=== PATIENT | male | born 1975 | race American Indian/Alaskan Native ===

== ENCOUNTER 2020-08-16 09:00 | Outpatient (RCR) | payer OTHER, SELFPAY ==
--- NOTE | 2020-07-25 10:17 | MHC.PT.OE ---
[facility] [place] Office [place] Office [place] Office [address] Jus Cordero [address] [phone] F: [phone] F: [phone] F: [phone] F: [phone] Physical Therapy Evaluation Current Condition Diagnosis: LOW BACK PAIN WITH LEFT LE RADICULOPATHY Onset Date: 10/21/2019 Date of Surgery: Chief Complaint/ Current Level of Function: PATIENT IS A 44 Y/O MALE WITH C/O OF LBP. PATIENT REPORTS RADIATING PAIN TO LEFT AND RIGHT LEG. 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 PATIENT DOES REPORT HAVING DRY NEEDLING WTH SOME REDUCTION OF PAIN. PATIENT REPORTS WORKING IN A [employer] THAT REQUIRES FREQUENT WALKING. PATIENT REPORTS DEREASED TOLERANCE TO STANDING AND SEATED POSTURES, WELL GAIT MODIFICATION AT END OF DAY. C/O OF MM SPASMS AND TIGHTNESS TO LOWER BACK. CURRENLTY NOT TAKEN MEDICATION TO ADDRESS MUSCLE TIGHTNESS AND OR PAIN. TAKING ASPIRIN FOR HEART 81 MG. PATIENT ALSO REPORTS RIGHT HIP PAIN Prior Level of Function/Occupation: PATIENT REPORTS DIFFICULTY WITH SLEEPING. PATIENT REPORTS RIGHT HIP PAIN WITH SITTING. PATIENT REPORTS PAIN WITH FLEXION AND LIMITATION WITH LIGHT LIFTING. Diagnostic Imaging: MRI DEGENRATIVE CHANGES TO LUMBAR SPINE Patient Goals and Expectations: 1. REDUCTION IN LOWER BACK PAIN Past Medical History: TYPE II DIABETES, HYPERLIPEDEMIA Medications: INSULIN, OTC ASPIRIN, Precautions/ Contraindications: Outcome Measure: Pain Pain Score: 8 Pain Scale Used: Numeric (0 - 10) Pain Location: LOWER LUMBAR AND BILATERAL SACRUM Pain Radiation Location: RADIATES TO RIGHT HIP, WITH DECREASED SENSATION TO LEFT LE AT L3-4 Pain Frequency: Constant Pain Description: CONTANT THROBBING Aggravating Factors: BEDNING AT WAIST, WALKING, LIFTING <5 LBS Alleviating Factors: ICY HOT PATCH, PATIENT DID REPORT USE OF VOLTARIN CREAM ALSO HELPED Objective Findings Posture: Rounded Shoulders Decreased Lordosis Skin & Soft Tissue/ Palpation: MODERATE MUSCLE TIGHTNESS AND GUARDING TO ERECTOR SPINAE GROUP Gait/ Functional Mobility: GUARDED WITH DECREASED RECIRICOL UE SWING, SHORTENED STRIDE LENGTH GUARDED WITH FLEXION BASED THROUGH STAND TO SIT AND SIT TO STAND TRANSFERS, SUPINE TO SIT REQUIRED MODERATE USE OF UE AROM (PROM) Strength Lumbar Spine Flexion: 25 Extension: 50 Lateral Flexion: 25 Rotation: 50 Comments: GUARDED DUE TO PAIN. RADIATING SYMPTOMS WITH FLEXION. HYPOMBILE: P/A GLIDE AND GAPPING A TRANSVERSE PROCESSES Transverse abdominus: FAIR- Extensors: POOR Other: GUARDING AND PAIN THROUGH ISOMETRIC CONTRACTION Hip Flexion: Extension: Abduction: Adduction: ER: IR: Comment: Flexion: LEFT 4/5 RIGHT 3+/5 Extension: 3-/5 BILATERAL Abduction: RIGHT: 3/5 LEFT: 3-/5 Adduction: 4-/5 BILATERAL ER: RIGHT 4-/5 LEFT 3+/5 IR: RIGHT 4/5 LEFT 4-/5 Other: RIGHT HIP AROM WITHIN 75%, WITH LIMITATION INTO IR AND ABDUCTION AT 50% DUE TO MUSCLE TIGHTNESS AND PAIN AT JOINT. Knee Flexion: Extension: Comments: Patella Mobility: Flexion: 5/5 BILATERAL Extension: RIGHT 4+/5 LEFT5/5 Other: Ankle Dorsiflexion: Plantarflexion: Inversion: Eversion: Comments: Dorsiflexion: Plantarflexion: Inversion: Eversion: Comments: Lu Assessment: MILD CENTRALIZATION. GIVEN HEP Sacroiliac Assessment: MILD RIGHT ROTATION Muscle Length: MODERATE TIGHTNESS. HAMSTRING AND HIP FLEXORS LIMIITED Special Tests: POSITIVE QUADRANT TEST BILATERAL, REPETITIVE FLEXION TEST RIGHT RADIATING PAIN, SLUMP TEST BILATERAL Vitals: BP: HR: O2SAT: RR: Other: Balance: Neurological Screen: Biceps DTR: Brachioradialis DTR: Triceps DTR: Patella DTR: 1+ Achilles DTR: Other: Dermatomes: DECREASED SOFT TOUCH LEFT LE L3-5 Sensation: Myotomes: Patient Education Primary Embedded Systems Designer Required No Who was Educated Patient Readiness for Learning Accepting Current Knowledge Understands information with skills for self-management Education Needs ADL's Disease Information Equipment Use Exercise Pain Safety Teaching Method Verbal Demonstration Handouts How did Patient Demonstrate Learning Patient demonstrates Patient verbalizes Barriers to Learning Assessment Assessment: PATIENT IS A 44 Y/O MALE WITH C/O OF CHRINIC LBP (6 YEARS) WITH RADICULOPATHY TO RIGHT LE. PATIENT ALSO REPORT PARASTHESIA TO LEFT LATERAL THIGH. 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 PATIENT DOES PRESENT WITH HYPOMOBILITY OF SPINE EFFECTING TRANSFERS AND NEUTRAL POSTURE SECONDARY TO MUSCLE TIGHTNESS, OA CHANGES AND POOR CORE CONTROL. PATIENT ALSO PRESENT WITH DIFFICULTY WITH TRANSFERS AND LIFTING DUE TO DECREASE LUMBAR STABILITY, MM SPASMS AND RADIATING PAIN. PATIENT WARRANTS A LUMBAR STABILIZATION PROGRAM WITH LU PROGRESSION BASED ON REDUCTION OF SYMPTOMS AT INITIAL EVALUATION. PROGRESSION OF CORE STRENGTHENING AND FLEXIBILITY IS WARRANTED TO ENHANCE LUMBAR BIOMECHANICS. PROGRESS TOLERATED. PATIENT IS A GOOD CANDIDATE FOR SKILLED PT INTEVRNETION TO ADDRESS GOALS AND IMPROVE FUNCTION. Rehabilitation Potential: Excellent Plan of Care Frequency and Duration Short Term Goals 1. PT WILL BE INDEPENDENT WITH HEP 2. PATIENT WILL PRESENT WITH UPRIGHT AND MIDLINE POSTURE TO REDCUE STRESS TO LB. 3. DECREASE PAIN TO 3/10 AT WORST 4. PATIENT WILL PRESENT WITH REDUCTION OF TTP BY 50% Ehs Specialist Goals 1. INCREASE MM GRADE TO CORE AND HIP GIRDLE BY 1 GRADE TO ASSIST WITH ADLS 2. REDUCE PAIN TO 2/10 AT WORST 3. PATIENT WILL PRESENT WITH NORMAL AND SAFE BIOMECHANICAL STRATEGIES WITH TRANSFERS 4. PATIENT WILL REPORT ABILITY TO WORK AND PARTICIPATE WITH ADL'S NOT LIMITED DUE TO PAIN 5. INCREASE CORE 5/5 6. INCREASE LUMBAR AROM TO WFL 7. PATIENT WILL BE ABLE TO WORK 8 HOURS WALKING AND STANING WITHOUT LIMITATION DUE TO PAIN 8. CENTRALIZATION OF SYMPTOMS BY 50% Treatment Plan Therapeutic Exercise Dynamic Therapeutic Activities Neuromuscular Re-ed Manual Therapies Joint Mobilization Taping Gait Home Exercise Program Patient Education Electrical Stimulation Iontophoresis Ultrasound Mechanical Traction Hot or Cold Pack Other LUMBAR STABILIZATION PROGRAM Reviewed/ Agreed with Student Documentation: Therapist: Please sign and return to therapist. Thank you for your referral.
== END 2020-12-01 08:32 | disposition other institution (70) ==
LOC: HO.PTWFD 09:00
PROVIDERS: PCP Family Medicine; Visit Provider Family Medicine
DX: M54.5 Low back pain (principal)
CPT/HCPCS: 97014; 97110; 97140; 97162

== ENCOUNTER → 2020-08-24 09:35 | Outpatient (BNVA) | payer OTHER, SELFPAY | PROVIDERS: PCP Family Medicine; Visit Provider Physician Assistant | DX: K76.0 Fatty (change of) liver, not elsewhere classified (principal); E11.9 Type 2 diabetes mellitus without complications; Z87.891 Personal history of nicotine dependence; Z79.899 Other long term (current) drug therapy | CPT/HCPCS: 99212 ==

== ENCOUNTER 2020-09-30 10:56 | Outpatient (REF) | payer OTHER, SELFPAY | END 2020-09-30 10:57 | disposition home or self-care (01) | LOC: HO.WFDLDS 10:56 | PROVIDERS: PCP Family Medicine; Visit Provider Internal Medicine | DX: Z20.828 Contact with and (suspected) exposure to other viral communicable diseases (principal) | CPT/HCPCS: C9803; U0003 ==

== ENCOUNTER → 2020-11-02 10:11 | Outpatient (BNVA) | payer OTHER, SELFPAY | PROVIDERS: PCP Family Medicine; Visit Provider Internal Medicine | DX: E11.65 Type 2 diabetes mellitus with hyperglycemia (principal); E78.5 Hyperlipidemia, unspecified; I10 Essential (primary) hypertension; E55.9 Vitamin D deficiency, unspecified; Z79.4 Long term (current) use of insulin | CPT/HCPCS: 82947; 99202 ==

== ENCOUNTER 2020-11-02 11:49 | Outpatient (REF) | payer OTHER, SELFPAY ==
[2020-11-02 14:10] LABS: Alanine Aminotransferase 21 U/L (0-40); Albumin Level 4.7 g/dL (3.5-5.0); Alkaline Phosphatase 62 U/L (39-117); Anion Gap 15 (12-20); Aspartate Amino Transferase 19 U/L (5-37); Bilirubin Total 0.6 mg/dL (0.0-1.0); Blood Urea Nitrogen 15 mg/dL (9-16); Carbon Dioxide 28 mmol/L (22-29); Chloride 98 mmol/L (96-108); Cholesterol 182 mg/dL; Estimated Glomerular Filt Rate > 60; Glucose Random 244 mg/dL (60-115); HDL Cholesterol 33 mg/dL; LDL Cholesterol Calculated 95 mg/dl; Potassium 4.3 mmol/l (3.3-5.1); Sodium 137 mmol/L (135-145); Total Protein 8.1 g/dL (6.5-8.0); Triglycerides 272 mg/dL
[2020-11-02 14:31] LABS: Vitamin D 25-OH Total 26.1 ng/mL (>30)
[2020-11-02 14:59] LABS: Creatinine Urine 213.93 mg/dL; Microalbum/Creatinine Ratio Ur 9.8 ug/mg cr
[2020-11-04 14:06] LABS: LDL Cholesterol Direct 98 mg/dL (<100)
[2020-11-05 13:37] LABS: Glutamic acid decarboxylase Ab <5 IU/mL (<5)
[2020-11-08 00:43] LABS: Islet Cell Antibody Screen NEGATIVE (NEGATIVE)
[2020-11-09 16:42] LABS: Insulinoma associated 2 aatb <5.4 U/mL (<5.4)
== END 2020-11-02 11:50 | disposition home or self-care (01) ==
LOC: HO.10HDL 11:49
PROVIDERS: Visit Provider Internal Medicine
DX: E11.9 Type 2 diabetes mellitus without complications (principal); E55.9 Vitamin D deficiency, unspecified
CPT/HCPCS: 36415; 80053; 80061; 82043; 82306; 83721; 86255; 86341

== ENCOUNTER 2020-11-09 10:21 | Outpatient (REF) | payer OTHER, SELFPAY | END 2020-11-09 10:22 | disposition home or self-care (01) | LOC: HO.WFDLDS 10:21 | PROVIDERS: Visit Provider Family Medicine | DX: Z13.89 Encounter for screening for other disorder (principal) ==

== ENCOUNTER 2020-11-17 12:48 | Outpatient (REF) | payer OTHER, SELFPAY | END 2020-11-17 12:49 | disposition home or self-care (01) | LOC: HO.LAB 12:48 | PROVIDERS: Visit Provider Hospitalist | DX: Z13.89 Encounter for screening for other disorder (principal) ==

== ENCOUNTER 2020-12-07 12:22 | Outpatient (REF) | payer OTHER, SELFPAY | END 2020-12-07 12:23 | disposition home or self-care (01) | LOC: HO.WFDLDS 12:22 | PROVIDERS: Visit Provider Family Medicine | DX: Z20.822 Contact with and (suspected) exposure to COVID-19 (principal); I48.0 Paroxysmal atrial fibrillation; E11.9 Type 2 diabetes mellitus without complications; I10 Essential (primary) hypertension | CPT/HCPCS: 36415; 93005; 99202; U0003; U0005 ==

== ENCOUNTER → 2020-12-14 09:44 | Outpatient (REF) | payer OTHER, SELFPAY ==
--- NOTE | 2020-12-14 09:47 | CA_ITS ---
Transthoracic Echocardiogram Patient (Last, First, Middle): Luke Flower, Gender: Male Date of : 1975 Age: 44 Procedure Date: 12/14/2020 Procedure Type: Transthoracic Echocardiogram Location: OP Height: 180. cm Weight: 102. kg BSA: 2.21 m2 Heart Rate: bpm BP: 140 / 80 mmHg Plug Paster: CRISTIANE Referring MD: Marty Dominguez MD Ventilator Specialist: Arnaud Quevedo MD Symptoms: I48.0 - Paroxysmal atrial fibrillation Study Quality: Fair ECG Rhythm: Sinus Conclusions: - Essentially normal study with grade 1 diastolic dysfunction Findings Left Ventricle Normal left ventricular size, thickness, and systolic function. The visually estimated ejection fraction is between 55-60%. Spectral Doppler is indicative of an impaired relaxation filling pattern. E/E prime ratio is <8, consistent with normal filling pressures. Evidence suggests grade I (mild) diastolic dysfunction. Right Ventricle Normal right ventricular cavity size and systolic function. Atria Both atria are normal in size. There is no evidence of interatrial shunt. Aortic Valve The aortic valve structure and function is likely normal. There is no aortic valve stenosis. There is no aortic valve regurgitation. Mitral Valve Normal mitral valve structure and function. There is trace mitral valve regurgitation. There is no mitral valve stenosis. Pulmonic Valve The pulmonic valve was not well visualized. Tricuspid Valve Likely normal tricuspid valve structure and function. There is trace tricuspid valve regurgitation. The right ventricular systolic pressure is normal. The right ventricular systolic pressure is 29 mmHg. Normal right atrial pressure. There is no evidence of pulmonary hypertension. Great Vessels All visible segments of the aorta are normal in size. The pulmonary artery was not well visualized. Venous The inferior vena cava is normal in size and collapses greater than 50% with inspiration. Pericardium/Pleural There is no evidence of pericardial effusion. Prior Study Comparison No prior study available for comparison. Measurements 2D Linear Measurements IVSd: 0.85 0.6-0.9/0.6-1.0 cm LVIDd: 4.67 3.9-5.3/4.2-5.9 cm LVIDd Index: 2.11 2.4-3.2/2.2-3.1 cm/m2 LVIDs: 2.64 2.0-3.6 cm LVPWd: 0.90 0.7-1.1 cm Ao Root: 3.30 2.1-3.5 cm LA Diam: 2.30 2.7-3.8/3.0-4.0 cm LAIDs Index: 1.04 1.5-2.3 cm/m2 LV Mass: 169.14 67-162/88-224 g LV Mass Index: 76.54 43-95/49-115 g/m2 LVOT Diam: 2.30 3.0+(-)1.3 cm 2D Systolic Function EF 4C: 56.30 >55% EF 2C: 60.30 >55% EF BiP: 57.70 >55% Mitral Valve MV Pk E: 0.86 MV PK A: 0.90 MV Decel Time: 183.00 E/A: 1.00 E'Lateral: 8.27 E'Medial: 5.99 E/E' Med: 14.40 E/E' Lat: 10.40 PHT: 54.00 MVA PHT: 4.07 Decel [place]: 4.72 Aortic Valve AoV Pk [place]: 1.05 AoV Pk Grad: 4.00 LVOT LVOT Pk [place]: 0.77 LVOT Mn [place]: 0.50 LVOT VTI: 0.15 LVOT Pk Grad: 2.00 LVOT Mn Grad: 1.00 LVOT Diam: 2.30 LVOT Area: 4.15 Diastolic Function MV Pk E: 0.86 MV Pk A: 0.90 E/A: 1.00 E'Medial: 5.99 E/E' Med: 14.40 E' Laterial: 8.27 E/E' Lat: 10.40 Tricuspid Valve TR Pk [place]: 2.54 TR Pk Grad: 26.00 RA Press: 3.00 RVSP: 29.00 Great Vessels Aorta Ao Root-2D: 3.30 2.0-3.7 cm Ao Asc: 2.90 2.1-3.4 cm Updated in Other Vendor System with Status of Final Arnaud Quevedo MD electronically signed on 12/14/2020 4:22:06 PM with status of Final
== END ==
LOC: HO.CARD 09:44
PROVIDERS: Visit Provider Internal Medicine
DX: I48.0 Paroxysmal atrial fibrillation (principal)
CPT/HCPCS: 93306

== ENCOUNTER 2020-12-30 08:06 | Outpatient (RCR) | payer OTHER, SELFPAY ==
--- NOTE | ~2020-12-30 | XR_ITS ---
EXAMINATION: XR ABDOMEN WITH DECUBITUS VIEWS CLINICAL INDICATION: Abdominal pain. COMPARISON: None TECHNIQUE: KUB. FINDINGS: The bowel gas pattern is nonspecific. There is no radiopaque calculi or organomegaly. No gross. There is moderate spondylosis at L2-L3 disc level. XR/XR abdomen w decubitus IMPRESSION: Unremarkable KUB.
== END 2021-01-30 08:18 | disposition other institution (70) ==
LOC: HO.PTWFD 08:06
PROVIDERS: Visit Provider Family Medicine
DX: S16.1XXA Strain of muscle, fascia and tendon at neck level, initial encounter (principal); S39.012A Strain of muscle, fascia and tendon of lower back, initial encounter; S06.0X9A Concussion with loss of consciousness of unspecified duration, initial encounter
CPT/HCPCS: 74021; 97162; 97535

== ENCOUNTER 2020-12-30 09:57 | Outpatient (REF) | payer OTHER, SELFPAY ==
[2020-12-30 14:22] LABS: Alanine Aminotransferase 21 U/L (0-40); Albumin Level 4.5 g/dL (3.5-5.0); Alkaline Phosphatase 70 U/L (39-117); Anion Gap 15 (12-20); Aspartate Amino Transferase 21 U/L (5-37); Bilirubin Total 0.5 mg/dL (0.0-1.0); Blood Urea Nitrogen 11 mg/dL (9-16); Calcium 9.5 mg/dL (8.4-10.2); Carbon Dioxide 28 mmol/L (22-29); Chloride 97 mmol/L (96-108); Estimated Glomerular Filt Rate > 60; Glucose Random 237 mg/dL (60-115); Potassium 4.4 mmol/L (3.3-5.1); Sodium 136 mmol/L (135-145); Total Protein 7.8 g/dL (6.5-8.0)
== END 2020-12-30 09:58 | disposition home or self-care (01) ==
LOC: HO.WFDLDS 09:57
PROVIDERS: Visit Provider Family Medicine
DX: R10.9 Unspecified abdominal pain (principal)
CPT/HCPCS: 36415; 80053

== ENCOUNTER → 2021-01-04 15:35 | Outpatient (BNVA) | payer OTHER, SELFPAY | PROVIDERS: PCP Family Medicine; Visit Provider Internal Medicine | DX: E11.65 Type 2 diabetes mellitus with hyperglycemia (principal); E78.5 Hyperlipidemia, unspecified; E55.9 Vitamin D deficiency, unspecified; I10 Essential (primary) hypertension; Z79.4 Long term (current) use of insulin; Z71.3 Dietary counseling and surveillance | CPT/HCPCS: 82947; 99212 ==

== ENCOUNTER → 2021-02-16 07:56 | Outpatient (REF) | payer OTHER, SELFPAY ==
--- NOTE | 2021-02-16 08:00 | CA_ITS ---
Acquisition Time: 2021-02-16 08:06:33 Total Exercise Time: 00:06:58 Test Indications: Dyspnea Medications: ATORVASTATIN BISOPROLOL CYCLOBENZAPRINE METFORMIN INSULIN LISINOPRIL FENOFIBRATE Protocol: ADE Max HR: 142 BPM 81% of Pred: 174 BPM Max BP: 138/080 mmHG Max Work Load: 8.4 METS Exercise stress test using Ade protocol, total of 6 min 58 sec. METS 8.40 and TAPHR up to 81 %. Pt denies any anginal sx. EKG without any arrhythmias, no ischemic changes seen during exercise or in recovery. Normotensive response to exercise. Test reviewed with Dr. Quevedo. Referred By: Marty Dominguez Overread By: Nona Andrade NP
--- NOTE | 2021-02-16 08:00 | ECG_ITS ---
Hook-up date: 2021-02-16 09:25:00 Duration: 26:35:00 Test Indications: PAF Medications: [id number] QRS complexes * Ventricular ectopics which represent % of total QRS comp. 1 Supraventricular ectopics which represent <1 % of total QRS comp. * Paced QRS complexs which represent % of total QRS comp. VENTRICULAR ECTOPY * Isolated * Bigeminal Cycles * Couplets * Runs * Beats in Runs * Beats LONGEST at * BPM at :: -- * Beats FASTEST at * BPM at :: -- SUPRAVENTRICULAR ECTOPY 1 Isolated 0 Couplets 0 Runs 0 Beats in Runs * Beats LONGEST at * BPM at :: -- * Beats FASTEST at * BPM at :: -- HEART RATES 68 MIN at 06:07:04 2021-02-17 85 AVG 111 MAX at 09:40:01 2021-02-17 LONGEST RR 0.5360 secs at 09:40:01 2021-02-17 S-T LEVELS Channel 1 - 128 mm at 09:25:00 2021-02-16 - 128 mm at 09:25:00 2021-02-16 Channel 2 - 128 mm at 09:25:00 2021-02-16 - 128 mm at 09:25:00 2021-02-16 Channel 3 - 128 mm at 02:84:41 -- - 128 mm at 02:84:41 Basic rhythm Normal sinus rhythm No long pause or profound bradycardia No sustained Atrial fibrillation No diary submitted Referred By: Marty Dominguez Overread By: DANIELA GANNON MD
== END ==
LOC: HO.CARD 07:56
PROVIDERS: Visit Provider Internal Medicine
DX: I48.0 Paroxysmal atrial fibrillation (principal); R07.2 Precordial pain; R06.00 Dyspnea, unspecified
CPT/HCPCS: 93016; 93017; 93018; 93225; 93226

== ENCOUNTER → 2021-03-02 09:51 | Outpatient (BNVA) | payer OTHER, SELFPAY | PROVIDERS: PCP Family Medicine; Visit Provider Internal Medicine ==

== ENCOUNTER → 2021-03-09 15:24 | Outpatient (BNVA) | payer OTHER, SELFPAY | PROVIDERS: PCP Family Medicine; Visit Provider Internal Medicine | DX: I48.0 Paroxysmal atrial fibrillation (principal); E11.9 Type 2 diabetes mellitus without complications; I10 Essential (primary) hypertension | CPT/HCPCS: 99212 ==

== ENCOUNTER 2021-05-12 13:56 | Outpatient (REF) | payer OTHER, SELFPAY ==
[2021-05-12 15:48] LABS: Influenza A PCR NEGATIVE (Negative); Influenza B PCR NEGATIVE (Negative); Resp Syncy Virus RNA Qual PCR NEGATIVE (Negative); SARS COV2 PCR INHOUSE NEGATIVE (Negative)
== END 2021-05-12 13:57 | disposition home or self-care (01) ==
LOC: HO.LNP 13:56
PROVIDERS: Visit Provider Nurse Practitioner Family
DX: Z20.822 Contact with and (suspected) exposure to COVID-19 (principal)
CPT/HCPCS: 0241U; U0003; U0005

== ENCOUNTER 2021-05-15 12:24 | Outpatient (REF) | payer OTHER, SELFPAY | END 2021-05-15 12:25 | disposition home or self-care (01) | LOC: HO.LAB 12:24 | PROVIDERS: PCP Family Medicine; Visit Provider Nurse Practitioner Family | DX: Z20.822 Contact with and (suspected) exposure to COVID-19 (principal) | CPT/HCPCS: U0003; U0005 ==

== ENCOUNTER 2021-05-24 14:34 | Outpatient (REF) | payer OTHER, SELFPAY ==
[2021-05-24 15:46] LABS: Estimated Average Glucose 269 mg/dL
[2021-05-25 13:27] LABS: LDL Cholesterol Direct 61 mg/dL (<100)
== END 2021-05-24 14:35 | disposition home or self-care (01) ==
LOC: HO.LAB 14:34
PROVIDERS: Internal Medicine; PCP Family Medicine; Visit Provider Nurse Practitioner Family
DX: E11.65 Type 2 diabetes mellitus with hyperglycemia (principal); Z79.4 Long term (current) use of insulin; Z20.822 Contact with and (suspected) exposure to COVID-19
CPT/HCPCS: 36415; 83036; 83721; U0003; U0005

== ENCOUNTER → 2021-06-01 13:57 | Outpatient (BNVA) | payer OTHER, SELFPAY | PROVIDERS: PCP Family Medicine; Visit Provider Internal Medicine | DX: E11.65 Type 2 diabetes mellitus with hyperglycemia (principal); E78.5 Hyperlipidemia, unspecified; E55.9 Vitamin D deficiency, unspecified; I10 Essential (primary) hypertension; Z79.4 Long term (current) use of insulin | CPT/HCPCS: 82947; 99212 ==

== ENCOUNTER 2021-07-17 08:46 | Outpatient (REF) | payer OTHER, SELFPAY ==
[2021-07-17 11:10] LABS: SARS COV2 IgG Positive (Negative)
[2021-07-17 11:15] LABS: Alanine Aminotransferase 40 U/L (0-40); Albumin Level 4.7 g/dL (3.5-5.0); Alkaline Phosphatase 72 U/L (39-117); Anion Gap 14 (12-20); Aspartate Amino Transferase 31 U/L (5-37); Bilirubin Total 0.5 mg/dL (0.0-1.0); Blood Urea Nitrogen 13 mg/dL (9-16); Calcium 10.3 mg/dL (8.4-10.2); Carbon Dioxide 27 mmol/L (22-29); Chloride 98 mmol/L (96-108); Cholesterol 183 mg/dL; Estimated Glomerular Filt Rate > 60; Glucose Random 305 mg/dL (60-115); HDL Cholesterol 27 mg/dL; Potassium 4.8 mmol/L (3.3-5.1); Sodium 134 mmol/L (135-145); Total Protein 8.1 g/dL (6.5-8.0); Triglycerides 737 mg/dL
[2021-07-17 11:18] LABS: Vitamin D 25-OH Total 22.8 ng/mL (>30)
[2021-07-17 12:36] LABS: Creatinine Urine 66.79 mg/dL; Microalbumin Urine < 5.0 mg/L
[2021-07-19 00:01] LABS: LDL Cholesterol Direct 60 mg/dL (<100)
== END 2021-07-17 08:47 | disposition home or self-care (01) ==
LOC: HO.LAB 08:46
PROVIDERS: PCP Family Medicine; Visit Provider Internal Medicine
DX: Z20.828 Contact with and (suspected) exposure to other viral communicable diseases (principal); E11.65 Type 2 diabetes mellitus with hyperglycemia; E55.9 Vitamin D deficiency, unspecified; Z79.4 Long term (current) use of insulin
CPT/HCPCS: 36415; 80053; 80061; 82043; 82306; 83721; 86769

== ENCOUNTER → 2021-09-06 08:25 | Outpatient (BNVA) | payer OTHER, SELFPAY | PROVIDERS: PCP Family Medicine; Visit Provider Internal Medicine | DX: E11.65 Type 2 diabetes mellitus with hyperglycemia (principal); E78.5 Hyperlipidemia, unspecified; E55.9 Vitamin D deficiency, unspecified; I10 Essential (primary) hypertension; Z79.4 Long term (current) use of insulin | CPT/HCPCS: 82947; 83036; 99212 ==

== ENCOUNTER 2021-10-25 12:35 | Outpatient (REF) | payer OTHER, SELFPAY ==
--- NOTE | ~2021-10-25 | XR_ITS ---
EXAMINATION: XR ABDOMEN KUB CLINICAL INDICATION: Right upper quadrant pain COMPARISON: None TECHNIQUE: AP view of the abdomen. FINDINGS: There is no radiopaque calculi seen in the upper quadrant or the midabdomen. The bowel gas pattern is nonspecific. No free air or free fluid seen. There is moderate spondylosis L2-L3 disc level. XR/XR KUB IMPRESSION: Unremarkable KUB.
[2021-10-25 14:40] LABS: Alanine Aminotransferase 30 U/L (0-40); Albumin Level 4.7 g/dL (3.5-5.0); Alkaline Phosphatase 60 U/L (39-117); Anion Gap 12 (12-20); Aspartate Amino Transferase 22 U/L (5-37); Bilirubin Total 0.6 mg/dL (0.0-1.0); Blood Urea Nitrogen 10 mg/dL (9-16); Calcium 10.3 mg/dL (8.4-10.2); Carbon Dioxide 29 mmol/L (22-29); Chloride 100 mmol/L (96-108); Cholesterol 145 mg/dL; Estimated Glomerular Filt Rate > 60; Glucose Fasting 182 mg/dL (60-99); HDL Cholesterol 28 mg/dL; LDL Cholesterol Calculated 57 mg/dl; Potassium 4.4 mmol/L (3.3-5.1); Sodium 137 mmol/L (135-145); Triglycerides 302 mg/dL; Uric Acid 4.4 mg/dL (3.4-7.0)
[2021-10-25 15:01] LABS: Vitamin D 25-OH Total 27.3 ng/mL (>30)
== END 2021-10-25 12:36 | disposition home or self-care (01) ==
LOC: HO.LAB 12:35
PROVIDERS: Visit Provider Family Medicine
DX: Z00.00 Encounter for general adult medical examination without abnormal findings (principal); R10.11 Right upper quadrant pain; E55.9 Vitamin D deficiency, unspecified; R79.89 Other specified abnormal findings of blood chemistry; Z87.39 Personal history of other diseases of the musculoskeletal system and connective tissue
CPT/HCPCS: 36415; 74018; 80053; 80061; 82306; 84550

== ENCOUNTER 2021-11-01 09:02 | Outpatient (REF) | payer OTHER, SELFPAY ==
[2021-11-01 10:29] LABS: MANUAL DIFF FLAG NO
[2021-11-01 10:37] LABS: Basophils Percent Auto 0.5 % (0-2); Eosinophils Absolute Auto 0.2 X10*3/uL (0.0-0.4); Eosinophils Percent Auto 3.7 % (0-4); Hematocrit 41.3 % (42.0-52.0); Hemoglobin 13.9 g/dl (14.0-18.0); Imm Gran Abs Auto 0.03 X10*3/uL (0.00-0.03); Imm Gran Pct Auto 0.5 % (0.0-0.4); Lymphocytes Percent Auto 31.3 % (20-40); Mean Corpuscular HGB Conc 33.7 g/dl (31.0-36.0); Mean Corpuscular Hemoglobin 28.5 pg (27.0-33.0); Mean Corpuscular Volume 84.6 fL (80.0-98.0); Mean Platelet Volume 10.6 fL (9.4-12.4); Monocytes Absolute Auto 0.6 X10*3/uL (0.1-1.2); Monocytes Percent Auto 9.4 % (2-11); Neutrophils Absolute Auto 3.4 x10*3/uL (2.0-8.3); Neutrophils Percent Auto 54.6 % (45-73); Platelet Count 304 X10*3/uL (160-400); Red Blood Count 4.88 X10*6/uL (4.60-5.80); Red Cell Distribution Width 12.6 % (11.0-16.0); White Blood Count 6.3 X10*3/uL (4.8-10.8)
[2021-11-01 10:46] LABS: Appearance Urine CLEAR; Color Urine YELLOW; Glucose Urine UA NEG (NEG); Leukocyte Esterase Urine NEG (NEG); Nitrite Urine NEG (NEG); PH 6.5 (5.0-8.0); Specific Gravity - Urine 1.015 (1.005-1.025); Urine Blood NEG (NEG); Urine Ketones NEG (NEG); Urine Protein NEG (NEG-TRACE)
[2021-11-01 10:47] LABS: Alanine Aminotransferase 26 U/L (0-40); Albumin Level 4.1 g/dL (3.5-5.0); Alkaline Phosphatase 53 U/L (39-117); Anion Gap 12 (12-20); Aspartate Amino Transferase 21 U/L (5-37); Bilirubin Total 0.7 mg/dL (0.0-1.0); Blood Urea Nitrogen 11 mg/dL (9-16); Carbon Dioxide 29 mmol/L (22-29); Chloride 101 mmol/L (96-108); Estimated Glomerular Filt Rate > 60; Glucose Fasting 151 mg/dL (60-99); Potassium 4.5 mmol/L (3.3-5.1); Sodium 137 mmol/L (135-145); Total Protein 7.4 g/dL (6.5-8.0); Uric Acid 4.2 mg/dL (3.4-7.0)
[2021-11-01 10:54] LABS: Lactate Dehydrogenase 132 U/L (118-273)
== END 2021-11-01 09:03 | disposition home or self-care (01) ==
LOC: HO.WFDLDS 09:02
PROVIDERS: Visit Provider Family Medicine
DX: Z00.00 Encounter for general adult medical examination without abnormal findings (principal); R10.11 Right upper quadrant pain; M10.9 Gout, unspecified
CPT/HCPCS: 36415; 80053; 81003; 83615; 84550; 85025

== ENCOUNTER 2021-11-02 13:45 | Outpatient (REF) | payer OTHER, SELFPAY ==
--- NOTE | ~2021-11-02 | US_ITS ---
EXAMINATION: US ABDOMEN LIMITED CLINICAL INFORMATION: Right upper quadrant pain. COMPARISON: X-ray KUB 10/25/2021. X-ray abdomen 12/30/2020. Ultrasound abdomen complete 07/11/2020. TECHNIQUE: Real-time imaging of the right upper quadrant abdominal viscera. FINDINGS: PANCREAS: Normal. LIVER: The liver is normal in size. The liver contour is normal. There is diffuse increased liver echogenicity. No focal hepatic lesion. There is no intrahepatic biliary duct dilatation seen. GALLBLADDER: Normal. The gallbladder is physiologically distended without evidence of stones, sludge, polyps, wall thickening or pericholecystic fluid. COMMON BILE DUCT: Normal in caliber measuring 0.3 cm in diameter. RIGHT KIDNEY: Normal. No hydronephrosis. No renal calculi or focal parenchymal lesions. The kidney measures 11.8 cm in maximum dimension. FREE FLUID: None. US/US abdomen limited IMPRESSION: Diffuse mild hepatic steatosis without focal lesion seen. The rest of the visualized pancreas, gallbladder, right kidney, and the CBD is unremarkable.
[2021-11-02 16:22] LABS: MANUAL DIFF FLAG NO
[2021-11-02 16:25] LABS: Basophils Percent Auto 0.5 % (0-2); Eosinophils Absolute Auto 0.2 X10*3/uL (0.0-0.4); Eosinophils Percent Auto 4.1 % (0-4); Hemoglobin 13.7 g/dl (14.0-18.0); Imm Gran Abs Auto 0.02 X10*3/uL (0.00-0.03); Imm Gran Pct Auto 0.3 % (0.0-0.4); Lymphocytes Absolute Auto 2.3 X10*3/uL (1.2-4.9); Lymphocytes Percent Auto 39.7 % (20-40); Mean Corpuscular HGB Conc 33.4 g/dl (31.0-36.0); Mean Corpuscular Hemoglobin 28.2 pg (27.0-33.0); Mean Corpuscular Volume 84.5 fL (80.0-98.0); Mean Platelet Volume 10.8 fL (9.4-12.4); Monocytes Absolute Auto 0.5 X10*3/uL (0.1-1.2); Monocytes Percent Auto 8.4 % (2-11); Neutrophils Absolute Auto 2.8 x10*3/uL (2.0-8.3); Platelet Count 309 X10*3/uL (160-400); Red Blood Count 4.85 X10*6/uL (4.60-5.80); Red Cell Distribution Width 12.6 % (11.0-16.0); White Blood Count 5.9 X10*3/uL (4.8-10.8)
[2021-11-02 16:40] LABS: Appearance Urine CLEAR; Color Urine YELLOW; Glucose Urine UA NEG (NEG); Leukocyte Esterase Urine NEG (NEG); Nitrite Urine NEG (NEG); Specific Gravity - Urine 1.015 (1.005-1.025); Urine Blood NEG (NEG); Urine Ketones NEG (NEG); Urine Protein NEG (NEG-TRACE)
[2021-11-02 16:41] LABS: Estimated Average Glucose 252 mg/dL; Hemoglobin A1c % 10.4 %
[2021-11-02 16:51] LABS: Alanine Aminotransferase 23 U/L (0-40); Albumin Level 4.3 g/dL (3.5-5.0); Alkaline Phosphatase 55 U/L (39-117); Anion Gap 12 (12-20); Aspartate Amino Transferase 22 U/L (5-37); Bilirubin Total 0.6 mg/dL (0.0-1.0); Blood Urea Nitrogen 12 mg/dL (9-16); Carbon Dioxide 29 mmol/L (22-29); Chloride 101 mmol/L (96-108); Cholesterol 146 mg/dL; Estimated Glomerular Filt Rate > 60; Glucose Random 117 mg/dL (60-115); HDL Cholesterol 30 mg/dL; LDL Cholesterol Calculated 76 mg/dl; Lipase 34 U/L (8-78); Potassium 4.3 mmol/L (3.3-5.1); Sodium 138 mmol/L (135-145); Total Protein 7.7 g/dL (6.5-8.0); Triglycerides 200 mg/dL
[2021-11-03 17:57] LABS: LDL Cholesterol Direct 83 mg/dL (<100)
== END 2021-11-02 13:46 | disposition home or self-care (01) ==
LOC: HO.HMGCX 13:45
PROVIDERS: Absent Provider Internal Medicine; PCP Family Medicine; Visit Provider Family Medicine
DX: Z00.00 Encounter for general adult medical examination without abnormal findings (principal); R10.11 Right upper quadrant pain; E11.65 Type 2 diabetes mellitus with hyperglycemia; Z79.4 Long term (current) use of insulin
CPT/HCPCS: 36415; 76705; 80053; 80061; 81003; 83036; 83690; 83721; 85025

== ENCOUNTER → 2021-11-23 13:32 | Outpatient (BNVA) | payer OTHER, SELFPAY | PROVIDERS: PCP Family Medicine; Referring Provider Family Medicine; Visit Provider Internal Medicine | DX: I48.0 Paroxysmal atrial fibrillation (principal); E11.9 Type 2 diabetes mellitus without complications; I10 Essential (primary) hypertension | CPT/HCPCS: 93005; 99212 ==

== ENCOUNTER → 2021-12-05 15:03 | Outpatient (BNVA) | payer OTHER, SELFPAY | PROVIDERS: PCP Family Medicine; Visit Provider Orthopaedic Surgery | DX: M65.342 Trigger finger, left ring finger (principal); M65.331 Trigger finger, right middle finger; R20.0 Anesthesia of skin; R20.2 Paresthesia of skin | CPT/HCPCS: 99202 ==

== ENCOUNTER 2021-12-07 15:32 | Outpatient (REF) | payer OTHER, SELFPAY ==
--- NOTE | ~2021-12-07 | CT_ITS ---
EXAMINATION: CT ABDOMEN WITHOUT CONTRAST CLINICAL INFORMATION: Right upper quadrant abdominal pain COMPARISON: Ultrasound of November 02, 2021 TECHNIQUE: Contiguous axial thin section helical images of the abdomen were performed without contrast. The data set was reformatted in the coronal and sagittal planes and reviewed on an independent workstation. This CT examination was performed using dose optimization techniques as appropriate, variously including the following: *Automated exposure control *Adjustment of mA and/or kV according to patient size (this includes techniques or standardized protocols for targeted exams where dose is matched to indication/reason for exam; i.e. extremities or head) *Use of iterative reconstruction technique DLP: 393 mGy-cm FINDINGS: LUNG BASES: Lung bases appear unremarkable without acute parenchymal disease. No pleural or pericardial effusion. LIVER, GALLBLADDER, BILIARY TREE: Hepatomegaly is present with vertical span of approximately 22 cm. No focal mass or intrahepatic bile duct dilatation is identified. Gallbladder appears unremarkable without evidence of cholelithiasis or acute cholecystitis. There are a few calcifications seen in the region between the pancreas and duodenum but appear to lie somewhat distal to the expected location of the ampulla of Vater and I do not see a dilated common bile duct and I also do not definitely see a low-density halo around the calcifications to suggest that they lie within the common bile duct. PANCREAS: No suspicious mass or peripancreatic inflammatory change. No pancreatic duct dilatation. SPLEEN: Unremarkable ADRENAL GLANDS AND KIDNEYS: Unremarkable. BOWEL LOOPS: No dilated loops of large or small bowel are evident. No free air is identified. No ascites is seen. LYMPH NODES: There are some prominent but not pathologically enlarged periaortic lymph nodes. VASCULAR: Unremarkable. BONES: No suspicious destructive bony lesions identified. There is multilevel spurring within the spine. CT/CT abdomen wo con IMPRESSION: Hepatomegaly without intrahepatic bile duct dilatation. No evidence of cholelithiasis or acute cholecystitis. A few calcifications seen overlying the inferior aspect of the pancreatic head near the third portion of the duodenum without dilated common bile duct appreciated and most likely not lying within the common bile duct. No evidence of acute pancreatitis or pancreatic ductal dilatation. Fleischner guidelines were followed.
== END 2021-12-07 15:33 | disposition home or self-care (01) ==
LOC: HO.CT 15:32
PROVIDERS: PCP Family Medicine; Visit Provider Family Medicine
DX: R10.11 Right upper quadrant pain (principal)
CPT/HCPCS: 74150

== ENCOUNTER → 2021-12-22 08:28 | Outpatient (BNVA) | payer OTHER, SELFPAY | PROVIDERS: PCP Family Medicine; Visit Provider Nurse Practitioner Gerontology | DX: E11.65 Type 2 diabetes mellitus with hyperglycemia (principal); E78.5 Hyperlipidemia, unspecified; E55.9 Vitamin D deficiency, unspecified; I10 Essential (primary) hypertension; Z79.4 Long term (current) use of insulin | CPT/HCPCS: 82947; 99212 ==

== ENCOUNTER 2021-12-28 09:40 | Outpatient (REF) | payer OTHER, SELFPAY ==
[2021-12-28 12:09] LABS: Rheumatoid Factor < 15.0 IU/mL (<15.0)
[2021-12-28 12:37] LABS: Erythrocyte Sedimentation Rate 7 MM/HR (0-15)
[2021-12-28 12:43] LABS: Folate 13.1 ng/mL (> or = 4.0); Vitamin B12 321 pg/mL (200-900)
[2021-12-29 18:21] LABS: CRP High Sensitivity 6.5 mg/L
== END 2021-12-28 09:41 | disposition home or self-care (01) ==
LOC: HO.WFDLDS 09:40
PROVIDERS: Visit Provider Family Medicine
DX: E53.8 Deficiency of other specified B group vitamins (principal); M65.331 Trigger finger, right middle finger
CPT/HCPCS: 36415; 82607; 82746; 85652; 86141; 86431

== ENCOUNTER → 2021-12-29 08:25 | Outpatient (BNVA) | payer OTHER, SELFPAY | PROVIDERS: PCP Family Medicine; Visit Provider Registered Nurse Diabetes Educator ==

== ENCOUNTER 2022-01-24 09:47 | Outpatient (REF) | payer OTHER, SELFPAY ==
--- NOTE | 2022-01-24 09:30 | EMG_ITS ---
This is a 46-year-old man with several year history of bilateral hand numbness and pain, and some pain in left shoulder and scapular area as well. PHYSICAL EXAMINATION: He is alert and oriented with normal intellectual functions. Cranial nerves II through XII are normal. Muscle tone and strength are normal. No Tinel or Phalen sign. IMPRESSION: Carpal tunnel syndrome rule out cervical radiculopathy. Nerve conduction EMG study: Moderate to severe carpal tunnel syndrome bilaterally. Normal EMG of the left C5-T1 innervated muscles. MD HERNAN Johnson/DIVYA / [id number]
== END 2022-01-24 09:48 | disposition home or self-care (01) ==
LOC: HO.NEURO 09:47
PROVIDERS: PCP Family Medicine; Visit Provider Orthopaedic Surgery
DX: R20.0 Anesthesia of skin (principal); R20.2 Paresthesia of skin
CPT/HCPCS: 95885; 95913

== ENCOUNTER → 2022-02-02 08:34 | Outpatient (BNVA) | payer OTHER, SELFPAY | PROVIDERS: PCP Family Medicine; Visit Provider Nurse Practitioner Gerontology | DX: E11.65 Type 2 diabetes mellitus with hyperglycemia (principal); E78.5 Hyperlipidemia, unspecified; I10 Essential (primary) hypertension; E55.9 Vitamin D deficiency, unspecified; Z79.4 Long term (current) use of insulin; Z79.899 Other long term (current) drug therapy | CPT/HCPCS: 82947; 83036; 99212 ==

== ENCOUNTER → 2022-02-09 12:15 | Outpatient (BNVA) | payer OTHER, SELFPAY | PROVIDERS: PCP Family Medicine; Referring Provider Family Medicine; Visit Provider Internal Medicine Gastroenterology | DX: R10.11 Right upper quadrant pain (principal) | CPT/HCPCS: 99212 ==

== ENCOUNTER 2022-02-15 10:28 | Outpatient (REF) | payer OTHER, SELFPAY ==
[2022-02-15 14:17] LABS: Influenza A PCR NEGATIVE (Negative); Influenza B PCR NEGATIVE (Negative); Resp Syncy Virus RNA Qual PCR NEGATIVE (Negative); SARS COV2 PCR INHOUSE NEGATIVE (Negative)
== END 2022-02-15 10:29 | disposition home or self-care (01) ==
LOC: HO.LAB 10:28
PROVIDERS: Visit Provider Family Medicine
DX: J32.9 Chronic sinusitis, unspecified (principal); Z20.822 Contact with and (suspected) exposure to COVID-19
CPT/HCPCS: 0241U

== ENCOUNTER 2022-02-23 12:35 | Outpatient (REF) | payer OTHER, SELFPAY ==
--- NOTE | ~2022-02-23 | XR_ITS ---
EXAMINATION: XR CHEST CLINICAL INFORMATION: Cough COMPARISON: None TECHNIQUE: 2 views of the chest were obtained. FINDINGS: No significant abnormality is noted involving the heart, lungs, mediastinum, bony thorax or soft tissues. XR/XR chest 2V IMPRESSION: Unremarkable examination.
== END 2022-02-23 12:36 | disposition home or self-care (01) ==
LOC: HO.HMGCX 12:35
PROVIDERS: Visit Provider Family Medicine
DX: R05.9 Cough, unspecified (principal)
CPT/HCPCS: 71046

== ENCOUNTER → 2022-03-01 11:31 | Outpatient (BNVA) | payer OTHER, SELFPAY | PROVIDERS: PCP Family Medicine; Visit Provider Dietitian, Registered | DX: E11.65 Type 2 diabetes mellitus with hyperglycemia (principal); Z68.37 Body mass index [BMI] 37.0-37.9, adult | CPT/HCPCS: 97802 ==

== ENCOUNTER 2022-05-11 13:00 | Outpatient (RCR) | payer OTHER, SELFPAY ==
--- NOTE | 2022-05-04 13:57 | MHC.PT.EP ---
[facility] [place] Office [place] Office [place] Office [address] Cec[address] Cordero [address] [phone] F: [phone] F: [phone] F: [phone] F: [phone] Physical Therapy Plan of Care Date of Evaluation: Date of Surgery: Diagnosis: Radiculopathy Assessment: Patient is a 46 year old R handed male who presents with s/s consistent with radiculopathy. 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 Patient past medical history includes DM. Current impairments include pain, posture, ROM, strength, activity tolerance and functional mobility. Functional limitations include decreased ability to sleep, lift, reach, turn head, drive. Patient is motivated with good rehab potential. Skilled PT will address impairments and functional limitations in order to achieve goals. Frequency and Duration: The patient will be seen 2x/week for 5 weeks Short Term Goals: I with HEP - 2 weeks c-spine rotation 60 b/l - 3 weeks (-) impingement cluster - 3 weeks Jail Goals: SPADI 14/130 - 5 weeks NPDI 18% or less - 5 weeks Pain free PLOF - 5 weeks Treatment Plan: Modalities to reduce pain, spasms and effusion. Manual therapy to restore motion and function. Therapeutic exercise to improve strength and flexibility. Neuromuscular re-education for posture and balance. Therapeutic activities to return to functional activities of daily living. Electronically signed by: Dionicio Cortez, PT Please sign and return to therapist. Thank you for your referral.
--- NOTE | 2022-07-12 09:13 | MHC.PT.DC ---
[facility] [place] Office [place] Office [place] Office [address] Jus Cordero [address] [phone] F: [phone] F: [phone] F: [phone] F: [phone] Physical Therapy Discharge Report Diagnosis: Radiculopathy Date of Surgery: Date of Evaluation: 05/04/22 Date of Discharge: 06/12/22 Treatments to Date: 2 Cancellations to Date: No Shows to Date: Discharge Status: Patient Elected to Stop Discharge Summary: 05/11/22: progressed with stretching/ posture. issued HEP. assess response and progress as tolerated. Patient is a 46 year old R handed male who presents with s/s consistent with radiculopathy. 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 Patient past medical history includes DM. Current impairments include pain, posture, ROM, strength, activity tolerance and functional mobility. Functional limitations include decreased ability to sleep, lift, reach, turn head, drive. Patient is motivated with good rehab potential. Skilled PT will address impairments and functional limitations in order to achieve goals. Electronically signed by: Dionicio Cortez, PT Please sign and return to therapist. Thank you for your referral.
== END 2022-07-12 09:14 | disposition home or self-care (01) ==
LOC: HO.PTCHIC 13:00
PROVIDERS: PCP Family Medicine; Visit Provider Family Medicine
DX: M54.12 Radiculopathy, cervical region (principal)
CPT/HCPCS: 97110; 97140; 97162

== ENCOUNTER 2022-05-28 13:59 | Outpatient (REF) | payer OTHER, SELFPAY ==
[2022-05-28 14:35] LABS: Hematocrit 39.7 % (42.0-52.0); Hemoglobin 13.3 g/dl (14.0-18.0); Mean Corpuscular HGB Conc 33.5 g/dl (31.0-36.0); Mean Corpuscular Hemoglobin 27.9 pg (27.0-33.0); Mean Corpuscular Volume 83.4 fL (80.0-98.0); Mean Platelet Volume 12.5 fL (9.4-12.4); Platelet Count 221 X10*3/uL (160-400); Red Blood Count 4.76 X10*6/uL (4.60-5.80); Red Cell Distribution Width 13.4 % (11.0-16.0); White Blood Count 7.1 X10*3/uL (4.8-10.8)
[2022-05-28 15:01] LABS: Anion Gap 16 (12-20); Blood Urea Nitrogen 12 mg/dL (9-16); Calcium 9.9 mg/dL (8.4-10.2); Carbon Dioxide 26 mmol/L (22-29); Chloride 97 mmol/L (96-108); Estimated Glomerular Filt Rate > 60; Glucose Random 268 mg/dL (60-115); Potassium 4.7 mmol/L (3.3-5.1); Sodium 134 mmol/L (135-145)
[2022-05-28 15:02] LABS: B Type Natriuretic Peptide < 10 pg/mL (<100)
== END 2022-05-28 14:00 | disposition home or self-care (01) ==
LOC: HO.LAB 13:59
PROVIDERS: PCP Family Medicine; Visit Provider Nurse Practitioner Family
DX: M79.89 Other specified soft tissue disorders (principal)
CPT/HCPCS: 36415; 80048; 83880; 85027

== ENCOUNTER 2022-06-08 10:32 | Outpatient (REF) | payer OTHER, SELFPAY ==
[2022-06-08 11:35] LABS: MANUAL DIFF FLAG NO
[2022-06-08 11:41] LABS: Basophils Percent Auto 0.7 % (0-2); Eosinophils Absolute Auto 0.2 X10*3/uL (0.0-0.4); Eosinophils Percent Auto 3.6 % (0-4); Hematocrit 40.1 % (42.0-52.0); Hemoglobin 13.7 g/dl (14.0-18.0); Imm Gran Abs Auto 0.03 X10*3/uL (0.00-0.03); Imm Gran Pct Auto 0.5 % (0.0-0.4); Lymphocytes Absolute Auto 1.8 X10*3/uL (1.2-4.9); Lymphocytes Percent Auto 31.2 % (20-40); Mean Corpuscular HGB Conc 34.2 g/dl (31.0-36.0); Mean Corpuscular Hemoglobin 28.4 pg (27.0-33.0); Mean Corpuscular Volume 83.2 fL (80.0-98.0); Mean Platelet Volume 10.6 fL (9.4-12.4); Monocytes Absolute Auto 0.4 X10*3/uL (0.1-1.2); Monocytes Percent Auto 7.3 % (2-11); Neutrophils Absolute Auto 3.4 x10*3/uL (2.0-8.3); Neutrophils Percent Auto 56.7 % (45-73); Platelet Count 260 X10*3/uL (160-400); Red Blood Count 4.82 X10*6/uL (4.60-5.80); Red Cell Distribution Width 13.5 % (11.0-16.0); White Blood Count 5.9 X10*3/uL (4.8-10.8)
[2022-06-08 11:52] LABS: INTERNATIONAL NORM RATIO 0.9 (0.9-1.1); Prothrombin Time 10.7 SEC (10.0-13.1)
[2022-06-08 12:18] LABS: Alanine Aminotransferase 27 U/L (0-40); Albumin Level 4.3 g/dL (3.5-5.0); Alkaline Phosphatase 66 U/L (39-117); Anion Gap 15 (12-20); Aspartate Amino Transferase 23 U/L (5-37); Bilirubin Total 0.5 mg/dL (0.0-1.0); Blood Urea Nitrogen 10 mg/dL (9-16); C Reactive Protein 0.92 mg/dL (< or = 0.50); Calcium 9.8 mg/dL (8.4-10.2); Carbon Dioxide 27 mmol/L (22-29); Chloride 100 mmol/L (96-108); Estimated Glomerular Filt Rate > 60; Glucose Random 167 mg/dL (60-115); Potassium 4.2 mmol/L (3.3-5.1); Sodium 138 mmol/L (135-145); Total Protein 7.4 g/dL (6.5-8.0)
[2022-06-08 12:23] LABS: Erythrocyte Sedimentation Rate 8 MM/HR (0-15)
[2022-06-08 12:30] LABS: Ferritin 67 ng/mL (20-250); Vitamin D 25-OH Total 18.3 ng/mL (>30)
[2022-06-08 12:41] LABS: Folate 17.7 ng/mL (> or = 4.0); Vitamin B12 299 pg/mL (200-900)
[2022-06-11 14:17] LABS: IgA 195 mg/dL (47-310); IgG 1366 mg/dL (600-1640); IgM 38 mg/dL (50-300)
[2022-06-12 12:36] LABS: Vitamin B6 28.6 ng/mL (2.1-21.7)
[2022-06-13 17:16] LABS: Alpha-Tocopherol 13.1 mg/L (5.7-19.9); Beta-Gamma Tocopherol 1.6 mg/L (<=4.3)
[2022-06-14 10:47] LABS: Vitamin C 0.5 mg/dL (0.2-2.1)
[2022-06-14 13:17] LABS: Vitamin B5 (Pantothenic Acid) 239 ng/mL (<275)
[2022-06-15 10:46] LABS: Nicotinamide <20 ng/mL; Vit B3 - Nicotinic Acid <20 ng/mL
[2022-06-15 17:16] LABS: Histamine Plasma <1.5 ng/mL (< OR = 1.8)
== END 2022-06-08 10:33 | disposition home or self-care (01) ==
LOC: HO.LAB 10:32
PROVIDERS: PCP Family Medicine; Visit Provider Internal Medicine Gastroenterology
DX: K75.81 Nonalcoholic steatohepatitis (NASH) (principal); R20.0 Anesthesia of skin; E11.65 Type 2 diabetes mellitus with hyperglycemia; I10 Essential (primary) hypertension; G47.33 Obstructive sleep apnea (adult) (pediatric); M10.9 Gout, unspecified; Z79.4 Long term (current) use of insulin
CPT/HCPCS: 36415; 80053; 82180; 82306; 82607; 82728; 82746; 82784; 83088; 84207; 84446; 84591; 85025; 85610; 85652; 86140; 99212

== ENCOUNTER → 2022-06-11 12:20 | Outpatient (BNVA) | payer OTHER, SELFPAY | PROVIDERS: PCP Family Medicine; Referring Provider Family Medicine; Visit Provider Internal Medicine | DX: I48.0 Paroxysmal atrial fibrillation (principal); I10 Essential (primary) hypertension; E11.9 Type 2 diabetes mellitus without complications | CPT/HCPCS: 99212 ==

== ENCOUNTER → 2022-06-28 14:47 | Outpatient (BNVA) | payer OTHER, SELFPAY | PROVIDERS: PCP Family Medicine; Visit Provider Nurse Practitioner Family | DX: R53.83 Other fatigue (principal); R06.83 Snoring; R40.0 Somnolence; R06.89 Other abnormalities of breathing; E66.9 Obesity, unspecified | CPT/HCPCS: 99202 ==

== ENCOUNTER 2022-07-06 08:23 | Outpatient (REF) | payer OTHER, SELFPAY ==
--- NOTE | ~2022-07-06 | MR_ITS ---
EXAMINATION: MR ABDOMEN WITHOUT CONTRAST CLINICAL INFORMATION: Right upper quadrant pain COMPARISON: Previous CT of the abdomen and pelvis November 2021, abdominal ultrasound October 2021 and outside MR and MRCP December 2020 TECHNIQUE: MR abdomen is performed without gadolinium contrast. MRCP sequences were performed. FINDINGS: LUNG BASES: The visualized lung bases are unremarkable. LIVER, GALLBLADDER, AND BILIARY TREE: The liver is enlarged. There is signal loss in the liver suggestive of fatty infiltration. The liver is normal in contour. No focal liver lesion. Gallbladder is normal. No gallstones are seen. Intrahepatic and extrahepatic bile ducts are normal in caliber. The common bile duct measures 3 mm. No common bile duct stone is seen. The spleen is normal. The pancreas is normal. The main pancreatic duct is normal. The adrenal glands are normal. The kidneys are normal. Visualized bowel is normal. There is diastasis of the rectus muscles. There is question of an umbilical hernia containing fat. This is only partially visualized. Bone marrow signal is normal. MR/MR MRCP IMPRESSION: Enlarged fatty liver. Normal-appearing gallbladder. Normal MRCP.
== END 2022-07-06 08:24 | disposition home or self-care (01) ==
LOC: HO.MRI 08:23
PROVIDERS: Visit Provider Internal Medicine Gastroenterology
DX: R10.11 Right upper quadrant pain (principal)
CPT/HCPCS: 74181

== ENCOUNTER → 2022-08-07 08:00 | Outpatient (BNVA) | payer OTHER, SELFPAY | PROVIDERS: PCP Family Medicine; Visit Provider Internal Medicine Endocrinology, Diabetes & Metabolism | DX: E11.65 Type 2 diabetes mellitus with hyperglycemia (principal) | CPT/HCPCS: 82947; 83036 ==

== ENCOUNTER 2022-08-07 09:06 | Outpatient (REF) | payer OTHER, SELFPAY ==
[2022-08-07 12:01] LABS: Cholesterol 146 mg/dL; HDL Cholesterol 29 mg/dL; LDL Cholesterol Calculated 69 mg/dl; Triglycerides 241 mg/dL
[2022-08-07 12:11] LABS: Creatinine Urine 142.86 mg/dL; Microalbum/Creatinine Ratio Ur 6.9 ug/mg cr
== END 2022-08-07 09:07 | disposition home or self-care (01) ==
LOC: HO.10HDL 09:06
PROVIDERS: Visit Provider Internal Medicine Endocrinology, Diabetes & Metabolism
DX: E11.65 Type 2 diabetes mellitus with hyperglycemia (principal)
CPT/HCPCS: 36415; 80061; 82043

== ENCOUNTER 2022-10-16 16:39 | Outpatient (REF) | payer OTHER, SELFPAY ==
[2022-10-16 17:59] LABS: Anion Gap 13 (12-20); Blood Urea Nitrogen 13 mg/dL (9-16); Calcium 10.3 mg/dL (8.4-10.2); Carbon Dioxide 28 mmol/L (22-29); Chloride 98 mmol/L (96-108); Estimated Glomerular Filt Rate > 60; Glucose Random 272 mg/dL (60-115); Potassium 4.9 mmol/L (3.3-5.1); Sodium 134 mmol/L (135-145)
[2022-10-16 18:00] LABS: Uric Acid 5.8 mg/dL (3.4-7.0)
== END 2022-10-16 16:40 | disposition home or self-care (01) ==
LOC: HO.LAB 16:39
PROVIDERS: Internal Medicine Gastroenterology; PCP Family Medicine; Visit Provider Internal Medicine
DX: E11.65 Type 2 diabetes mellitus with hyperglycemia (principal); M10.9 Gout, unspecified
CPT/HCPCS: 36415; 80048; 84550

== ENCOUNTER → 2022-11-15 08:26 | Outpatient (BNVA) | payer OTHER, SELFPAY | PROVIDERS: PCP Family Medicine; Visit Provider Internal Medicine Endocrinology, Diabetes & Metabolism | DX: E11.65 Type 2 diabetes mellitus with hyperglycemia (principal) | CPT/HCPCS: 82947; 83036 ==

== ENCOUNTER → 2022-11-27 13:33 | Outpatient (BNVA) | payer OTHER, SELFPAY | PROVIDERS: PCP Family Medicine; Referring Provider Family Medicine; Visit Provider Internal Medicine | DX: Z13.89 Encounter for screening for other disorder (principal) ==

== ENCOUNTER 2022-12-03 12:57 | Outpatient (REF) | payer OTHER, SELFPAY ==
[2022-12-03 14:24] LABS: MANUAL DIFF FLAG NO
[2022-12-03 15:14] LABS: Basophils Percent Auto 0.5 % (0-2); Eosinophils Absolute Auto 0.2 X10*3/uL (0.0-0.4); Eosinophils Percent Auto 3.6 % (0-4); Hematocrit 40.6 % (42.0-52.0); Hemoglobin 14.1 g/dl (14.0-18.0); Imm Gran Abs Auto 0.04 X10*3/uL (0.00-0.03); Imm Gran Pct Auto 0.7 % (0.0-0.4); Lymphocytes Absolute Auto 1.8 X10*3/uL (1.2-4.9); Lymphocytes Percent Auto 30.2 % (20-40); Mean Corpuscular HGB Conc 34.7 g/dl (31.0-36.0); Mean Corpuscular Hemoglobin 28.7 pg (27.0-33.0); Mean Corpuscular Volume 82.5 fL (80.0-98.0); Mean Platelet Volume 11.5 fL (9.4-12.4); Monocytes Absolute Auto 0.5 X10*3/uL (0.1-1.2); Monocytes Percent Auto 7.9 % (2-11); Neutrophils Absolute Auto 3.5 x10*3/uL (2.0-8.3); Neutrophils Percent Auto 57.1 % (45-73); Platelet Count 311 X10*3/uL (160-400); Red Blood Count 4.92 X10*6/uL (4.60-5.80); Red Cell Distribution Width 13.2 % (11.0-16.0); White Blood Count 6.1 X10*3/uL (4.8-10.8)
[2022-12-03 15:19] LABS: INTERNATIONAL NORM RATIO 0.9 (0.9-1.1); Prothrombin Time 10.6 SEC (10.0-13.1)
[2022-12-03 16:32] LABS: Ferritin 84 ng/mL (20-250); Folate 16.1 ng/mL (> or = 4.0); Vitamin B12 413 pg/mL (200-900); Vitamin D 25-OH Total 17.7 ng/mL (>30)
[2022-12-03 18:40] LABS: Alanine Aminotransferase 31 U/L (0-40); Albumin Level 4.4 g/dL (3.5-5.0); Alkaline Phosphatase 80 U/L (39-117); Anion Gap 18 (12-20); Aspartate Amino Transferase 28 U/L (5-37); Bilirubin Total 0.4 mg/dL (0.0-1.0); Blood Urea Nitrogen 10 mg/dL (9-16); Calcium 9.7 mg/dL (8.4-10.2); Carbon Dioxide 22 mmol/L (22-29); Chloride 98 mmol/L (96-108); Estimated Glomerular Filt Rate > 60; Glucose Random 505 mg/dL (60-115); Potassium 4.7 mmol/L (3.3-5.1); Sodium 133 mmol/L (135-145); Total Protein 8.6 g/dL (6.5-8.0)
[2022-12-06 05:53] LABS: Zinc 66 mcg/dL (60-130)
[2022-12-06 14:39] LABS: Alpha-Tocopherol 19.5 mg/L (5.7-19.9); Beta-Gamma Tocopherol 4.5 mg/L (<=4.3)
[2022-12-06 17:29] LABS: Vitamin A 50 mcg/dL (38-98)
[2022-12-07 16:53] LABS: Vitamin B6 20.9 ng/mL (2.1-21.7)
[2022-12-07 17:58] LABS: Vitamin C 0.3 mg/dL (0.2-2.1)
[2022-12-08 13:58] LABS: Vitamin B5 (Pantothenic Acid) 176 ng/mL (<275)
[2022-12-08 17:39] LABS: Vitamin K1 >2500 pg/mL (130-1500)
[2022-12-09 20:09] LABS: Nicotinamide 30 ng/mL; Vit B3 - Nicotinic Acid <20 ng/mL
[2022-12-10 05:13] LABS: Vitamin B1 11 nmol/L (8-30)
== END 2022-12-03 12:58 | disposition home or self-care (01) ==
LOC: HO.LAB 12:57
PROVIDERS: PCP Family Medicine; Visit Provider Internal Medicine Gastroenterology
DX: R10.11 Right upper quadrant pain (principal); K75.81 Nonalcoholic steatohepatitis (NASH); D64.9 Anemia, unspecified
CPT/HCPCS: 36415; 80053; 82180; 82306; 82607; 82728; 82746; 84207; 84425; 84446; 84590; 84591; 84597; 84630; 85025; 85610

== ENCOUNTER → 2023-02-12 08:06 | Outpatient (BNVA) | payer OTHER, SELFPAY | PROVIDERS: PCP Family Medicine; Visit Provider Internal Medicine Endocrinology, Diabetes & Metabolism | DX: E11.65 Type 2 diabetes mellitus with hyperglycemia (principal) | CPT/HCPCS: 82947; 83036 ==

== ENCOUNTER 2023-06-14 10:16 | Outpatient (AMB) | payer OTHER, SELFPAY ==
--- NOTE | 2023-06-14 10:24 | A.OFFVIS_ITS ---
Intake Vital Signs 06/14/23 10:26 Height 5 ft 7 in Weight 253 lb 8.505 oz BMI 39.7 BP 172/81 H Blood Pressure Location Lt brachial Position Sitting Pulse 78 Intake Visit Reasons: 4 month fu Intake Note: Luke presents in the office as a 4 month follow up. CC: He states that there is a pain in his stomach - he was supposed to have testing done but was never called. Audio Engineer Required: No Allergies arsenic Allergy (Severe, Verified 06/14/23 10:24) Itching ibuprofen Adverse Reaction (Intermediate, Verified 06/14/23 10:24) GI upset HPI 4 month fu HPI Details RECAP: He does have hx of fatty liver he has been having episodes of RUQ pain, on and off, and has had tests incl MRI at [facility] which apparently was negative for gallstones He has had? x2-3 attacks and each lasting about 3 weeks or so it is colicky in nature when he has the pain, food can make it worse not had the pain for 2 months can have abdominal distention he takes PPi for GERD denies diarrhea or constipation BNP was neg 05/2022 CXR: 02/2022---nml US 10/2021- fatty liver, no gallstones (LFt were normal) CT 11/2021- ?few calcifications seen but beyond ampulla of vater --personally reviewed MRCP 2020--[facility] --negative MRCP - enlarged fatty liver , nml GB and pancreas INTERIM: can be sitting for 8 hrs a day on uncomfortable chair causes him upper abdominal discomfort and back pain he requests flagly for gas sx he eats beef mostly, discussed diet with him he neve rhad KIMO assessment, doses off frequently --saw sleep clinic but insurance issues? he has fatigue he needs Vit D< feels helps his joints EXAM: GENERAL: The patient is well developed and nontoxic. VITAL SIGNS:see workflow HEENT: Nonicteric sclerae, PERRLA, EOMI. Oropharynx clear. Moist mucous membranes. Conjunctivae appear well perfused. No thyroid mass. CHEST: Chest wall is nontender. HEART: Regular rate and rhythm without murmurs. LUNGS: Clear to auscultation bilaterally. ABDOMEN: Soft, positive bowel sounds, vague tenderness ruq and right lower chest wall, no organomegaly.no flank tenderness SKIN: No rash, no excessive bruising, petechiae, or purpura. NEUROLOGIC: Cranial nerves II-XII intact without motor/sensory deficit. no raised JVD or leg edema MS: redeuced rom, lateral rotation and flexion a/P: 1/ Episodes of RUQ pain, agree related to position and tight abdominal muscles, NAFLD< no salazar 2/ Bloating not tried ABX, keen to try now 3/ vit d defc 4/ probable KIMO PLAN: 1/ recontact sleep clinic, given number to call 2/ can take vit D 5000 u daily 3/ flagyl sent 4/ discussed chair wt lumbar support and stretching exercises which will help 5/ recheck LFT today 6/ reviewed healthy diet, cut down beef and more white meat-fish [facility] Medical History Essential hypertension HLD (hyperlipidemia) HTN (hypertension) NAFLD (nonalcoholic fatty liver disease) PAF (paroxysmal atrial fibrillation) T2DM (type 2 diabetes mellitus) Type 2 diabetes mellitus without complications Vitamin D deficiency Surgical History History of esophagogastroduodenoscopy (EGD) Family History Father Diabetes Hypertension CVD (cardiovascular disease) Mother Alzheimer's dementia Sister No problems noted. Son No problems noted. Daughter No problems noted. 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 Current occupational exposures/hazards: No Cognitive needs: No Hearing needs: No Vision needs: Yes (Glasses) Physical Exam Vital Signs: Last Vital Signs Pulse 78 06/14/23 10:26 BP 172/81 H 06/14/23 10:26 BMI result Body Mass Index 39.7 Assessment & Plan Assessment & Plan (1) RUQ pain: Code(s): R10.11 - Right upper quadrant pain (2) Mild anemia: Code(s): D64.9 - Anemia, unspecified (3) Abnormal LFTs: Code(s): R79.89 - Other specified abnormal findings of blood chemistry Orders: Orders Vitamin D 25-OH Total Today D64.9 - Anemia, unspecified, R10.11 - Right upper quadrant pain, R79.89 - Other specified abnormal findings of blood chemistry Complete Blood Count Auto Diff Today D64.9 - Anemia, unspecified, R10.11 - Right upper quadrant pain, R79.89 - Other specified abnormal findings of blood chemistry Comprehensive Met. Panel Today D64.9 - Anemia, unspecified, K75.81 - Nonalcoholic steatohepatitis (SALAZAR), R10.11 - Right upper quadrant pain, R79.89 - Other specified abnormal findings of blood chemistry Medications: Refilled metronidazole 500 mg PO TID 14 days 42 tabs 0RF Coding Level of Care Code Est Pt Level 4 (59004) Diagnoses RUQ pain R10.11 Mild anemia D64.9 Abnormal LFTs R79.89
[2023-06-14 10:26] VITALS: BP 172/81; PULSE 78; BMI 39.7
== END 2023-06-14 10:52 | disposition home or self-care (01) ==
PROVIDERS: PCP Family Medicine; Visit Provider Internal Medicine Gastroenterology
DX: R10.11 Right upper quadrant pain (principal); D64.9 Anemia, unspecified; R79.89 Other specified abnormal findings of blood chemistry
CPT/HCPCS: 99214

== ENCOUNTER 2023-06-14 10:16 | Outpatient (REF) | payer OTHER, SELFPAY ==
[2023-06-14 11:05] LABS: MANUAL DIFF FLAG NO
[2023-06-14 13:52] LABS: Basophils Percent Auto 0.5 % (0-2); Eosinophils Absolute Auto 0.2 X10*3/uL (0.0-0.4); Eosinophils Percent Auto 2.8 % (0-4); Hematocrit 41.2 % (42.0-52.0); Hemoglobin 13.8 g/dl (14.0-18.0); Imm Gran Abs Auto 0.05 X10*3/uL (0.00-0.03); Imm Gran Pct Auto 0.8 % (0.0-0.4); Lymphocytes Absolute Auto 2.2 X10*3/uL (1.2-4.9); Lymphocytes Percent Auto 35.3 % (20-40); Mean Corpuscular HGB Conc 33.5 g/dl (31.0-36.0); Mean Corpuscular Hemoglobin 28.3 pg (27.0-33.0); Mean Corpuscular Volume 84.6 fL (80.0-98.0); Mean Platelet Volume 11.7 fL (9.4-12.4); Monocytes Absolute Auto 0.5 X10*3/uL (0.1-1.2); Monocytes Percent Auto 8.1 % (2-11); Neutrophils Absolute Auto 3.3 x10*3/uL (2.0-8.3); Neutrophils Percent Auto 52.5 % (45-73); Platelet Count 284 X10*3/uL (160-400); Red Blood Count 4.87 X10*6/uL (4.60-5.80); Red Cell Distribution Width 13.2 % (11.0-16.0); White Blood Count 6.3 X10*3/uL (4.8-10.8)
[2023-06-14 14:45] LABS: Vitamin D 25-OH Total 37.9 ng/mL (>30)
[2023-06-14 15:02] LABS: Alanine Aminotransferase 40 U/L (0-40); Albumin Level 4.4 g/dL (3.5-5.0); Alkaline Phosphatase 73 U/L (39-117); Anion Gap 14 (12-20); Aspartate Amino Transferase 38 U/L (5-37); Bilirubin Total 0.4 mg/dL (0.0-1.0); Blood Urea Nitrogen 13 mg/dL (9-16); Calcium 10.4 mg/dL (8.4-10.2); Carbon Dioxide 26 mmol/L (22-29); Chloride 100 mmol/L (96-108); Estimated Glomerular Filt Rate 60; Potassium 4.1 mmol/L (3.3-5.1); Sodium 136 mmol/L (135-145); Total Protein 8.3 g/dL (6.5-8.0)
[2023-06-14 15:26] LABS: Glucose Random 356 mg/dL (60-115)
== END 2023-06-14 10:17 | disposition home or self-care (01) ==
LOC: HO.LAB 10:16
PROVIDERS: PCP Family Medicine; Visit Provider Internal Medicine Gastroenterology
DX: R10.11 Right upper quadrant pain (principal); K75.81 Nonalcoholic steatohepatitis (NASH); D64.9 Anemia, unspecified; R79.89 Other specified abnormal findings of blood chemistry
CPT/HCPCS: 36415; 80053; 82306; 85025

== ENCOUNTER 2023-06-17 10:02 | Outpatient (AMB) | payer OTHER, SELFPAY ==
[2023-06-17 10:09] VITALS: BP 132/80; BMI 39.4
--- NOTE | 2023-06-17 10:09 | A.OFFVIS_ITS ---
Intake Vital Signs 06/17/23 10:09 Height 5 ft 7 in Weight 251 lb 5.231 oz BMI 39.4 BP 132/80 Blood Pressure Location Lt brachial Position Sitting Intake Visit Reasons: 6 MON FUP Intake Note: 6 month follow up Editor House Organ Required: No Allergies arsenic Allergy (Severe, Verified 06/17/23 10:09) Itching ibuprofen Adverse Reaction (Intermediate, Verified 06/17/23 10:09) GI upset Medication List - Last Reconciled 06/17/23 by Marty Dominguez MD aspirin (Adult Aspirin Regimen) 81 mg PO DAILY atorvastatin 20 mg (2 x 10 mg) PO ONCE 30 days bisoprolol fumarate 7.5 mg (1.5 x 5 mg) PO DAILY 90 days blood-glucose sensor ([employer] Mckay 3 Sensor device) As directed changed every 14 days cholecalciferol (vitamin D3) 100 mcg (2 x 50 mcg (2,000 unit)) PO DAILY 90 days clotrimazole-betamethasone 1-0.05 % 1 appl topical BID cyclobenzaprine 10 mg PO Q12H PRN 10 days diclofenac sodium 1% 4 grams topical TID 15 days fenofibrate micronized 200 mg PO DAILY 90 days hyoscyamine sulfate (Levsin/SL) 0.125 mg sublingual QID PRN insulin glargine U-300 conc (Toujeo SoloStar U-300 Insulin) 80 units (0.2667 mL) subcut QAM lancets (FreeStyle Lancets) 4x daily lisinopril 5 mg PO DAILY metronidazole 500 mg PO TID 14 days Novolog FlexPen U-100 Insulin (insulin aspart U-100) 50 units (0.5 mL) subcut TID 30 days NS pen needle, diabetic (BD Ultra-Fine Micro Pen Needle) As directed injects 4 X/day pen needle, diabetic (BD Ultra-Fine Maddie Pen Needle) USE TO INJECT 4 TIMES A DAY rabeprazole 20 mg PO DAILY rifaximin 550 mg PO TID 2 weeks simethicone (Gas Relief (simethicone)) 80 mg PO TID-QID PRN 30 days tadalafil 5 mg PO DAILY PRN 30 days tirzepatide (Mounjaro) 5 mg subcut QWEEK HPI HPI Comments History of Present Illness Details Luke returns for follow up regarding his various concerns. He used to live in [facility]. Per patient, at that time he was diagnosed with the atrial fibrillation-around 2016 or so. Then put on bisoprolol. However, not put on anticoagulation. It seems that there was just an isolated episode. We do not have any records from that time. In Holter monitoring here, he did not have any recurrences. Otherwise, he has uncontrolled diabetes. No known coronary disease myocardial infarction. Also has hypertension and is morbidly obese. Also strong family history of premature CAD in his father at a young age. He continues to have uncontrolled diabetes. Continues to be overweight. Also has vision issues. No cardiac symptoms. [facility] Medical History Essential hypertension HLD (hyperlipidemia) HTN (hypertension) NAFLD (nonalcoholic fatty liver disease) PAF (paroxysmal atrial fibrillation) T2DM (type 2 diabetes mellitus) Type 2 diabetes mellitus without complications Vitamin D deficiency Surgical History History of esophagogastroduodenoscopy (EGD) Family History Father Diabetes Hypertension CVD (cardiovascular disease) Mother Alzheimer's dementia Sister No problems noted. Son No problems noted. Daughter No problems noted. 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 Current occupational exposures/hazards: No Cognitive needs: No Hearing needs: No Vision needs: Yes (Glasses) Review of Systems Const Denies chills, Denies fatigue, Denies fever(s), Denies frequent falls, Denies weakness, Denies weight gain and Denies weight loss ENT Denies dizziness Card Denies chest pain, Reports pedal edema, Denies leg edema, Denies lightheadedness, Denies palpitations, Denies dyspnea, Denies dyspnea on exertion, Denies orthopnea and Denies other (Loss of consciousness) Resp Denies cough, Denies dyspnea and Denies dyspnea on exertion GI Denies hematochezia and Denies change in bowel habits Reports no additional complaints and Reports as per HPI Musc Denies abnormal gait, Denies muscle weakness, Denies numbness, Denies radiating pain into limb and Denies tingling Skin/Breast Reports system reviewed and no additional complaints, except as documented and Reports as per HPI Neuro Denies abnormal gait, Denies dizziness, Denies frequent falls, Denies numbness, Denies tingling and Denies weakness Endo Denies fatigue and Denies palpitations Physical Exam Vital Signs: Last Vital Signs BP 132/80 06/17/23 10:09 BMI result Body Mass Index 39.4 Const General: comfortable and no acute distress Orientation/consciousness: patient oriented x3 HEENT Other: Unremarkable Head: Yes normal to inspection Neck Neck: Yes normal visual inspection Chest Chest palpation & inspection: normal inspection of the chest Resp Auscultation: clear to auscultation bilaterally Cardio Palpation: normal PMI Heart sounds: S1 normal heart sound present, S2 normal heart sound present, no gallops, no murmurs and no rubs GI Palpation (GI): Soft to palpation Back/Spine/Pelvis Other: unremarkable Skin General skin exam: no rashes or lesions noted Neuro General: patient oriented x3 Extrem General: Yes normal to inspection Psych Mental Status: mental status grossly normal Office Procedures EKG Details: EKG with sinus rhythm at 74/Min; no significant ST-T changes and otherwise unremarkable[place] [id number], Complete Assessment & Plan Assessment & Plan (1) PAF (paroxysmal atrial fibrillation): Code(s): I48.0 - Paroxysmal atrial fibrillation Plan: Only per patient history and isolated episode in 2016 while living in [facility]. Remains on long-term bisoprolol. Has not been on any anticoagulation as there is only 1 episode and we do not have records of that either. 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 We have discussed numerous times about the implication the same including cardiac issues, renal failure, which in issues extra. Again discussed today. He underwent coronary CTA for further evaluation due to long history of poorly controlled diabetes. That does not show any significant CAD. (3) Essential hypertension: Code(s): I10 - Essential (primary) hypertension Plan: Continue lisinopril and bisoprolol. Stable. (4) Morbid obesity: Code(s): E66.01 - Morbid (severe) obesity due to excess calories Plan: We discussed at length today about implications from his weight and metabolic as well as cardiovascular risks. Especially uncontrolled diabetes. Advised to see bariatric for further recommendations. He is willing to try. Referral sent. Plan Total time spent including review of data, counseling, documentation, coordination of care-32 minutes. Orders: Referrals Bariatric Surgery Referral E66.01 - Morbid (severe) obesity due to excess calories Coding Level of Care Code Est Pt Level 4 (37423) Diagnoses PAF (paroxysmal atrial fibrillation) I48.0 Type 2 diabetes mellitus without complications E11.9 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 group home insulin use: unspecified group home insulin use status Essential hypertension I10 Morbid obesity E66.01 CPT Codes EKG - CPT: 64025-[id number], Complete ([id number])
== END 2023-06-17 10:33 | disposition home or self-care (01) ==
PROVIDERS: PCP Family Medicine; Referring Provider Family Medicine; Visit Provider Internal Medicine
DX: I48.0 Paroxysmal atrial fibrillation (principal); E11.9 Type 2 diabetes mellitus without complications; I10 Essential (primary) hypertension; E66.01 Morbid (severe) obesity due to excess calories
CPT/HCPCS: 93010; 99214

== ENCOUNTER → 2023-06-17 10:02 | Outpatient (BNVA) | payer OTHER, SELFPAY | PROVIDERS: PCP Family Medicine; Referring Provider Family Medicine; Visit Provider Internal Medicine | DX: I48.0 Paroxysmal atrial fibrillation (principal); I10 Essential (primary) hypertension; E11.65 Type 2 diabetes mellitus with hyperglycemia; E66.01 Morbid (severe) obesity due to excess calories; Z68.39 Body mass index [BMI] 39.0-39.9, adult; Z82.49 Family history of ischemic heart disease and other diseases of the circulatory system; Z79.4 Long term (current) use of insulin | CPT/HCPCS: 93005 ==

== ENCOUNTER 2023-07-31 08:14 | Outpatient (AMB) | payer OTHER, SELFPAY ==
[2023-07-31 08:15] VITALS: BP 140/70; PULSE 74; BMI 40.9
--- NOTE | 2023-07-31 08:15 | MHC.OFFVIS ---
Intake Vital Signs 07/31/23 08:15 Height 5 ft 7 in Weight 261 lb 0.437 oz BMI 40.9 BP 140/70 H Blood Pressure Location Lt brachial Position Sitting Pulse 74 Pulse Source Pulse Oximeter Intake Visit Reasons: F/Up T2DM Intake Note: Patient present today to follow up on Type 2 Diabetes Mellitus. Patient receives DME supplies through: Pharmacy Last Diabetic Eye exam: March 20, 2023 Last Podiatry Visit: December 26, 2022 Random Glucose: 145 mg/dl HgA1C: 10.3% Manager Of Project Management Required: No Accompanied by: Self / Same As Patient Allergies arsenic Allergy (Severe, Verified 07/31/23 08:27) Itching ibuprofen Adverse Reaction (Intermediate, Verified 07/31/23 08:27) GI upset HPI HPI Comments History of Present Illness Details Patient is a 47-year-old male with DM type 2 who presents for management of diabetes. Past medical history: Diabetes type 2, hyperlipidemia, hypertension, CAD vitamin-D deficency Micro and macrovascular complications: Nephropathy,a-fib , retinopathy Diabetes medications: Toujeo to 72 units. He will use his NovoLog prior to meals, 60 units for brekfast, 60 units for lunch and dinner. Plus correction of +4 u for bg >200, +6 u bg >250, +8 u bg >300. He was unable to tolerate metformin due to GI distress. He was unable to tolerate Jardiance due to polyuria and due to yeast infectionn . Was On Mounjaro 2.5 mg QD cannot tolerate due to GI effects CGM: In the past 2 weeks average blood glucose 258, GM I 9.5%. C GM is active 60%. Patient has low blood glucose from 54-69, 0%. Glucose in target range of 70-180, 18%. Glucose above goal 82%. Pattern shows and post-dinner hyperglycemia Symptoms reported: + numbness, tingling, cramping in lower extremities Hypoglycemia: No Hyperglycemia: denies urinary frequency, nocturia, polydypsia Exercise: walks all day at work 8,000-10,000 steps a day Sports Journalist - CDE education: has seen Business Test Analyst: denies Dental exam: goes every 6 months Ophthalmology evaluation: last appt last wk Other specialists: gastronenterology Laboratory Tests 07/17/21 10/25/21 11/02/21 09:50 12:50 13:53 Creatinine 1.13 Estimated GFR > 60 Hemoglobin A1c % Triglycerides 200 Cholesterol 146 LDL Cholesterol Di rect LDL Cholesterol, C alc 76 HDL Cholesterol 30 25-OH Vitamin D To rizwana 27.3 Microalb/Creat Rat io TNP 11/02/21 11/02/21 13:53 13:53 Creatinine Estimated GFR Hemoglobin A1c % 10.4 Triglycerides Cholesterol LDL Cholesterol Di rect 83 LDL Cholesterol, C alc HDL Cholesterol 25-OH Vitamin D To rizwana Microalb/Creat Rat io PFSH Medical History Essential hypertension HLD (hyperlipidemia) HTN (hypertension) NAFLD (nonalcoholic fatty liver disease) PAF (paroxysmal atrial fibrillation) T2DM (type 2 diabetes mellitus) Type 2 diabetes mellitus without complications Vitamin D deficiency Surgical History History of esophagogastroduodenoscopy (EGD) Family History Father Diabetes Hypertension CVD (cardiovascular disease) Mother Alzheimer's dementia Sister No problems noted. Son No problems noted. Daughter No problems noted. 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 Absence of acromegalic features. Neck exam reveals nl size thyroid about 15 gms. No thyroid nodules palpable. No carotid bruits present. Lungs CTA. Heart S1 S2, Reg R/R. No M/R/ G. Skin exam reveals absence of vitiligo or acanthosis nigricans. Abdominal exam reveals Soft NT/ND with NA BS. No organomegaly present. Neck Other: . Extrem Other: Visual exam of foot performed. No ulcerations or open lesions. No onchomycosis, no callouses.Pulses 2 + distally Sensation intact to monofilament exam. Vibratory sensation sensed is intact with 128 Hz tuning fork Results AMB Hemoglobin A1c AMB Hemoglobin A1c 10.3 % Last Edit by Charley West on 07/31/23 08:40 Results Reviewed Results Reviewed: 07/31/23 08:24 Glucose, Whole Blood Routine Laboratory Last Values Glucose (Clinic) 145 mg/dL (60-115) H 07/31/23 08:24 Hgb A1c (Clinic) 10.3 % (4.0-6.0) H 07/31/23 08:31 Assessment & Plan Assessment & Plan (1) Type 2 diabetes mellitus with hyperglycemia: Code(s): E11.65 - Type 2 diabetes mellitus with hyperglycemia Plan: This is a 47-year-old male with type 2 diabetes being treated with basal-bolus insulin and with poor glycemic control and known microvascular namely Nephropathy, , retinopathy. Plan is have patient restart Mounjaro 5 mg We also talked extensively about dietary modification . I talked about meal replacement with Glucerna I gave him samples. I will have him follow up with museum educator. It was glycemic control does not improve, we could consider switching the patient to U-500 insulin perhaps 50 units before lunch and dinner.. However, would not switch to U-500 insulin without having patient for see museum educator. If there is no museum educator present here, will talk to patient about getting a 2nd opinion [facility] Orders: Orders Microalbumin, Random (w Creat) Today E11.65 - Type 2 diabetes mellitus with hyperglycemia Lipid Panel Today E11.65 - Type 2 diabetes mellitus with hyperglycemia AMB Hemoglobin A1c Today E11.65 - Type 2 diabetes mellitus with hyperglycemia Coding Level of Care Code Est Pt Level 4 (63591) Diagnoses Type 2 diabetes mellitus with hyperglycemia E11.65
== END 2023-07-31 08:58 | disposition home or self-care (01) ==
PROVIDERS: PCP Family Medicine; Visit Provider Internal Medicine Endocrinology, Diabetes & Metabolism
DX: E11.65 Type 2 diabetes mellitus with hyperglycemia (principal)
CPT/HCPCS: 99214

== ENCOUNTER → 2023-07-31 08:14 | Outpatient (BNVA) | payer OTHER, SELFPAY | PROVIDERS: Visit Provider Internal Medicine Endocrinology, Diabetes & Metabolism | DX: E11.65 Type 2 diabetes mellitus with hyperglycemia (principal); E11.21 Type 2 diabetes mellitus with diabetic nephropathy; E11.319 Type 2 diabetes mellitus with unspecified diabetic retinopathy without macular edema; Z79.4 Long term (current) use of insulin | CPT/HCPCS: 82947; 83036 ==

== ENCOUNTER 2023-07-31 09:01 | Outpatient (REF) | payer OTHER, SELFPAY | END 2023-07-31 09:02 | disposition home or self-care (01) | LOC: HO.10HDL 09:01 | PROVIDERS: Visit Provider Internal Medicine Endocrinology, Diabetes & Metabolism | DX: E11.65 Type 2 diabetes mellitus with hyperglycemia (principal) | CPT/HCPCS: 36415; 80061; 82043; 82570 ==

== ENCOUNTER 2023-08-27 14:20 | Outpatient (AMB) | payer OTHER, SELFPAY ==
--- NOTE | 2023-08-27 14:28 | A.OFFPC_ITS ---
Vital Signs 08/27/23 14:29 Height 5 ft 7 in Weight 260 lb 2 oz BMI 40.7 BP 120/78 Blood Pressure Location Lt brachial Position Sitting Pulse 68 Pulse Source Pulse Oximeter Pulse Oximetry (%) 98 Oxygen Delivery Method Room Air Intake Visit Reasons: f/u diabetes Intake Note: Patient is here to follow up on his diabetes, and is complaining of joint pain for the last 6 months. Patient is requesting 90 day refills on his meds. Allergies arsenic Allergy (Severe, Verified 08/27/23 14:31) Itching ibuprofen Adverse Reaction (Intermediate, Verified 08/27/23 14:31) GI upset Tobacco use date assessed: 08/27/23 HPI f/u diabetes HPI Details 47 y/o male presents to f/u diabetes. Had seen Dr. Kimbrough Endocrinology 07/31/23. Planned to have pt restart mounjaro 5mg. They had talked about meal replacement with Glucerna and had him f/u with data entry. Last A1c 07/31/23 10.3%. A1c today 08/27/23 is 10.4%. Pt has complaints of joint pain the last 6 months. [facility] Medical History PAF (paroxysmal atrial fibrillation) Vitamin D deficiency HLD (hyperlipidemia) HTN (hypertension) T2DM (type 2 diabetes mellitus) NAFLD (nonalcoholic fatty liver disease) Essential hypertension Type 2 diabetes mellitus without complications Surgical History History of esophagogastroduodenoscopy (EGD) Family History Father Diabetes Hypertension CVD (cardiovascular disease) Mother Alzheimer's dementia Sister No problems noted. Son No problems noted. Daughter No problems noted. 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 Robert Atkinson, Fransisca Michelle, Des Wright and colleagues, with an educational jessica from [employer]. Review of Systems Const Denies chills, Denies fatigue, Denies fever(s), Denies headache(s) and Denies weakness ENT Denies dizziness and Denies headache(s) Card Denies chest pain, Denies lightheadedness, Denies dyspnea and Denies other (Palpitations) Resp Denies cough, Denies dyspnea, Denies wheezing and Denies other ( shortness of breath) Musc Denies numbness and Denies tingling Neuro Denies dizziness, Denies headache(s), Denies numbness, Denies tingling, Denies paresthesias and Denies weakness Psych Denies anxiety and Denies depression Endo Denies fatigue Aller/Immun Denies wheezing Physical exam (Primary Care) Vital Signs: Last Vital Signs Pulse 68 08/27/23 14:29 BP 120/78 08/27/23 14:29 Pulse Ox 98 08/27/23 14:29 Oxygen Delivery Method Room Air 08/27/23 14:29 BMI result Body Mass Index 40.7 Tobacco/Smoking Status: Tobacco use Status Tobacco use date assessed 08/27/23 08/27/23 14:36 Patient Tobacco Use Status Former Tobacco user 08/27/23 14:29 e-Cigarette/Vaping Use Never Used 08/27/23 14:29 Thrive Assessment: Date of Thrive Assessment Date Thrive assessed 11/23/22 08/27/23 14:29 Const General: no acute distress and well developed Nutritional Appearance: obese morbidly obese Orientation/consciousness: patient oriented x3 HENMT Head: Yes normocephalic and Yes atraumatic Eyes General: appearance normal, both eyes and all related structures Pupils: Equal, round and reactive pupils present EOM: EOMs intact bilaterally Resp Effort & Inspection: normal respiratory effort Auscultation: clear to auscultation bilaterally Cardio Rate: regular rate Rhythm: regular rhythm Heart sounds: S1 normal heart sound present, S2 normal heart sound present, no gallops, no murmurs and no rubs Neuro General: patient oriented x3 and gait normal Cranial nerves: Yes Equal, round and reactive pupils present Psych Affect: normal affect Results AMB Hemoglobin A1c AMB Hemoglobin A1c 10.4 % Last Edit by Keli Herrera CMA on 08/27/23 14:47 Assessment and Plan Assessment & Plan (1) Type 2 diabetes mellitus with hyperglycemia: Code(s): E11.65 - Type 2 diabetes mellitus with hyperglycemia Plan: A1c?10.4%;?worsening?blood?sugar?control?despite?patient?working?at?diet?and?ranjit pite?insulin?medications. His?supervisor international reservations?had?considered?switching?to?U?500?and?splitting?doses ?b.i.d.?for?his?basal?insulin. Will?split?his?Toujeo?U?300 which?he?now?takes?at?80?units?daily,?into 42 units?b.i.d. daily?dose?of?84?units?of?basal?insulin. He?will?continue?his?mealtime?insulins?as?prescribed. His?supervisor international reservations?may?subsequently?want?to?switch?to?U?500?concentration?and?w as?considering?increasing?to?up?to?50?units?b.i.d.?if?needed. Encouraged?exercise Will?ask?the?nurse?navigator?to?help?with?diabetic?teaching. (2) Localized swelling of finger of both hands: Code(s): R22.31 - Localized swelling, mass and lump, right upper limb; R22.32 - Localized swelling, mass and lump, left upper limb Plan: Swelling?and?stiffness?bilateral?hands?which?is?worse?in?the?morning. Patient?requests?referral?to?Rheumatology?and?rechecking?inflammatory?markers?an d?uric?acid. (3) Sleep apnea: Code(s): G47.30 - Sleep apnea, unspecified Plan: Referred?to?[facility]?sleep?medicine?as?per?patient?request. Orders: Orders AMB Hemoglobin A1c Today Z13.9 - Encounter for screening, unspecified CRP High Sensitivity Today M79.643 - Pain in unspecified hand Uric Acid Today M79.643 - Pain in unspecified hand Erythrocyte Sedimentation Rate Today M79.643 - Pain in unspecified hand Complete Blood Count Auto Diff Today M79.643 - Pain in unspecified hand, Z00.00 - Encounter for general adult medical examination without abnormal findings Comprehensive Met. Panel Today M79.643 - Pain in unspecified hand Referrals Rheumatology Referral M79.643 - Pain in unspecified hand, R22.31 - Localized swelling, mass and lump, right upper limb, R22.32 - Localized swelling, mass and lump, left upper limb Nurse Navigator Referral E11.65 - Type 2 diabetes mellitus with hyperglycemia Sleep Medicine Referral G47.30 - Sleep apnea, unspecified Medications: Changed From insulin glargine U-300 conc (Toujeo SoloStar U-300 Insulin) 80 units (0.2667 mL) subcut QAM 27 mL 4RF To insulin glargine U-300 conc (Toujeo SoloStar U-300 Insulin) 42 units (0.14 mL) subcut BID 27 mL 4RF Coding Level of Care Code Est Pt Level 4 (01670) Diagnoses Type 2 diabetes mellitus with hyperglycemia E11.65 Localized swelling of finger of both hands R22.31; R22.32 Sleep apnea G47.30
[2023-08-27 14:29] VITALS: BP 120/78; PULSE 68; O2SAT 98; BMI 40.7
== END 2023-08-27 15:05 | disposition home or self-care (01) ==
PROVIDERS: PCP Family Medicine; Visit Provider Family Medicine
DX: E11.65 Type 2 diabetes mellitus with hyperglycemia (principal); R22.31 Localized swelling, mass and lump, right upper limb; R22.32 Localized swelling, mass and lump, left upper limb; G47.30 Sleep apnea, unspecified
CPT/HCPCS: 83036; 99214

== ENCOUNTER 2023-08-27 15:25 | Outpatient (REF) | payer OTHER, SELFPAY ==
[2023-08-27 15:38] LABS: MANUAL DIFF FLAG NO
[2023-08-27 16:54] LABS: Basophils Percent Auto 0.5 % (0-2); Eosinophils Absolute Auto 0.2 X10*3/uL (0.0-0.4); Eosinophils Percent Auto 3.1 % (0-4); Hematocrit 40.1 % (42.0-52.0); Hemoglobin 13.6 g/dl (14.0-18.0); Imm Gran Abs Auto 0.05 X10*3/uL (0.00-0.03); Imm Gran Pct Auto 0.7 % (0.0-0.4); Lymphocytes Absolute Auto 2.6 X10*3/uL (1.2-4.9); Lymphocytes Percent Auto 33.7 % (20-40); Mean Corpuscular HGB Conc 33.9 g/dl (31.0-36.0); Mean Corpuscular Hemoglobin 28.6 pg (27.0-33.0); Mean Corpuscular Volume 84.2 fL (80.0-98.0); Mean Platelet Volume 11.1 fL (9.4-12.4); Monocytes Absolute Auto 0.7 X10*3/uL (0.1-1.2); Monocytes Percent Auto 9.4 % (2-11); Neutrophils Percent Auto 52.6 % (45-73); Platelet Count 302 X10*3/uL (160-400); Red Blood Count 4.76 X10*6/uL (4.60-5.80); Red Cell Distribution Width 13.2 % (11.0-16.0); White Blood Count 7.7 X10*3/uL (4.8-10.8)
[2023-08-27 17:19] LABS: Alanine Aminotransferase 31 U/L (0-40); Albumin Level 4.4 g/dL (3.5-5.0); Alkaline Phosphatase 61 U/L (39-117); Anion Gap 12 (12-20); Aspartate Amino Transferase 34 U/L (5-37); Bilirubin Total 0.5 mg/dL (0.0-1.0); Blood Urea Nitrogen 13 mg/dL (9-16); Calcium 9.9 mg/dL (8.4-10.2); Carbon Dioxide 28 mmol/L (22-29); Chloride 101 mmol/L (96-108); Estimated Glomerular Filt Rate > 60; Glucose Random 146 mg/dL (60-115); Potassium 4.1 mmol/L (3.3-5.1); Sodium 137 mmol/L (135-145); Uric Acid 5.2 mg/dL (3.4-7.0)
[2023-08-27 17:35] LABS: Erythrocyte Sedimentation Rate 8 MM/HR (0-15)
[2023-08-29 12:48] LABS: CRP High Sensitivity >10.0 mg/L
== END 2023-08-27 15:26 | disposition home or self-care (01) ==
LOC: HO.LAB 15:25
PROVIDERS: PCP Family Medicine; Visit Provider Family Medicine
DX: Z00.00 Encounter for general adult medical examination without abnormal findings (principal); M79.643 Pain in unspecified hand
CPT/HCPCS: 36415; 80053; 84550; 85025; 85652; 86141

== ENCOUNTER 2023-09-26 08:22 | Outpatient (REF) | payer OTHER, SELFPAY ==
[2023-09-26 11:16] LABS: HBS Num1 0.63 mIU/mL (0-7.99); HBsAGNum1 0.29 S/CO (0.00-0.99); Hepatitis A Antibody IgM 0.27 Index (0-0.79); Hepatitis B Core Antibody Nonreactive (Nonreactive); Hepatitis B Surface Antigen Negative (Negative); ~Hepatitis A Antibody IgM Nonreactive (Nonreactive); ~Hepatitis B Surface Antibody NONREACTIVE (Nonreactive); ~Hepatitis C Antibody Nonreactive (Nonreactive)
[2023-09-26 11:39] LABS: Erythrocyte Sedimentation Rate 9 MM/HR (0-15)
[2023-09-29 05:13] LABS: TS Negative Control Passed; TS Panel A 3; TS Panel B 0; TS Positive Control Passed; TSpotTB Negative (Negative)
[2023-09-30 13:08] LABS: Cyclic Citrullinated Peptide <16 UNITS
[2023-10-01 18:35] LABS: SM/Ribonucleoprotein Ab <1.0 NEG AI (<1.0 NEG); Smith Protein <1.0 NEG AI (<1.0 NEG)
[2023-10-02 14:38] LABS: Anti Nuclear Antibody Screen POSITIVE (NEGATIVE)
[2023-10-02 16:39] LABS: VITAMIN D (1,25 OH) D3 32 pg/mL; Vit D (1,25-Dihydroxy) Total 32 pg/mL (18-72); Vitamin D (1,25 OH) D2 <8 pg/mL
== END 2023-09-26 08:23 | disposition home or self-care (01) ==
LOC: HO.LAB 08:22
PROVIDERS: PCP Family Medicine; Visit Provider Nurse Practitioner Family
DX: Z11.1 Encounter for screening for respiratory tuberculosis (principal); M79.641 Pain in right hand; M79.642 Pain in left hand; E55.9 Vitamin D deficiency, unspecified
CPT/HCPCS: 36415; 82652; 85652; 86038; 86039; 86140; 86200; 86235; 86481; 86704; 86706; 86709; 86803; 87340

== ENCOUNTER 2023-09-26 08:22 | Outpatient (AMB) | payer OTHER, SELFPAY ==
--- NOTE | 2023-09-26 08:33 | A.OFFVIS_ITS ---
Intake Vital Signs 09/26/23 08:34 Height 5 ft 7 in Weight 254 lb 6.615 oz BMI 39.8 BP 108/60 Blood Pressure Location Rt brachial Position Sitting Pulse 75 Pulse Source Pulse Oximeter Temp 97 F Temp Source Skin Pulse Oximetry (%) 98 Oxygen Delivery Method Room Air Intake Visit Reasons: Pain in unspecified hand Intake Note: New patient internally referred to us for hand pain. Reports finger tighness and pain, on and off x 2 years. Reports chata leg swelling. 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 Butler, [id number] male, was referred by primary care for initial evaluation of bilateral hand pain. He describes that the hand pain is not con sistent but when he wakes up in the morning his hands are stiff for a few minutes and it feels tight when I make a fist . He denies morning stiffness lasting more than 1 hour. The hand stiffness improves once he gets them in warm water and starts to use them. He denies swelling, redness and joint tenderness in his hands or other joints. He has not taking any medication for his hand pain. His other complaint is right upper quadrant pain for which he is seeing GI. He denies blood or mucous in stool; nausea, vomiting and diarrhea, difficulty swallowing and heartburn. He he denies incidence of gout and has a history of normal uric acid level. Based on additional inflammatory and connective tissue disease inquiry, the patient denies Raynaud's phenomenon, butterfly rash on face or other rashes; denies photosensitivity - getting sick or developing a rash from being out in the sun; He denies dry, itchy eyes, red burning eyes needing steroids to treat. He sees Optometry for diabetic retinopathy. He denies dry mouth, mouth sores or ulcers, nose bleed and ringing in the ear but had a recent ear infection which was effectively treated. He denies fevers, excessive fatigue, unexplained weight-loss or weight-gain. Denies thinning hair or hair loss. He has not had blood or froth in urine. The patient denies hx of SOB, unexplained chest pain. 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 Patient denies hx of Carditis or Pleuritis. Patient denies any history of DVT/PE and takes aspirin 81 mg per cardiology. Mattie london describes that when he sits down for long periods of time towards the end of the day he gets some swelling in his bilateral lower extremities which is being worked up by Cardiology and vascular and he was referred for an ultrasound. The patient has a history of uncontrolled, type 2 diabetes, hypertension, morbidly obese. Malignancy: denies personal cancer hx. [facility] Medical History (Updated 09/26/23 @ 10:55 by Susy Hidalgo [facility]) Vitamin D deficiency Vitamin D deficiency PAF (paroxysmal atrial fibrillation) HLD (hyperlipidemia) HTN (hypertension) T2DM (type 2 diabetes mellitus) NAFLD (nonalcoholic fatty liver disease) Essential hypertension Type 2 diabetes mellitus without complications Surgical History History of esophagogastroduodenoscopy (EGD) Family History Father Diabetes Hypertension CVD (cardiovascular disease) Mother Alzheimer's dementia 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 External ear normal, canal clear and tympanic membrane normal. NOSE/SINUS:? Airflow through both nares, no nasal discharge, no bleeding THROAT:? Oral mucosa moist, no ulcerations NECK:? No thyromegaly or masses, no adenopathy, trachea midline. HEART:? Regulrar rhythm, S1-S2 heard, no murmurs, rubs or gallops. LUNG:? Clear to percussion and auscultation, decreased in the bases. s/p COVID infection 3 weeks ABD:? Normal bowel sounds, no organomegaly or masses. Right upper quadrant tenderness, mild. EXTREMITIES:? No edema, no calf tenderness, normal peripheral pulses. NEURO:? Oriented and alert x3.? No focal weakness.? Reflexes symmetric.? Gait normal. SKIN:? There are no skin lesions evident. No objective signs of Raynaud's phenomenon. JOINT EXAM: Cervical Spine:.? Full range of motion without pain; no tenderness. Thoracic Spine:.? No scoliosis.? No tenderness on palpation. Lumbar Spine:.? Alignment normal.? Full range of motion without pain, no tenderness. Chest Wall:.? No tenderness, swelling, increased warmth or erythema. Hands:.? Normal pain-free range of motion without tenderness, swelling, increased warmth or erythema. Able to make a full fist and has a good cover creaser strength. Wrists:.? Normal pain-free range of motion without tenderness, swelling, increased warmth or erythema. Elbows:. Normal pain-free range of motion without tenderness, swelling, increased warmth or erythema. Shoulders:.?? Full range of motion without pain. No tenderness, weakness, swelling, increased warmth or erythema. Hips:.? Full range of motion without pain. Hip bursa:.? No tenderness. Knees:.?? Normal pain-free range of motion without tenderness, swelling, increased warmth or erythema.? There is no effusion or crepitation Ankles:.? Normal pain-free range of motion without tenderness, swelling, increased warmth or erythema. Feet:.? Normal pain-free range of motion without tenderness, swelling, increased warmth or erythema. Results Reviewed Results Reviewed: 08/27/2023 CBC grossly normal, ESR 8, CMP grossly normal, hemoglobin A1c 10.4, uric acid 5.2, calcium 9.9 C-reactive protein high sensitivity 10.0 12/28/2021 rheumatoid factor <15. Assessment & Plan Assessment & Plan (1) Hand pain: Code(s): M79.643 - Pain in unspecified hand Qualifiers: Laterality: bilateral Qualified Code(s): M79.641 - Pain in right hand; M79.642 - Pain in left hand (2) Vitamin D deficiency: Code(s): E55.9 - Vitamin D deficiency, unspecified Plan #Hand Pain:Mr. Butler is here for evaluation of hand pain. After careful initial patient of patient's history diagnostics, and physical examination I do not believe there is a connective tissue disease or inflammatory process that is underlying. The hand pain does not interfere with function but he does described that sometimes his fingers lock down and he has to pry it up, there is no associated pain or tenderness per patient . I discussed with patient that in general, hand stiffness and the finger locking (trigger), can be the onset of osteoarthritis and also could be related to his diabetes. Diabetes can affect the tendons in the hands increasing the risk for Dupuytren's disease (DD), trigger finger (TF), and carpal tunnel syndrome (CTS). I will obtain additional labs were and x-rays of for further evaluation. I encourage patient to follow up with nutritional counseling for his diabetes, weight loss can help to effe ctively manage; he also can increase his activity level to include walking at least 3 times per week. # vitamin-D deficiency: Patient is concerned about his vitamin-D levels. He was previously prescribed supplement but had not been taking - will obtain vitamin-D labs. Orders: Orders CESARIO Reflex Titer and Pattern Today M79.643 - Pain in unspecified hand Anti Extractable Nuclear Ag Today M79.643 - Pain in unspecified hand C Reactive Protein Today M79.643 - Pain in unspecified hand Erythrocyte Sedimentation Rate Today M79.643 - Pain in unspecified hand Hepatitis A,B,C Profile Today M79.643 - Pain in unspecified hand T Spot TB Today M79.643 - Pain in unspecified hand XR hand RT min 3V Today M79.643 - Pain in unspecified hand XR hand LT min 3V Today M79.643 - Pain in unspecified hand Cyclic Citrullinated Peptide Today M79.643 - Pain in unspecified hand Vitamin D 1,25 dihydroxy Today E55.9 - Vitamin D deficiency, unspecified Coding Level of Care Code New Pt Level 4 (06957) Diagnoses Pain in both hands M79.641; M79.642 Laterality: bilateral Vitamin D deficiency E55.9
[2023-09-26 08:34] VITALS: BP 108/60; PULSE 75; TEMP 36.1; O2SAT 98; BMI 39.8
== END 2023-09-26 09:27 | disposition home or self-care (01) ==
PROVIDERS: PCP Family Medicine; Visit Provider Nurse Practitioner Family
DX: M79.641 Pain in right hand (principal); M79.642 Pain in left hand; E55.9 Vitamin D deficiency, unspecified
CPT/HCPCS: 99204

== ENCOUNTER 2023-10-08 11:35 | Outpatient (AMB) | payer OTHER, SELFPAY ==
[2023-10-08 11:41] VITALS: BP 130/82; PULSE 81; O2SAT 98; BMI 39.5
--- NOTE | 2023-10-08 11:41 | A.OFFPC_ITS ---
Vital Signs 10/08/23 11:41 Height 5 ft 7 in Weight 252 lb BMI 39.5 BP 130/82 Blood Pressure Location Lt brachial Position Sitting Pulse 81 Pulse Source Pulse Oximeter Pulse Oximetry (%) 98 Oxygen Delivery Method Room Air Intake Visit Reasons: follow up diabetes Intake Note: Patient is here to follow up on diabetes, he states right sided abdominal pain since Covid. Patient needs refills today for 90 days, please. The prescriptions are written for 30 days. Allergies arsenic Allergy (Severe, Verified 10/08/23 11:44) Itching ibuprofen Adverse Reaction (Intermediate, Verified 10/08/23 11:44) GI upset Medication List - Last Reconciled 10/08/23 by Guzman Gonzalez MD aspirin (Adult Aspirin Regimen) 81 mg PO DAILY 90 days atorvastatin 20 mg (2 x 10 mg) PO ONCE 30 days bisoprolol fumarate 7.5 mg (1.5 x 5 mg) PO DAILY 90 days blood-glucose sensor (BrandfolderStyle Mckay 3 Sensor device) As directed changed every 14 days cholecalciferol (vitamin D3) 100 mcg (2 x 50 mcg (2,000 unit)) PO DAILY 90 days clotrimazole-betamethasone 1-0.05 % 1 appl topical BID 14 days diclofenac sodium 1% 4 grams topical TID 15 days fenofibrate micronized 200 mg PO DAILY 90 days hyoscyamine sulfate (Levsin/SL) 0.125 mg sublingual QID PRN insulin aspart U-100 (Novolog FlexPen U-100 Insulin aspart) 60 units subcut TID insulin glargine U-300 conc (Toujeo SoloStar U-300 Insulin) 46 units AM and 44 units PM 90 days lancets (FreeStyle Lancets) 4x daily lisinopril 5 mg PO DAILY metronidazole 500 mg PO TID 14 days pen needle, diabetic (BD Ultra-Fine Micro Pen Needle) As directed injects 4 X/day pen needle, diabetic (BD Ultra-Fine Maddie Pen Needle) USE TO INJECT 4 TIMES A DAY rabeprazole 20 mg PO DAILY rifaximin 550 mg PO TID 2 weeks simethicone (Gas Relief (simethicone)) 80 mg PO TID-QID PRN 30 days tadalafil 5 mg PO DAILY PRN 30 days tirzepatide (Mounjaro) 5 mg (0.5 mL) subcut QWEEK 28 days Tobacco use date assessed: 10/08/23 HPI follow up diabetes HPI Details 47 y/o male presents to f/u diabetes. Last A1c 08/27/23 10.4%. Had split his Toujeo U 300 80 units into 42 units b.i.d., daily dose of 84 units of basal insulin. Continued mealtime insulins as prescribed. He reports morning blood sugars have been in the 150-160s. Pt had been following up with rheumatology for hand pain. [facility] Medical History Vitamin D deficiency Vitamin D deficiency PAF (paroxysmal atrial fibrillation) HLD (hyperlipidemia) HTN (hypertension) T2DM (type 2 diabetes mellitus) NAFLD (nonalcoholic fatty liver disease) Essential hypertension Type 2 diabetes mellitus without complications Surgical History History of esophagogastroduodenoscopy (EGD) Family History Father Diabetes Hypertension CVD (cardiovascular disease) Mother Alzheimer's dementia Other Mental health disorder Vitamin D deficiency Social History Household Members: Spouse Housing: House Alcohol intake: never Patient Tobacco Use Status: Former Tobacco user e-Cigarette/Vaping Use: Never Used Second Hand Smoke Exposure: No service: No Current occupational status: employed 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 Robert Atkinson, Fransisca Michelle, Des Wright and colleagues, with an educational jessica from [employer]. Physical exam (Primary Care) Vital Signs: Last Vital Signs Pulse 81 10/08/23 11:41 BP 130/82 10/08/23 11:41 Pulse Ox 98 10/08/23 11:41 Oxygen Delivery Method Room Air 10/08/23 11:41 BMI result Body Mass Index 39.5 Tobacco/Smoking Status: Tobacco use Status Tobacco use date assessed 08/27/23 10/08/23 11:49 Patient Tobacco Use Status Former Tobacco user 10/08/23 11:49 e-Cigarette/Vaping Use Never Used 10/08/23 11:49 Thrive Assessment: Date of Thrive Assessment Date Thrive assessed 11/23/22 10/08/23 11:49 Assessment and Plan Assessment & Plan (1) T2DM (type 2 diabetes mellitus): Code(s): E11.9 - Type 2 diabetes mellitus without complications Qualifiers: 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 complication status: with hyperglycemia 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 termite helper insulin use: with termite helper use Qualified Code(s): E11.65 - Type 2 diabetes mellitus with hyperglycemia; Z79.4 - senior care (current) use of insulin Plan: Blood?sugars?are?still?consistently?high Not?getting?low?blood?sugars?in?the?morning?any?longer?however?since?changing?ba addis?insulin?to?b.i.d.?dosing. Will?increase?a.m.?Toujeo?to?46?units?and?p.m.?44?units Continue?mealtime?insulin?as?prescribed He?will?follow-up?in?2?months Has?appointment?with??Luis E?in?December (2) Hand pain: Code(s): M79.643 - Pain in unspecified hand Qualifiers: Laterality: bilateral Qualified Code(s): M79.641 - Pain in right hand; M79.642 - Pain in left hand Plan: Improving Lab?work?showed?increased?CRP?an d?CESARIO?but?patient?had?had?a?COVID?infection?recently?before?testing Will?repeat?these?in?about?2?months (3) Hernia: Code(s): K46.9 - Unspecified abdominal hernia without obstruction or gangrene Plan: Superficial?right?upper?quadrant?tenderness?with?mild?impulse. Concern?for?muscular?hernia Will?check?ultrasound He?also?gets?some?deeper?discomfort?with?eating?and?has?a?hepatobiliary?scan?ord ered?by?GI.??Patient?was?concerned?about?this?test?and?I?reassured?him.??He?will ?attend?this?test Orders: Orders US abdomen limited Today K46.9 - Unspecified abdominal hernia without obstr uction or gangrene, R10.12 - Left upper quadrant pain Medications: Changed From insulin glargine U-300 conc (Toujeo SoloStar U-300 Insulin) 42 units (0.14 mL) subcut BID 27 mL 4RF To insulin glargine U-300 conc (Toujeo SoloStar U-300 Insulin) 46 units AM and 44 units PM 27 mL 4RF 90 days From insulin aspart U-100 (Novolog FlexPen U-100 Insulin aspart) 60 units subcut TID E11.65 - Type 2 diabetes mellitus with hyperglycemia To insulin aspart U-100 (Novolog FlexPen U-100 Insulin aspart) 60 units (0.6 mL) subcut TID 162 mL 3RF 90 days E11.65 - Type 2 diabetes mellitus with hyperglycemia Coding Level of Care Code Est Pt Level 3 (88857) Diagnoses Type 2 diabetes mellitus with hyperglycemia, with long-term current use of insulin E11.65; Z79.4 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 complication status: with hyperglycemia 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 retirement insulin use: with termite helper use Pain in both hands M79.641; M79.642 Laterality: bilateral Hernia K46.9
== END 2023-10-08 12:33 | disposition home or self-care (01) ==
PROVIDERS: PCP Family Medicine; Visit Provider Family Medicine
DX: E11.65 Type 2 diabetes mellitus with hyperglycemia (principal); Z79.4 Long term (current) use of insulin; M79.641 Pain in right hand; M79.642 Pain in left hand; K46.9 Unspecified abdominal hernia without obstruction or gangrene
CPT/HCPCS: 99213

== ENCOUNTER 2023-10-25 08:06 | Outpatient (REF) | payer OTHER, SELFPAY | END 2023-10-25 08:07 | disposition home or self-care (01) | LOC: HO.HMGCX 08:06 | PROVIDERS: PCP Family Medicine; Visit Provider Family Medicine | DX: R10.12 Left upper quadrant pain (principal); K46.9 Unspecified abdominal hernia without obstruction or gangrene | CPT/HCPCS: 76705 ==

== ENCOUNTER 2023-10-29 08:22 | Outpatient (AMB) | payer OTHER, SELFPAY ==
[2023-10-29 08:52] VITALS: BP 126/68; PULSE 74; BMI 39.4
--- NOTE | 2023-10-29 08:52 | A.OFFVIS_ITS ---
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 Required: No Accompanied by: Self / Same As Patient Allergies arsenic Allergy (Severe, Verified 10/29/23 08:52) Itching ibuprofen Adverse Reaction (Intermediate, Verified 10/29/23 08:52) GI upset Medication List - Last Reconciled 10/29/23 by Marty Dominguez MD aspirin (Adult Aspirin Regimen) 81 mg PO DAILY 90 days atorvastatin 20 mg (2 x 10 mg) PO ONCE 30 days bisoprolol fumarate 7.5 mg (1.5 x 5 mg) PO DAILY 90 days blood-glucose sensor (AllopticStyle Mckay 3 Sensor device) As directed changed every 14 days clotrimazole-betamethasone 1-0.05 % 1 appl topical BID 14 days diclofenac sodium 1% 4 grams topical TID 15 days fenofibrate micronized 200 mg PO DAILY 90 days hyoscyamine sulfate (Levsin/SL) 0.125 mg sublingual QID PRN insulin aspart U-100 (Novolog FlexPen U-100 Insulin aspart) 60 units (0.6 mL) subcut TID 90 days insulin glargine U-300 conc (Toujeo SoloStar U-300 Insulin) 46 units AM and 44 units PM 90 days lancets (FreeStyle Lancets) 4x daily lisinopril 5 mg PO DAILY pen needle, diabetic (BD Ultra-Fine Micro Pen Needle) As directed injects 4 X/day pen needle, diabetic (BD Ultra-Fine Maddie Pen Needle) USE TO INJECT 4 TIMES A DAY rabeprazole 20 mg PO DAILY rifaximin 550 mg PO TID tadalafil 5 mg PO DAILY PRN 30 days tirzepatide (Mounjaro) 5 mg (0.5 mL) subcut QWEEK 28 days HPI HPI Comments History of Present Illness Details Luke returns for follow up regarding his various concerns. He used to live in [facility]. Per patient, at that time he was diagnosed with the atrial fibrillation-around 2016 or so. Then put on bisoprolol. However, not put on anticoagulation. It seems that there was just an isolated episode. We do not have any records from that time. In Holter monitoring here, he did not have any recurrences. He does not really have any clear-cut cardiac symptoms. He has lot of risk factors however, including obesity, uncontrolled diabetes, hypertension extra. This is not changed much for a while. [facility] Medical History Vitamin D deficiency Vitamin D deficiency PAF (paroxysmal atrial fibrillation) HLD (hyperlipidemia) HTN (hypertension) T2DM (type 2 diabetes mellitus) NAFLD (nonalcoholic fatty liver disease) Essential hypertension Type 2 diabetes mellitus without complications Surgical History History of esophagogastroduodenoscopy (EGD) Family History Father Diabetes Hypertension CVD (cardiovascular disease) Mother Alzheimer's dementia Other Mental health disorder Vitamin D deficiency Social History Household Members: Spouse Housing: House Alcohol intake: never Patient Tobacco Use Status: Former Tobacco user e-Cigarette/Vaping Use: Never Used Second Hand Smoke Exposure: No service: No Current occupational status: employed 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 Current occupational exposures/hazards: No Cognitive needs: No Hearing needs: No Vision needs: Yes (Glasses) Review of Systems Const Denies weakness ENT Denies dizziness Card Denies chest pain, Denies chest pain with activity, Denies syncope, Denies rapid heart rate, Denies pedal edema, Denies edema, Reports irregular heart rhythm, Denies leg edema, Denies lightheadedness, Denies dyspnea, Denies dyspnea on exertion and Denies orthopnea Resp Denies cough, Denies dyspnea and Denies dyspnea on exertion GI Denies hematochezia and Denies change in stool character Musc Denies abnormal gait, Denies muscle cramps, Denies muscle weakness, Denies numbness, Denies radiating pain into limb and Denies tingling Neuro Denies abnormal gait, Denies dizziness, Denies syncope, Denies numbness, Denies tingling and Denies weakness Physical Exam Vital Signs: Last Vital Signs Pulse 74 10/29/23 08:52 BP 126/68 10/29/23 08:52 BMI result Body Mass Index 39.4 Const General: comfortable and no acute distress Orientation/consciousness: patient oriented x3 HEENT Other: Unremarkable Head: Yes normal to inspection Neck Neck: Yes normal visual inspection Chest Chest palpation & inspection: normal inspection of the chest Resp Auscultation: clear to auscultation bilaterally Cardio Palpation: normal PMI Heart sounds: S1 normal heart sound present, S2 normal heart sound present, no gallops, no murmurs and no rubs GI Palpation (GI): Soft to palpation Back/Spine/Pelvis Other: unremarkable Skin General skin exam: no rashes or lesions noted Neuro General: patient oriented x3 Extrem General: Yes normal to inspection Psych Mental Status: mental status grossly normal Assessment & Plan Assessment & Plan (1) PAF (paroxysmal atrial fibrillation): Code(s): I48.0 - Paroxysmal atrial fibrillation Plan: Only per patient history and isolated episode in 2016 while living in [facility]. Remains on long-term bisoprolol. Has not been on any anticoagulation as there is only 1 episode and we do not have records of that either. No recent issues. (2) Type 2 diabetes mellitus without complications: Code(s): E11.9 - Type 2 diabetes mellitus without complications Qualifiers: 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 long filler cigar roller machine insulin use: unspecified residential insulin use status Qualified Code(s): E11.9 - Type 2 diabetes mellitus without complications Plan: Still hemoglobin A1c is more than 10. And has been like this for a long time. Will discuss with Endocrine regarding options. Poorly controlled diabetes will definitely put him at high risk for future vascular issues. We did do a coronary CTA but that did not show any significant CAD. Probably repeat in 2-3 years or so-to be decided. (3) Essential hypertension: Code(s): I10 - Essential (primary) hypertension Plan: Continue lisinopril and bisoprolol. Stable. (4) Morbid obesity: Code(s): E66.01 - Morbid (severe) obesity due to excess calories Plan: Lot of his issues, primarily poorly controlled diabetes related to his weight. He must lose weight and this has been discussed numerous times including today. However, his weight has not changed at all. Medications: Changed From rifaximin 550 mg PO TID 2 weeks 42 tabs 0RF To rifaximin 550 mg PO TID From hyoscyamine sulfate (Levsin/SL) 0.125 mg sublingual QID PRN 30 tabs 0RF dyspepsia To hyoscyamine sulfate (Levsin/SL) 0.125 mg sublingual QID PRN dyspepsia Coding Level of Care Code Est Pt Level 4 (26697) Diagnoses PAF (paroxysmal atrial fibrillation) I48.0 Type 2 diabetes mellitus without complication, unspecified whether long filler cigar roller machine insulin use E11.9 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 long filler cigar roller machine insulin use: unspecified long filler cigar roller machine insulin use status Essential hypertension I10 Morbid obesity E66.01
== END 2023-10-29 09:21 | disposition home or self-care (01) ==
PROVIDERS: PCP Family Medicine; Visit Provider Internal Medicine
DX: I48.0 Paroxysmal atrial fibrillation (principal); E11.9 Type 2 diabetes mellitus without complications; I10 Essential (primary) hypertension; E66.01 Morbid (severe) obesity due to excess calories
CPT/HCPCS: 99214

== ENCOUNTER → 2023-10-29 08:22 | Outpatient (BNVA) | payer OTHER, SELFPAY | PROVIDERS: PCP Family Medicine; Visit Provider Internal Medicine ==

== ENCOUNTER 2023-12-06 10:06 | Outpatient (AMB) | payer OTHER, SELFPAY ==
--- NOTE | 2023-12-06 10:18 | A.OFFVIS_ITS ---
Intake Vital Signs 12/06/23 10:19 Height 5 ft 11 in Weight 253 lb BMI 35.3 Blood Pressure Location Lt brachial Position Sitting Intake Visit Reasons: 6 mnth follow up Intake Note: Patient 6 month follow up for Abnormal FLTs and lab results Patient cc: right middle abdominal pain x couples of weeks getting worse. Denies any other GI issues. Marriage And Family Counselor Required: No Accompanied by: Self / Same As Patient Allergies arsenic Allergy (Severe, Verified 12/06/23 10:17) Itching ibuprofen Adverse Reaction (Intermediate, Verified 12/06/23 10:17) GI upset HPI 6 mnth follow up HPI Details 47 yr old being seen for f/u RECAP: He does have hx of fatty liver he has been having episodes of RUQ pain, on and off, and has had tests incl MRI at [facility] which apparently was negative for gallstones He has had? x2-3 attacks and each lasting about 3 weeks or so it is colicky in nature when he has the pain, food can make it worse not had the pain for 2 months can have abdominal distention he takes PPi for GERD denies diarrhea or constipation BNP was neg 05/2022 CXR: 02/2022---nml US 10/2021- fatty liver, no gallstones (LFt were normal) CT 11/2021- ?few calcifications seen but beyond ampulla of vater --personally reviewed MRCP 2020--[facility] --negative MRCP - enlarged fatty liver , nml GB and pancreas INTERIM: he has ongoing burning pain ruq, he had nml US 10/2023 sugar control has been poor he has not been to sleep clinic yet, been waiting he has major issues with somnolence, prob making his sugars worse can be sitting for 8 hrs a day on uncomfortable chair causes him upper abdominal discomfort and back pain he requests flagly for gas sx he eats beef mostly, discussed diet with him he neve rhad KIMO assessment, doses off frequently --saw sleep clinic but insurance issues? he has fatigue he needs Vit D< feels helps his joints EXAM: GENERAL: The patient is well developed and nontoxic, obese VITAL SIGNS:see workflow HEENT: Nonicteric sclerae, PERRLA, EOMI. Oropharynx clear. Moist mucous membranes. Conjunctivae appear well perfused. No thyroid mass. CHEST: Chest wall is nontender. HEART: Regular rate and rhythm without murmurs. LUNGS: Clear to auscultation bilaterally. ABDOMEN: Soft, positive bowel sounds, vague tenderness ruq and right lower chest wall, no organomegaly.no flank tenderness SKIN: No rash, no excessive bruising, petechiae, or purpura. NEUROLOGIC: Cranial nerves II-XII intact without motor/sensory deficit. no raised JVD or leg edema MS: redeuced rom, lateral rotation and flexion a/P: 1/ Episodes of RUQ pain, agree related t o position and tight abdominal muscles, US has been normal --could be GB dyskinesia from high glucose levels as well 2/ probable KIMO, severe and maybe making sugar control worse PLAN: 1/ recontact sleep clinic, 2/ await for HIDA 3/ improve gluc control--he is seeing ot her MDs for that [facility] Medical History Vitamin D deficiency Vitamin D deficiency PAF (paroxysmal atrial fibrillation) HLD (hyperlipidemia) HTN (hypertension) T2DM (type 2 diabetes mellitus) NAFLD (nonalcoholic fatty liver disease) Essential hypertension Type 2 diabetes mellitus without complications Surgical History History of esophagogastroduodenoscopy (EGD) Family History Father Diabetes Hypertension CVD (cardiovascular disease) Mother Alzheimer's dementia Other Mental health disorder Vitamin D deficiency Social History Household Members: Spouse Housing: House Alcohol intake: never Patient Tobacco Use Status: Former Tobacco user e-Cigarette/Vaping Use: Never Used Second Hand Smoke Exposure: No service: No 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
[2023-12-06 10:19] VITALS: BMI 35.3
== END 2023-12-06 10:52 | disposition home or self-care (01) ==
PROVIDERS: PCP Family Medicine; Visit Provider Internal Medicine Gastroenterology
DX: R10.11 Right upper quadrant pain (principal)
CPT/HCPCS: 99213

== ENCOUNTER → 2023-12-06 10:06 | Outpatient (BNVA) | payer OTHER, SELFPAY | PROVIDERS: PCP Family Medicine; Visit Provider Internal Medicine Gastroenterology ==

== ENCOUNTER 2024-01-10 08:15 | Outpatient (AMB) | payer OTHER, SELFPAY ==
--- NOTE | 2024-01-10 08:18 | A.OFFPC_ITS ---
Vital Signs 01/10/24 08:20 Height 5 ft 11 in Weight 260 lb BMI 36.3 BP 142/68 H Blood Pressure Location Lt brachial Position Sitting Respiration 13 Pulse 79 Pulse Source Pulse Oximeter Pulse Oximetry (%) 98 Oxygen Delivery Method Room Air Intake Visit Reasons: f/u diabetes Intake Note: Patient is here for a follow up with diabetic care. Caregivers Homecare Required: No Accompanied by: Self / Same As Patient Allergies arsenic Allergy (Severe, Verified 01/10/24 08:27) Itching ibuprofen Adverse Reaction (Intermediate, Verified 01/10/24 08:27) GI upset Tobacco use date assessed: 01/10/24 Dental Screening Dental Screen Date: 01/10/24 Did you have a dental visit in the last 12 months?: Yes Did you have a dental problem in the last 6 months where you did not have access to dental care?: No Was dental information given to patient?: Patient has dentist HPI f/u diabetes HPI Details patient presents?to?follow-up?diabetes A1c?today?10.1%?and?previously?10.4%.??Had?increased?his?Toujeo He?is?taking?50?units?b.i.d.?and?taking?NovoLog?with?mealtimes He?notes?that?his?blood?sugars?can?spike?over?300?and?is?never?less?than?160?or? 170?in?the?mornings. He?notes?that?he?binges?a?lot? when?he?gets?home?from?work?late?at?night?and?then?goes?to?bed. Having?difficulty?losing?weight. He?is?also?getting?un?restful?sleep,?holding?his?breath?in?his?sleep?and?waking? up?feeling?unrested.??He?has?excessive?daytime?sleepiness. Had?been?referred?to?[facility]?sleep?medicine?but?has?an?appointment?in?May. [facility] Medical History Vitamin D deficiency Vitamin D deficiency PAF (paroxysmal atrial fibrillation) HLD (hyperlipidemia) HTN (hypertension) T2DM (type 2 diabetes mellitus) NAFLD (nonalcoholic fatty liver disease) Essential hypertension Type 2 diabetes mellitus without complications Surgical History History of esophagogastroduodenoscopy (EGD) Family History Father Diabetes Hypertension CVD (cardiovascular disease) Mother Alzheimer's dementia Other Mental health disorder Vitamin D deficiency Social History Household Members: Spouse Housing: House Alcohol intake: never Patient Tobacco Use Status: Former Tobacco user e-Cigarette/Vaping Use: Never Used Second Hand Smoke Exposure: No service: No Current occupational status: employed 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 1. Little interest or pleasure in doing things: not at all 2. Feeling down, depressed, or hopeless: not at all 3. Trouble falling or staying asleep, or sleeping too much: not at all 4. Feeling tired or having little energy: not at all 5. Poor appetite or overeating: not at all 6. Feeling bad about yourself - or that you are a failure or have let yourself or your family down: not at all 7. Trouble concentrating on things, such as reading the newspaper or watching television: not at all 8. Moving or speaking so slowly that other people could have noticed. Or the opposite - being so fidgety or restless that you have been moving around a lot more than usual: not at all 9. Thoughts that you would be better off or of hurting yourself in some way: not at all Total score: 0 Depression Screening Interpretation: Negative Depression Screening Done: Yes 47400 - PHQ-9 Billing: Yes Source: Developed by Drs. Robert Atkinson, Fransisca Michelle, Des Wright and colleagues, with an educational jessica from [employer]. Thrive Questionnaire Date Thrive assessed: 01/10/24 I am a: Patient What is your living situation today?: I have a steady place to live Within the past 12 months, did the food you bought not last and you didn't have the money to get more?: Never true Within the past 12 months, did you worry whether your food would run out before you got money to buy more?: Never true Do you have trouble paying for medicines?: No Do you have trouble getting transportation to medical appointments?: No Do you have trouble paying your heating and electricity bill?: No Do you have trouble taking care of your child, family member or friend?: No Do you have trouble with day-to-day activities such as bathing, preparing meals, shopping, managing finances, etc.?: No Are you currently unemployed and looking for a job?: No Are you interested in more education?: No Please select the resources that you would like help with: None Currently or been in a relationship where the following occur: no concerns reported THRIVE Score: 0 AUDIT C Alcohol Use Questionnaire (AUDIT-C) 1. How often do you have a drink containing alcohol?: Never 3. How often do you have six or more drinks on one occasion?: Never Total Score: 0 LISA-7 AMB Questionnaire LISA-7 Date LISA - 7 assessed: 01/10/24 Feeling nervous, anxious, or on edge: 0 = Not at all Not being able to stop or control worryin = Not at all Worrying too much about different things: 0 = Not at all Trouble relaxin = Not at all Being so restless that it is hard to sit still: 0 = Not at all Becoming easily annoyed or irritable: 0 = Not at all Feeling afraid as if something awful might happen: 0 = Not at all Total LISA-7 score (0-4 normal; 5-9 mild; 10-14 moderate; 15-21 severe): 0 Source: Developed by Drs. Robert Atkinson, Fransisca Michelle, Des Wright and colleagues, with an educational jessica from [employer]. LISA-7 Assessment Billing LISA-7 Assessment Tool: LISA-7 Assessment 50569 ACT Questionnaire In the past 4 weeks, how much of the time did your asthma keep you from getting as much done at work, school or at home?: All of the time During the past 4 weeks, how often have you had shortness of breath?: More than once a day During the past 4 weeks, how often did your asthma symptoms wake you up at night or earlier than usual in the morning?: 4 or more nights a week During the past 4 weeks, how often have you had to use your rescue inhaler or nebulizer medication?: 1-2 times a week How would you rate your asthma control during the past 4 weeks?: Not controlled at all ACT Interpretation: Positive Score: 6 Review of Systems Const Denies chills, Denies fatigue, Denies fever(s), Denies headache(s) and Denies weakness ENT Denies dizziness and Denies headache(s) Card Denies chest pain, Denies lightheadedness, Denies dyspnea and Denies other (Palpitations) Resp Denies cough, Denies dyspnea, Denies wheezing and Denies other ( shortness of breath) Musc Denies numbness and Denies tingling Neuro Denies dizziness, Denies headache(s), Denies numbness, Denies tingling, Denies paresthesias and Denies weakness Psych Denies anxiety and Denies depression Endo Denies fatigue Aller/Immun Denies wheezing Physical exam (Primary Care) Vital Signs: Last Vital Signs Pulse 79 01/10/24 08:20 Resp 13 01/10/24 08:20 BP 142/68 H 01/10/24 08:20 Pulse Ox 98 01/10/24 08:20 Oxygen Delivery Method Room Air 01/10/24 08:20 BMI result Body Mass Index 36.3 Tobacco/Smoking Status: Tobacco use Status Tobacco use date assessed 01/10/24 01/10/24 08:32 Patient Tobacco Use Status Former Tobacco user 01/10/24 08:19 e-Cigarette/Vaping Use Never Used 01/10/24 08:19 PHQ-9: PHQ-9 Score PHQ-9: Total score 0 01/10/24 08:32 Depression Screening Interpretation: Negative Thrive Assessment: Date of Thrive Assessment Date Thrive assessed 01/10/24 01/10/24 08:32 Currently or been in a relationship where the following occur: no concerns reported Const General: no acute distress and well developed Nutritional Appearance: well nourished Orientation/consciousness: patient oriented x3 HENMT Head: Yes normocephalic and Yes atraumatic Eyes General: appearance normal, both eyes and all related structures Pupils: Equal, round and reactive pupils present EOM: EOMs intact bilaterally Resp Effort & Inspection: normal respiratory effort Auscultation: clear to auscultation bilaterally Cardio Rate: regular rate Rhythm: regular rhythm Heart sounds: S1 normal heart sound present, S2 normal heart sound present, no gallops, no murmurs and no rubs Neuro General: patient oriented x3 and gait normal Cranial nerves: Yes Equal, round and reactive pupils present Psych Affect: normal affect Results AMB Hemoglobin A1c AMB Hemoglobin A1c 10.1 % Last Edit by Mally Alvarez CMA on 4 08:35 Results Reviewed Results Reviewed: Laboratory Last Values Hgb A1c (Clinic) 10.1 % (4.0-6.0) H 01/10/24 08:34 Assessment and Plan Assessment & Plan (1) Type 2 diabetes mellitus with hyperglycemia: Code(s): E11.65 - Type 2 diabetes mellitus with hyperglycemia Plan: Very?poor?control.??A1c?goal?is?less?than?7.0% Increasing?his?basal?insulin?to?54?units?b.i.d. No?other?changes?to?his?medication?regimen?today He?was?scheduled?for?an?appointment?with?Endocrine?in?December?but?this Was?postponed?to January. I?have?referred?him?to?the?nurse?navigator?to?help?with?diabetic?teaching Strongly?Encouraged?weight?loss?and?exercise (2) KIMO (obstructive sleep apnea): Code(s): G47.33 - Obstructive sleep apnea (adult) (pediatric) Plan: Referred?to?Sleep?Medicine?at?[facility]?for?hopefully?a?soon?appointment (3) Obese: Code(s): E66.9 - Obesity, unspecified Plan: Had?a?long?discussion?regarding?portion?sizes,?exercise?and?weight?loss Also?referred?him?to?the?nurse?navigator Orders: Orders AMB Hemoglobin A1c Today E11.9 - Type 2 diabetes mellitus without complications Referrals Sleep Medicine Referral G47.19 - Other hypersomnia, G47.33 - Obstructive sleep apnea (adult) (pediatric) Coding Level of Care Code Est Pt Level 4 (77526) Diagnoses Type 2 diabetes mellitus with hyperglycemia E11.65 KIMO (obstructive sleep apnea) G47.33 Obese E66.9 Additional Codes LISA-7 Assessment Billing - LISA-7 Assessment Tool: LISA-7 Assessment [id number] ([id number])
[2024-01-10 08:20] VITALS: BP 142/68; PULSE 79; RESP 13; O2SAT 98; BMI 36.3
== END 2024-01-10 09:08 | disposition home or self-care (01) ==
PROVIDERS: PCP Family Medicine; Visit Provider Family Medicine
DX: E11.65 Type 2 diabetes mellitus with hyperglycemia (principal); G47.33 Obstructive sleep apnea (adult) (pediatric); E66.9 Obesity, unspecified; Z68.36 Body mass index [BMI] 36.0-36.9, adult
CPT/HCPCS: 83036; 99214

== ENCOUNTER 2024-01-13 09:57 | Outpatient (AMB) | payer OTHER, SELFPAY ==
--- NOTE | 2024-01-13 10:03 | MHC.OFFVIS ---
Intake Vital Signs 01/13/24 10:10 Height 5 ft 11 in Weight 262 lb 8 oz BMI 36.6 BP 112/60 Blood Pressure Location Lt brachial Position Sitting Pulse 74 Pulse Source Pulse Oximeter Pulse Oximetry (%) 97 Oxygen Delivery Method Room Air Intake Visit Reasons: Re-referred for KIMO Intake Note: Patient presents for KIMO. Having difficulty sleeping during the nigh, waking up gasping for air and snoring loudly. In the morning when waking up feeling body tight and aches. During the day very tired and feeling fatigue. Allergies arsenic Allergy (Severe, Verified 01/13/24 10:10) Itching ibuprofen Adverse Reaction (Intermediate, Verified 01/13/24 10:10) GI upset HPI HPI Comments History of Present Illness Details 48 y/o male patient has hx of HTN, HLD, Afib and DM 2 presents for new in-person visit for sleep consultation. Pt reports snoring, waking up with gasping and chocking for air when he sleep. He has non refreshing sleep with morning headaches and daytime sleepiness. Pt reports uncontrolled DM and wt gain. The last A1C was 10.1 in December,. He gained 30 lb over the last year. The last sleep study was canceled due to insurance. He has new insurance. Sleep questionnaire: Have you ever been diagnosed with a sleep disorder? No. Have you ever had a sleep study in the past? No. Have you ever been treated for a sleep disorder? No. Do you take medications for a sleep disorder? No. Do you snore? Yes. Do you wake up gasping at night? Yes. Do you have episodes of apneas? Don't know. If yes, are they witnessed? No. Do you have episodes of nocturnal chest pain or dyspnea? No. Do you have difficulty initiating sleep? No. Do you have difficulty maintaining sleep? Yes, wakes up almost every hour. Do you wake up tired? Yes. Do you have headaches upon awakening? Yes. Do you wake up with dry mouth or throat? Yes. Do you have GERD? Yes. Do you have nocturia? Yes. Do you have nocturnal leg cramps? No. Do you have symptoms of restless legs? No. Do you act out your dreams? No. Sleep hygiene questionnaire: What is your usual sleep routine? Usual bedtime is at 9:30 pm to 11 pm; Usual wake up time is at 5-6 am. Do you take naps? No. Is your sleep environment cool, dark, and quiet? Yes. Do you exercise? No. Do you take caffeine or other stimulants? No. Do you use electronics in bed? Yes. What is your work schedule? 9 am-6 pm. Hypersomnolence questionnaire: Do you have daytime tiredness or fatigue? Yes. Do you easily fall asleep when inactive? Yes. Have you ever had episodes of sudden weakness? No. Have you ever had episodes of sudden weakness associated with strong emotions? No. PFSH Medical History Vitamin D deficiency Vitamin D deficiency PAF (paroxysmal atrial fibrillation) HLD (hyperlipidemia) HTN (hypertension) T2DM (type 2 diabetes mellitus) NAFLD (nonalcoholic fatty liver disease) Essential hypertension Type 2 diabetes mellitus without complications Surgical History History of esophagogastroduodenoscopy (EGD) Family History Father Diabetes Hypertension CVD (cardiovascular disease) Mother Alzheimer's dementia Other Mental health disorder Vitamin D deficiency Social History Household Members: Spouse Housing: House Alcohol intake: never Patient Tobacco Use Status: Former Tobacco user e-Cigarette/Vaping Use: Never Used Second Hand Smoke Exposure: No service: No Current occupational status: employed 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 Current occupational exposures/hazards: No Cognitive needs: No Hearing needs: No Vision needs: Yes (Glasses) Review of Systems Const All systems reviewed & are unremarkable except as noted in HPI and below ENT Reports Normal hearing present Neuro Reports Normal hearing present Physical Exam Vital Signs: Last Vital Signs Pulse 74 01/13/24 10:10 BP 112/60 01/13/24 10:10 Pulse Ox 97 01/13/24 10:10 Oxygen Delivery Method Room Air 01/13/24 10:10 BMI result Body Mass Index 36.6 Const General: cooperative and tired appearing Nutritional Appearance: obese Orientation/consciousness: patient oriented x3 HEENT Throat: Yes other (mallampati score 4) Neck Neck: Yes full ROM and Yes supple Resp Effort & Inspection: normal respiratory effort and able to speak in complete sentences Neuro General: patient oriented x3, gait normal, moves all extremities and no focal motor deficits Cranial nerves: Yes Bilaterally intact EOM present, Yes Normal facial strength present, Yes Midline tongue present, Yes Normal hearing present, Yes Ability to bilaterally rotate head present and Yes Ability to bilaterally elevate shoulders present Cognition (Neuro): normal cognition Gait exam (Neuro): Normal gait present Psych Appearance: grossly normal Mental Status: mental status grossly normal Speech and movement: Normal speech and movement present Affect: normal affect Attitude: cooperative Assessment & Plan Assessment & Plan (1) Fatigue: Code(s): R53.83 - Other fatigue (2) Daytime sleepiness: Code(s): R40.0 - Somnolence (3) Snoring: Code(s): R06.83 - Snoring (4) Gasping for breath: Code(s): R06.89 - Other abnormalities of breathing (5) Obese: Code(s): E66.9 - Obesity, unspecified Plan Pt is advised to undergo lab sleep study to assess for sleep apnea. Will f/u with pt after study to discuss results and appropriate treatment options. Sleep hygiene education provided. Encouraged patient to increase physical activity and manage diet for wt reduction. Pt to call with any worsening concerns or questions. Coding Level of Care Code Est Pt Level 3 (87361) Diagnoses Fatigue R53.83 Daytime sleepiness R40.0 Snoring R06.83 Gasping for breath R06.89 Obese E66.9
[2024-01-13 10:10] VITALS: BP 112/60; PULSE 74; O2SAT 97; BMI 36.6
== END 2024-01-13 10:26 | disposition home or self-care (01) ==
LOC: HO.HSMC 09:57
PROVIDERS: PCP Family Medicine; Visit Provider Nurse Practitioner Family
DX: R53.83 Other fatigue (principal); R40.0 Somnolence; R06.83 Snoring; R06.89 Other abnormalities of breathing; E66.9 Obesity, unspecified
CPT/HCPCS: 99213

== ENCOUNTER → 2024-01-13 09:57 | Outpatient (BNVA) | payer OTHER, SELFPAY | PROVIDERS: PCP Family Medicine; Visit Provider Nurse Practitioner Family ==

== ENCOUNTER 2024-01-30 08:09 | Outpatient (AMB) | payer OTHER, SELFPAY ==
--- NOTE | 2024-01-30 08:10 | A.OFFVIS_ITS ---
Intake Vital Signs 01/30/24 08:15 Height 5 ft 11 in Weight 267 lb 13.786 oz BMI 37.4 BP 132/76 Blood Pressure Location Lt brachial Position Sitting Pulse 76 Pulse Source Pulse Oximeter Intake Visit Reasons: dm-confirmed Intake Note: Patient presents today to follow up on D2MT. Patient receives Mckay 3 sensor through pharmacy. Last Diabetic Eye exam: 01/15/2024, [facility] Last Podiatry Visit: Almost 1 year Random Glucose: 196 mg/dl HgA1c: 10.1 % 01/10/24 Fast Food Shift Lead Required: No Accompanied by: Self / Same As Patient Allergies arsenic Allergy (Severe, Verified 01/30/24 08:17) Itching ibuprofen Adverse Reaction (Intermediate, Verified 01/30/24 08:17) GI upset HPI HPI Comments History of Present Illness Details Patient is a 48-year-old male with DM type 2 who presents for management of diabetes. Past medical history: Diabetes type 2, hyperlipidemia, hypertension, CAD vitamin-D deficency Micro and macrovascular complications: Nephropathy,a-fib , retinopathy Diabetes medications: Toujeo to 60 units. He will use his NovoLog prior to meals, 60 units for brekfast, 60 units for lunch and dinner. Plus correction of +4 u for bg >200, +6 u bg >250, +8 u bg >300. He was unable to tolerate metformin due to GI distress. He was unable to tolerate Jardiance due to polyuria and due to yeast infectionn . Mounjaro 5 mg Qwkly not taking . Can't take GLP-1 CGM: In the past 2 weeks average blood glucose 261 , GM I 9.6%. C GM is active 94%. Patient has low blood glucose from 54-69, 0%. Glucose in target range of 70-180, 23%. Glucose above goal 77%. 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 education: has seen Payroll And Benefits Specialist: denies Dental exam: goes every 6 months Ophthalmology evaluation: last app01/16/2024 Other specialists: gastronenterology Laboratory Tests 07/17/21 10/25/21 11/02/21 09:50 12:50 13:53 Creatinine 1.13 Estimated GFR > 60 Hemoglobin A1c % Triglycerides 200 Cholesterol 146 LDL Cholesterol Di rect LDL Cholesterol, C alc 76 HDL Cholesterol 30 25-OH Vitamin D To rizwana 27.3 Microalb/Creat Rat io TNP 11/02/21 11/02/21 13:53 13:53 Creatinine Estimated GFR Hemoglobin A1c % 10.4 Triglycerides Cholesterol LDL Cholesterol Di rect 83 LDL Cholesterol, C alc HDL Cholesterol 25-OH Vitamin D To rizwana Microalb/Creat Rat io PFSH Medical History Vitamin D deficiency Vitamin D deficiency PAF (paroxysmal atrial fibrillation) HLD (hyperlipidemia) HTN (hypertension) T2DM (type 2 diabetes mellitus) NAFLD (nonalcoholic fatty liver disease) Essential hypertension Type 2 diabetes mellitus without complications Surgical History History of esophagogastroduodenoscopy (EGD) Family History Father Diabetes Hypertension CVD (cardiovascular disease) Mother Alzheimer's dementia Other Mental health disorder Vitamin D deficiency Social History Household Members: Spouse Housing: House Alcohol intake: never Patient Tobacco Use Status: Former Tobacco user e-Cigarette/Vaping Use: Never Used Second Hand Smoke Exposure: No service: No Current occupational status: employed 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 Absence of acromegalic features. Neck exam reveals nl size thyroid about 15 gms. No thyroid nodules palpable. No carotid bruits present. Lungs CTA. Heart S1 S2, Reg R/R. No M/R/ G. Skin exam reveals absence of vitiligo or acanthosis nigricans. Abdominal exam reveals Soft NT/ND with NA BS. No organomegaly present. Neck Other: . Extrem Other: Visual exam of foot performed. No ulcerations or open lesions. No onchomycosis, no callouses.Pulses 2 + distally Sensation intact to monofilament exam. Vibratory sensation sensed is intact with 128 Hz tuning fork Assessment & Plan Assessment & Plan (1) Type 2 diabetes mellitus with hyperglycemia: Code(s): E11.65 - Type 2 diabetes mellitus with hyperglycemia Plan: This is a 48-year-old male with type 2 diabetes being treated with basal-bolus insulin and with poor glycemic control and known microvascular namely Nephropathy, , retinopathy. Plan is I will have him follow up with wellness educator. Consider switching the patient to U-500 insulin perhaps 50 units before meals .. However, would not switch to U-500 insulin without having patient for see wellness educator. We could also consider the use of an insulin pump initially starting with U 100 insulin and possibly switching to U 500 insulin should this be necessary. Also spoke with patient about the benefit of bariatric surgery but he has not interested in doing this right now Medications: New insulin aspart U-100 (Novolog FlexPen U-100 Insulin aspart) 60 - 80 units (0.6 - 0.8 mL) subcut TID 45 mL 5RF E11.65 - Type 2 diabetes mellitus with hyperglycemia Coding Level of Care Code Est Pt Level 4 (27161) Diagnoses Type 2 diabetes mellitus with hyperglycemia E11.65
[2024-01-30 08:15] VITALS: BP 132/76; PULSE 76; BMI 37.4
[2024-01-30 08:28] LABS: Glucose, Whole Blood 196 mg/dL (60-115)
== END 2024-01-30 08:40 | disposition home or self-care (01) ==
PROVIDERS: PCP Family Medicine; Visit Provider Internal Medicine Endocrinology, Diabetes & Metabolism
DX: E11.65 Type 2 diabetes mellitus with hyperglycemia (principal)
CPT/HCPCS: 99214

== ENCOUNTER → 2024-01-30 08:09 | Outpatient (BNVA) | payer OTHER, SELFPAY | PROVIDERS: PCP Family Medicine; Visit Provider Internal Medicine Endocrinology, Diabetes & Metabolism | DX: E11.65 Type 2 diabetes mellitus with hyperglycemia (principal); Z79.4 Long term (current) use of insulin | CPT/HCPCS: 82947 ==

== ENCOUNTER 2024-02-21 08:17 | Outpatient (AMB) | payer OTHER, SELFPAY ==
--- NOTE | 2024-02-21 08:21 | MHC.PC.OV ---
Vital Signs 02/21/24 08:22 Height 5 ft 11 in Weight 265 lb 2 oz BMI 37.0 BP 134/76 Blood Pressure Location Rt brachial Position Sitting Respiration 14 Pulse 80 Pulse Source Pulse Oximeter Temp 97.6 F Temp Source Temporal Artery Scan Pulse Oximetry (%) 97 Oxygen Delivery Method Room Air Intake Visit Reasons: f/u diabetes Intake Note: Patient is concerned about a cough. Senior Compensation Analyst Required: No Accompanied by: Self / Same As Patient Allergies arsenic Allergy (Severe, Verified 02/21/24 08:27) Itching ibuprofen Adverse Reaction (Intermediate, Verified 02/21/24 08:27) GI upset Medication List - Last Reconciled 02/21/24 by Guzman Gonzalez MD aspirin (Adult Aspirin Regimen) 81 mg PO DAILY 90 days atorvastatin 20 mg (2 x 10 mg) PO ONCE 30 days bisoprolol fumarate 7.5 mg (1.5 x 5 mg) PO DAILY 90 days blood-glucose sensor (L3Style Mckay 3 Sensor device) As directed changed every 14 days diclofenac sodium 1% 4 grams topical TID 15 days fenofibrate micronized 200 mg PO DAILY 90 days hyoscyamine sulfate (Levsin/SL) 0.125 mg sublingual QID PRN insulin glargine U-300 conc (Toujeo SoloStar U-300 Insulin) 54 units AM and 54 units PM subcutaneously 2 times a day; 90 days lancets (FreeStyle Lancets) 4x daily lisinopril 5 mg PO DAILY Novolog FlexPen U-100 Insulin (insulin aspart U-100) 60 - 80 units (0.6 - 0.8 mL) subcut TID NS pen needle, diabetic (BD Ultra-Fine Micro Pen Needle) As directed injects 4 X/day pen needle, diabetic (BD Ultra-Fine Maddie Pen Needle) USE TO INJECT 4 TIMES A DAY rabeprazole 20 mg PO DAILY 90 days tadalafil 5 mg PO DAILY PRN 30 days tirzepatide (Mounjaro) 5 mg (0.5 mL) subcut QWEEK 28 days Tobacco use date assessed: 01/10/24 Dental Screening Dental Screen Date: 01/10/24 HPI f/u diabetes HPI Details 48 y/o male presents to f/u diabetes. Last A1c 01/10/24 showed poor control - A1c 10.1%. Had increased his basal insulin to 54 units b.i.d. Beti 60 units b.i.d, NovoLog prior to meals, 60 units for breakfast, 60 units for lunch and dinner. Plus correction of +4 u for bg > 200, +6 u bg >250, With dinner he also adds a correction of +5 u for bg> 200, +7 u for 250 +9 u bg> [address] Kimbrough 01/30/24. They plan to have him f/u with tobacco prevention health educator and consider switching pt to U-500 insulin. AM blood sugar 150-175. Goes up to 300-350 after dinner Pt has complaints of a cough. Notes it started after a covid infection. HPI Comments History of Present Illness Details Documentation assistance for Guzman Gonzalez MD, was provided by Dilan Perez, Director Sanitation Bureau on 02/21/2024 9:06 AM EST. I, Dr. Gonzalez, have read, observed, and verified documentation. [facility] Medical History Vitamin D deficiency Vitamin D deficiency PAF (paroxysmal atrial fibrillation) HLD (hyperlipidemia) HTN (hypertension) T2DM (type 2 diabetes mellitus) NAFLD (nonalcoholic fatty liver disease) Essential hypertension Type 2 diabetes mellitus without complications Surgical History History of esophagogastroduodenoscopy (EGD) Family History Father Diabetes Hypertension CVD (cardiovascular disease) Mother Alzheimer's dementia Other Mental health disorder Vitamin D deficiency Social History (Updated 02/21/24 @ 08:28 by TAYE Valenzuela) Household Members: Spouse Both parents involved: No Caregiver staying overnight: No Housing: House Are you a primary hospice care consultant to a significant other at home: No Do you presently have visiting nurse or other home services: No 75 years or older and lives alone: No Alcohol intake: never Patient Tobacco Use Status: Former Tobacco user e-Cigarette/Vaping Use: Never Used Second Hand Smoke Exposure: No service: No Current occupational status: employed 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 Robert Atkinson, Fransisca Michelle, Des Wright and colleagues, with an educational jessica from [employer]. Review of Systems Const Denies chills, Denies fatigue, Denies fever(s), Denies headache(s) and Denies weakness ENT Denies dizziness and Denies headache(s) Card Denies chest pain, Denies lightheadedness, Denies dyspnea and Denies other (Palpitations) Resp Reports cough, Denies dyspnea, Denies wheezing and Denies other ( shortness of breath) Musc Denies numbness and Denies tingling Neuro Denies dizziness, Denies headache(s), Denies numbness, Denies tingling, Denies paresthesias and Denies weakness Psych Denies anxiety and Denies depression Endo Denies fatigue Aller/Immun Denies wheezing Physical exam (Primary Care) Vital Signs: Last Vital Signs Temp 97.6 F 02/21/24 08:22 Pulse 80 02/21/24 08:22 Resp 14 02/21/24 08:22 BP 134/76 02/21/24 08:22 Pulse Ox 97 02/21/24 08:22 Oxygen Delivery Method Room Air 02/21/24 08:22 BMI result Body Mass Index 37.0 Tobacco/Smoking Status: Tobacco use Status Tobacco use date assessed 01/10/24 02/21/24 08:22 Patient Tobacco Use Status Former Tobacco user 02/21/24 08:28 e-Cigarette/Vaping Use Never Used 02/21/24 08:28 Thrive Assessment: Date of Thrive Assessment Date Thrive assessed 01/10/24 02/21/24 08:22 Const General: no acute distress and well developed Nutritional Appearance: well nourished Orientation/consciousness: patient oriented x3 HENMT Head: Yes normocephalic and Yes atraumatic Eyes General: appearance normal, both eyes and all related structures Pupils: Equal, round and reactive pupils present EOM: EOMs intact bilaterally Resp Other: Coarse breath sounds and increased airway secretions Effort & Inspection: normal respiratory effort Auscultation: clear to auscultation bilaterally Cardio Rate: regular rate Rhythm: regular rhythm Heart sounds: S1 normal heart sound present, S2 normal heart sound present, no gallops, no murmurs and no rubs Neuro General: patient oriented x3 and gait normal Cranial nerves: Yes Equal, round and reactive pupils present Psych Affect: normal affect Assessment and Plan Assessment & Plan (1) Type 2 diabetes mellitus with hyperglycemia: Code(s): E11.65 - Type 2 diabetes mellitus with hyperglycemia Plan: Still having issues with after-dinner hyperglycemia Continue?Toujeo 60?units?b.i.d. Continue?NovoLog?60?units?at?each?mealtime?plus?he?is?using?a?correction?factor?with?dinner.??Advised?he?increase?his?correction?factor?by?1?unit?for?each?category?of?blood?sugars; +5 u for bg >200, +7 u bg >250, +9 u bg >300. He?has?an?appointment?with?his?mechanical tech?next?month. Follow-up?with?diabetic?educator (2) Excessive daytime sleepiness: Code(s): G47.19 - Other hypersomnia Plan: Patient?is?waiting?for?call?back I?have?asked?the?office?to?check?on?the?status?of?his?appointment (3) Cough: Code(s): R05.9 - Cough, unspecified Plan: Coarse?breath?sounds?and?increased?airway?secretions Likely Bronchitis Start?Z-Cuong?and?albuterol?inhaler Orders: Orders Complete Blood Count Auto Diff Today Z00.00 - Encounter for general adult medical examination without abnormal findings Lipid Panel Today Z00.00 - Encounter for general adult medical examination without abnormal findings TSH reflex Free T4 Today Z00.00 - Encounter for general adult medical examination without abnormal findings UA and rflx microscopic Today Z00.00 - Encounter for general adult medical examination without abnormal findings Comprehensive [place]. Panel Fast Today Z00.00 - Encounter for general adult medical examination without abnormal findings Microalbumin, Random (w Creat) Today I10 - Essential (primary) hypertension Prostate Specific Antigen Scr Today Z12.5 - Encounter for screening for malignant neoplasm of prostate Vitamin B12 and Folate Today E53.8 - Deficiency of other specified B group vitamins Vitamin D 25-OH Total Today E55.9 - Vitamin D deficiency, unspecified Medications: New azithromycin (Zithromax Z-Cuong) take 500 mg today (day 1), then 250 mg for 4 days (days 2-5) PO 5 days 6 tabs 0RF albuterol sulfate 90 mcg/actuation (Ventolin HFA) 2 puffs inhalation Q4-6H 30 days PRN 8.5 grams 1RF shortness of breath or wheezing Coding Level of Care Code Est Pt Level 4 (82380) Diagnoses Type 2 diabetes mellitus with hyperglycemia E11.65 Excessive daytime sleepiness G47.19 Cough R05.9
[2024-02-21 08:22] VITALS: BP 134/76; PULSE 80; RESP 14; TEMP 36.4; O2SAT 97; BMI 37.0
== END 2024-02-21 09:17 | disposition home or self-care (01) ==
PROVIDERS: PCP Family Medicine; Visit Provider Family Medicine
DX: E11.65 Type 2 diabetes mellitus with hyperglycemia (principal); G47.19 Other hypersomnia; R05.9 Cough, unspecified
CPT/HCPCS: 99214

== ENCOUNTER 2024-02-24 15:31 | Outpatient (AMB) | payer OTHER, SELFPAY ==
--- NOTE | 2024-02-24 16:15 | A.OFFVIS_ITS ---
Intake Intake Visit Reasons: T2DM Manager Food Beverage Required: No Accompanied by: Self / Same As Patient Allergies arsenic Allergy (Severe, Verified 02/21/24 08:27) Itching ibuprofen Adverse Reaction (Intermediate, Verified 02/21/24 08:27) GI upset HPI Comprehensive Diabetes Asmnt Most Recent Diabetes Results: Hemoglobin A1c 11.7 % 05/31/20 Microalb/Creat Ratio 16.1 ug/mg cr (<30) 07/31/23 Cholesterol 137 mg/dL (<200) 07/31/23 HDL Cholesterol 26 mg/dL (>40) L 07/31/23 Triglycerides 266 mg/dL (<150) H 07/31/23 Creatinine 1.05 mg/dL (0.5-1.4) 08/27/23 Blood Urea Nitrogen 13 mg/dL (9-16) 08/27/23 Sodium 137 mmol/L (135-145) 08/27/23 Potassium 4.1 mmol/L (3.3-5.1) 08/27/23 Chloride 101 mmol/L (96-108) 08/27/23 Carbon Dioxide 28 mmol/L (22-29) 08/27/23 Calcium 9.9 mg/dL (8.4-10.2) 08/27/23 AST 34 U/L (5-37) 08/27/23 ALT 31 U/L (0-40) 08/27/23 Total Protein 8.0 g/dL (6.5-8.0) 08/27/23 Albumin 4.4 g/dL (3.5-5.0) 08/27/23 [facility] Medical History Vitamin D deficiency Vitamin D deficiency PAF (paroxysmal atrial fibrillation) HLD (hyperlipidemia) HTN (hypertension) T2DM (type 2 diabetes mellitus) NAFLD (nonalcoholic fatty liver disease) Essential hypertension Type 2 diabetes mellitus without complications Surgical History History of esophagogastroduodenoscopy (EGD) Family History Father Diabetes Hypertension CVD (cardiovascular disease) Mother Alzheimer's dementia Other Mental health disorder Vitamin D deficiency Social History (Updated 02/21/24 @ 08:28 by EDILBERTO Valenzuela Household Members: Spouse Both parents involved: No Caregiver staying overnight: No Housing: House Are you a primary critical care clinical nurse specialist to a significant other at home: No Do you presently have visiting nurse or other home services: No 75 years or older and lives alone: No Alcohol intake: never Patient Tobacco Use Status: Former Tobacco user e-Cigarette/Vaping Use: Never Used Second Hand Smoke Exposure: No service: No Current occupational status: employed 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 The patient met all learning objectives and was able to verbalize understanding and provide teach back of education topics discussed . The patient was provided with the opportunity to ask questions and all questions were answered. Patient Assessment Assess patient education level/literacy/barriers Patient questions/concerns, patient's last A1c 10.1% on 01/10/2024, patient has had consistent hyperglycemia throughout the last 12 months. Patient is sent to coding educator to discuss, switching to Humulin U 500 or perhaps using insulin pump At today's visit we discussed the importance of eating smaller portions of carbohydrate especially in the evening when patient's glucose pattern shows postprandial hyperglycemia. Patient is currently using Toujeo 54 units b.i.d. He is also prescribed NovoLog 60-80 units prior to meals, patient denies missing doses of insulin Overnight patient's glucose appears to have downward trend, however evening glucose is usually well above 250 mg/dL. Patient reports eating up to 5 cups of rice for his evening meal, had extensive discussion about insulin action, and modifying mealtime portion in the evening. At this time patient requested 1 month to work on meal planning, before making any changes to diabetes care plan What is Diabetes? Pathophysiology How the body produces and uses insulin Identify type of DM Risk factors Signs of Diabetes Brief overview of Diabetes Management Monitoring blood sugar Following a meal plan Regular exercise Maintaining a healthy weight Taking medication as needed Members of the care team (PCP, RN, MA, RD, CDE, social work program coordinator) Blood glucose monitoring When/how often to test Target blood sugar ranges Patient uses freestyle Mckay to check glucose Patient is average glucose for the past 2 weeks 276 mg/dL Patient above target 85% Patient patient at target 15% Patient below target 0% Introduction to Nutrition Importance of healthy diet in managing DM Diet is personalized to individual preference Review patient?s regular diet/food preferences Who prepares meals/does food shopping/ Dining out?/ Barriers? How diet effects glucose Eating 3 balanced meals a day with small, healthy snacks between meals Review food groups Carbohydrates: What is a carbohydrate/Which food/food groups are considered carbohydrates Effect of carbohydrates on blood glucose Portion sizes Reading food labels Basic carb counting (if applicable per nursing assessment) Plate method Meal planning Recommendations: Follow plate method, consistent carbs and read nutritional labels. Smart Goal: Patient will reduce portion of carbohydrate at suppertime Educational Materials: The patient was provided with the following written educational materials: Planning Healthy Meals Handout Patient Response to instructions: Comprehension of Instructions: Fair Readiness to make changes: Contemplation How confident they feel about making changes: Positive Patient Instructions: Include regular daily activity. ADA recommends 30 minutes of exercise 5 days a week. Weight loss talk to PCP or Rn Interventional before starting new plan. Test blood sugar as directed; Fasting and 2hpp largest meal. Watch trends in results. Utilize results and to assess how food, physical activity and medications affect blood sugar results. Bring glucometer or CGM to next visit. Be knowledgeable about diabetes medication, its action, side effects, efficacy, toxicity, prescribed dosage, appropriate timing and frequency of administration, effect of missed and delayed doses and instructions for storage, travel and safety. Problem solving techniques to monitor hypo/hyperglycemia episodes and treatments. Reduce risk reduction behaviors, smoking cessation, regular eye, foot and dental examinations. Patient will follow-up with coding educator in 1 month Coding Level of Care Code Est Pt Level 1 (74095) Diagnoses Type 2 diabetes mellitus with hyperglycemia E11.65
== END 2024-02-24 16:22 | disposition home or self-care (01) ==
PROVIDERS: PCP Family Medicine; Visit Provider Registered Nurse Diabetes Educator
DX: E11.65 Type 2 diabetes mellitus with hyperglycemia (principal)

== ENCOUNTER → 2024-02-24 15:31 | Outpatient (BNVA) | payer OTHER, SELFPAY | PROVIDERS: PCP Family Medicine; Visit Provider Registered Nurse Diabetes Educator | DX: E11.65 Type 2 diabetes mellitus with hyperglycemia (principal) | CPT/HCPCS: 99211 ==

== ENCOUNTER → 2024-03-31 08:23 | Outpatient (REF) | payer OTHER, SELFPAY | LOC: HO.SL 08:23 | PROVIDERS: PCP Family Medicine; Visit Provider Nurse Practitioner Family | DX: G47.19 Other hypersomnia (principal); G47.30 Sleep apnea, unspecified | CPT/HCPCS: 95806 ==

== ENCOUNTER → 2024-03-31 08:30 | Outpatient (BNV) | payer OTHER, SELFPAY | PROVIDERS: PCP Family Medicine; Visit Provider Psychiatry & Neurology Neurology | DX: G47.33 Obstructive sleep apnea (adult) (pediatric) (principal) | CPT/HCPCS: 95806 ==

== ENCOUNTER 2024-04-07 16:12 | Outpatient (AMB) | payer OTHER, SELFPAY ==
--- NOTE | 2024-04-07 16:34 | MHC.AMDMED ---
Intake Intake Visit Reasons: T2DM Youth Care Worker Required: No Accompanied by: Self / Same As Patient Allergies arsenic Allergy (Severe, Verified 02/21/24 08:27) Itching ibuprofen Adverse Reaction (Intermediate, Verified 02/21/24 08:27) GI upset HPI Comprehensive Diabetes Asmnt Most Recent Diabetes Results: Hemoglobin A1c 11.7 % 05/31/20 Microalb/Creat Ratio 16.1 ug/mg cr (<30) 07/31/23 Cholesterol 137 mg/dL (<200) 07/31/23 HDL Cholesterol 26 mg/dL (>40) L 07/31/23 Triglycerides 266 mg/dL (<150) H 07/31/23 Creatinine 1.05 mg/dL (0.5-1.4) 08/27/23 Blood Urea Nitrogen 13 mg/dL (9-16) 08/27/23 Sodium 137 mmol/L (135-145) 08/27/23 Potassium 4.1 mmol/L (3.3-5.1) 08/27/23 Chloride 101 mmol/L (96-108) 08/27/23 Carbon Dioxide 28 mmol/L (22-29) 08/27/23 Calcium 9.9 mg/dL (8.4-10.2) 08/27/23 AST 34 U/L (5-37) 08/27/23 ALT 31 U/L (0-40) 08/27/23 Total Protein 8.0 g/dL (6.5-8.0) 08/27/23 Albumin 4.4 g/dL (3.5-5.0) 08/27/23 [facility] [place] Medical History Vitamin D deficiency Vitamin D deficiency PAF (paroxysmal atrial fibrillation) HLD (hyperlipidemia) HTN (hypertension) T2DM (type 2 diabetes mellitus) NAFLD (nonalcoholic fatty liver disease) Essential hypertension Type 2 diabetes mellitus without complications Surgical History History of esophagogastroduodenoscopy (EGD) Family History Father Diabetes Hypertension CVD (cardiovascular disease) Mother Alzheimer's dementia Other Mental health disorder Vitamin D deficiency Social History (Updated 02/21/24 @ 08:28 by EDILBERTO Valenzuela Household Members: Spouse Both parents involved: No Caregiver staying overnight: No Housing: House Are you a primary family day care provider to a significant other at home: No Do you presently have visiting nurse or other home services: No 75 years or older and lives alone: No Alcohol intake: never Patient Tobacco Use Status: Former Tobacco user e-Cigarette/Vaping Use: Never Used Second Hand Smoke Exposure: No service: No Current occupational status: employed 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 0% Hyperglycemia:? 84% Time in Range:? 16% Average glucose for the last 2 weeks? 257 mg/dL Patient reports he has reduced carbohydrate portions at suppertime, however glucose still remains above target Reviewed with patient action of Humulin U 500, and action of Humalog U 200 Patient wants to check with his insurance to see what his copays would be for each medication. Explained to patient is important not only to control glucose levels but to control carbohydrate intake because if he is in taking more carbohydrates than he is using once he starts more concentrated insulin he may gain weight, which will lead to an increase insulin demand. Patient is also having difficulty getting his Mckay 3 sensors from his PCP, sent message to Dr. Kimbrough to write prescription for Mckay 3 sensor Patient has follow-up appointment with Dr. Kimbrough on 04/29/2024 Reviewed how to interpret trend arrows Reminded patient that to check finger sticks if symptoms do not match sensor reading. Discussed lag time between finger stick and sensor data.? Patient able to insert sensor independently at home without issue.? Portions of this note were created using voice recognition software, please excuse any words or phrases that may have been misinterpreted. Patient Instructions: Follow-up with nurse informatics educator in 2 months Coding Level of Care Code Est Pt Level 1 (06882) Diagnoses Type 2 diabetes mellitus with hyperglycemia E11.65
== END 2024-04-07 16:36 | disposition home or self-care (01) ==
PROVIDERS: PCP Family Medicine; Visit Provider Registered Nurse Diabetes Educator
DX: E11.65 Type 2 diabetes mellitus with hyperglycemia (principal)

== ENCOUNTER → 2024-04-07 16:12 | Outpatient (BNVA) | payer OTHER, SELFPAY | PROVIDERS: PCP Family Medicine; Visit Provider Registered Nurse Diabetes Educator | DX: E11.65 Type 2 diabetes mellitus with hyperglycemia (principal) | CPT/HCPCS: 99211 ==

== ENCOUNTER 2024-04-20 08:39 | Outpatient (AMB) | payer OTHER, SELFPAY ==
--- NOTE | 2024-04-20 08:43 | A.OFFVIS_ITS ---
Vital Signs 04/20/24 08:44 Height 5 ft 11 in Weight 273 lb 13.026 oz BMI 38.2 BP 134/72 Blood Pressure Location Lt brachial Position Sitting Pulse 74 Pulse Source Pulse Oximeter Intake Visit Reasons: [id number] Intake Note: Patient presents today to follow up on D2MT. Last Diabetic Eye exam: 03/2024 Last Podiatry Visit:Doesn't have one Random Glucose:274 mg/dl HgA1c: 10.1% 01/10/24 Preschool Special Education Teacher Required: No Accompanied by: Self / Same As Patient Allergies arsenic Allergy (Severe, Verified 04/20/24 08:49) Itching ibuprofen Adverse Reaction (Intermediate, Verified 04/20/24 08:49) GI upset HPI Comments Details: Patient is a 48-year-old male with DM type 2 who presents for management of diabetes. Past medical history: Diabetes type 2, hyperlipidemia, hypertension, CAD vitamin-D deficency Micro and macrovascular complications: Nephropathy,a-fib , retinopathy Diabetes medications: Toujeo to 60 units BID . He will use his NovoLog prior to meals, 60 units for brekfast, 60 units for lunch and dinner. Plus correction of +4 u for bg >200, +6 u bg >250, +8 u bg >300. He was unable to tolerate metformin due to GI distress. He was unable to tolerate Jardiance due to polyuria and due to yeast infectionn . Mounjaro 5 mg Qwkly not taking . Can't take GLP-1 CGM: In the past 2 weeks average blood glucose 232 , GM I 8.9%. C GM is active 84%. Patient has low blood glucose from 54-69, 0%. Glucose in target range of 70-180, 28%. Glucose above goal 71%. 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 education: has seen Pediatric Np: denies Dental exam: goes every 6 months Ophthalmology evaluation: last app01/16/2024 Other specialists: gastronenterology Laboratory Tests 07/17/21 10/25/21 11/02/21 09:50 12:50 13:53 Creatinine 1.13 Estimated GFR > 60 Hemoglobin A1c % Triglycerides 200 Cholesterol 146 LDL Cholesterol Direct LDL Cholesterol, Calc 76 HDL Cholesterol 30 25-OH Vitamin D Total 27.3 Microalb/Creat Ratio TNP 11/02/21 11/02/21 13:53 13:53 Creatinine Estimated GFR Hemoglobin A1c % 10.4 Triglycerides Cholesterol LDL Cholesterol Direct 83 LDL Cholesterol, Calc HDL Cholesterol 25-OH Vitamin D Total Microalb/Creat Ratio [facility] Medical History (Updated 04/09/24 @ 10:36 by Carmen Marie MD) Obstructive sleep apnea Vitamin D deficiency Vitamin D deficiency PAF (paroxysmal atrial fibrillation) HLD (hyperlipidemia) HTN (hypertension) T2DM (type 2 diabetes mellitus) NAFLD (nonalcoholic fatty liver disease) Essential hypertension Type 2 diabetes mellitus without complications Surgical History History of esophagogastroduodenoscopy (EGD) Family History Father Diabetes Hypertension CVD (cardiovascular disease) Mother Alzheimer's dementia Other Mental health disorder Vitamin D deficiency Social History Household Members: Spouse Both parents involved: No Caregiver staying overnight: No Housing: House Are you a primary customer care professional to a significant other at home: No Do you presently have visiting nurse or other home services: No 75 years or older and lives alone: No Alcohol intake: never Patient Tobacco Use Status: Former Tobacco user e-Cigarette/Vaping Use: Never Used Second Hand Smoke Exposure: No service: No Current occupational status: employed 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 Absence of acromegalic features. Neck exam reveals nl size thyroid about 15 gms. No thyroid nodules palpable. No carotid bruits present. Lungs CTA. Heart S1 S2, Reg R/R. No M/R/ G. Skin exam reveals absence of vitiligo or acanthosis nigricans. Abdominal exam reveals Soft NT/ND with NA BS. No organomegaly present. Neck Other: . Extrem Other: Visual exam of foot performed. No ulcerations or open lesions. No onchomycosis, no callouses.Pulses 2 + distally Sensation intact to monofilament exam. Vibratory sensation sensed is intact with 128 Hz tuning fork Results Reviewed Results Reviewed: Laboratory Last Values Glucose (Clinic) 274 mg/dL (60-115) H 04/20/24 08:54 Assessment & Plan Assessment & Plan (1) Type 2 diabetes mellitus with hyperglycemia: Code(s): E11.65 - Type 2 diabetes mellitus with hyperglycemia Category: Medical Plan: This is a 48-year-old male with type 2 diabetes being treated with basal-bolus insulin and with poor glycemic control and known microvascular namely Nephropathy, , retinopathy. Plan is after much discussion with the patient, he is agreed to convert to U-500 insulin. Will start 75 units of U-500 insulin before breakfast and 50 units before dinner. I will have him follow up with telehealth nurse educator in 1 week before he starts the U-500. Consider switching the patient to U-500 insulin perhaps 50 units before meals .. We could also consider the use of an insulin pump initially starting with U 100 insulin and possibly switching to U 500 insulin should this be necessary. He will follow up with Rita Ott NP in 6 weeks Medications: New insulin regular hum U-500 conc (Humulin R U-500 (Conc) Insulin Kwikpen) inject 75 units in AM and 50 units before dinner subcutaneously every evening; 6 mL 5RF Discontinued insulin glargine U-300 conc (Toujeo SoloStar U-300 Insulin) Discontinued Reason: Doctor's Order 54 units AM and 54 units PM subcutaneously 2 times a day; 90 days 67 mL 4RF E11.65 - Type 2 diabetes mellitus with hyperglycemia Novolog FlexPen U-100 Insulin (insulin aspart U-100) Discontinued Reason: Doctor's Order 60 - 80 units (0.6 - 0.8 mL) subcut TID 45 mL 5RF NS E11.65 - Type 2 diabetes mellitus with hyperglycemia Coding Level of Care Code Est Pt Level 4 (48358) Complex EM visit Add On G2211 Diagnoses Type 2 diabetes mellitus with hyperglycemia E11.65
[2024-04-20 08:44] VITALS: BP 134/72; PULSE 74; BMI 38.2
[2024-04-20 08:58] LABS: Glucose, Whole Blood 274 mg/dL (60-115)
== END 2024-04-20 09:17 | disposition home or self-care (01) ==
PROVIDERS: PCP Family Medicine; Visit Provider Internal Medicine Endocrinology, Diabetes & Metabolism
DX: E11.65 Type 2 diabetes mellitus with hyperglycemia (principal)
CPT/HCPCS: 99214; G2211

== ENCOUNTER → 2024-04-20 08:39 | Outpatient (BNVA) | payer OTHER, SELFPAY | PROVIDERS: PCP Family Medicine; Visit Provider Internal Medicine Endocrinology, Diabetes & Metabolism | DX: E11.65 Type 2 diabetes mellitus with hyperglycemia (principal); E11.21 Type 2 diabetes mellitus with diabetic nephropathy; E11.319 Type 2 diabetes mellitus with unspecified diabetic retinopathy without macular edema; Z79.4 Long term (current) use of insulin | CPT/HCPCS: 82947 ==

== ENCOUNTER 2024-05-04 13:46 | Outpatient (AMB) | payer OTHER, SELFPAY ==
--- NOTE | 2024-05-04 13:49 | A.OFFPC_ITS ---
Vital Signs 05/04/24 14:04 Height 5 ft 11 in Weight 272 lb BMI 37.9 BP 118/66 Blood Pressure Location Rt brachial Position Sitting Respiration 15 Pulse 84 Pulse Source Pulse Oximeter Temp 97.8 F Temp Source Temporal Artery Scan Pulse Oximetry (%) 99 Oxygen Delivery Method Room Air Intake Visit Reasons: est/breathing problems Intake Note: Patient states that only concern is shortness of breathe. 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 Denies any fevers/chills. He notes some cough. [facility] Medical History Obstructive sleep apnea Vitamin D deficiency Vitamin D deficiency PAF (paroxysmal atrial fibrillation) HLD (hyperlipidemia) HTN (hypertension) T2DM (type 2 diabetes mellitus) NAFLD (nonalcoholic fatty liver disease) Essential hypertension Type 2 diabetes mellitus without complications Surgical History History of esophagogastroduodenoscopy (EGD) Family History Father Diabetes Hypertension CVD (cardiovascular disease) Mother Alzheimer's dementia Other Mental health disorder Vitamin D deficiency Social History Household Members: Spouse Both parents involved: No Caregiver staying overnight: No Housing: House Are you a primary critical care registered nurse to a significant other at home: No Do you presently have visiting nurse or other home services: No 75 years or older and lives alone: No Alcohol intake: never Patient Tobacco Use Status: Former Tobacco user e-Cigarette/Vaping Use: Never Used Second Hand Smoke Exposure: No service: No Current occupational status: employed 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 Robert Atkinson, Fransisca Michelle, Des Wright and colleagues, with an educational jessica from [employer]. Review of Systems Const Denies chills, Denies fatigue, Denies fever(s), Denies headache(s) and Denies weakness ENT Denies dizziness and Denies headache(s) Card Reports dyspnea Resp Reports cough, Reports dyspnea and Denies wheezing Musc Denies numbness and Denies tingling Neuro Denies dizziness, Denies headache(s), Denies numbness, Denies tingling and Denies weakness Psych Denies anxiety and Denies depression Endo Denies fatigue Aller/Immun Denies wheezing Physical exam (Primary Care) Vital Signs: Last Vital Signs Temp 97.8 F 05/04/24 14:04 Pulse 84 05/04/24 14:04 Resp 15 05/04/24 14:04 BP 118/66 05/04/24 14:04 Pulse Ox 99 05/04/24 14:04 Oxygen Delivery Method Room Air 05/04/24 14:04 BMI result Body Mass Index 37.9 Tobacco/Smoking Status: Tobacco use Status Tobacco use date assessed 01/10/24 05/04/24 13:50 Patient Tobacco Use Status Former Tobacco user 05/04/24 13:50 e-Cigarette/Vaping Use Never Used 05/04/24 13:50 Thrive Assessment: Date of Thrive Assessment Date Thrive assessed 01/10/24 05/04/24 13:50 Const General: well developed; No acute distress Nutritional Appearance: well nourished Orientation/consciousness: patient oriented x3 HENMT Head: Yes normocephalic and Yes atraumatic Eyes General: appearance normal, both eyes and all related structures Pupils: Equal, round and reactive pupils present EOM: EOMs intact bilaterally Resp Effort & Inspection: normal respiratory effort Auscultation: clear to auscultation bilaterally Cardio Rate: regular rate Rhythm: regular rhythm Heart sounds: S1 normal heart sound present, S2 normal heart sound present, no gallops, no murmurs and no rubs Neuro General: patient oriented x3 and gait normal Cranial nerves: Yes Equal, round and reactive pupils present Psych Affect: normal affect Assessment and Plan Assessment & Plan (1) Dyspnea: Code(s): R06.00 - Dyspnea, unspecified Plan: ongoing shortness of breath /dyspnea. No acute distress. no chest pain and workup with Cardiology was unremarkable lungs clear to auscultation today but mildly distant breath sounds peak flow: was initially taken sitting down. Follow-up was repeated both sitting and standing and sitting peak flow did not improve. Standing peak flow after albuterol nebulizer was 350. this does not seem to change with medication. check chest x-ray referred to Pulmonary Medicine (2) Obstructive sleep apnea: Code(s): G47.33 - Obstructive sleep apnea (adult) (pediatric) Plan: patient has been seen by sleep medicine in the past. He says he was told he would need a CPAP and has had difficulty getting in touch with sleep medicine will ask office to get him rescheduled with sleep medicine as soon as possible (3) Balanitis: Code(s): N48.1 - Balanitis Plan: use clotrimazole cream call or return to office if not improved Orders: Orders XR chest 2V Today R06.00 - Dyspnea, unspecified Referrals Pulmonology Referral R06.00 - Dyspnea, unspecified Medications: New clotrimazole 1% 1 appl topical BID 2 weeks 30 grams 1RF Coding Level of Care Code Est Pt Level 3 (63041) Diagnoses Dyspnea R06.00 Obstructive sleep apnea G47.33 Balanitis N48.1
[2024-05-04 14:04] VITALS: BP 118/66; PULSE 84; RESP 15; TEMP 36.6; O2SAT 99; BMI 37.9
== END 2024-05-04 16:43 | disposition home or self-care (01) ==
PROVIDERS: PCP Family Medicine; Visit Provider Family Medicine
DX: R06.00 Dyspnea, unspecified (principal); G47.33 Obstructive sleep apnea (adult) (pediatric); N48.1 Balanitis
CPT/HCPCS: 99213

== ENCOUNTER 2024-05-11 13:09 | Outpatient (AMB) | payer OTHER, SELFPAY ==
[2024-05-11 13:21] VITALS: BP 120/60; PULSE 68; BMI 37.4
--- NOTE | 2024-05-11 13:21 | A.OFFVIS_ITS ---
Vital Signs 05/11/24 13:21 Height 5 ft 11 in Weight 268 lb 8.368 oz BMI 37.4 BP 120/60 Blood Pressure Location Lt brachial Position Sitting Pulse 68 Intake Visit Reasons: 6 mth f/up(rs) Branch Chief Required: No Accompanied by: Child Allergies arsenic Allergy (Severe, Verified 05/04/24 14:08) Itching ibuprofen Adverse Reaction (Intermediate, Verified 05/04/24 14:08) GI upset Medication List - Last Reconciled 05/11/24 by Marty Dominguez MD albuterol sulfate 90 mcg/actuation (Ventolin HFA) 2 puffs inhalation Q4-6H PRN 30 days aspirin (Adult Aspirin Regimen) 81 mg PO DAILY 90 days atorvastatin 20 mg (2 x 10 mg) PO ONCE 30 days bisoprolol fumarate 7.5 mg (1.5 x 5 mg) PO DAILY 90 days blood-glucose sensor (NvelopedStyle Mckay 3 Sensor device) As directed changed every 14 days clotrimazole 1% 1 appl topical BID 2 weeks diclofenac sodium 1% 4 grams topical TID 15 days fenofibrate micronized 200 mg PO DAILY 90 days hyoscyamine sulfate (Levsin/SL) 0.125 mg sublingual QID PRN insulin regular hum U-500 conc (Humulin R U-500 (Conc) Insulin Kwikpen) inject 75 units in AM and 50 units before dinner subcutaneously every evening; lancets (FreeStyle Lancets) 4x daily lisinopril 5 mg PO DAILY pen needle, diabetic (BD Ultra-Fine Micro Pen Needle) As directed injects 4 X/day pen needle, diabetic (BD Ultra-Fine Maddie Pen Needle) USE TO INJECT 4 TIMES A DAY rabeprazole 20 mg PO DAILY 90 days tadalafil 5 mg PO DAILY PRN 30 days tirzepatide (Mounjaro) 5 mg (0.5 mL) subcut QWEEK 28 days HPI Comments Details: Luke returns for follow up regarding his various concerns. He used to live in [facility]. Per patient, at that time he was diagnosed with the atrial fibrillation-around 2015 or so. Then put on bisoprolol. However, not put on anticoagulation. It seems that there was just an isolated episode. We do not have any records from that time. In Holter monitoring here, he did not h ave any recurrences. Recently, he has noticed some shortness of breath, abdominal swelling as well as leg swelling. Not clear if it is any suggestion of a heart dysfunction from obesity or just all related to his weight. He has lot of risk factors however, including obesity, uncontrolled diabetes, hypertension extra. His hemoglobin A1c is still more than 10. [facility] Medical History Obstructive sleep apnea Vitamin D deficiency Vitamin D deficiency PAF (paroxysmal atrial fibrillation) HLD (hyperlipidemia) HTN (hypertension) T2DM (type 2 diabetes mellitus) NAFLD (nonalcoholic fatty liver disease) Essential hypertension Type 2 diabetes mellitus without complications Surgical History History of esophagogastroduodenoscopy (EGD) Family History Father Diabetes Hypertension CVD (cardiovascular disease) Mother Alzheimer's dementia Other Mental health disorder Vitamin D deficiency Social History Household Members: Spouse Housing: House Are you a primary respiratory care faculty to a significant other at home: No Do you presently have visiting nurse or other home services: No Alcohol intake: never Patient Tobacco Use Status: Former Tobacco user e-Cigarette/Vaping Use: Never Used Second Hand Smoke Exposure: No service: No 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 occupational status: employed 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 Current occupational exposures/hazards: No Cognitive needs: No Hearing needs: No Vision needs: Yes (Glasses) Review of Systems Const Denies chills, Denies fatigue, Denies fever(s), Denies weight gain and Denies weight loss ENT Denies dizziness Card Denies chest pain, Denies leg edema, Denies lightheadedness, Denies palpitations, Reports dyspnea on exertion, Denies orthopnea and Denies other Resp Denies cough and Reports dyspnea on exertion GI Denies hematochezia and Denies change in stool character Musc Denies abnormal gait, Denies muscle weakness, Denies numbness, Denies radiating pain into limb and Denies tingling Neuro Denies abnormal gait, Denies dizziness, Denies numbness and Denies tingling Endo Denies fatigue and Denies palpitations Physical Exam Vital Signs: Last Vital Signs Pulse 68 05/11/24 13:21 BP 120/60 05/11/24 13:21 BMI result Body Mass Index 37.4 Const General: comfortable and no acute distress Orientation/consciousness: patient oriented x3 HEENT Other: Unremarkable Head: Yes normal to inspection Neck Neck: Yes normal visual inspection Chest Chest palpation & inspection: normal inspection of the chest Resp Auscultation: clear to auscultation bilaterally Cardio Palpation: normal PMI Heart sounds: S1 normal heart sound present, S2 normal heart sound present, no gallops, no murmurs and no rubs GI Palpation (GI): Soft to palpation Back/Spine/Pelvis Other: unremarkable Skin General skin exam: no rashes or lesions noted Neuro General: patient oriented x3 Extrem Other: 1+ swelling b/l General: Yes normal to inspection Psych Mental Status: mental status grossly normal Office Procedures EKG Details: EKG with sinus rhythm at 68/Min; no significant ST-T changes and otherwise unremarkable[place] [id number], Complete Assessment & Plan Assessment & Plan (1) PAF (paroxysmal atrial fibrillation): Code(s): I48.0 - Paroxysmal atrial fibrillation Category: Medical Plan: Only per patient history and isolated episode in 2016 while living in [facility]. Remains on long-term bisoprolol. Has not been on any anticoagulation as there is only 1 episode and we do not have records of that either. No recent issues. (2) Type 2 diabetes mellitus without complications: Code(s): E11.9 - Type 2 diabetes mellitus without complications Category: Medical Qualifiers: 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 group home insulin use: unspecified group home insulin use status Qualified Code(s): E11.9 - Type 2 diabetes mellitus without complications Plan: Overall, still uncontrolled diabetes. Even this past week, glucose in the clinic was 274. Last hemoglobin A1c is still more than 10. Overall, poorly controlled diabetes with many comorbidities. Coronary CTA 10/2022 but that did not show any significant CAD. Probably repeat in 2-3 years or so-to be decided. (3) Essential hypertension: Code(s): I10 - Essential (primary) hypertension Category: Medical Plan: Seems controlled. (4) Morbid obesity: Code(s): E66.01 - Morbid (severe) obesity due to excess calories Category: Medical Plan: We have discussed about this numerous times including today. His weight is probably the main source of issues including uncontrolled diabetes, severe obstructive sleep apnea. Agrees to see bariatric. Referral made. (5) Obstructive sleep apnea: Code(s): G47.33 - Obstructive sleep apnea (adult) (pediatric) Category: Medical Plan: Severe sleep apnea. Awaiting CPAP. Plan Due to recent complaints of tiredness, leg swelling, sensation of abdominal distention, check echocardiogram. Orders: Orders CA echo transthoracic complete Today R06.00 - Dyspnea, unspecified Referrals Bariatric Surgery Referral E66.01 - Morbid (severe) obesity due to excess calories Coding Level of Care Code Est Pt Level 4 (53454) Diagnoses PAF (paroxysmal atrial fibrillation) I48.0 Type 2 diabetes mellitus without complication, unspecified whether group home insulin use E11.9 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 watermaster insulin use: unspecified watermaster insulin use status Essential hypertension I10 Morbid obesity E66.01 Obstructive sleep apnea G47.33 CPT Codes EKG - CPT: 79912-Xumxrlojqxevozvut, Complete ([id number])
== END 2024-05-11 13:52 | disposition home or self-care (01) ==
PROVIDERS: PCP Family Medicine; Visit Provider Internal Medicine
DX: I48.0 Paroxysmal atrial fibrillation (principal); E11.9 Type 2 diabetes mellitus without complications; I10 Essential (primary) hypertension; E66.01 Morbid (severe) obesity due to excess calories; G47.33 Obstructive sleep apnea (adult) (pediatric)
CPT/HCPCS: 93010; 99214

== ENCOUNTER 2024-05-11 13:55 | Outpatient (REF) | payer OTHER, SELFPAY ==
--- NOTE | ~2024-05-11 | XR_ITS ---
EXAMINATION: XR CHEST CLINICAL INFORMATION: Dyspnea. 3 months status post Covid COMPARISON: 02/23/2022 TECHNIQUE: 2 views of the chest were obtained. FINDINGS: No significant abnormality is noted involving the heart, lungs, mediastinum, bony thorax or soft tissues. XR/XR chest 2V IMPRESSION: Unremarkable examination.
== END 2024-05-11 13:56 | disposition home or self-care (01) ==
LOC: HO.XRAY 13:55
PROVIDERS: PCP Family Medicine; Visit Provider Family Medicine
DX: R06.00 Dyspnea, unspecified (principal)
CPT/HCPCS: 71046

== ENCOUNTER 2024-05-11 14:55 | Outpatient (REF) | payer OTHER, SELFPAY ==
[2024-05-11 17:31] LABS: MANUAL DIFF FLAG NO
[2024-05-11 17:40] LABS: Basophils Percent Auto 0.7 % (0-2); Eosinophils Absolute Auto 0.2 X10*3/uL (0.0-0.4); Eosinophils Percent Auto 2.4 % (0-4); Hematocrit 39.3 % (42.0-52.0); Hemoglobin 13.1 g/dl (14.0-18.0); Imm Gran Abs Auto 0.02 X10*3/uL (0.00-0.03); Imm Gran Pct Auto 0.3 % (0.0-0.4); Lymphocytes Absolute Auto 1.8 X10*3/uL (1.2-4.9); Lymphocytes Percent Auto 29.2 % (20-40); Mean Corpuscular HGB Conc 33.3 g/dl (31.0-36.0); Mean Corpuscular Hemoglobin 28.1 pg (27.0-33.0); Mean Corpuscular Volume 84.2 fL (80.0-98.0); Monocytes Absolute Auto 0.5 X10*3/uL (0.1-1.2); Monocytes Percent Auto 8.1 % (2-11); Neutrophils Absolute Auto 3.6 x10*3/uL (2.0-8.3); Neutrophils Percent Auto 59.3 % (45-73); Platelet Count 303 X10*3/uL (160-400); Red Blood Count 4.67 X10*6/uL (4.60-5.80); Red Cell Distribution Width 14.1 % (11.0-16.0); White Blood Count 6.1 X10*3/uL (4.8-10.8)
[2024-05-11 18:20] LABS: TSH reflex Free T4 2.02 uIU/mL (0.32-4.0); Vitamin D 25-OH Total 60.7 ng/mL (>30)
[2024-05-11 18:24] LABS: Folate 13.3 ng/mL (> or = 4.0); Prostate Specific Antigen Scr 0.39 ng/mL (<0.05-4.0); Vitamin B12 343 pg/mL (200-900)
== END 2024-05-11 14:56 | disposition home or self-care (01) ==
LOC: HO.WFDLDS 14:55
PROVIDERS: Visit Provider Family Medicine
DX: Z00.00 Encounter for general adult medical examination without abnormal findings (principal); E55.9 Vitamin D deficiency, unspecified; Z12.5 Encounter for screening for malignant neoplasm of prostate; E53.8 Deficiency of other specified B group vitamins
CPT/HCPCS: 36415; 82306; 82607; 82746; 84153; 84443; 85025

== ENCOUNTER → 2024-05-11 21:10 | Outpatient (BNV) | payer OTHER, SELFPAY | PROVIDERS: Visit Provider Psychiatry & Neurology Neurology | DX: G47.33 Obstructive sleep apnea (adult) (pediatric) (principal) | CPT/HCPCS: 95811 ==

== ENCOUNTER → 2024-05-11 21:27 | Outpatient (REF) | payer OTHER, SELFPAY | LOC: HO.SL 21:27 | PROVIDERS: Visit Provider Psychiatry & Neurology Neurology | DX: I48.0 Paroxysmal atrial fibrillation (principal); E66.01 Morbid (severe) obesity due to excess calories; G47.33 Obstructive sleep apnea (adult) (pediatric) | CPT/HCPCS: 93005; 95811 ==

== ENCOUNTER 2024-05-20 08:34 | Outpatient (AMB) | payer OTHER, SELFPAY ==
[2024-05-20 08:39] VITALS: BP 138/74; PULSE 69; O2SAT 100; BMI 37.8
--- NOTE | 2024-05-20 08:39 | MHC.OFFVIS ---
Vital Signs 05/20/24 08:39 Height 5 ft 11 in Weight 271 lb BMI 37.8 BP 138/74 Blood Pressure Location Rt brachial Position Sitting Pulse 69 Pulse Source Pulse Oximeter Pulse Oximetry (%) 100 Oxygen Delivery Method Room Air Intake Visit Reasons: Dyspnea Allergies arsenic Allergy (Severe, Verified 05/20/24 08:42) Itching ibuprofen Adverse Reaction (Intermediate, Verified 05/20/24 08:42) GI upset HPI HPI Dyspnea: Details: Luke is a pleasant 48 year old male, former minimal smoker, with underlying severe KIMO, atrial fibrillation, and DMII. He was referred by PCP for pulmonary evaluation. He reports cough, wheezing and worsening dyspnea on exertion since having COVID 6 months ago. He did not use paxlovid and recovered at home. He does report symptoms became more noticeable about 4 years ago when he obtained birds, he has 2 cockatiels and 1 parakeet. He endorses seasonal allergies, with no recent allergy testing. He denies prior diagnosis of asthma, however recalls recurrent URI as a child requiring multiple courses of steroids. He reports daughter and mother with asthma, otherwise no pertinent family history. He is on lisinopril and questions if this is a contributing factor to dry cough, will discuss with PCP about trialing alternative antihypertensive. Of note, he recently had an inlab PSG revealing severe KIMO AHI of 64 with nocturnal hypoxemia for approximately 1 hour, lowest desaturation 68%. During visit he received call from sleep medicine and will be obtaining a CPAP machine from [facility] to start in the next few weeks. He also reports orthopnea, BLE edema and PND. 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 [facility] Medical History Obstructive sleep apnea Vitamin D deficiency Vitamin D deficiency PAF (paroxysmal atrial fibrillation) HLD (hyperlipidemia) HTN (hypertension) T2DM (type 2 diabetes mellitus) NAFLD (nonalcoholic fatty liver disease) Essential hypertension Type 2 diabetes mellitus without complications Surgical History History of esophagogastroduodenoscopy (EGD) Family History Father Diabetes Hypertension CVD (cardiovascular disease) Mother Alzheimer's dementia Other Mental health disorder Vitamin D deficiency Social History Household Members: Spouse Housing: House Are you a primary healthcare representative to a significant other at home: No Do you presently have visiting nurse or other home services: No Alcohol intake: never Patient Tobacco Use Status: Former Tobacco user e-Cigarette/Vaping Use: Never Used Second Hand Smoke Exposure: No service: No Current occupational status: employed 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 Current occupational exposures/hazards: No Cognitive needs: No Hearing needs: No Vision needs: Yes (Glasses) Review of Systems Const Denies chills, Denies excessive sweating, Denies fever(s), Denies headache(s) and Denies night sweats Eyes Denies dry eyes, Denies irritation and Denies itchy eyes ENT Reports Normal hearing present, Denies headache(s), Denies nasal congestion, Denies nasal discharge, Denies post nasal drip and Denies sore throat Card Denies chest pain, Denies chest pain at rest, Denies chest pain with activity, Denies claudication and Denies leg edema Resp Denies chest congestion, Denies excessive phlegm production, Denies pain on inspiration, Denies pain with cough and Denies stridor Musc Denies myalgias Neuro Reports Normal hearing present and Denies headache(s) Endo Denies excessive sweating Dilan/Lymph Denies lymphadenopathy Aller/Immun Denies itchy eyes and Denies seasonal rhinorrhea Physical Exam Vital Signs: Last Vital Signs Pulse 69 05/20/24 08:39 BP 138/74 05/20/24 08:39 Pulse Ox 100 05/20/24 08:39 Oxygen Delivery Method Room Air 05/20/24 08:39 BMI result Body Mass Index 37.8 Const General: cooperative, healthy appearing, comfortable, no acute distress, well developed and alert Nutritional Appearance: obese Orientation/consciousness: patient oriented x3 Limitations: no limitations HEENT Head: Yes normal to inspection, Yes normocephalic and Yes atraumatic Ears: hearing grossly normal bilaterally and external ears normal Eyes General: appearance normal, both eyes and all related structures Eyelids: Yes eyelids normal Sclerae: sclerae normal EOM: EOMs intact bilaterally Neck Neck: Yes normal visual inspection and Yes no lymphadenopathy Lymphatic: no lymphadenopathy noted Chest Chest palpation & inspection: normal inspection of the chest Resp Effort & Inspection: normal respiratory effort, able to speak in complete sentences, no audible wheezes, no cough, no stridor, not tachypneic, no tripod positioning and no use of accessory muscles Auscultation: clear to auscultation bilaterally Cardio Jugular venous distension: no JVD Rate: regular rate Rhythm: regular rhythm Skin Other: warm, dry General skin exam: no rashes or lesions noted Neuro General: patient oriented x3 Cranial nerves: Yes Normal hearing present Cognition (Neuro): normal cognition Gait exam (Neuro): Normal gait present Extrem Other: 1+ pitting edema of BLE Psych Appearance: grossly normal and well kempt Speech and movement: Normal speech and movement present and Clear speech present Affect: normal affect Attitude: cooperative Thought process: Normal thought process present Thought content: Normal thought content present Insight: Good insight present (Psych) Judgement: Good judgement present (Psych) Assessment & Plan Assessment & Plan (1) Dyspnea: Code(s): R06.00 - Dyspnea, unspecified Category: Medical (2) Obstructive sleep apnea: Code(s): G47.33 - Obstructive sleep apnea (adult) (pediatric) Category: Medical (3) Environmental allergies: Code(s): Z91.09 - Other allergy status, other than to drugs and biological substances Category: Medical Plan Luke's symptoms are likely multifactorial with contribution from pulmonary, cardiac and deconditioning/etiologies. Will send for PFT to evaluate, he is requesting this order be sent to [facility]. Will also send for RAST to assess for allergic component, especially given patient symptoms developed after obtaining birds. He has an updated echo scheduled in the near future and follows with cardiology. We did discuss weight as a contributing factor and he will attempt to work towards weight loss. All questions were answered and patient is in agreement of plan. Will follow up to review results or sooner if needed. Orders: Orders Other Ref Test - Misc Today Z91.09 - Other allergy status, other than to drugs and biological substances Resp Allergy Profile Region I Today Z91.09 - Other allergy status, other than to drugs and biological substances PFT pulmonary function test Today Complete Blood Count Auto Diff Today Z91.09 - Other allergy status, other than to drugs and biological substances Immunoglobulin E Today Z91.09 - Other allergy status, other than to drugs and biological substances Coding Level of Care Code New Pt Level 4 (84420) Diagnoses Dyspnea R06.00 Obstructive sleep apnea G47.33 Environmental allergies Z91.09
== END 2024-05-20 09:15 | disposition home or self-care (01) ==
PROVIDERS: PCP Family Medicine; Referring Provider Family Medicine; Visit Provider Nurse Practitioner Family
DX: R06.00 Dyspnea, unspecified (principal); G47.33 Obstructive sleep apnea (adult) (pediatric); Z91.09 Other allergy status, other than to drugs and biological substances
CPT/HCPCS: 99204

== ENCOUNTER → 2024-05-20 08:34 | Outpatient (BNVA) | payer OTHER, SELFPAY | PROVIDERS: PCP Family Medicine; Referring Provider Family Medicine; Visit Provider Nurse Practitioner Family ==

== ENCOUNTER 2024-05-20 09:32 | Outpatient (REF) | payer OTHER, SELFPAY ==
[2024-05-20 11:31] LABS: MANUAL DIFF FLAG NO
[2024-05-20 11:36] LABS: Basophils Percent Auto 0.5 % (0-2); Eosinophils Absolute Auto 0.2 X10*3/uL (0.0-0.4); Hematocrit 39.3 % (42.0-52.0); Hemoglobin 12.8 g/dl (14.0-18.0); Imm Gran Abs Auto 0.02 X10*3/uL (0.00-0.03); Imm Gran Pct Auto 0.4 % (0.0-0.4); Lymphocytes Absolute Auto 1.7 X10*3/uL (1.2-4.9); Lymphocytes Percent Auto 30.4 % (20-40); Mean Corpuscular HGB Conc 32.6 g/dl (31.0-36.0); Mean Corpuscular Hemoglobin 27.5 pg (27.0-33.0); Mean Corpuscular Volume 84.3 fL (80.0-98.0); Mean Platelet Volume 11.1 fL (9.4-12.4); Monocytes Absolute Auto 0.4 X10*3/uL (0.1-1.2); Monocytes Percent Auto 7.6 % (2-11); Neutrophils Absolute Auto 3.3 x10*3/uL (2.0-8.3); Neutrophils Percent Auto 58.1 % (45-73); Platelet Count 314 X10*3/uL (160-400); Red Blood Count 4.66 X10*6/uL (4.60-5.80); Red Cell Distribution Width 13.9 % (11.0-16.0); White Blood Count 5.7 X10*3/uL (4.8-10.8)
[2024-05-21 22:08] LABS: Class Alternaria alternata 0; Class Aspergillus fumigatus 0; Class Bermuda Grass 0/1; Class Birch 0/1; Class Cat Dander 0; Class Cladosporium herbarum 0; Class Cockroach 0/1; Class Common Ragweed 0/1; Class Cottonwood 0/1; Class Derm. pterony 2; Class Dermatophagoides farinae 3; Class Dog Dander 0; Class Elm 0/1; Class Maple Box Elder 0/1; Class Mountain Cedar 0/1; Class Mouse Urine Protein 0; Class Mugwort 0/1; Class Oak 0/1; Class Penicillium crysogenum 0; Class Rough Pigweed 0/1; Class Sheep Sorrel 0/1; Class Sycamore 0/1; Class Timothy Grass 0/1; Class Walnut Tree 0/1; Class White Ash 0/1; Class White Mulberry 0/1; D002 - IgE D farinae 4.15 kU/L; E001 - IgE Cat Dander <0.10 kU/L; E005 - IgE Dog Dander <0.10 kU/L; E072-IgE Mouse Urine <0.10 kU/L; G002 IgE Bermuda Grass 0.31 kU/L; G006 - IgE Timothy Grass 0.26 kU/L; I006-IgE Cockroach, German 0.29 kU/L; Immunoglobulin E 234 kU/L (<OR=114); M001 IgE Penicillium chrysogen <0.10 kU/L; M002 - IgE Cladosporium herbar <0.10 kU/L; M003 - IgE Aspergillus fumigat <0.10 kU/L; M006 - IgE Alternaria alternat <0.10 kU/L; T001 IgE Maple/Box Elder 0.29 kU/L; T003 IgE Common Silver Birch 0.25 kU/L; T006 - IgE Cedar, Mountain 0.28 kU/L; T007 - IgE Oak, White 0.26 kU/L; T008 IgE Elm, American 0.28 kU/L; T010 - IgE Walnut 0.31 kU/L; T011 - IgE Maple Leaf Sycamore 0.27 kU/L; T014 - IgE Cottonwood 0.27 kU/L; T015 - IgE Ash, White 0.32 kU/L; W001 - IgE Ragweed, Short 0.31 kU/L; W006 - IgE Mugwort 0.23 kU/L; W014 IgE Pigweed, Common 0.27 kU/L; W018 IgE Sheep Sorrel 0.27 kU/L
== END 2024-05-20 09:33 | disposition home or self-care (01) ==
LOC: HO.WFDLDS 09:32
PROVIDERS: Visit Provider Nurse Practitioner Family
DX: Z91.09 Other allergy status, other than to drugs and biological substances (principal)
CPT/HCPCS: 82785; 85025; 86003; 86331

== ENCOUNTER → 2024-06-05 14:02 | Outpatient (REF) | payer OTHER, SELFPAY ==
--- NOTE | 2024-06-05 14:04 | CA_ITS ---
Transthoracic Echocardiogram Patient (Last, First, Middle): Luke Flower K Gender: Male Date of : 1975 Age: 48 Procedure Date: 06/05/2024 Procedure Type: Transthoracic Echocardiogram Location: OP Height: 180. cm Weight: 117.94 kg BSA: 2.35 m2 Heart Rate: 68 bpm BP: 160 / 75 mmHg Senior Engineering Team Leader: TENA Referring MD: Marty Dominguez MD Symptoms: R06.00 - Dyspnea, unspecified Study Quality: Adequate ECG Rhythm: Sinus Conclusions: - The left ventricular systolic function is normal. The calculated ejection fraction is 65% by biplane method. - No obvious valvular pathology seen on this study. Findings Left Ventricle Normal left ventricular cavity size. There is mildly increased left ventricular wall thickness. The left ventricular systolic function is normal. The calculated ejection fraction is 65% by biplane method. There is no evidence of regional wall motion abnormalities. Diastolic function is normal for age. LV peak GLS -15.8%. Right Ventricle Mildly increased right ventricular cavity size. There is normal right ventricular systolic function. Atria Both atria are normal in size. Aortic Valve There is a normal trileaflet aortic valve. There is no aortic valve stenosis. There is no aortic valve regurgitation. Mitral Valve The mitral valve appears normal. There is trace mitral valve regurgitation. There is no mitral valve stenosis. Pulmonic Valve The pulmonic valve is likely normal. Tricuspid Valve Normal tricuspid valve structure. There is trace tricuspid valve regurgitation. There is no evidence of pulmonary hypertension. Great Vessels The asc aorta is normal in size. Venous The inferior vena cava was not well visualized. Pericardium/Pleural There is no evidence of pericardial effusion. Prior Study Comparison No significant change compared to prior study dated: 12/14/2020. Recommendations, Care & Conclusions No obvious valvular pathology seen on this study. Measurements 2D Linear Measurements IVSd: 1.01 0.6-0.9/0.6-1.0 cm LVIDd: 4.73 3.9-5.3/4.2-5.9 cm LVIDd Index: 2.01 2.4-3.2/2.2-3.1 cm/m2 LVIDs: 3.09 2.0-3.6 cm LVPWd: 1.15 0.7-1.1 cm LA Diam: 3.90 2.7-3.8/3.0-4.0 cm LAIDs Index: 1.66 1.5-2.3 cm/m2 LV Mass: 230.11 67-162/88-224 g LV Mass Index: 97.92 43-95/49-115 g/m2 LVOT Diam: 2.20 3.0+(-)1.3 cm 2D Systolic Function EF 4C: 60.10 >55% EF 2C: 68.90 >55% EF BiP: 64.50 >55% Mitral Valve MV Pk E: 1.25 MV PK A: 0.91 MV Decel Time: 217.00 E/A: 1.40 E'Lateral: 8.05 E'Medial: 6.53 E/E' Med: 19.10 E/E' Lat: 15.50 PHT: 63.00 MVA PHT: 3.49 Decel [place]: 5.78 Aortic Valve AoV Pk [place]: 1.50 AoV Mn [place]: 0.94 AoV VTI: 0.27 AoV Pk Grad: 9.00 Aov Mn Grad: 4.00 TONO Cont.VTI: 2.90 LVOT LVOT Pk [place]: 1.02 LVOT Mn [place]: 0.67 LVOT VTI: 0.21 LVOT Pk Grad: 4.00 LVOT Mn Grad: 2.00 LVOT Diam: 2.20 LVOT Area: 3.80 Diastolic Function MV Pk E: 1.25 MV Pk A: 0.91 E/A: 1.40 E'Medial: 6.53 E/E' Med: 19.10 E' Laterial: 8.05 E/E' Lat: 15.50 Right Ventricle TAPSE (mm): 28.20 TVS' [place]: 15.20 Great Vessels Aorta Sinus of Valsalva: 3.60 2.0-3.5 cm Ao Asc: 3.10 2.1-3.4 cm Pulmonary Valve PV Pk [place]: 1.11 Peak PV Grad: 5.00 Updated in Other Vendor System with Status of Final Marty Dominguez MD electronically signed on 06/07/2024 11:30:35 AM with status of Final
== END ==
LOC: HO.CARD 14:02
PROVIDERS: PCP Family Medicine; Visit Provider Internal Medicine
DX: R06.00 Dyspnea, unspecified (principal)
CPT/HCPCS: 93306; 93356

== ENCOUNTER → 2024-06-05 14:04 | Outpatient (BNV) | payer OTHER, SELFPAY | PROVIDERS: PCP Family Medicine; Visit Provider Internal Medicine | DX: R06.02 Shortness of breath (principal) | CPT/HCPCS: 93306; 93356 ==

== ENCOUNTER 2024-06-17 07:37 | Outpatient (AMB) | payer OTHER, SELFPAY ==
--- NOTE | 2024-06-17 07:58 | MHC.AMDMED ---
Intake Intake Visit Reasons: 30 min Allergies arsenic Allergy (Severe, Verified 05/20/24 08:42) Itching ibuprofen Adverse Reaction (Intermediate, Verified 05/20/24 08:42) GI upset HPI Comprehensive Diabetes Asmnt Most Recent Diabetes Results: No Data to Display [facility] Medical History Obstructive sleep apnea Vitamin D deficiency Vitamin D deficiency PAF (paroxysmal atrial fibrillation) HLD (hyperlipidemia) HTN (hypertension) T2DM (type 2 diabetes mellitus) NAFLD (nonalcoholic fatty liver disease) Essential hypertension Type 2 diabetes mellitus without complications Surgical History History of esophagogastroduodenoscopy (EGD) Family History Father Diabetes Hypertension CVD (cardiovascular disease) Mother Alzheimer's dementia Other Mental health disorder Vitamin D deficiency Social History Household Members: Spouse Both parents involved: No Caregiver staying overnight: No Housing: House Are you a primary child care counselor to a significant other at home: No Do you presently have visiting nurse or other home services: No 75 years or older and lives alone: No Alcohol intake: never Patient Tobacco Use Status: Former Tobacco user e-Cigarette/Vaping Use: Never Used Second Hand Smoke Exposure: No service: No Current occupational status: employed 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 0% Hyperglycemia:? 77% Time in Range:? 23% Average glucose for the last 2 weeks? 244 mg/dL Patient was here to discuss starting Humulin U 500. Dr. Kimbrough has prescribed Humulin U 500 75 units in the a.m. and 50 units in the p.m. At today's visit patient expressed reluctance to starting on Humulin U 500 Reviewed with patient action of Pat with NovoLog, and Humulin U 500 Patient reports he wants to try for 1 more week with the [place] NovoLog to bring glucose levels down, being more consistent with NovoLog dosage Reviewed how to interpret trend arrows Reminded patient that to check finger sticks if symptoms do not match sensor reading. Discussed lag time between finger stick and sensor data.? Patient able to insert sensor independently at home without issue.? Portions of this note were created using voice recognition software, please excuse any words or phrases that may have been misinterpreted. Patient Instructions: Follow-up with aircraft painter in 1 week for glucose review Coding Level of Care Code Est Pt Level 1 (90461) Diagnoses Type 2 diabetes mellitus with hyperglycemia E11.65
== END 2024-06-17 07:59 | disposition home or self-care (01) ==
PROVIDERS: PCP Family Medicine; Visit Provider Registered Nurse Diabetes Educator
DX: E11.65 Type 2 diabetes mellitus with hyperglycemia (principal)

== ENCOUNTER → 2024-06-17 07:37 | Outpatient (BNVA) | payer OTHER, SELFPAY | PROVIDERS: PCP Family Medicine; Visit Provider Registered Nurse Diabetes Educator | DX: I48.0 Paroxysmal atrial fibrillation (principal); I10 Essential (primary) hypertension; G47.33 Obstructive sleep apnea (adult) (pediatric); E66.01 Morbid (severe) obesity due to excess calories; Z68.38 Body mass index [BMI] 38.0-38.9, adult; E11.65 Type 2 diabetes mellitus with hyperglycemia | CPT/HCPCS: 99211 ==

== ENCOUNTER 2024-06-17 13:03 | Outpatient (AMB) | payer OTHER, SELFPAY ==
--- NOTE | 2024-06-17 13:05 | MHC.OFFVIS ---
Vital Signs 06/17/24 13:06 Height 5 ft 11 in Weight 272 lb 7.861 oz BMI 38.0 BP 138/66 Blood Pressure Location Rt brachial Position Sitting Pulse 80 Pulse Source Pulse Oximeter Intake Visit Reasons: Pt requesting to see HS Associate Professor Of Economics Required: No Accompanied by: Self / Same As Patient Allergies arsenic Allergy (Severe, Verified 05/20/24 08:42) Itching ibuprofen Adverse Reaction (Intermediate, Verified 05/20/24 08:42) GI upset Medication List - Last Reconciled 06/17/24 by Marty Dominguez MD albuterol sulfate 90 mcg/actuation (Ventolin HFA) 2 puffs inhalation Q4-6H PRN 30 days aspirin (Adult Aspirin Regimen) 81 mg PO DAILY 90 days atorvastatin 20 mg (2 x 10 mg) PO ONCE 30 days bisoprolol fumarate 7.5 mg (1.5 x 5 mg) PO DAILY 90 days blood-glucose sensor ([place] Shell[place] 3 Sensor device) As directed changed every 14 days clotrimazole 1% 1 appl topical BID 2 weeks diclofenac sodium 1% 4 grams topical TID 15 days fenofibrate micronized 200 mg PO DAILY 90 days hyoscyamine sulfate (Levsin/SL) 0.125 mg sublingual QID PRN insulin regular hum U-500 conc (Humulin R U-500 (Conc) Insulin Kwikpen) inject 75 units in AM and 50 units before dinner subcutaneously every evening; lancets (FreeStyle Lancets) 4x daily lisinopril 5 mg PO DAILY pen needle, diabetic (BD Ultra-Fine Micro Pen Needle) As directed injects 4 X/day pen needle, diabetic (BD Ultra-Fine Maddie Pen Needle) USE TO INJECT 4 TIMES A DAY rabeprazole 20 mg PO DAILY 90 days tadalafil 5 mg PO DAILY PRN 30 days tirzepatide (Mounjaro) 5 mg (0.5 mL) subcut QWEEK 28 days HPI Comments Details: Luke returns for follow up regarding his various concerns. In general, he is worried about his health and would like to discussed. Nothing specifically concerning from cardiac however. To recall, he used to live in [facility]. Per patient, at that time he was diagnosed with the atrial fibrillation-around 2015 or so. Then put on bisoprolol. However, not put on anticoagulation. It seems that there was just an isolated episode. We do not have any records from that time. In Holter monitoring here, he did not have any recurrences. Last visit, he was complaining of some shortness of breath and abdominal swelling. Suspected that it was all related to his obesity. There was no cardiac dysfunction on the echocardiogram. He also underwent some PFTs they seem abnormal. Various factors including uncontrolled diabetes, obesity, hypertension. High hemoglobin A1c is at more than 10. [facility] Medical History Obstructive sleep apnea Vitamin D deficiency Vitamin D deficiency PAF (paroxysmal atrial fibrillation) HLD (hyperlipidemia) HTN (hypertension) T2DM (type 2 diabetes mellitus) NAFLD (nonalcoholic fatty liver disease) Essential hypertension Type 2 diabetes mellitus without complications Surgical History History of esophagogastroduodenoscopy (EGD) Family History Father Diabetes Hypertension CVD (cardiovascular disease) Mother Alzheimer's dementia Other Mental health disorder Vitamin D deficiency Social History Household Members: Spouse Both parents involved: No Caregiver staying overnight: No Housing: House Are you a primary customer care consultant to a significant other at home: No Do you presently have visiting nurse or other home services: No 75 years or older and lives alone: No Alcohol intake: never Patient Tobacco Use Status: Former Tobacco user e-Cigarette/Vaping Use: Never Used Second Hand Smoke Exposure: No service: No Current occupational status: employed 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 Current occupational exposures/hazards: No Cognitive needs: No Hearing needs: No Vision needs: Yes (Glasses) Review of Systems Const Denies chills, Denies fatigue, Denies fever(s), Denies weight gain and Denies weight loss ENT Denies dizziness Card Denies chest pain, Reports leg edema, Denies lightheadedness, Denies palpitations, Reports dyspnea on exertion, Denies orthopnea and Denies other Resp Denies cough and Reports dyspnea on exertion GI Denies hematochezia and Denies change in stool character Musc Denies abnormal gait, Denies muscle weakness, Denies numbness, Denies radiating pain into limb and Denies tingling Neuro Denies abnormal gait, Denies dizziness, Denies numbness and Denies tingling Endo Denies fatigue and Denies palpitations Physical Exam Vital Signs: Last Vital Signs Pulse 80 06/17/24 13:06 BP 138/66 06/17/24 13:06 BMI result Body Mass Index 38.0 Const General: comfortable and no acute distress Orientation/consciousness: patient oriented x3 HEENT Other: Unremarkable Head: Yes normal to inspection Neck Neck: Yes normal visual inspection Chest Chest palpation & inspection: normal inspection of the chest Resp Auscultation: clear to auscultation bilaterally Cardio Palpation: normal PMI Heart sounds: S1 normal heart sound present, S2 normal heart sound present, no gallops, no murmurs and no rubs GI Palpation (GI): Soft to palpation Back/Spine/Pelvis Other: unremarkable Skin General skin exam: no rashes or lesions noted Neuro General: patient oriented x3 Extrem General: Yes normal to inspection Psych Mental Status: mental status grossly normal Assessment & Plan Assessment & Plan (1) PAF (paroxysmal atrial fibrillation): Code(s): I48.0 - Paroxysmal atrial fibrillation Category: Medical Plan: Only per patient history and isolated episode in 2016 while living in [facility]. Remains on long-term bisoprolol. Has not been on any anticoagulation as there is only 1 episode and we do not have records of that either. No recent issues. 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 Per today's diabetic note, he has hyperglycemia 77% the time and average glucose for the last 2 weeks is 244 mg/dL. I have discussed in depth in every single visit including today about the consequences of uncontrolled diabetes including cardiovascular and other morbidities. He is well aware of this. Coronary CTA 10/2022 but that did not show any significant CAD. Echocardiogram with LVEF of 60%. Slightly reduced peak global longitudinal strain. Mild increase in RV size related to weight. Otherwise unremarkable. Probably repeat in 2-3 years or so-to be decided. (3) Essential hypertension: Code(s): I10 - Essential (primary) hypertension Category: Medical Plan: Seems controlled. (4) Morbid obesity: Code(s): E66.01 - Morbid (severe) obesity due to excess calories Category: Medical Plan: He needs significant weight loss. Awaiting bariatric appointment. (5) Obstructive sleep apnea: Code(s): G47.33 - Obstructive sleep apnea (adult) (pediatric) Category: Medical Plan: Severe sleep apnea. CPAP. Coding Level of Care Code Est Pt Level 4 (71429) Diagnoses PAF (paroxysmal atrial fibrillation) I48.0 Type 2 diabetes mellitus without complication, unspecified whether mcc insulin use E11.9 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 mcc insulin use: unspecified exceptional student education teacher insulin use status Essential hypertension I10 Morbid obesity E66.01 Obstructive sleep apnea G47.33
[2024-06-17 13:06] VITALS: BP 138/66; PULSE 80; BMI 38.0
== END 2024-06-17 13:42 | disposition home or self-care (01) ==
PROVIDERS: PCP Family Medicine; Visit Provider Internal Medicine
DX: I48.0 Paroxysmal atrial fibrillation (principal); E11.9 Type 2 diabetes mellitus without complications; I10 Essential (primary) hypertension; E66.01 Morbid (severe) obesity due to excess calories; G47.33 Obstructive sleep apnea (adult) (pediatric)
CPT/HCPCS: 99214

== ENCOUNTER 2024-06-18 08:12 | Outpatient (AMB) | payer OTHER, SELFPAY ==
--- NOTE | 2024-06-18 08:13 | A.OFFVIS_ITS ---
Vital Signs 06/18/24 08:14 Height 5 ft 11 in Weight 272 lb BMI 37.9 BP 136/78 Blood Pressure Location Rt brachial Position Sitting Respiration 16 Pulse 70 Pulse Source Pulse Oximeter Pulse Oximetry (%) 97 Oxygen Delivery Method Room Air Intake Visit Reasons: follow up KIMO(ok per ) Intake Note: Pt presents to the office for a 5 month follow up for daytime somnolence and to discuss PSG done 05/11/24, titration 05/25/24. 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 AHI 64 and oxygen eveline was 62%. He started on CPAP at 14 cm of water-about 10 days ago . He is using is rgeularly- ahs some issues with keeping the mask on . Usage hrs 5 hrs 26 min AHI 1.1 He was referred to weight loss program by Dr. Dominguez( clay dry press operator). He also sees a electronic drafter. His PFT was c/w emphysema -used to be smoker.( not heavy social smoking ) He used to live in [facility] for 23 years - was exposed to dust. 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 [facility] Medical History (Updated 06/18/24 @ 08:36 by Carmen Marie MD) Obstructive sleep apnea hypopnea, severe Obstructive sleep apnea Vitamin D deficiency Vitamin D deficiency PAF (paroxysmal atrial fibrillation) HLD (hyperlipidemia) HTN (hypertension) T2DM (type 2 diabetes mellitus) NAFLD (nonalcoholic fatty liver disease) Essential hypertension Type 2 diabetes mellitus without complications Surgical History History of esophagogastroduodenoscopy (EGD) Family History Father Diabetes Hypertension CVD (cardiovascular disease) Mother Alzheimer's dementia Other Mental health disorder Vitamin D deficiency Social History Household Members: Spouse Both parents involved: No Caregiver staying overnight: No Housing: House Are you a primary healthcare interpreter to a significant other at home: No Do you presently have visiting nurse or other home services: No 75 years or older and lives alone: No Alcohol intake: never Patient Tobacco Use Status: Former Tobacco user e-Cigarette/Vaping Use: Never Used Second Hand Smoke Exposure: No service: No Current occupational status: employed 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 Current occupational exposures/hazards: No Cognitive needs: No Hearing needs: No Vision needs: Yes (Glasses) Review of Systems ENT Reports Normal hearing present Neuro Reports Normal hearing present Physical Exam Vital Signs: Last Vital Signs Pulse 70 06/18/24 08:14 Resp 16 06/18/24 08:14 BP 136/78 06/18/24 08:14 Pulse Ox 97 06/18/24 08:14 Oxygen Delivery Method Room Air 06/18/24 08:14 BMI result Body Mass Index 37.9 Const General: cooperative and tired appearing Nutritional Appearance: obese Orientation/consciousness: patient oriented x3 HEENT Throat: Yes other (mallampati score 4) Neck Neck: Yes full ROM and Yes supple Resp Effort & Inspection: normal respiratory effort and able to speak in complete sentences Neuro General: patient oriented x3, gait normal, moves all extremities and no focal motor deficits Cranial nerves: Yes Bilaterally intact EOM present, Yes Normal facial strength present, Yes Midline tongue present, Yes Normal hearing present, Yes Ability to bilaterally rotate head present and Yes Ability to bilaterally elevate shoulders present Cognition (Neuro): normal cognition Gait exam (Neuro): Normal gait present Assessment & Plan Assessment & Plan (1) Obstructive sleep apnea hypopnea, severe: Code(s): G47.33 - Obstructive sleep apnea (adult) (pediatric) Category: Medical Plan This was a counseling predominated session I discussed sleep study results, the affects of untreated sleep apnea etc. continue CPAP 14 cm of water and f[facility]. compliance stressed. Reviewed PFTs . Discussed weight management Coding Level of Care Code Est Pt Level 4 (69067) Diagnoses Obstructive sleep apnea hypopnea, severe G47.33
[2024-06-18 08:14] VITALS: BP 136/78; PULSE 70; RESP 16; O2SAT 97; BMI 37.9
== END 2024-06-18 08:37 | disposition home or self-care (01) ==
PROVIDERS: PCP Family Medicine; Visit Provider Psychiatry & Neurology Neurology
DX: G47.33 Obstructive sleep apnea (adult) (pediatric) (principal)
CPT/HCPCS: 99214

== ENCOUNTER → 2024-06-18 08:12 | Outpatient (BNVA) | payer OTHER, SELFPAY | PROVIDERS: PCP Family Medicine; Visit Provider Psychiatry & Neurology Neurology | DX: R53.83 Other fatigue (principal); R40.0 Somnolence; R06.83 Snoring; R06.89 Other abnormalities of breathing; E66.9 Obesity, unspecified ==

== ENCOUNTER 2024-06-30 08:50 | Outpatient (AMB) | payer OTHER, SELFPAY ==
[2024-06-30 08:54] VITALS: BP 142/78; PULSE 66; O2SAT 99; BMI 37.9
--- NOTE | 2024-06-30 08:54 | MHC.OFFVIS ---
Vital Signs 06/30/24 08:54 Height 5 ft 11 in Weight 272 lb 2 oz BMI 37.9 BP 142/78 H Blood Pressure Location Rt brachial Position Sitting Pulse 66 Pulse Source Pulse Oximeter Pulse Oximetry (%) 99 Oxygen Delivery Method Room Air Intake Visit Reasons: Dyspnea Allergies arsenic Allergy (Severe, Verified 07/06/24 14:15) Itching ibuprofen Adverse Reaction (Intermediate, Verified 07/06/24 14:15) GI upset HPI HPI Dyspnea: Details: Luke is a pleasant 48 year old male, former minimal smoker, with underlying severe KIMO, atrial fibrillation, and DMII. He was referred by PCP for pulmonary evaluation. He reports more noticeable symptoms of cough, wheezing and worsening dyspnea on exertion since having COVID but were more noticeable about 4 years ago when he obtained birds, he has 2 cockatiels and 1 parakeet. Today he presents to review RAST and PFT. [facility] Medical History Obstructive sleep apnea hypopnea, severe Obstructive sleep apnea Vitamin D deficiency Vitamin D deficiency PAF (paroxysmal atrial fibrillation) HLD (hyperlipidemia) HTN (hypertension) T2DM (type 2 diabetes mellitus) NAFLD (nonalcoholic fatty liver disease) Essential hypertension Type 2 diabetes mellitus without complications Surgical History History of esophagogastroduodenoscopy (EGD) Family History Father Diabetes Hypertension CVD (cardiovascular disease) Mother Alzheimer's dementia Other Mental health disorder Vitamin D deficiency Social History Household Members: Spouse Both parents involved: No Caregiver staying overnight: No Housing: House Are you a primary manager respiratory care to a significant other at home: No Do you presently have visiting nurse or other home services: No 75 years or older and lives alone: No Alcohol intake: never Patient Tobacco Use Status: Former Tobacco user e-Cigarette/Vaping Use: Never Used Second Hand Smoke Exposure: No service: No Current occupational status: employed 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 Current occupational exposures/hazards: No Cognitive needs: No Hearing needs: No Vision needs: Yes (Glasses) Review of Systems Const Denies chills, Denies excessive sweating, Denies fever(s), Denies headache(s) and Denies night sweats Eyes Denies dry eyes, Denies irritation and Denies itchy eyes ENT Reports Normal hearing present, Denies headache(s), Denies nasal congestion, Denies nasal discharge, Denies post nasal drip and Denies sore throat Card Denies chest pain, Denies chest pain at rest, Denies chest pain with activity, Denies claudication and Denies leg edema Resp Denies chest congestion, Denies excessive phlegm production, Denies pain on inspiration, Denies pain with cough and Denies stridor Musc Denies myalgias Neuro Reports Normal hearing present and Denies headache(s) Endo Denies excessive sweating Dilan/Lymph Denies lymphadenopathy Aller/Immun Denies itchy eyes and Denies seasonal rhinorrhea Physical Exam Vital Signs: Last Vital Signs Pulse 66 06/30/24 08:54 BP 142/78 H 06/30/24 08:54 Pulse Ox 99 06/30/24 08:54 Oxygen Delivery Method Room Air 06/30/24 08:54 BMI result Body Mass Index 37.9 Const General: cooperative, healthy appearing, comfortable, no acute distress, well developed and alert Nutritional Appearance: obese Orientation/consciousness: patient oriented x3 Limitations: no limitations HEENT Head: Yes normal to inspection, Yes normocephalic and Yes atraumatic Ears: hearing grossly normal bilaterally and external ears normal Eyes General: appearance normal, both eyes and all related structures Eyelids: Yes eyelids normal Sclerae: sclerae normal EOM: EOMs intact bilaterally Neck Neck: Yes normal visual inspection and Yes no lymphadenopathy Lymphatic: no lymphadenopathy noted Chest Chest palpation & inspection: normal inspection of the chest Resp Effort & Inspection: normal respiratory effort, able to speak in complete sentences, no audible wheezes, no cough, no stridor, not tachypneic, no tripod positioning and no use of accessory muscles Auscultation: clear to auscultation bilaterally Cardio Jugular venous distension: no JVD Rate: regular rate Rhythm: regular rhythm Skin Other: warm, dry General skin exam: no rashes or lesions noted Neuro General: patient oriented x3 Cranial nerves: Yes Normal hearing present Cognition (Neuro): normal cognition Gait exam (Neuro): Normal gait present Extrem Other: 1+ pitting edema of BLE Psych Appearance: grossly normal and well kempt Speech and movement: Normal speech and movement present and Clear speech present Affect: normal affect Attitude: cooperative Thought process: Normal thought process present Thought content: Normal thought content present Insight: Good insight present (Psych) Judgement: Good judgement present (Psych) Assessment & Plan Assessment & Plan (1) Dyspnea: Code(s): R06.00 - Dyspnea, unspecified Category: Medical (2) Obstructive sleep apnea: Code(s): G47.33 - Obstructive sleep apnea (adult) (pediatric) Category: Medical (3) Environmental allergies: Code(s): Z91.09 - Other allergy status, other than to drugs and biological substances Category: Medical (4) Decreased diffusion capacity: Code(s): R94.2 - Abnormal results of pulmonary function studies Category: Medical Plan Reviewed RAST which was positive to parakeets. Discussed ways to minimize exposures. Reviewed PFT which revealed moderate obstructive defect with moderately decreased DLCO. Will send for Chest CT to evaluate for any parenchymal disease contributing to this. Discussed ICS however patient would like to review with key bed installer first. All questions were answered and patient is in agreement of plan. Will follow up to review results or sooner if needed. Orders: Orders CT chest wo IV con Today R94.2 - Abnormal results of pulmonary function studies Coding Level of Care Code Est Pt Level 4 (42014) Diagnoses Dyspnea R06.00 Obstructive sleep apnea G47.33 Environmental allergies Z91.09 Decreased diffusion capacity R94.2
== END 2024-06-30 09:26 | disposition home or self-care (01) ==
PROVIDERS: PCP Family Medicine; Visit Provider Nurse Practitioner Family
DX: R06.00 Dyspnea, unspecified (principal); G47.33 Obstructive sleep apnea (adult) (pediatric); Z91.09 Other allergy status, other than to drugs and biological substances; R94.2 Abnormal results of pulmonary function studies
CPT/HCPCS: 99214

== ENCOUNTER → 2024-06-30 08:50 | Outpatient (BNVA) | payer OTHER, SELFPAY | PROVIDERS: PCP Family Medicine; Visit Provider Nurse Practitioner Family | DX: Z91.09 Other allergy status, other than to drugs and biological substances (principal) ==

== ENCOUNTER 2024-07-06 14:09 | Outpatient (AMB) | payer OTHER, SELFPAY ==
--- NOTE | 2024-07-06 14:13 | A.OFFVIS_ITS ---
Vital Signs 07/06/24 14:14 Height 5 ft 11 in Weight 268 lb 15.423 oz BMI 37.5 BP 144/66 H Blood Pressure Location Lt brachial Position Sitting Pulse 75 Intake Visit Reasons: 5 month follow up Intake Note: Luke presents in the office as a 5 month follow up. CC: He states that he is recently having constipation. He states that one time he had loose stools. Marketing Programs Specialist Required: No Allergies arsenic Allergy (Severe, Verified 07/06/24 14:15) Itching ibuprofen Adverse Reaction (Intermediate, Verified 07/06/24 14:15) GI upset HPI HPI 5 month follow up: Details: 48 yr old being seen for f/u RECAP: He does have hx of fatty liver he has been having episodes of RUQ pain, on and off, and has had tests incl MRI at [facility] which apparently was negative for gallstones He has had x2-3 attacks and each lasting about 3 weeks or so it is colicky in nature when he has the pain, food can make it worse not had the pain for 2 months can have abdominal distention he takes PPi for GERD denies diarrhea or constipation BNP was neg 05/2022 CXR: 02/2022---nml US 10/2021- fatty liver, no gallstones (LFt were normal) CT 11/2021- ?few calcifications seen but beyond ampulla of vater --personally reviewed MRCP 2020--[facility] --negative MRCP - enlarged fatty liver , nml GB and pancreas INTERIM: he was dx with severe KIMO just started using CPAP and feeling less sleepy, he has noted change in bowel habit and takes longer to come out denies rectal bleeding no nausea or vomiting controlled GERD with PPI his RUQ pain is much better but still present occasionally EXAM: GENERAL: The patient is well developed and nontoxic, obese VITAL SIGNS:see workflow HEENT: Nonicteric sclerae, PERRLA, EOMI. Oropharynx clear. Moist mucous membranes. Conjunctivae appear well perfused. No thyroid mass. CHEST: Chest wall is nontender. HEART: Regular rate and rhythm without murmurs. LUNGS: Clear to auscultation bilaterally. ABDOMEN: Soft, positive bowel sounds, vague tenderness ruq and right lower chest wall, no organomegaly.no flank tenderness SKIN: No rash, no excessive bruising, petechiae, or purpura. NEUROLOGIC: Cranial nerves II-XII intact without motor/sensory deficit. no raised JVD or leg edema MS: nml a/P: 1/Altered bowel habit, 2/ RUQ pain, uncertain etiology but better PLAN: 1/ no longer on mounjaro, half dose of lantus night before 2/ EGD and colonoscopy --pre op anesthesia due to KIMO --[facility] Medical History Obstructive sleep apnea hypopnea, severe Obstructive sleep apnea Vitamin D deficiency Vitamin D deficiency PAF (paroxysmal atrial fibrillation) HLD (hyperlipidemia) HTN (hypertension) T2DM (type 2 diabetes mellitus) NAFLD (nonalcoholic fatty liver disease) Essential hypertension Type 2 diabetes mellitus without complications Surgical History History of esophagogastroduodenoscopy (EGD) Family History Father Diabetes Hypertension CVD (cardiovascular disease) Mother Alzheimer's dementia Other Mental health disorder Vitamin D deficiency Social History Household Members: Spouse Both parents involved: No Caregiver staying overnight: No Housing: House Are you a primary transitions rn care coordinator to a significant other at home: No Do you presently have visiting nurse or other home services: No 75 years or older and lives alone: No Alcohol intake: never Patient Tobacco Use Status: Former Tobacco user e-Cigarette/Vaping Use: Never Used Second Hand Smoke Exposure: No service: No Current occupational status: employed 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 Current occupational exposures/hazards: No Cognitive needs: No Hearing needs: No Vision needs: Yes (Glasses) Physical Exam Vital Signs: Last Vital Signs Pulse 75 07/06/24 14:14 BP 144/66 H 07/06/24 14:14 BMI result Body Mass Index 37.5 Assessment & Plan Assessment & Plan (1) Abnormal LFTs: Code(s): R79.89 - Other specified abnormal findings of blood chemistry Category: Medical Plan: see above (2) RUQ pain: Code(s): R10.11 - Right upper quadrant pain Category: Medical Plan: see above (3) Abnormal bowel habits: Code(s): R19.8 - Other specified symptoms and signs involving the digestive system and abdomen Category: Medical Plan: see above Orders: Orders Comprehensive Met. Panel Today K75.81 - Nonalcoholic steatohepatitis (MCGINNIS) Coding Level of Care Code Est Pt Level 3 (35431) Diagnoses Abnormal LFTs R79.89 RUQ pain R10.11 Abnormal bowel habits R19.8
[2024-07-06 14:14] VITALS: BP 144/66; PULSE 75; BMI 37.5
== END 2024-07-06 14:44 | disposition home or self-care (01) ==
PROVIDERS: PCP Family Medicine; Visit Provider Internal Medicine Gastroenterology
DX: R79.89 Other specified abnormal findings of blood chemistry (principal); R10.11 Right upper quadrant pain; R19.8 Other specified symptoms and signs involving the digestive system and abdomen
CPT/HCPCS: 99213

== ENCOUNTER → 2024-07-06 14:09 | Outpatient (BNVA) | payer OTHER, SELFPAY | PROVIDERS: PCP Family Medicine; Visit Provider Internal Medicine Gastroenterology ==

== ENCOUNTER 2024-07-24 14:05 | Outpatient (AMB) | payer OTHER, SELFPAY ==
--- NOTE | 2024-07-24 14:44 | HO.OFFWMMET ---
VS Expanded 07/24/24 15:07 BP 161/69 H Blood Pressure Location Rt brachial Blood Pressure Position Sitting Pulse 69 Pulse Source Pulse Oximeter Temp 98.2 F Temperature Source Temporal Artery Scan Pulse Oximetry 97 Oxygen Delivery Method Room Air Height 5 ft 11 in Weight 263 lb 9.6 oz BMI 36.8 Body Fat % 33.3 Body Fat Mass 87.8 Fat Free Mass 175.8 Visceral Fat Rating 18.0 Body Water % 48.2 Body Water Mass 127.0 Muscle Mass/Score 167.2 Basal Metabolic Rate/Score 2,409 Intake Visit Reasons: metabolic group session Slackman Required: No Allergies arsenic Allergy (Severe, Verified 07/24/24 14:46) Itching ibuprofen Adverse Reaction (Intermediate, Verified 07/24/24 14:46) GI upset Medication List - Last Reconciled 07/24/24 by JACE Mcginnis albuterol sulfate 90 mcg/actuation (Ventolin HFA) 2 puffs inhalation Q4-6H PRN 30 days aspirin (Adult Aspirin Regimen) 81 mg PO DAILY 90 days atorvastatin 20 mg (2 x 10 mg) PO ONCE 30 days bisoprolol fumarate 7.5 mg (1.5 x 5 mg) PO DAILY 90 days blood-glucose sensor (BLUEPHOENIXyle Mckay 3 Sensor device) As directed changed every 14 days clotrimazole 1% 1 appl topical BID 2 weeks diclofenac sodium 1% 4 grams topical TID 15 days fenofibrate micronized 200 mg PO DAILY 90 days hyoscyamine sulfate (Levsin/SL) 0.125 mg sublingual QID PRN insulin glargine U-300 conc (Toujeo SoloStar U-300 Insulin) units subcut insulin regular hum U-500 conc (Humulin R U-500 (Conc) Insulin Kwikpen) inject 75 units in AM and 50 units before dinner subcutaneously every evening; ipratropium bromide intranasal lancets (FreeStyle Lancets) 4x daily lisinopril 5 mg PO DAILY pen needle, diabetic (BD Ultra-Fine Micro Pen Needle) As directed injects 4 X/day pen needle, diabetic (BD Ultra-Fine Maddie Pen Needle) USE TO INJECT 4 TIMES A DAY rabeprazole 20 mg PO DAILY 90 days sodium,potassium,mag sulfates 17.5-3.13-1.6 gram (Suprep Bowel Prep Kit) DILUTE; drink 1/2 at 6-8 pm and half at 11 PM- 1AM tadalafil 5 mg PO DAILY PRN 30 days tirzepatide (Mounjaro) 5 mg (0.5 mL) subcut QWEEK 28 days HPI Comments Details: Patient is a pleasant 48-year-old male who presents to the metabolic clinic today. He has a longstanding history of obesity, diabetes, hypertension, sleep apnea, hyperlipidemia. He has tried multiple weight loss methods in the past including fad diets without success. He would like to participate in the metabolic clinic program. REPLACED BY [facility] Medical History Obstructive sleep apnea hypopnea, severe Obstructive sleep apnea Vitamin D deficiency Vitamin D deficiency PAF (paroxysmal atrial fibrillation) HLD (hyperlipidemia) HTN (hypertension) T2DM (type 2 diabetes mellitus) NAFLD (nonalcoholic fatty liver disease) Essential hypertension Type 2 diabetes mellitus without complications Surgical History History of esophagogastroduodenoscopy (EGD) Family History Father Diabetes Hypertension CVD (cardiovascular disease) Mother Alzheimer's dementia Other Mental health disorder Vitamin D deficiency Social History Household Members: Spouse Both parents involved: No Caregiver staying overnight: No Housing: House Are you a primary wild animal caretaker to a significant other at home: No Do you presently have visiting nurse or other home services: No 75 years or older and lives alone: No Alcohol intake: never Patient Tobacco Use Status: Former Tobacco user e-Cigarette/Vaping Use: Never Used Second Hand Smoke Exposure: No service: No Current occupational status: employed 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 We will check a random glucose and hemoglobin A1c given his history of diabetes. 1. You have been given a paper with a link to our software gilles ([employer]) to generate an individualized nutritional and exercise plan specific for you. Please send me a screenshot of the plans you will generate Meal to include lean meat (beef, fish, pork, turkey, chicken), or guinean yogurt, or egg whites, or beans with a salad with olive oil and fruits (berries, pears, apples, kiwi). Avoid salt, breads, potatoes, rice, pasta, desserts. 2. If you choose shakes, each shake would be drunk slowly, like coffee over a period of 2 hours. 3. If you choose bars, cut each bar in 4 pieces and eat each piece in 30 min to make each bar last 2 hours. 4. I emphasized the importance of measuring accurately the food portion and measure it when serving the food on a plate 5. The meal portions include a specific number of forks of meat (protein) and salad. You always eat the meat portion but you can replace up to half of salad/vegetables portion with rice, potatoes or pasta, or a fruit ?if you like. The less you do it the better weight loss will be. 6. One full-size fork is what can be scooped on the fork without falling aside and not what can be bit with the fork. Use regular forks like those you find in a typical restaurant. 7.? Please send me weight measurements from your body composition scale as soon as possible and then once a week. Always include your diet and exercise plan. The best time to weigh yourself is first thing in the morning after going to the bathroom. Additionally, please be sure to keep a very close eye on your blood sugars including checking them daily and as needed as your blood sugars will decrease with a new meal plan. You had stated that you were started on a new diabetic medication but did not initiate this yet. You were going to discuss this with your diabetes doctor. 8. The best choice for exercise would be treadmill, stationary bike or elliptical. Alternatively start walking outside daily, tracking calories with a goal of 300 calories per day, daily. You can download the gilles [employer] which can track your time, distance and calories while walking outside. You press start in the gilles when you start and then stop when you are finished. 9.?Goal is to lose at least 2-3 lbs per week. 10. Please follow the diet plan exactly without any change. If you don't like something about the plan or you feel hungry you need to communicate with me so I can help you revise the plan. My cell phone number to communicate with me by text is [phone] Patient is morbidly obese and is not considered stable at this time.?I spent a total of 70 minutes reviewing/updating records, examining the patient and counseling the patient on weight management as detailed above. Orders: Orders Glucose Random Today E11.65 - Type 2 diabetes mellitus with hyperglycemia Hemoglobin A1c Today E11.65 - Type 2 diabetes mellitus with hyperglycemia
[2024-07-24 15:07] VITALS: BP 161/69; PULSE 69; TEMP 36.8; O2SAT 97; BMI 36.8
== END 2024-07-24 15:25 | disposition home or self-care (01) ==
LOC: HO.META 14:05
PROVIDERS: PCP Family Medicine; Visit Provider Physician Assistant Surgical
DX: E66.9 Obesity, unspecified (principal)

== ENCOUNTER → 2024-07-24 14:05 | Outpatient (BNVA) | payer OTHER, SELFPAY | LOC: CF 15:07 | PROVIDERS: PCP Family Medicine; Referring Provider Internal Medicine Gastroenterology; Visit Provider Physician Assistant Surgical | DX: E66.9 Obesity, unspecified (principal); Z68.36 Body mass index [BMI] 36.0-36.9, adult | CPT/HCPCS: 99453 ==

== ENCOUNTER 2024-07-28 13:30 | Outpatient (AMB) | payer OTHER, SELFPAY ==
--- NOTE | 2024-07-28 13:36 | A.OFFVIS_ITS ---
Vital Signs 07/28/24 13:40 Height 5 ft 11 in Weight 268 lb 15.423 oz BMI 37.5 BP 142/60 H Blood Pressure Location Lt brachial Position Sitting Pulse 75 Pulse Source Pulse Oximeter Pulse Oximetry (%) 100 Oxygen Delivery Method Room Air Intake Visit Reasons: Bl Hand Pain Intake Note: Patient presents for BL hand pain. Allergies arsenic Allergy (Severe, Verified 07/28/24 13:40) Itching ibuprofen Adverse Reaction (Intermediate, Verified 07/28/24 13:40) GI upset Medication List - Last Reconciled 07/28/24 by Mingo Green MD albuterol sulfate 90 mcg/actuation (Ventolin HFA) 2 puffs inhalation Q4-6H PRN 30 days aspirin (Adult Aspirin Regimen) 81 mg PO DAILY 90 days atorvastatin 20 mg (2 x 10 mg) PO ONCE 30 days bisoprolol fumarate 7.5 mg (1.5 x 5 mg) PO DAILY 90 days blood-glucose sensor (Userlike Live Chat Mckay 3 Sensor device) As directed changed every 14 days clotrimazole 1% 1 appl topical BID 2 weeks diclofenac sodium 1% 4 grams topical TID 15 days fenofibrate micronized 200 mg PO DAILY 90 days glucose (Dex4 Glucose) 16 grams (4 x 4 gram) PO Q15M PRN 30 days MDD 16 tablets hyoscyamine sulfate (Levsin/SL) 0.125 mg sublingual QID PRN insulin aspart U-100 (Novolog FlexPen U-100 Insulin aspart) 60 units for cesia akfast and lunch, 80 units for supper subcutaneously use as directed; insulin glargine U-300 conc (Toujeo SoloStar U-300 Insulin) units subcut insulin regular hum U-500 conc (Humulin R U-500 (Conc) Insulin Kwikpen) inject 75 units in AM and 50 units before dinner subcutaneously every evening; ipratropium bromide intranasal lancets (FreeStyle Lancets) 4x daily lisinopril 5 mg PO DAILY pen needle, diabetic (BD Ultra-Fine Micro Pen Needle) As directed injects 4 X/day pen needle, diabetic (BD Ultra-Fine Maddie Pen Needle) USE TO INJECT 4 TIMES A DAY rabeprazole 20 mg PO DAILY 90 days sodium,potassium,mag sulfates 17.5-3.13-1.6 gram (Suprep Bowel Prep Kit) DILUTE; drink 1/2 at 6-8 pm and half at 11 PM- 1AM tadalafil 5 mg PO DAILY PRN 30 days tirzepatide (Mounjaro) 5 mg (0.5 mL) subcut QWEEK 28 days HPI Comments Details: This is a 48-year-old male who presents for evaluation of bilateral hand pain. He initially presented/2022. He was evaluated by Susy Arreaga and blood work was done. Patient was not able to show up for the follow-up visit. He states that he has bilateral hand morning stiffness lasting about 30 minutes. Lived with moving his hands and running them under warm water. He has tingling and numbness of his fingers, also has some pain at the flexor tendons bilaterally and intermittent triggering of his fingers. [facility] Medical History Obstructive sleep apnea hypopnea, severe Obstructive sleep apnea Vitamin D deficiency Vitamin D deficiency PAF (paroxysmal atrial fibrillation) HLD (hyperlipidemia) HTN (hypertension) T2DM (type 2 diabetes mellitus) NAFLD (nonalcoholic fatty liver disease) Essential hypertension Type 2 diabetes mellitus without complications Surgical History History of esophagogastroduodenoscopy (EGD) Family History Father Diabetes Hypertension CVD (cardiovascular disease) Mother Alzheimer's dementia Other Mental health disorder Vitamin D deficiency Social History Household Members: Spouse Both parents involved: No Caregiver staying overnight: No Housing: House Are you a primary adult caregiver to a significant other at home: No Do you presently have visiting nurse or other home services: No 75 years or older and lives alone: No Alcohol intake: never Patient Tobacco Use Status: Former Tobacco user e-Cigarette/Vaping Use: Never Used Second Hand Smoke Exposure: No service: No Current occupational status: employed 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 Current occupational exposures/hazards: No Cognitive needs: No Hearing needs: No Vision needs: Yes (Glasses) Review of Systems Musc Reports numbness, Reports stiffness and Reports tingling Neuro Reports numbness and Reports tingling Physical Exam Vital Signs: Last Vital Signs Pulse 75 07/28/24 13:40 BP 142/60 H 07/28/24 13:40 Pulse Ox 100 07/28/24 13:40 Oxygen Delivery Method Room Air 07/28/24 13:40 BMI result Body Mass Index 37.5 Const General: cooperative, healthy appearing and comfortable Nutritional Appearance: obese morbidly obese Orientation/consciousness: patient oriented x3 Limitations: no limitations HEENT Head: Yes normocephalic and Yes atraumatic Mouth: moist mucous membranes Resp Effort & Inspection: normal respiratory effort and able to speak in complete sentences Skin General skin exam: no rashes or lesions noted Neuro General: patient oriented x3 Extrem Other: Minimal osteoarthritic changes of both hands No swollen joints Few tender flexor tendons both hands bilaterally Normal nailfold capillaroscopy Assessment & Plan Assessment & Plan (1) Osteoarthritis of hands, bilateral: Code(s): M19.041 - Primary osteoarthritis, right hand; M19.042 - Primary osteoarthritis, left hand Category: Medical Qualifiers: Osteoarthritis type: primary Qualified Code(s): M19.041 - Primary osteoarthritis, right hand; M19.042 - Primary osteoarthritis, left hand Plan: 48-year-old male presents for evaluation of bilateral hand pain. I do not see any evidence of an autoimmune rheumatic disease. Clinical picture rather consistent with a combination of mild bilateral hand osteoarthritis, flexor tendonitis and intermittent triggering as well as carpal tunnel syndrome. He has diabetes is not well controlled most recent HbA1c was 10% advised patient that poorly controlled diabetes can make his symptoms of carpal tunnel syndrome worse and patient may develop diabetic cheiroarthropathy Referred to OT (2) Bilateral carpal tunnel syndrome: Code(s): G56.03 - Carpal tunnel syndrome, bilateral upper limbs Category: Medical Plan: Referred to hand surgeon (3) Trigger finger: Code(s): M65.30 - Trigger finger, unspecified finger Category: Medical Qualifiers: Laterality: unspecified laterality Plan: Referred to OT (4) CESARIO positive: Code(s): R76.8 - Other specified abnormal immunological findings in serum Category: Medical Plan: No symptoms or signs suggestive of an autoimmune rheumatic disease upon my evaluation today. Inflammatory markers are normal with negative sub serologies. Positive CESARIO can be seen in about 20% of the population without an underlying autoimmune rheumatic disease. At this time the significance of his positive CESARIO is unclear Plan I spent 30 minutes reviewing patient's chart, evaluating patient, ordering diagnostic workup, counseling patient and documenting in the chart Orders: Orders OT Evaluation and Treatment Today G56.03 - Carpal tunnel syndrome, bilateral upper limbs, M19.041 - Primary osteoarthritis, right hand, M19.042 - Primary osteoarthritis, left hand, M65.30 - Trigger finger, unspecified finger Referrals Hand Surgery Referral G56.03 - Carpal tunnel syndrome, bilateral upper limbs Coding Level of Care Code Est Pt Level 4 (69600) Diagnoses Primary osteoarthritis of both hands M19.041; M19.042 Osteoarthritis type: primary Bilateral carpal tunnel syndrome G56.03 Trigger finger M65.30 Laterality: unspecified laterality CESARIO positive R76.8
[2024-07-28 13:40] VITALS: BP 142/60; PULSE 75; O2SAT 100; BMI 37.5
== END 2024-07-28 13:59 | disposition home or self-care (01) ==
PROVIDERS: PCP Family Medicine; Visit Provider Student in an Organized Health Care Education/Training Program
DX: M19.041 Primary osteoarthritis, right hand (principal); M19.042 Primary osteoarthritis, left hand; G56.03 Carpal tunnel syndrome, bilateral upper limbs; M65.30 Trigger finger, unspecified finger; R76.8 Other specified abnormal immunological findings in serum
CPT/HCPCS: 99214

== ENCOUNTER → 2024-07-28 13:30 | Outpatient (BNVA) | payer OTHER, SELFPAY | PROVIDERS: PCP Family Medicine; Visit Provider Student in an Organized Health Care Education/Training Program ==

== ENCOUNTER 2024-08-14 09:06 | Outpatient (AMB) | payer OTHER, SELFPAY ==
--- NOTE | 2024-08-14 09:16 | MHC.PC.OV ---
Vital Signs 08/14/24 09:21 Height 5 ft 11 in Weight 273 lb 4 oz BMI 38.1 BP 147/65 H Blood Pressure Location Rt brachial Position Sitting Respiration 16 Pulse 77 Pulse Source Pulse Oximeter Temp 98.4 F Temp Source Temporal Artery Scan Pulse Oximetry (%) 99 Oxygen Delivery Method Room Air Intake Visit Reasons: CPE W/ F/U LABS AND HEALTH MAIN. 30 MINS. Intake Note: cpe pt needs accommodation letter for his breathing problems that has accord [id number] ago Allergies arsenic Allergy (Severe, Verified 08/14/24 09:18) Itching ibuprofen Adverse Reaction (Intermediate, Verified 08/14/24 09:18) GI upset Tobacco use date assessed: 08/14/24 Dental Screening Dental Screen Date: 08/14/24 Did you have a dental visit in the last 12 months?: Yes Did you have a dental problem in the last 6 months where you did not have access to dental care?: Yes Was dental information given to patient?: Patient has dentist HPI CPE W/ F/U LABS AND HEALTH MAIN. 30 MINS. HPI Details 48 y/o male presents for a CPE with f/u labs and health maintenance. No recent CPE-labs to review. Blood pressure today 147/65, 77p. He is on lisinopril 20mg, bisoprolol. Notes ongoing shortness of breath. Reports he feels stiff in multiple joints in the morning. [facility] Medical History Obstructive sleep apnea hypopnea, severe Obstructive sleep apnea Vitamin D deficiency Vitamin D deficiency PAF (paroxysmal atrial fibrillation) HLD (hyperlipidemia) HTN (hypertension) T2DM (type 2 diabetes mellitus) NAFLD (nonalcoholic fatty liver disease) Essential hypertension Type 2 diabetes mellitus without complications Surgical History History of esophagogastroduodenoscopy (EGD) Family History Father Diabetes Hypertension CVD (cardiovascular disease) Mother Alzheimer's dementia Other Mental health disorder Vitamin D deficiency Social History (Updated 08/14/24 @ 09:19 by Codi Davis [facility] Household Members: Spouse Both parents involved: No Caregiver staying overnight: No Housing: House Are you a primary medicare insurance specialist to a significant other at home: No Do you presently have visiting nurse or other home services: No 75 years or older and lives alone: No Alcohol intake: never Patient Tobacco Use Status: Former Tobacco user e-Cigarette/Vaping Use: Never Used Second Hand Smoke Exposure: No service: No Current occupational status: employed 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 1. Little interest or pleasure in doing things: nearly every day 2. Feeling down, depressed, or hopeless: not at all 3. Trouble falling or staying asleep, or sleeping too much: several days 4. Feeling tired or having little energy: several days 5. Poor appetite or overeating: several days 6. Feeling bad about yourself - or that you are a failure or have let yourself or your family down: not at all 7. Trouble concentrating on things, such as reading the newspaper or watching television: not at all 8. Moving or speaking so slowly that other people could have noticed. Or the opposite - being so fidgety or restless that you have been moving around a lot more than usual: not at all 9. Thoughts that you would be better off or of hurting yourself in some way: not at all Total score: 6 Depression Screening Interpretation: Positive Depression Screening Done: Yes 09319 - PHQ-9 Billing: Yes Source: Developed by Drs. Robert Atkinson, Fransisca Michelle, Des Wright and colleagues, with an educational jessica from [employer]. Thrive Questionnaire Date Thrive assessed: 08/14/24 I am a: Patient What is your living situation today?: I have a steady place to live Within the past 12 months, did the food you bought not last and you didn't have the money to get more?: Never true Within the past 12 months, did you worry whether your food would run out before you got money to buy more?: Never true Do you have trouble paying for medicines?: No Do you have trouble getting transportation to medical appointments?: No Do you have trouble paying your heating and electricity bill?: No Do you have trouble taking care of your child, family member or friend?: No Do you have trouble with day-to-day activities such as bathing, preparing meals, shopping, managing finances, etc.?: No Are you currently unemployed and looking for a job?: No Are you interested in more education?: Yes Please select the resources that you would like help with: None Currently or been in a relationship where the following occur: I choose not to answer THRIVE Score: 0 AUDIT C Alcohol Use Questionnaire (AUDIT-C) 1. How often do you have a drink containing alcohol?: Never 3. How often do you have six or more drinks on one occasion?: Never Total Score: 0 LISA-7 AMB Questionnaire LISA-7 Date LISA - 7 assessed: 08/14/24 Feeling nervous, anxious, or on edge: 0 = Not at all Not being able to stop or control worryin = Not at all Worrying too much about different things: 0 = Not at all Trouble relaxin = Not at all Being so restless that it is hard to sit still: 0 = Not at all Becoming easily annoyed or irritable: 0 = Not at all Feeling afraid as if something awful might happen: 0 = Not at all Total LISA-7 score (0-4 normal; 5-9 mild; 10-14 moderate; 15-21 severe): 0 Source: Developed by Drs. Robert Atkinson, Fransisca Michelle, Des Wright and colleagues, with an educational jessica from [employer]. LISA-7 Assessment Billing LISA-7 Assessment Tool: LISA-7 Assessment 21164 Review of Systems Const Denies chills, Denies fatigue, Denies fever(s), Denies headache(s) and Denies weakness Eyes Denies change in vision ENT Denies dizziness, Denies headache(s), Denies hearing loss, Denies nasal congestion, Denies sinus pain, Denies sinus pressure and Denies sore throat Card Reports dyspnea Resp Reports dyspnea and Denies wheezing GI Denies abdominal pain, Denies melena, Denies hematochezia, Denies change in bowel habits, Denies dyspepsia and Denies nausea Denies hematuria and Denies dysuria Musc Denies abnormal gait, Denies myalgias, Denies arthralgias, Denies numbness and Denies tingling Skin/Breast Denies rash, Denies unusual bruising and Denies wounds Neuro Denies abnormal gait, Denies dizziness, Denies headache(s), Denies memory loss, Denies numbness, Denies Sensory deficit (Neuro), Denies tingling and Denies weakness Psych Denies anxiety, Denies depression and Denies memory loss Endo Denies cold intolerance, Denies fatigue, Denies heat intolerance, Denies polydipsia and Denies polyuria Dilan/Lymph Denies easy bleeding and Denies easy bruising Aller/Immun Denies wheezing Physical exam (Primary Care) Vital Signs: Last Vital Signs Temp 98.4 F 08/14/24 09:21 Pulse 77 08/14/24 09:21 Resp 16 08/14/24 09:21 BP 147/65 H 08/14/24 09:21 Pulse Ox 99 08/14/24 09:21 Oxygen Delivery Method Room Air 08/14/24 09:21 BMI result Body Mass Index 38.1 Tobacco/Smoking Status: Tobacco use Status Tobacco use date assessed 08/14/24 08/14/24 09:24 Patient Tobacco Use Status Former Tobacco user 08/14/24 09:19 e-Cigarette/Vaping Use Never Used 08/14/24 09:19 PHQ-9: PHQ-9 Score PHQ-9: Total score 6 08/14/24 09:24 Depression Screening Interpretation: Positive Thrive Assessment: Date of Thrive Assessment Date Thrive assessed 08/14/24 08/14/24 09:24 Currently or been in a relationship where the following occur: I choose not to answer Const General: no acute distress, well developed, alert and awake Nutritional Appearance: well nourished Orientation/consciousness: patient oriented x3 HENMT Head: Yes normocephalic and Yes atraumatic Ears: hearing grossly normal bilaterally and TM's normal bilaterally General nose exam: Normal external nose present and Normal nares present Mouth: Normal oral and palatal mucosa present and moist mucous membranes Teeth and gingiva: dentition normal Throat: Yes posterior oropharynx normal Eyes General: appearance normal, both eyes and all related structures Pupils: Equal, round and reactive pupils present and Pupil accommodation reflex normal EOM: EOMs intact bilaterally Neck Neck: Yes normal visual inspection, Yes no lymphadenopathy and Yes trachea midline Thyroid: Thyroid normal Carotids: no bruits Lymphatic: no lymphadenopathy noted Chest Chest palpation & inspection: normal inspection of the chest Resp Effort & Inspection: normal respiratory effort Auscultation: clear to auscultation bilaterally Cardio Rate: regular rate Rhythm: regular rhythm Heart sounds: S1 normal heart sound present, S2 normal heart sound present, no gallops, no murmurs and no rubs Bruits: no abdominal aortic bruits and no carotid bruits GI Palpation (GI): No Abdominal aortic bruit present, Soft to palpation, nontender, No hepatosplenomegaly present and No Rebound tenderness present Auscultation: normal bowel sounds General: Yes no CVA tenderness Back/Spine/Pelvis Back: no CVA tenderness Cervical Spine: cervical ROM normal and No Cervical spine tenderness Thoracic/Lumbar Spine: thoraco-lumbar ROM normal, No pain with thoraco-lumbar ROM, No thoracic spinal tenderness and No lumbar spinal tenderness Skin Lesions: no lesions Rashes: no rashes Trauma: no lacerations or abrasions Wounds: no wounds Nails: normal Neuro General: patient oriented x3 Cranial nerves: Yes Equal, round and reactive pupils present Cognition (Neuro): normal cognition Gait exam (Neuro): Normal gait present Motor exam (neuro): 5/5 motor strength present throughout Sensory Exam: No Sensory deficit (Neuro) Deep tendon reflexes (DTR's): Right patellar reflex intensity grade: 2+ and Left patellar reflex intensity grade: 2+ Extrem Other: 1+ edema bilateral feet and ankles General: Yes normal to inspection and No edema Psych Appearance: grossly normal Affect: normal affect Attitude: cooperative Thought process: Normal thought process present Coding Level of Care Code Est Pt Level 4 (04550) New Pt Prev Care 40-64y(05566) Diagnoses Adult general medical examination Z00.00 Essential hypertension I10 Type 2 diabetes mellitus without complication, unspecified whether buttermaker helper insulin use E11.9 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 mcfp insulin use: unspecified mcfp insulin use status Sleep apnea G47.30 Screening for colon cancer Z12.11 Screening for prostate cancer Z12.5 Dyspnea R06.00 Polyarthralgia M25.50 Additional Codes LISA-7 Assessment Billing - LISA-7 Assessment Tool: LISA-7 Assessment 06512 ([id number]) Assessment & Plan Assessment & Plan (1) Adult general medical examination: Code(s): Z00.00 - Encounter for general adult medical examination without abnormal findings Category: Medical Plan: 48-year-old?male?presents?for?complete?physical?exam (2) Essential hypertension: Code(s): I10 - Essential (primary) hypertension Category: Medical Plan: Blood?pressure?is?too?high. Increasing?patient?lisinopril?from?5?mg?daily?to?20?mg?daily Continue?bisoprolol?as?prescribed (3) Type 2 diabetes mellitus without complications: Code(s): E11.9 - Type 2 diabetes mellitus without complications Category: Medical Qualifiers: 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 mcfp insulin use: unspecified buttermaker helper insulin use status Qualified Code(s): E11.9 - Type 2 diabetes mellitus without complications Plan: Check?A1c No?change?to?current?regimen Will?follow-up?at?telemedicine?encounter?to?review?labs (4) Sleep apnea: Code(s): G47.30 - Sleep apnea, unspecified Category: Medical Plan: Patient?has?CPAP?which?is?helping Still?having?issues?with?the?mask?and?sleep?and?his?breathing - still?having?dyspnea - see?below Follow-up?with?sleep?medicine?as?recommended.??Follow-up?with?pulmonology (5) Screening for colon cancer: Code(s): Z12.11 - Encounter for screening for malignant neoplasm of colon Category: Medical Plan: Check?Cologuard?test (6) Screening for prostate cancer: Code(s): Z12.5 - Encounter for screening for malignant neoplasm of prostate Category: Medical Plan: Checking?PSA Patient?says?urinating?normally (7) Dyspnea: Code(s): R06.00 - Dyspnea, unspecified Category: Medical Plan: Ongoing?dyspnea Now?followed?by?pulmonology Continue?ongoing?evaluation?with?pulmonology (8) Polyarthralgia: Code(s): M25.50 - Pain in unspecified joint Category: Medical Plan: Rheumatology?has?recommended?occupational?therapy?and?hand?surgery?referral Patient?would?like?2nd?opinion?with?you?automation tech-referred Orders: Orders Microalbumin, Random (w Creat) Today I10 - Essential (primary) hypertension Prostate Specific Antigen Scr Today I10 - Essential (primary) hypertension, Z12.5 - Encounter for screening for malignant neoplasm of prostate UA and rflx microscopic Today I10 - Essential (primary) hypertension, Z00.00 - Encounter for general adult medical examination without abnormal findings LDL Cholesterol Direct Today E78.5 - Hyperlipidemia, unspecified CRP High Sensitivity Today M79.641 - Pain in right hand, M79.642 - Pain in left hand Comprehensive Met. Panel Today I10 - Essential (primary) hypertension Complete Blood Count Auto Diff Today I10 - Essential (primary) hypertension, Z00.00 - Encounter for general adult medical examination without abnormal findings Lipid Panel Today I10 - Essential (primary) hypertension, Z00.00 - Encounter for general adult medical examination without abnormal findings TSH reflex Free T4 Today I10 - Essential (primary) hypertension, Z00.00 - Encounter for general adult medical examination without abnormal findings Erythrocyte Sedimentation Rate Today M79.641 - Pain in right hand, M79.642 - Pain in left hand Hemoglobin A1c Today R73.01 - Impaired fasting glucose Referrals Cologuard Test M79.641 - Pain in right hand, M79.642 - Pain in left hand, Z12.11 - Encounter for screening for malignant neoplasm of colon, Z12.12 - Encounter for screening for malignant neoplasm of rectum Rheumatology Referral M25.50 - Pain in unspecified joint Medications: Changed From lisinopril 5 mg PO DAILY 90 tabs 0RF I10 - Essential (primary) hypertension To lisinopril 20 mg PO DAILY 90 days 90 tabs 3RF I10 - Essential (primary) hypertension
[2024-08-14 09:21] VITALS: BP 147/65; PULSE 77; RESP 16; TEMP 36.9; O2SAT 99; BMI 38.1
== END 2024-08-14 10:13 | disposition home or self-care (01) ==
PROVIDERS: PCP Family Medicine; Visit Provider Family Medicine
DX: Z00.00 Encounter for general adult medical examination without abnormal findings (principal); I10 Essential (primary) hypertension; E11.9 Type 2 diabetes mellitus without complications; G47.30 Sleep apnea, unspecified; R06.00 Dyspnea, unspecified; M25.50 Pain in unspecified joint; Z12.11 Encounter for screening for malignant neoplasm of colon; Z12.5 Encounter for screening for malignant neoplasm of prostate

== ENCOUNTER → 2024-08-14 09:06 | Outpatient (BNVA) | payer OTHER, SELFPAY | PROVIDERS: PCP Family Medicine; Visit Provider Family Medicine | DX: Z00.00 Encounter for general adult medical examination without abnormal findings (principal); I10 Essential (primary) hypertension; E11.9 Type 2 diabetes mellitus without complications; G47.30 Sleep apnea, unspecified; R06.00 Dyspnea, unspecified; M25.50 Pain in unspecified joint; Z79.899 Other long term (current) drug therapy | CPT/HCPCS: 96127 ==

== ENCOUNTER 2024-08-14 10:24 | Outpatient (REF) | payer OTHER, SELFPAY ==
[2024-08-14 14:18] LABS: Appearance Urine Clear; Color Urine Yellow; Glucose Urine UA >=1000 mg/dL (Negative); Leukocyte Esterase Urine Negative (Negative); Nitrite Urine Negative (Negative); PH 5.5 (5.0-9.0); Specific Gravity - Urine 1.025 (1.005-1.025); UMIC TRIGGER UA YES; Urine Blood Negative (Negative); Urine Ketones Negative (Negative); Urine Protein Negative (Neg-Trace)
[2024-08-14 14:20] LABS: Bacteria Urine None Seen (None Seen); Hyaline Casts Urine 0-2 /LPF (0-2); RBC Urine 0-2 /HPF (0-2); Squamous Epithelial Cell Urine 0-2 /HPF (0-2); WBC Urine 0-5 /HPF (0-5)
[2024-08-14 14:23] LABS: MANUAL DIFF FLAG NO
[2024-08-14 14:26] LABS: Basophils Percent Auto 0.7 % (0-2); Eosinophils Absolute Auto 0.1 X10*3/uL (0.0-0.4); Eosinophils Percent Auto 2.3 % (0-4); Hematocrit 36.9 % (42.0-52.0); Hemoglobin 12.5 g/dl (14.0-18.0); Imm Gran Abs Auto 0.03 X10*3/uL (0.00-0.03); Imm Gran Pct Auto 0.5 % (0.0-0.4); Lymphocytes Absolute Auto 1.5 X10*3/uL (1.2-4.9); Lymphocytes Percent Auto 25.5 % (20-40); Mean Corpuscular HGB Conc 33.9 g/dl (31.0-36.0); Mean Corpuscular Hemoglobin 27.9 pg (27.0-33.0); Mean Corpuscular Volume 82.4 fL (80.0-98.0); Mean Platelet Volume 10.7 fL (9.4-12.4); Monocytes Absolute Auto 0.5 X10*3/uL (0.1-1.2); Monocytes Percent Auto 8.2 % (2-11); Neutrophils Absolute Auto 3.8 x10*3/uL (2.0-8.3); Neutrophils Percent Auto 62.8 % (45-73); Platelet Count 304 X10*3/uL (160-400); Red Blood Count 4.48 X10*6/uL (4.60-5.80)
[2024-08-14 14:59] LABS: Estimated Average Glucose 235 mg/dL; Hemoglobin A1C 270.2314 umol/L; Hemoglobin A1c % 9.8 % (<6.0); Total Hemoglobin (HGBA1C) 3241.0633 umol/L
[2024-08-14 15:00] LABS: Creatinine Urine 35.35 mg/dL; Microalbumin Urine < 5.0 mg/L
[2024-08-14 15:03] LABS: Alanine Aminotransferase 33 U/L (0-40); Albumin Level 4.2 g/dL (3.5-5.0); Alkaline Phosphatase 68 U/L (39-117); Anion Gap 13 (12-20); Aspartate Amino Transferase 42 U/L (5-37); Bilirubin Total 0.4 mg/dL (0.0-1.0); Blood Urea Nitrogen 10 mg/dL (9-16); Carbon Dioxide 27 mmol/L (22-29); Chloride 98 mmol/L (96-108); Cholesterol 120 mg/dL (<200); Estimated Glomerular Filt Rate > 60; HDL Cholesterol 22 mg/dL (>40); LDL Cholesterol Calculated 29 mg/dL (<100); Potassium 4.2 mmol/L (3.3-5.1); Sodium 134 mmol/L (135-145); Total Protein 7.8 g/dL (6.5-8.0); Triglycerides 346 mg/dL (<150)
[2024-08-14 15:06] LABS: TSH reflex Free T4 2.05 uIU/mL (0.32-4.0)
[2024-08-14 15:08] LABS: Glucose Random 367 mg/dL (60-115)
[2024-08-14 15:09] LABS: Erythrocyte Sedimentation Rate 14 MM/HR (0-15)
[2024-08-14 15:35] LABS: Prostate Specific Antigen Scr 0.49 ng/mL (<0.05-4.0)
[2024-08-16 02:48] LABS: LDL Cholesterol Direct 47 mg/dL (<100)
[2024-08-17 17:13] LABS: CRP High Sensitivity 13.3 mg/L
== END 2024-08-14 10:25 | disposition home or self-care (01) ==
LOC: HO.WFDLDS 10:24
PROVIDERS: Referring Provider Physician Assistant Surgical; Visit Provider Family Medicine
DX: Z00.00 Encounter for general adult medical examination without abnormal findings (principal); Z12.5 Encounter for screening for malignant neoplasm of prostate; I10 Essential (primary) hypertension; E78.5 Hyperlipidemia, unspecified; R73.01 Impaired fasting glucose; M79.642 Pain in left hand; M79.641 Pain in right hand
CPT/HCPCS: 36415; 80053; 80061; 81001; 82570; 83036; 83721; 84153; 84443; 85025; 85652; 86141

== ENCOUNTER 2024-08-21 08:22 | Outpatient (REF) | payer OTHER, SELFPAY ==
--- NOTE | ~2024-08-21 | CT_ITS ---
EXAMINATION: CT CHEST WITHOUT CONTRAST CLINICAL INFORMATION: Pulmonary function study showing decreased diffusion capacity. COMPARISON: Prior chest radiographs, including 09/16/2024. TECHNIQUE: Multidetector volumetric CT imaging of the chest was done. Axial MIP volume rendering provided. Sagittal and coronal reformatted images were obtained. This CT examination was performed using dose optimization techniques as appropriate, variously including the following: *Automated exposure control *Adjustment of mA and/or kV according to patient size (this includes techniques or standardized protocols for targeted exams where dose is matched to indication/reason for exam; i.e. 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 LUNGS: The lungs are clear with no evidence of inflammation or nodules. There are small foci of linear scar/subsegmental atelectasis within the anterior segment of the left upper lobe and the posterior left base, without associated focal airway obstruction. MEDIASTINUM: The thyroid is unremarkable. No thoracic aortic aneurysm is seen. There are shotty, nonpathologically enlarged mediastinal lymph nodes, one of the largest in the precarinal region showing a short axis diameter of 6 mm (3:21). No sizable mediastinal or hilar lymphadenopathy is seen. CORONARY ARTERY CALCIFICATION: None visualized on this study. PLEURA: There is no pleural effusion. No pleural mass or thickening. AXILLA: There are enlarged bilateral axillary lymph nodes. One of the largest on the right shows a short axis diameter of 1.0 cm, and on the left 1.1 cm (3:18 and 15). No internal mammary lymphadenopathy is noted. UPPER ABDOMEN: Limited evaluation of the upper abdominal viscera, including the adrenal glands, is unremarkable. OSSEOUS STRUCTURES: There is multi-level mild thoracolumbar spondylosis. No acute or aggressive osseous finding is noted. CT/CT chest wo IV con IMPRESSION: 1. There are foci of minor left lung scar/subsegmental atelectasis, without associated focal airway obstruction. 2. No gross infiltrate, groundglass opacity, nodule or mass lesion is seen. 3. There is no sizable mediastinal or hilar lymphadenopathy. There is no pleural effusion. 4. There is multi-level mild thoracolumbar spondylosis. No acute or aggressive osseous lesion is seen. 5. There are several borderline enlarged bilateral axillary nodes, possibly reactive. These should be managed on a clinical basis. Recommend continued attention on imaging follow-up. Fleischner guidelines were followed. Electronically signed by: Thomas Taylor MD 09/17/2024 10:55 AM [facility]
== END 2024-08-21 08:23 | disposition home or self-care (01) ==
LOC: HO.CT 08:22
PROVIDERS: PCP Family Medicine; Visit Provider Nurse Practitioner Family
DX: R94.2 Abnormal results of pulmonary function studies (principal)
CPT/HCPCS: 71250

== ENCOUNTER 2024-09-08 07:27 | Outpatient (AMB) | payer OTHER, SELFPAY ==
[2024-09-08 07:31] VITALS: BMI 38.1
--- NOTE | 2024-09-08 07:31 | A.OFFVIS_ITS ---
Vital Signs 09/08/24 07:31 Height 5 ft 11 in Weight 273 lb BMI 38.1 Intake Visit Reasons: follow up KIMO Intake Note: Patient presents for follow KIMO Allergies arsenic Allergy (Severe, Verified 09/08/24 07:33) Itching ibuprofen Adverse Reaction (Intermediate, Verified 09/08/24 07:33) GI upset HPI Comments Details: 48y/o male comes for follow up severe sleep apnea. AHI 64 and oxygen eveline was 62%. He started on CPAP at 14 cm of water . He is using is regularly- has some issues with keeping the mask on . Usage hrs 5 hrs 23 min AHI 0.7 He has a nasal mask and wants to try nasal pillows He was referred to weight loss program by Dr. Dominguez( tunnel elastic operator lockstitch). He also sees a onsite case manager. His PFT was c/w emphysema -used to be smoker.( not heavy social smoking ) He used to live in [facility] for 23 years - was exposed to dust. 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 [facility]LY [facility] Medical History Obstructive sleep apnea hypopnea, severe Obstructive sleep apnea Vitamin D deficiency Vitamin D deficiency PAF (paroxysmal atrial fibrillation) HLD (hyperlipidemia) HTN (hypertension) T2DM (type 2 diabetes mellitus) NAFLD (nonalcoholic fatty liver disease) Essential hypertension Type 2 diabetes mellitus without complications Surgical History History of esophagogastroduodenoscopy (EGD) Family History Father Diabetes Hypertension CVD (cardiovascular disease) Mother Alzheimer's dementia Other Mental health disorder Vitamin D deficiency Social History Household Members: Spouse Both parents involved: No Caregiver staying overnight: No Housing: House Are you a primary career education teacher to a significant other at home: No Do you presently have visiting nurse or other home services: No 75 years or older and lives alone: No Alcohol intake: never Patient Tobacco Use Status: Former Tobacco user e-Cigarette/Vaping Use: Never Used Second Hand Smoke Exposure: No service: No Current occupational status: employed 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 Current occupational exposures/hazards: No Cognitive needs: No Hearing needs: No Vision needs: Yes (Glasses) Review of Systems ENT Reports Normal hearing present Neuro Reports Normal hearing present Physical Exam Vital Signs: BMI result Body Mass Index 38.1 Const General: cooperative and tired appearing Nutritional Appearance: obese Orientation/consciousness: patient oriented x3 HEENT Throat: Yes other (mallampati score 4) Neck Neck: Yes full ROM and Yes supple Resp Effort & Inspection: normal respiratory effort and able to speak in complete sentences Neuro General: patient oriented x3, gait normal, moves all extremities and no focal motor deficits Cranial nerves: Yes Bilaterally intact EOM present, Yes Normal facial strength present, Yes Midline tongue present, Yes Normal hearing present, Yes Ability to bilaterally rotate head present and Yes Ability to bilaterally elevate shoulders present Cognition (Neuro): normal cognition Gait exam (Neuro): Normal gait present Assessment & Plan Assessment & Plan (1) Obstructive sleep apnea hypopnea, severe: Code(s): G47.33 - Obstructive sleep apnea (adult) (pediatric) Category: Medical Plan continue CPAP 14 cm of water and [facility]. compliance stressed. Reviewed PFTs . Discussed weight management Coding Level of Care Code Est Pt Level 4 (37024) Diagnoses Obstructive sleep apnea hypopnea, severe G47.33
== END 2024-09-08 08:01 | disposition home or self-care (01) ==
PROVIDERS: PCP Family Medicine; Visit Provider Psychiatry & Neurology Neurology
DX: G47.33 Obstructive sleep apnea (adult) (pediatric) (principal)
CPT/HCPCS: 99214

== ENCOUNTER → 2024-09-08 07:27 | Outpatient (BNVA) | payer OTHER, SELFPAY | PROVIDERS: PCP Family Medicine; Visit Provider Psychiatry & Neurology Neurology | DX: R53.83 Other fatigue (principal); R40.0 Somnolence; R06.83 Snoring; R06.89 Other abnormalities of breathing; E66.9 Obesity, unspecified ==

== ENCOUNTER 2024-09-09 08:21 | Outpatient (AMB) | payer OTHER, SELFPAY ==
--- NOTE | 2024-09-09 08:22 | A.OFFVIS_ITS ---
Vital Signs 09/09/24 08:27 Height 5 ft 11 in Weight 264 lb 8.875 oz BMI 36.9 BP 128/68 Blood Pressure Location Rt brachial Position Sitting Pulse 76 Pulse Source Pulse Oximeter Intake Visit Reasons: DM Intake Note: Patient presents today to re-establish treatment for Type 2 Diabetes Mellitus: Last Diabetic eye exam was on: 03/21/2024 Last Podiatry exam was on: Does not see a County Demonstrator Most recent HbA1c: 9.8%, 08/14/2024 Random Glucose- 227 mg/dL, Today Decal Maker Required: No Accompanied by: Self / Same As Patient Allergies arsenic Allergy (Severe, Verified 09/09/24 08:23) Itching ibuprofen Adverse Reaction (Intermediate, Verified 09/09/24 08:23) GI upset HPI Comments Details: Patient is a 48-year-old male with DM type 2 who presents for management of diabetes. Past medical history: Diabetes type 2, hyperlipidemia, hypertension, CAD vitamin-D deficency Micro and macrovascular complications: Nephropathy,a-fib , retinopathy Diabetes medications: Toujeo taking 68 units BID . He will use his NovoLog prior to meals, 60 units for brekfast, 60 units for lunch and dinner. Plus correction of +4 u for bg >200, +6 u bg >250, +8 u bg >300. He was unable to tolerate metformin due to GI distress. He was unable to tolerate Jardiance due to polyuria and due to yeast infectionn . Mounjaro 5 mg Qwkly not taking- Can't take GLP-1-GI distress. History of pancreatitis. Missing some short acting doses Previously discussed U-500 insulin, insulin pump. He has been hesitant and still is. CGM: In the past 2 weeks GMI 9.9% from prior 8.9%. Patient reports some daytime lows in 70s. Sensor reveals high 79%, tgt 21% no lows. Pattern shows and post-dinner hyperglycemia with elevated glucose throughout the day but decreases 4am-noon without lows Symptoms reported: + numbness, tingling, cramping in lower extremities Hypoglycemia: Occasional Hyperglycemia: denies urinary frequency, nocturia, polydypsia Exercise: walks all day at work 8,000-10,000 steps a day Alliance Manager - CDE education: has seen County Demonstrator: denies Dental exam: goes every 6 months Ophthalmology evaluation: last appt 2023 Other specialists: gastronenterology [facility] Medical History Obstructive sleep apnea hypopnea, severe Obstructive sleep apnea Vitamin D deficiency Vitamin D deficiency PAF (paroxysmal atrial fibrillation) HLD (hyperlipidemia) HTN (hypertension) T2DM (type 2 diabetes mellitus) NAFLD (nonalcoholic fatty liver disease) Essential hypertension Type 2 diabetes mellitus without complications Surgical History History of esophagogastroduodenoscopy (EGD) Family History Father Diabetes Hypertension CVD (cardiovascular disease) Mother Alzheimer's dementia Other Mental health disorder Vitamin D deficiency Social History Household Members: Spouse Both parents involved: No Caregiver staying overnight: No Housing: House Are you a primary healthcare applications analyst to a significant other at home: No Do you presently have visiting nurse or other home services: No 75 years or older and lives alone: No Alcohol intake: never Patient Tobacco Use Status: Former Tobacco user e-Cigarette/Vaping Use: Never Used Second Hand Smoke Exposure: No service: No Current occupational status: employed 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 Current occupational exposures/hazards: No Cognitive needs: No Hearing needs: No Vision needs: Yes (Glasses) Physical Exam Vital Signs: Last Vital Signs Pulse 76 09/09/24 08:27 BP 128/68 09/09/24 08:27 BMI result Body Mass Index 36.9 Results Reviewed Results Reviewed: Laboratory Last Values Glucose (Clinic) 227 mg/dL (60-115) H 09/09/24 08:31 Assessment & Plan Assessment & Plan (1) Type 2 diabetes mellitus with hyperglycemia: Code(s): E11.65 - Type 2 diabetes mellitus with hyperglycemia Category: Medical Qualifiers: 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 emt intermediate insulin use: with emt intermediate use Qualified Code(s): E11.65 - Type 2 diabetes mellitus with hyperglycemia; Z79.4 - emt intermediate (current) use of insulin Plan: Poor control. Declines appt for consideration of insulin pump He is agreeable to adjusting his dinner dose of novolog to 80 units, continuing 60-180 breakfast, lunch. He will increase toujeo 72 twice daily. Unlikely to bring him into range but hesitant to increase further as he feels hypoglycemic i n low 100s at this point. He will return in 3 months or sooner as needed Orders: Orders Uric Acid 3 Months E11.65 - Type 2 diabetes mellitus with hyperglycemia, E11.9 - Type 2 diabetes mellitus without complications, R20.0 - Anesthesia of skin, R20.2 - Paresthesia of skin, Z79.4 - emt intermediate (current) use of insulin Islet Cell Antibody Scrn/Titer 3 Months E11.65 - Type 2 diabetes mellitus with hyperglycemia, E11.9 - Type 2 diabetes mellitus without complications, R20.0 - Anesthesia of skin, R20.2 - Paresthesia of skin, Z79.4 - jail (current) use of insulin Hemoglobin A1c 3 Months E11.65 - Type 2 diabetes mellitus with hyperglycemia, E11.9 - Type 2 diabetes mellitus without complications, R20.0 - Anesthesia of skin, R20.2 - Paresthesia of skin, Z79.4 - emt intermediate (current) use of insulin Magnesium 3 Months E11.65 - Type 2 diabetes mellitus with hyperglycemia, E11.9 - Type 2 diabetes mellitus without complications, R20.0 - Anesthesia of skin, R20.2 - Paresthesia of skin, Z79.4 - jail (current) use of insulin Medications: Changed From insulin glargine U-300 conc (Toujeo SoloStar U-300 Insulin) 68 units subcut BID E11.65 - Type 2 diabetes mellitus with hyperglycemia, E11.9 - Type 2 diabetes mellitus without complications, Z79.4 - emt intermediate (current) use of insulin To Toujeo SoloStar U-300 Insulin (insulin glargine U-300 conc) 72 units (0.24 mL) subcut BID 45 mL 3RF NS E11.65 - Type 2 diabetes mellitus with hyperglycemia, E11.9 - Type 2 diabetes mellitus without complications, Z79.4 - emt intermediate (current) use of insulin Refilled insulin aspart U-100 (Novolog FlexPen U-100 Insulin aspart) 60-80 units for breakfast and lunch, 80 units for supper subcutaneously use as directed; 100 mL 6RF 30 days E11.65 - Type 2 diabetes mellitus with hyperglycemia Discontinued tirzepatide (Mounziaro) Discontinued Reason: Doctor's Order 5 mg (0.5 mL) subcut QWEEK 28 days 2 mL 3RF Coding Level of Care Code Est Pt Level 5 (69619) Diagnoses Type 2 diabetes mellitus with hyperglycemia, with long-term current use of insulin E11.65; Z79.4 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 emt intermediate insulin use: with nursing home use Time Spent (min) 44
[2024-09-09 08:27] VITALS: BP 128/68; PULSE 76; BMI 36.9
[2024-09-09 08:36] LABS: Glucose, Whole Blood 227 mg/dL (60-115)
== END 2024-09-09 09:14 | disposition home or self-care (01) ==
PROVIDERS: PCP Family Medicine; Visit Provider Internal Medicine
DX: E11.65 Type 2 diabetes mellitus with hyperglycemia (principal); Z79.4 Long term (current) use of insulin

== ENCOUNTER → 2024-09-09 08:21 | Outpatient (BNVA) | payer OTHER, SELFPAY | PROVIDERS: PCP Family Medicine; Visit Provider Internal Medicine | DX: E11.65 Type 2 diabetes mellitus with hyperglycemia (principal); R20.0 Anesthesia of skin; R20.2 Paresthesia of skin; Z79.4 Long term (current) use of insulin | CPT/HCPCS: 82947 ==

== ENCOUNTER 2024-09-16 08:31 | Outpatient (REF) | payer OTHER, SELFPAY ==
--- NOTE | ~2024-09-16 | XR_ITS ---
EXAMINATION: XR CHEST 2 VIEWS CLINICAL INFORMATION: Pneumonia. COMPARISON: CT chest dated 08/21/2024; chest radiograph dated 05/16/2024. TECHNIQUE: Frontal and lateral views of the chest were obtained. FINDINGS: The heart, great vessels, pulmonary vasculature and mediastinum are normal. The lungs show no focal infiltrate, effusion or pneumothorax. There is no acute osseous abnormality. XR/XR chest 2V IMPRESSION: No active cardiopulmonary disease. Electronically signed by: Thomas Taylor MD 09/17/2024 09:57 AM [facility]
== END 2024-09-16 08:32 | disposition home or self-care (01) ==
LOC: HO.XRAY 08:31
PROVIDERS: PCP Family Medicine; Visit Provider Family Medicine
DX: J18.9 Pneumonia, unspecified organism (principal)
CPT/HCPCS: 71046

== ENCOUNTER 2024-09-16 08:31 | Outpatient (AMB) | payer OTHER, SELFPAY ==
--- NOTE | 2024-09-16 08:47 | MHC.PC.OV ---
Vital Signs 09/16/24 08:51 Height 5 ft 11 in Weight 265 lb 2 oz BMI 37.0 BP 124/78 Blood Pressure Location Rt brachial Position Sitting Respiration 16 Pulse 76 Pulse Source Pulse Oximeter Pulse Oximetry (%) 98 Oxygen Delivery Method Room Air Intake Visit Reasons: Pneumonia F/U Intake Note: pneumonia f/u Allergies arsenic Allergy (Severe, Verified 09/16/24 08:48) Itching ibuprofen Adverse Reaction (Intermediate, Verified 09/16/24 08:48) GI upset Medication List - Last Reconciled 09/16/24 by Guzman Gonzalez MD albuterol sulfate 90 mcg/actuation (Ventolin HFA) 2 puffs inhalation Q4-6H PRN 30 days aspirin (Adult Aspirin Regimen) 81 mg PO DAILY 90 days atorvastatin 20 mg (2 x 10 mg) PO ONCE 30 days bisoprolol fumarate 7.5 mg (1.5 x 5 mg) PO DAILY 90 days blood sugar diagnostic (FreeStyle Lite Strips) to check the accuracy of CGM devise during high and low alarming prn as directed, up to 4 times a day blood-glucose meter (FreeStyle Lite Meter kit) to check blood sugar up to four times per day prn as directed during high and low alarms on CGM device. blood-glucose sensor (FreeStyle Mckay 3 Sensor device) As directed changed every 14 days clotrimazole 1% 1 appl topical BID 2 weeks diclofenac sodium 1% 4 grams topical TID 15 days doxycycline hyclate 100 mg PO BID 10 days fenofibrate micronized 200 mg PO DAILY 90 days glucose (Dex4 Glucose) 16 grams (4 x 4 gram) PO Q15M PRN 30 days MDD 16 tablets hyoscyamine sulfate (Levsin/SL) 0.125 mg sublingual QID PRN insulin aspart U-100 (Novolog FlexPen U-100 Insulin aspart) 60-80 units for breakfast and lunch, 80 units for supper subcutaneously use as directed; 30 days ipratropium bromide intranasal lancets (FreeStyle Lancets) to check blood sugar up to 4x daily to check accuracy of CGM during high and low alarm. lisinopril 20 mg PO DAILY 90 days meclizine mg PO miscellaneous medical supply (Blood Pressure Cuff) adult size blood pressure cuff as directed pen needle, diabetic (BD Ultra-Fine Micro Pen Needle) As directed injects 4 X/day pen needle, diabetic (BD Ultra-Fine Maddie Pen Needle) USE TO INJECT 4 TIMES A DAY rabeprazole 20 mg PO DAILY 90 days sodium,potassium,mag sulfates 17.5-3.13-1.6 gram (Suprep Bowel Prep Kit) DILUTE; drink 1/2 at 6-8 pm and half at 11 PM- 1AM tadalafil 5 mg PO DAILY PRN 30 days Toujeo SoloStar U-300 Insulin (insulin glargine U-300 conc) 72 units (0.24 mL) subcut BID NS Tobacco use date assessed: 08/14/24 Dental Screening Dental Screen Date: 08/14/24 HPI Pneumonia F/U HPI Details 48 y/o male presents to f/u pneumonia. Notes he had went to [facility] and was given a z-cuong. He notes z-cuong did not improve symptoms. He has finished this. He was also given augmentin which had been causing him stomach issues so he did not take this. He did not take prednisone due to his eyes. [facility] Medical History Obstructive sleep apnea hypopnea, severe Obstructive sleep apnea Vitamin D deficiency Vitamin D deficiency PAF (paroxysmal atrial fibrillation) HLD (hyperlipidemia) HTN (hypertension) T2DM (type 2 diabetes mellitus) NAFLD (nonalcoholic fatty liver disease) Essential hypertension Type 2 diabetes mellitus without complications Surgical History History of esophagogastroduodenoscopy (EGD) Family History Father Diabetes Hypertension CVD (cardiovascular disease) Mother Alzheimer's dementia Other Mental health disorder Vitamin D deficiency Social History Household Members: Spouse Both parents involved: No Caregiver staying overnight: No Housing: House Are you a primary patient care director to a significant other at home: No Do you presently have visiting nurse or other home services: No 75 years or older and lives alone: No Alcohol intake: never Patient Tobacco Use Status: Former Tobacco user e-Cigarette/Vaping Use: Never Used Second Hand Smoke Exposure: No service: No Current occupational status: employed 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 Current occupational exposures/hazards: No Cognitive needs: No Hearing needs: No Vision needs: Yes (Glasses) Questionnaire Thrive Questionnaire Date Thrive assessed: 08/14/24 I am a: Patient What is your living situation today?: I have a steady place to live Within the past 12 months, did the food you bought not last and you didn't have the money to get more?: Never true Within the past 12 months, did you worry whether your food would run out before you got money to buy more?: Never true Do you have trouble paying for medicines?: No Do you have trouble getting transportation to medical appointments?: No Do you have trouble paying your heating and electricity bill?: No Do you have trouble taking care of your child, family member or friend?: No Do you have trouble with day-to-day activities such as bathing, preparing meals, shopping, managing finances, etc.?: No Are you currently unemployed and looking for a job?: No Are you interested in more education?: Yes Please select the resources that you would like help with: None Currently or been in a relationship where the following occur: I choose not to answer THRIVE Score: 0 LISA-7 AMB Questionnaire LISA-7 Date LISA - 7 assessed: 08/14/24 Source: Developed by Drs. Robert Atkinson, Fransisca Michelle, Des Wright and colleagues, with an educational jessica from [employer]. Review of Systems Const Denies chills, Denies fatigue, Denies fever(s), Denies headache(s) and Denies weakness ENT Denies dizziness and Denies headache(s) Card Denies chest pain, Denies lightheadedness, Denies dyspnea and Denies other (Palpitations) Resp Reports cough, Denies dyspnea, Denies wheezing and Denies other ( shortness of breath) Musc Denies numbness and Denies tingling Neuro Denies dizziness, Denies headache(s), Denies numbness, Denies tingling, Denies paresthesias and Denies weakness Psych Denies anxiety and Denies depression Endo Denies fatigue Aller/Immun Denies wheezing Physical exam (Primary Care) Vital Signs: Last Vital Signs Pulse 76 09/16/24 08:51 Resp 16 09/16/24 08:51 BP 124/78 09/16/24 08:51 Pulse Ox 98 09/16/24 08:51 Oxygen Delivery Method Room Air 09/16/24 08:51 BMI result Body Mass Index 37.0 Tobacco/Smoking Status: Tobacco use Status Tobacco use date assessed 08/14/24 09/16/24 08:54 Patient Tobacco Use Status Former Tobacco user 09/16/24 08:54 e-Cigarette/Vaping Use Never Used 09/16/24 08:54 Thrive Assessment: Date of Thrive Assessment Date Thrive assessed 08/14/24 09/16/24 08:54 Currently or been in a relationship where the following occur: I choose not to answer Const General: no acute distress and well developed Nutritional Appearance: well nourished Orientation/consciousness: patient oriented x3 HENMT Head: Yes normocephalic and Yes atraumatic Eyes General: appearance normal, both eyes and all related structures Pupils: Equal, round and reactive pupils present EOM: EOMs intact bilaterally Resp Effort & Inspection: normal respiratory effort Auscultation: not clear to auscultation bilaterally Cardio Rate: regular rate Rhythm: regular rhythm Heart sounds: S1 normal heart sound present, S2 normal heart sound present, no gallops, no murmurs and no rubs Neuro General: patient oriented x3 and gait normal Cranial nerves: Yes Equal, round and reactive pupils present Psych Affect: normal affect Coding Level of Care Code Est Pt Level 3 (96692) Diagnoses Pneumonia J18.9 Assessment & Plan Assessment & Plan (1) Pneumonia: Code(s): J18.9 - Pneumonia, unspecified organism Category: Medical Plan: Patient?was?seen?at?an?urgent?care?and?given?a?Z-Cuong?and?albuterol. Patient?completed?Z-Cuong?and?was?given?doxycycline?which?he?has?not?started?yet. Still?has?ongoing?lower?lung?field?rhonchi?and?scattered?wheezing?throughout?lung?peralta Advised?patient?to?start?doxycycline?and?continue?albuterol Will?keep?him?out?for?another?week?and?he?go?back?to?work?on?September? Plan Also?discussed?patient?has?accommodations?for?arthritis?and?pain?swelling?and?stiffness?of?hands?and?forearms as?well?as?other?large?joints?such?as?shoulders?hips. Had?recommended?accommodation?that?patient?be?allowed?to?have?a?later?start?time each?morning.??He?can?still?work?8?hours?per?day?and?40?hours?per?week. Later?start?time?allows?his?medications?and?stretching?therapies?to?have?effect. Additional?paperwork?was?filled?out?today. Orders: Orders XR chest 2V Today J18.9 - Pneumonia, unspecified organism Medications: New doxycycline hyclate 100 mg PO BID 10 days 20 tabs 0RF Refilled albuterol sulfate 90 mcg/actuation (Ventolin HFA) 2 puffs inhalation Q4-6H 30 days PRN 8.5 grams 1RF shortness of breath or wheezing
[2024-09-16 08:51] VITALS: BP 124/78; PULSE 76; RESP 16; O2SAT 98; BMI 37.0
== END 2024-09-16 09:47 | disposition home or self-care (01) ==
PROVIDERS: PCP Family Medicine; Visit Provider Family Medicine
DX: J18.9 Pneumonia, unspecified organism (principal)

== ENCOUNTER 2024-09-22 09:00 | Outpatient (AMB) | payer OTHER, SELFPAY ==
--- NOTE | 2024-09-22 09:49 | MHC.OFFWIV ---
Intake Vital Signs 09/22/24 09:54 Height 5 ft 11 in Weight 267 lb BMI 37.2 BP 158/74 H Blood Pressure Location Rt brachial Position Sitting Respiration 14 Pulse 70 Pulse Source Pulse Oximeter Temp 98.1 F Temp Source Oral Pulse Oximetry (%) 94 Oxygen Delivery Method Simple Mask Intake Visit Reasons: est/cough/hard time breathing during coughing Intake Note: Patient complaining of coughing, dizziness, feeling tired, and chills. Patient had gotten diagnosed with pneumonia 09/11 at urgent care. Patient Tobacco Use Status: Former Tobacco user Tower Technician Required: No Allergies arsenic Allergy (Severe, Verified 09/22/24 10:06) Itching ibuprofen Adverse Reaction (Intermediate, Verified 09/22/24 10:06) GI upset Do you need a note to return to daycare/school/sports/work: Yes HPI HPI Comments History of Present Illness Details 48-year-old male here today to follow up on a cough. Reports that he was diagnosed with pneumonia 09/11/2024. He was given antibiotics. He was seen by his primary care on 09/16/2024. This note was reviewed Patient was seen at an urgent care and given a Z-Cuong and albuterol. Patient completed Z-Cuong and was given doxycycline which he has not started yet. Still has ongoing lower lung field rhonchi and scattered wheezing throughout lung peralta Advised patient to start doxycycline and continue albuterol Will keep him out for another week and he go back to work on September 24 Today he reports that his cough is no longer productive. However he continues with bronchospasms to the point where he becomes dizzy. He was using albuterol only as needed about 2 times per day. Reports that this does bring him short-lived relief. He did start taking the doxycycline as advised by his primary care provider and has a few days left. Other than feeling tired he feels well. CXR 09/16/24 WNL - see below Exam Awake alert oriented no acute distress Lung sounds with inspiratory expiratory wheezing scattered throughout all lung peralta, hacking cough noted during exam without distress Plan Patient reports that he can not take oral steroids due to ocular complications in the past. I will prescribe Advair 1 puff twice per day. Advised to rinse mouth out after use. Use albuterol as needed for bronchospasm. Complete antibiotics. Advised for close follow up with primary care in 2 weeks for re-evaluation of his lungs. On his way out he asked me about his CT of his chest results or by pulmonology. I indicated to him that the report was back and he would need to follow up with pulmonology for the read. I also sent a message to the ordering provider to follow up with him on the results. An out of work note was given to him through 10/07/2024. This note is constructed using voice recognition software. While every effort has been made to ensure accuracy in dressmaker garment fitter, still errors may have been included Sometimes, these errors may affect the content or meaning of the given sentence . Total time spent caring for the patient today was 30 minutes. This includes time spent before the visit reviewing the chart, time spent during the visit, and time spent after the visit on documentation [facility] Medical History Obstructive sleep apnea hypopnea, severe Obstructive sleep apnea Vitamin D deficiency Vitamin D deficiency PAF (paroxysmal atrial fibrillation) HLD (hyperlipidemia) HTN (hypertension) T2DM (type 2 diabetes mellitus) NAFLD (nonalcoholic fatty liver disease) Essential hypertension Type 2 diabetes mellitus without complications Surgical History History of esophagogastroduodenoscopy (EGD) Family History Father Diabetes Hypertension CVD (cardiovascular disease) Mother Alzheimer's dementia Other Mental health disorder Vitamin D deficiency Social History Household Members: Spouse Both parents involved: No Caregiver staying overnight: No Housing: House Are you a primary critical care rn to a significant other at home: No Do you presently have visiting nurse or other home services: No 75 years or older and lives alone: No Alcohol intake: never Patient Tobacco Use Status: Former Tobacco user e-Cigarette/Vaping Use: Never Used Second Hand Smoke Exposure: No service: No Current occupational status: employed 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 Current occupational exposures/hazards: No Cognitive needs: No Hearing needs: No Vision needs: Yes (Glasses) Physical Exam Vital Signs: Last Vital Signs Temp 98.1 F 09/22/24 09:54 Pulse 70 09/22/24 09:54 Resp 14 09/22/24 09:54 BP 158/74 H 09/22/24 09:54 Pulse Ox 94 09/22/24 09:54 Oxygen Delivery Method Simple Mask 09/22/24 09:54 BMI result Body Mass Index 37.2 Results Reviewed Results Reviewed: [address] [address] XRay Report Signed Patient: Luke Flower MR#: [id number] : 1975 Acct:[id number] Age/Sex: 48 / M ADM Date: 09/16/24 Loc: HO.XRAY Attending Dr: Guzman Gonzalez MD Ordering Physician: Guzman Gonzalez MD Date of Service: 09/16/24 Procedure(s): XR chest 2V Accession Number(s): [id number] cc: Guzman Gonzalez MD~ EXAMINATION: XR CHEST 2 VIEWS CLINICAL INFORMATION: Pneumonia. COMPARISON: CT chest dated 08/21/2024; chest radiograph dated 05/16/2024. TECHNIQUE: Frontal and lateral views of the chest were obtained. FINDINGS: The heart, great vessels, pulmonary vasculature and mediastinum are normal. The lungs show no focal infiltrate, effusion or pneumothorax. There is no acute osseous abnormality. XR/XR chest 2V IMPRESSION: No active cardiopulmonary disease. Electronically signed by: Thomas Taylor MD 09/17/2024 09:57 AM EST Dictated By: Thomas Taylor MD Signed By: <Electronically signed by Thomas Taylor MD in OV> 09/17/24 0957 DD/ 1044 TD/TT: 09/16/24 1102 Remote Sensing Analyst: OZIEL Assessment & Plan Assessment & Plan (1) Inspiratory wheezing determined by examination: Code(s): R06.2 - Wheezing (2) Bronchospasm, acute: Code(s): J98.01 - Acute bronchospasm (3) Pneumonia: Comment: resolved based on cxr 09/16/24 Code(s): J18.9 - Pneumonia, unspecified organism Qualifiers: Pneumonia type: due to unspecified organism Laterality: left Lung location: lower lobe of lung Qualified Code(s): J18.9 - Pneumonia, unspecified organism Plan . Medications: New fluticasone propion-salmeterol 100-50 mcg/dose (Advair Diskus) 1 inh inhalation BID 30 days 60 ea 0RF Coding Level of Care Code Est Pt Level 4 (12759) Diagnoses Inspiratory wheezing determined by examination R06.2 Bronchospasm, acute J98.01 Pneumonia of left lower lobe due to infectious organism J18.9 Pneumonia type: due to unspecified organism Laterality: left Lung location: lower lobe of lung
[2024-09-22 09:54] VITALS: BP 158/74; PULSE 70; RESP 14; TEMP 36.7; O2SAT 94; BMI 37.2
== END 2024-09-22 10:18 | disposition home or self-care (01) ==
LOC: HO.HMCWIW 09:00
PROVIDERS: PCP Family Medicine; Visit Provider Nurse Practitioner Family
DX: R06.2 Wheezing (principal); J98.01 Acute bronchospasm; J18.9 Pneumonia, unspecified organism

== ENCOUNTER → 2024-09-22 09:00 | Outpatient (BNVA) | payer OTHER, SELFPAY | PROVIDERS: PCP Family Medicine; Visit Provider Nurse Practitioner Family ==

== ENCOUNTER 2024-09-23 08:42 | Outpatient (AMB) | payer OTHER, SELFPAY ==
[2024-09-23 08:46] VITALS: BP 152/68; PULSE 74; O2SAT 98; BMI 37.0
--- NOTE | 2024-09-23 08:46 | MHC.OFFVIS ---
Vital Signs 09/23/24 08:46 Height 5 ft 11 in Weight 265 lb 6 oz BMI 37.0 BP 152/68 H Blood Pressure Location Rt brachial Position Sitting Pulse 74 Pulse Source Pulse Oximeter Pulse Oximetry (%) 98 Oxygen Delivery Method Room Air Intake Visit Reasons: Dyspnea/ CT follow up Allergies arsenic Allergy (Severe, Verified 09/23/24 08:48) Itching ibuprofen Adverse Reaction (Intermediate, Verified 09/23/24 08:48) GI upset HPI HPI Dyspnea/ CT follow up: Details: Luke is a pleasant 48 year old male, former minimal smoker, with underlying asthma, severe KIMO, atrial fibrillation, and DMII. He was initially referred for increased respiratory symptoms including cough, wheezing and worsening dyspnea on exertion since having COVID but were more noticeable about 4 years ago when he obtained birds, he has 2 cockatiels and 1 parakeet. Since the last visit he did remove 2 birds from the house, still has 1 and is working on rehoming. Since the last visit he was diagnosed with pneumonia initially treated with zpak with minimal improvements, could not tolerate augmentin and now on doxycycline. He was also given steroid inhaler however he reportedly cannot use due to adverse effects related to occular condition. He is under the care of ophthalmology who has reportedly recommended against any oral steroids however agreeable to initiate ICS with the understanding of possible increase ocular edema which the patient is monitored. He has been using albuterol p.r.n. with good effect and has 1 more day of doxycycline to complete. Follow up CXR 09/14 revealed resolution of PNA. He reports improvement in symptoms but continues with dyspnea on exertion. Today he presents to review chest CT. [facility] Medical History Obstructive sleep apnea hypopnea, severe Obstructive sleep apnea Vitamin D deficiency Vitamin D deficiency PAF (paroxysmal atrial fibrillation) HLD (hyperlipidemia) HTN (hypertension) T2DM (type 2 diabetes mellitus) NAFLD (nonalcoholic fatty liver disease) Essential hypertension Type 2 diabetes mellitus without complications Surgical History History of esophagogastroduodenoscopy (EGD) Family History Father Diabetes Hypertension CVD (cardiovascular disease) Mother Alzheimer's dementia Other Mental health disorder Vitamin D deficiency Social History Household Members: Spouse Both parents involved: No Caregiver staying overnight: No Housing: House Are you a primary animal care assistant to a significant other at home: No Do you presently have visiting nurse or other home services: No 75 years or older and lives alone: No Alcohol intake: never Patient Tobacco Use Status: Former Tobacco user e-Cigarette/Vaping Use: Never Used Second Hand Smoke Exposure: No service: No Current occupational status: employed 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 Current occupational exposures/hazards: No Cognitive needs: No Hearing needs: No Vision needs: Yes (Glasses) Review of Systems Const Denies chills, Denies excessive sweating, Denies fever(s), Denies headache(s) and Denies night sweats Eyes Denies dry eyes, Denies irritation and Denies itchy eyes ENT Reports Normal hearing present and Denies headache(s) Card Denies chest pain, Denies chest pain at rest, Denies chest pain with activity, Denies claudication and Denies leg edema Resp Denies chest congestion, Denies excessive phlegm production, Denies pain on inspiration, Denies pain with cough and Denies stridor Musc Denies myalgias Neuro Reports Normal hearing present and Denies headache(s) Endo Denies excessive sweating Dilan/Lymph Denies lymphadenopathy Aller/Immun Denies itchy eyes and Denies seasonal rhinorrhea Physical Exam Vital Signs: Last Vital Signs Pulse 74 09/23/24 08:46 BP 152/68 H 09/23/24 08:46 Pulse Ox 98 09/23/24 08:46 Oxygen Delivery Method Room Air 09/23/24 08:46 BMI result Body Mass Index 37.0 Const General: cooperative, healthy appearing, comfortable, no acute distress, well developed and alert Nutritional Appearance: obese Orientation/consciousness: patient oriented x3 Limitations: no limitations HEENT Head: Yes normal to inspection, Yes normocephalic and Yes atraumatic Ears: hearing grossly normal bilaterally and external ears normal Eyes General: appearance normal, both eyes and all related structures Eyelids: Yes eyelids normal Sclerae: sclerae normal EOM: EOMs intact bilaterally Neck Neck: Yes normal visual inspection and Yes no lymphadenopathy Lymphatic: no lymphadenopathy noted Chest Chest palpation & inspection: normal inspection of the chest Resp Effort & Inspection: normal respiratory effort, able to speak in complete sentences, no audible wheezes, no cough, no stridor, not tachypneic, no tripod positioning and no use of accessory muscles Auscultation: clear to auscultation bilaterally Cardio Jugular venous distension: no JVD Rate: regular rate Rhythm: regular rhythm Skin Other: warm, dry General skin exam: no rashes or lesions noted Neuro General: patient oriented x3 Cranial nerves: Yes Normal hearing present Cognition (Neuro): normal cognition Gait exam (Neuro): Normal gait present Extrem Other: 1+ pitting edema of BLE General: Yes normal to inspection, Yes capillary refill normal, Yes no clubbing, cyanosis or edema and Yes no pedal edema Psych Appearance: grossly normal and well kempt Speech and movement: Normal speech and movement present and Clear speech present Affect: normal affect Attitude: cooperative Thought process: Normal thought process present Thought content: Normal thought content present Insight: Good insight present (Psych) Judgement: Good judgement present (Psych) Results Reviewed Results Reviewed: [address] [place] [address] CT Scan Report Signed Patient: Luke Flower MR#: [id number] : 1975 Acct:[id number] Age/Sex: 48 / M ADM Date: 08/21/24 Loc: HO.CT Attending Dr: Terri Salgado NP Ordering Physician: Terri Salgado NP Date of Service: 08/21/24 Procedure(s): CT chest wo IV con Accession Number(s): [id number] cc: Guzman Gonzalez MD; Terri Salgado NP~ EXAMINATION: CT CHEST WITHOUT CONTRAST CLINICAL INFORMATION: Pulmonary function study showing decreased diffusion capacity. COMPARISON: Prior chest radiographs, including 09/16/2024. TECHNIQUE: Multidetector volumetric CT imaging of the chest was done. Axial MIP volume rendering provided. Sagittal and coronal reformatted images were obtained. This CT examination was performed using dose optimization techniques as appropriate, variously including the following: *Automated exposure control *Adjustment of mA and/or kV according to patient size (this includes techniques or standardized protocols for targeted exams where dose is matched to indication/reason for exam; i.e. extremities or head) *Use of iterative reconstruction technique DLP: 254 mGy-cm FINDINGS: PATIENT SERVICES SPECIALIST: The lungs are symmetrically well-expanded and grossly clear. LUNGS: The lungs are clear with no evidence of inflammation or nodules. There are small foci of linear scar/subsegmental atelectasis within the anterior segment of the left upper lobe and the posterior left base, without associated focal airway obstruction. MEDIASTINUM: The thyroid is unremarkable. No thoracic aortic aneurysm is seen. There are shotty, nonpathologically enlarged mediastinal lymph nodes, one of the largest in the precarinal region showing a short axis diameter of 6 mm (3:21). No sizable mediastinal or hilar lymphadenopathy is seen. CORONARY ARTERY CALCIFICATION: None visualized on this study. PLEURA: There is no pleural effusion. No pleural mass or thickening. AXILLA: There are enlarged bilateral axillary lymph nodes. One of the largest on the right shows a short axis diameter of 1.0 cm, and on the left 1.1 cm (3:18 and 15). No internal mammary lymphadenopathy is noted. UPPER ABDOMEN: Limited evaluation of the upper abdominal viscera, including the adrenal glands, is unremarkable. OSSEOUS STRUCTURES: There is multi-level mild thoracolumbar spondylosis. No acute or aggressive osseous finding is noted. CT/CT chest wo IV con IMPRESSION: 1. There are foci of minor left lung scar/subsegmental atelectasis, without associated focal airway obstruction. 2. No gross infiltrate, groundglass opacity, nodule or mass lesion is seen. 3. There is no sizable mediastinal or hilar lymphadenopathy. There is no pleural effusion. 4. There is multi-level mild thoracolumbar spondylosis. No acute or aggressive osseous lesion is seen. 5. There are several borderline enlarged bilateral axillary nodes, possibly reactive. These should be managed on a clinical basis. Recommend continued attention on imaging follow-up. Fleischner guidelines were followed. Electronically signed by: Thomas Taylor MD 09/17/2024 10:55 AM [facility] [place] Dictated By: Thomas Taylor MD Signed By: <Electronically signed by Thomas Taylor MD in OV> 09/17/24 1055 DD/ 0837 TD/TT: 08/21/24 0847 Health Plan Manager: OZIEL Assessment & Plan Assessment & Plan (1) Asthma-COPD overlap syndrome: Code(s): J44.89 - Other specified chronic obstructive pulmonary disease Category: Medical (2) Dyspnea: Code(s): R06.00 - Dyspnea, unspecified Category: Medical (3) Obstructive sleep apnea: Code(s): G47.33 - Obstructive sleep apnea (adult) (pediatric) Category: Medical (4) Environmental allergies: Code(s): Z91.09 - Other allergy status, other than to drugs and biological substances Category: Medical (5) Decreased diffusion capacity: Code(s): R94.2 - Abnormal results of pulmonary function studies Category: Medical (6) Mediastinal lymphadenopathy: Code(s): R59.0 - Localized enlarged lymph nodes Category: Medical Plan Reviewed chest CT which revealed mild lymphadenopathy however likely reactive as patient with recent pneumonia. There were no concerning pulmonary nodules found will repeat CT chest with contrast in 6 months. Reviewed PFT again with patient as well as prior ophthalmology notes and was agreeable to trial ICS/LABA. We discussed the possible risks including increased ocular edema, which he follows closely with ophthalmology to be monitored. Will also send Singulair given asthma and allergic component. Reviewed side effects. All questions were answered and patient is in agreement of plan. Will follow up in 6-8 weeks or sooner if needed. Orders: Orders CT chest w IV con 5 Months R59.0 - Localized enlarged lymph nodes Blood Urea Nitrogen Today Z01.818 - Encounter for other preprocedural examination Creatinine Today Z01.818 - Encounter for other preprocedural examination Medications: New montelukast (Singulair) 10 mg PO BEDTIME 30 tabs 3RF Coding Level of Care Code Est Pt Level 4 (17184) Diagnoses Asthma-COPD overlap syndrome J44.89 Dyspnea R06.00 Obstructive sleep apnea G47.33 Environmental allergies Z91.09 Decreased diffusion capacity R94.2 Mediastinal lymphadenopathy R59.0
--- OUTSIDE RECORDS SUMMARY | 2024-09-29 16:29 | XMS_ITS | Continuity of Care Document ---
Author Organization [facility] Address [address] [place] [address] [address] [place] [address] Phone Care Team Providers Care Undertaker Helper Name Role Phone Mihci GORDON FACS Apollo GOMEZ Unavailable Unavailable Procedures Procedure Date Office/Oupt E&M New Pt 45 Mins 23 Duplex Scan-extrem Veins; Comp Advance Directives Directive Yes / No Effective Date File Name No Information Encounters Encounter Description Practice Location Reason(s) For Visit Diagnoses Date Provider Providers Copied on Encounter [facility], [address] [place] [address] [address], [place], [id number], tel:[phone] [facility] No Information 3 Michi GORDON FACS DAVIDT CATRACHO Trin[place]. [address] [facility] [address], [place], [address], [place]. tel:[phone] Referring Provider: Erin Duran DPM, [address] [facility] [address] [facility], [place], [address]. tel:[phone] Office/Oupt E&M New Pt 45 Mins [facility], [address] [place] [address] [address], [place], [id number], tel:[phone] [facility] Pain in right lower legPain in left lower legLocalized edemaChronic venous hypertension (idiopathic) with other complications of bilateral lower extremityType 2 diabetes mellitus without complications Essential (primary) hypertensionF jazmyn joint, unspecified joint 3 Michi GORDON FACS Saeid Trinh. [address] [place] [address], [place], [address], . tel:[phone] Referring Provider: Erin Duran DPM, [address] [place], [address]. tel:[phone] [facility], [address] [facility] [address], [place], [id number], tel:[phone] [facility] Chronic venous hypertension (idiopathic) with other complications of bilateral lower extremity 3 Michi GORDON FACS [facility] CATRACHO Trin[place]. [address] [place] [address], [place], [address], . tel:[phone] Referring Provider: Erin Duran DPM, [address] [place], [address]. tel:[phone] Family History Family Member Type Diagnosis Age At Onset No Information Payers Payer name Insurance type Covered libertarian ID Trinidad sanches(s) [facility] CI [id number] [facility] CI [id number] Social History Type Description Quantity Date Captured [...]
== END 2024-09-23 09:27 | disposition home or self-care (01) ==
PROVIDERS: PCP Family Medicine; Visit Provider Nurse Practitioner Family
DX: J44.89 Other specified chronic obstructive pulmonary disease (principal); R06.00 Dyspnea, unspecified; G47.33 Obstructive sleep apnea (adult) (pediatric); Z91.09 Other allergy status, other than to drugs and biological substances; R94.2 Abnormal results of pulmonary function studies; R59.0 Localized enlarged lymph nodes
CPT/HCPCS: 99214

== ENCOUNTER 2024-10-06 11:02 | Outpatient (AMB) | payer OTHER, SELFPAY ==
--- OUTSIDE RECORDS SUMMARY | 2024-10-06 11:24 | XMS_ITS | Continuity of Care Document ---
Author Organization [facility] Address [address] [place] [address] [address] [place] [address] Phone Care Team Providers Care Diamond Sizer And Sorter Name Role Phone Michi GORDON FACS Apollo GOMEZ Unavailable Unavailable Procedures Procedure Date Office/Oupt E&M New Pt 45 Mins 23 Duplex Scan-extrem Veins; Comp Advance Directives Directive Yes / No Effective Date File Name No Information Encounters Encounter Description Practice Location Reason(s) For Visit Diagnoses Date Provider Providers Copied on Encounter [facility], [address] [place] [address] [address], [place], [id number], tel:[phone] [facility] No Information 3 Michi GORDON FACS DAVIDT CATRACHO [place]. [address] [facility] [address], [place], [address], [place]. tel:[phone] Referring Provider: Erin Duran DPM, [address] [facility] 150 [facility], [place], [address]. tel:[phone] Office/Oupt E&M New Pt 45 Mins [facility], [address] [place] [address] Dr [address], [place], [id number], tel:[phone] [facility] Pain in right lower legPain in left lower legLocalized edemaChronic venous hypertension (idiopathic) with other complications of bilateral lower extremityType 2 diabetes mellitus without complications Essential (primary) hypertensionF jazmyn joint, unspecified joint 3 Michi GORDON FACS Saeid Trinh. [address] [place] [address], [place], [address], . tel:[phone] Referring Provider: Erin Duran DPM, [address] [place], [address]. tel:[phone] [facility], [address] [facility] [address], [place], [id number], tel:[phone] [facility] Chronic venous hypertension (idiopathic) with other complications of bilateral lower extremity [address] [facility] CATRACHO Trinh. [address] [place] [address], [place], [address], . tel:[phone] Referring Provider: Erin Duran DPM, [address] [place], [address]. tel:[phone] Family History Family Member Type Diagnosis Age At Onset No Information Payers Payer name Insurance type Covered green party ID Trinidad sanches(s) [facility] CI [id number] [facility] CI [id number] Social History Type Description Quantity Date Captured [...]
--- NOTE | 2024-10-06 11:47 | MHC.OFFWIV ---
Intake Vital Signs 10/06/24 11:53 Height 5 ft 11 in Weight 268 lb BMI 37.4 BP 130/80 Blood Pressure Location Rt brachial Position Sitting Pulse 79 Pulse Source Pulse Oximeter Temp 98.7 F Temp Source Oral Pulse Oximetry (%) 97 Oxygen Delivery Method Room Air Intake Visit Reasons: EP cough, wheezing Patient Tobacco Use Status: Former Tobacco user Allergies arsenic Allergy (Severe, Verified 09/23/24 08:48) Itching ibuprofen Adverse Reaction (Intermediate, Verified 09/23/24 08:48) GI upset Medication List - Last Reconciled 10/06/24 by Dereje Mckeon MD albuterol sulfate 90 mcg/actuation (Ventolin HFA) 2 puffs inhalation Q4-6H PRN 30 days aspirin (Adult Aspirin Regimen) 81 mg PO DAILY 90 days atorvastatin 20 mg (2 x 10 mg) PO ONCE 90 days bisoprolol fumarate 7.5 mg (1.5 x 5 mg) PO DAILY 90 days blood sugar diagnostic (FreeStyle Lite Strips) to check the accuracy of CGM devise during high and low alarming prn as directed, up to 4 times a day blood-glucose meter (FreeStyle Lite Meter kit) to check blood sugar up to four times per day prn as directed during high and low alarms on CGM device. blood-glucose sensor (FreeStyle Mckay 3 Sensor device) As directed changed every 14 days clotrimazole 1% 1 appl topical BID 2 weeks diclofenac sodium 1% 4 grams topical TID 15 days doxycycline hyclate 100 mg PO BID 10 days fenofibrate micronized 200 mg PO DAILY 90 days fluticasone propion-salmeterol 100-50 mcg/dose (Advair Diskus) 1 inh inhalation BID 30 days glucose (Dex4 Glucose) 16 grams (4 x 4 gram) PO Q15M PRN 30 days MDD 16 tablets hyoscyamine sulfate (Levsin/SL) 0.125 mg sublingual QID PRN insulin aspart U-100 (Novolog FlexPen U-100 Insulin aspart) 60-80 units for breakfast and lunch, 80 units for supper subcutaneously use as directed; 30 days ipratropium bromide intranasal lancets (FreeStyle Lancets) to check blood sugar up to 4x daily to check accuracy of CGM during high and low alarm. lisinopril 20 mg PO DAILY 90 days meclizine mg PO miscellaneous medical supply (Blood Pressure Cuff) adult size blood pressure cuff as directed montelukast (Singulair) 10 mg PO BEDTIME pen needle, diabetic (BD Ultra-Fine Micro Pen Needle) As directed injects 4 X/day pen needle, diabetic (BD Ultra-Fine Maddie Pen Needle) USE TO INJECT 4 TIMES A DAY rabeprazole 20 mg PO DAILY 90 days sodium,potassium,mag sulfates 17.5-3.13-1.6 gram (Suprep Bowel Prep Kit) DILUTE; drink 1/2 at 6-8 pm and half at 11 PM- 1AM tadalafil 5 mg PO DAILY PRN 30 days Toujeo SoloStar U-300 Insulin (insulin glargine U-300 conc) 72 units (0.24 mL) subcut BID NS HPI EP cough, wheezing HPI Details Patient is a 48-year-old gentleman who has been recovering from pneumonia for the past 3 weeks Continued to have cough and chest congestion, which is improving Patient is not able to take any steroids due to diabetic eye complications He works in a [employer] and is having difficulty interacting with customers due to cough He is requesting few more days off from work Patient says that he has time off and would like to go back from of this month Patient was instructed to use albuterol inhaler 2 puffs every 4-6 hour that will help him cough up the phlegm His chest is clear to auscultation today Letter provided COUNT INCLUD[facility] Medical History Axillary lymphadenopathy Obstructive sleep apnea hypopnea, severe Obstructive sleep apnea Vitamin D deficiency Vitamin D deficiency PAF (paroxysmal atrial fibrillation) HLD (hyperlipidemia) HTN (hypertension) T2DM (type 2 diabetes mellitus) NAFLD (nonalcoholic fatty liver disease) Essential hypertension Type 2 diabetes mellitus without complications Surgical History History of esophagogastroduodenoscopy (EGD) Family History Father Diabetes Hypertension CVD (cardiovascular disease) Mother Alzheimer's dementia Other Mental health disorder Vitamin D deficiency Social History Household Members: Spouse Both parents involved: No Caregiver staying overnight: No Housing: House Are you a primary cna caregiver to a significant other at home: No Do you presently have visiting nurse or other home services: No 75 years or older and lives alone: No Alcohol intake: never Patient Tobacco Use Status: Former Tobacco user e-Cigarette/Vaping Use: Never Used Second Hand Smoke Exposure: No service: No Current occupational status: employed 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 Current occupational exposures/hazards: No Cognitive needs: No Hearing needs: No Vision needs: Yes (Glasses) Review of Systems Const Reports as per HPI Eyes Denies change in vision ENT Denies bleeding gums, Denies dental pain, Denies ear discharge and Denies mouth pain Card Denies chest pain at rest, Denies chest pain with activity, Denies syncope and Denies irregular heart rhythm Resp Denies hemoptysis and Denies stridor GI Denies diarrhea and Denies vomiting Denies no additional complaints Musc Denies as per HPI Neuro Denies syncope Physical Exam Vital Signs: Last Vital Signs Temp 98.7 F 10/06/24 11:53 Pulse 79 10/06/24 11:53 BP 130/80 10/06/24 11:53 Pulse Ox 97 10/06/24 11:53 Oxygen Delivery Method Room Air 10/06/24 11:53 BMI result Body Mass Index 37.4 Const General: cooperative and comfortable Orientation/consciousness: patient oriented x3 HEENT Head: Yes normocephalic and Yes atraumatic Ears: external ears normal General nose exam: Normal external nose present Mouth: Normal oral and palatal mucosa present Eyes Eyelids: Yes eyelids normal EOM: EOMs intact bilaterally Neck Neck: Yes trachea midline and Yes supple Resp Auscultation: clear to auscultation bilaterally Cardio Heart sounds: S1 normal heart sound present and S2 normal heart sound present Skin General skin exam: elasticity normal and turgor normal Neuro General: patient oriented x3 Psych Mental Status: mental status grossly normal Assessment & Plan Assessment & Plan (1) Chest congestion: Code(s): R09.89 - Other specified symptoms and signs involving the circulatory and respiratory systems Plan Patient is a 48-year-old gentleman who has been recovering from pneumonia for the past 3 weeks Continued to have cough and chest congestion, which is improving Patient is not able to take any steroids due to diabetic eye complications He works in a [employer] and is having difficulty interacting with customers due to cough He is requesting few more days off from work Patient says that he has time off and would like to go back from of this month Patient was instructed to use albuterol inhaler 2 puffs every 4-6 hour that will help him cough up the phlegm His chest is clear to auscultation today Letter provided Coding Level of Care Code Est Pt Level 3 (87079) Diagnoses Chest congestion R09.89
[2024-10-06 11:53] VITALS: BP 130/80; PULSE 79; TEMP 37.1; O2SAT 97; BMI 37.4
== END 2024-10-06 12:53 | disposition home or self-care (01) ==
PROVIDERS: PCP Family Medicine; Visit Provider Internal Medicine
DX: R09.89 Other specified symptoms and signs involving the circulatory and respiratory systems (principal)

== ENCOUNTER → 2024-10-06 11:02 | Outpatient (BNVA) | payer OTHER, SELFPAY | PROVIDERS: PCP Family Medicine; Visit Provider Internal Medicine ==

== ENCOUNTER → 2024-10-07 15:52 | Outpatient (AMB) | payer OTHER, SELFPAY ==
--- NOTE | 2024-10-07 15:51 | MHC.PC.OV ---
Intake Visit Reasons: f/u CPE-labs via telemedicine Intake Note: lab review Allergies arsenic Allergy (Severe, Verified 10/07/24 15:52) Itching ibuprofen Adverse Reaction (Intermediate, Verified 10/07/24 15:52) GI upset Medication List - Last Reconciled 10/07/24 by Guzman Gonzalez MD albuterol sulfate 90 mcg/actuation (Ventolin HFA) 2 puffs inhalation Q4-6H PRN 30 days aspirin (Adult Aspirin Regimen) 81 mg PO DAILY 90 days atorvastatin 20 mg (2 x 10 mg) PO ONCE 90 days benzonatate 100 mg PO BID PRN 14 days bisoprolol fumarate 7.5 mg (1.5 x 5 mg) PO DAILY 90 days blood sugar diagnostic (FreeStyle Lite Strips) to check the accuracy of CGM devise during high and low alarming prn as directed, up to 4 times a day blood-glucose meter (FreeStyle Lite Meter kit) to check blood sugar up to four times per day prn as directed during high and low alarms on CGM device. blood-glucose sensor (StartupDigestStyle Mckay 3 Sensor device) As directed changed every 14 days clotrimazole 1% 1 appl topical BID 2 weeks diclofenac sodium 1% 4 grams topical TID 15 days doxycycline hyclate 100 mg PO BID 10 days fenofibrate micronized 200 mg PO DAILY 90 days fluticasone propion-salmeterol 100-50 mcg/dose (Advair Diskus) 1 inh inhalation BID 30 days glucose (Dex4 Glucose) 16 grams (4 x 4 gram) PO Q15M PRN 30 days MDD 16 tablets hyoscyamine sulfate (Levsin/SL) 0.125 mg sublingual QID PRN insulin aspart U-100 (Novolog FlexPen U-100 Insulin aspart) 60-80 units for breakfast and lunch, 80 units for supper subcutaneously use as directed; 30 days ipratropium bromide intranasal lancets (FreeStyle Lancets) to check blood sugar up to 4x daily to check accuracy of CGM during high and low alarm. lisinopril 20 mg PO DAILY 90 days meclizine mg PO miscellaneous medical supply (Blood Pressure Cuff) adult size blood pressure cuff as directed montelukast (Singulair) 10 mg PO BEDTIME pen needle, diabetic (BD Ultra-Fine Micro Pen Needle) As directed injects 4 X/day pen needle, diabetic (BD Ultra-Fine Maddie Pen Needle) USE TO INJECT 4 TIMES A DAY rabeprazole 20 mg PO DAILY 90 days sodium,potassium,mag sulfates 17.5-3.13-1.6 gram (Suprep Bowel Prep Kit) DILUTE; drink 1/2 at 6-8 pm and half at 11 PM- 1AM tadalafil 5 mg PO DAILY PRN 30 days Toujeo SoloStar U-300 Insulin (insulin glargine U-300 conc) 72 units (0.24 mL) subcut BID NS Tobacco use date assessed: 08/14/24 Dental Screening Dental Screen Date: 08/14/24 HPI f/u CPE-labs via telemedicine HPI Details 48 y/o male presents to f/u chest x-ray via telemedicine. Chest x-ray 09/17/24 showed no active cardiopulmonary disease. He notes symptoms much improved but reports ongoing chest congestion. He notes ongoing coughing fits. Labs drawn 08/14/24. Reviewed labs with pt. Triglycerids 346. TC 120. LDL 47. HDL low at 22. A1c 9.8%. Notes morning blood sugars have been in the 100-150s range. Has reported some blood sugars a bit lower than the 100s. Elevated AST of 42. PFSH Medical History Axillary lymphadenopathy Obstructive sleep apnea hypopnea, severe Obstructive sleep apnea Vitamin D deficiency Vitamin D deficiency PAF (paroxysmal atrial fibrillation) HLD (hyperlipidemia) HTN (hypertension) T2DM (type 2 diabetes mellitus) NAFLD (nonalcoholic fatty liver disease) Essential hypertension Type 2 diabetes mellitus without complications Surgical History History of esophagogastroduodenoscopy (EGD) Family History Father Diabetes Hypertension CVD (cardiovascular disease) Mother Alzheimer's dementia Other Mental health disorder Vitamin D deficiency Social History Household Members: Spouse Both parents involved: No Caregiver staying overnight: No Housing: House Are you a primary professional healthcare representative to a significant other at home: No Do you presently have visiting nurse or other home services: No 75 years or older and lives alone: No Alcohol intake: never Patient Tobacco Use Status: Former Tobacco user e-Cigarette/Vaping Use: Never Used Second Hand Smoke Exposure: No service: No Current occupational status: employed 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 Robert Atkinsno, Fransisca Michelle, Des Wright and colleagues, with an educational jessica from [employer]. Physical exam (Primary Care) Tobacco/Smoking Status: Tobacco use Status Tobacco use date assessed 08/14/24 10/07/24 15:53 Patient Tobacco Use Status Former Tobacco user 10/07/24 15:53 e-Cigarette/Vaping Use Never Used 10/07/24 15:53 Thrive Assessment: Date of Thrive Assessment Date Thrive assessed 08/14/24 10/07/24 15:53 Telehealth Telehealth Telehealth Platform: Telephone Location of provider rendering services: practice address Location of patient: address on file Patient Identification confirmed using: Name, : Yes Telehealth method: voice only Patient verbally consented to treatment: Yes Patient verbally consented to billing insurance company: Yes Patient informed of any privacy concerns related to visit: Yes Minutes spent on Phone/Video with Pt.: 12 Coding Level of Care Code Tele Est Pt Level 2 (60487) Diagnoses Chest congestion R09.89 Hyperlipidemia, unspecified hyperlipidemia type E78.5 Hyperlipidemia type: unspecified Insulin use (long-term) in type 2 diabetes E11.9; Z79.4 Pneumonia of left lower lobe due to infectious organism J18.9 Laterality: left Lung location: lower lobe of lung Pneumonia type: due to unspecified organism Assessment & Plan Assessment & Plan (1) Chest congestion: Code(s): R09.89 - Other specified symptoms and signs involving the circulatory and respiratory systems Category: Medical Plan: Some?ongoing?chest?congestion?and?patient?is?recovering?from?pneumonia. Overall,?patient?says?he?is?feeling?much?better. He?does?note?that?he?gets?into?a?coughing?fit?which?seems?to?be?secondary?to?some?irritation - will?try?benzonatate.??He?will?discontinue?the?medication?if?it?is?causing?any?problems?or?not?helping?of?her?couple?of?days. (2) HLD (hyperlipidemia): Code(s): E78.5 - Hyperlipidemia, unspecified Category: Medical Qualifiers: Hyperlipidemia type: unspecified Qualified Code(s): E78.5 - Hyperlipidemia, unspecified Plan: Patient?has?chronically?low?HDL Encouraged?exercise?in?the?past?and?he?will?continue?working?on?this?however?can?try?a?flaxseed?oil?capsule. 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 No?changes?to?his?blood?sugar?medication?today Follow-up?with?endocrinology Continue?Work?at?diabetic?diet?and?weight?loss (4) Pneumonia: Comment: resolved based on cxr 09/16/24 Code(s): J18.9 - Pneumonia, unspecified organism Category: Medical Qualifiers: Laterality: left Lung location: lower lobe of lung Pneumonia type: due to unspecified organism Qualified Code(s): J18.9 - Pneumonia, unspecified organism Plan: As?above,?recent?pneumonia?and?this?appears?to?have?resolved?with?doxycycline Medications: New benzonatate 100 mg PO BID 14 days PRN 28 caps 0RF cough
== END ==
LOC: HO.HMCFM 15:52
PROVIDERS: PCP Family Medicine; Visit Provider Family Medicine
DX: E78.5 Hyperlipidemia, unspecified (principal); E11.69 Type 2 diabetes mellitus with other specified complication; Z79.4 Long term (current) use of insulin; R09.89 Other specified symptoms and signs involving the circulatory and respiratory systems; J18.9 Pneumonia, unspecified organism

== ENCOUNTER 2024-12-28 08:18 | Outpatient (REF) | payer OTHER, SELFPAY ==
--- OUTSIDE RECORDS SUMMARY | 2024-12-28 08:24 | XMS_ITS ---
Author Organization [facility] Address [address] [place] [id number] Care Team Providers Care Ballistic Technician Name Role Phone Carlos Guzman Primary Care Provider Unavailab Allen Oh Unavailable [phone] REASON FOR VISIT Vertigo, Nasal Congestion Encounters Encounter Location Date Provider Diagnosis [facility] [address] [id number] 02/20/2024 Allen Barron Nasal congestion R09.81 ; Deviated nasal septum [...] * Luke PICHARDODOB:[birth year] (49 yo M)Acc No.[id number]:02/20/2024 Progress Notes Patient:?Luke PICHARDO Provider:?Allen Montalvo MD :1975???Age:48 Y???Sex:Male Jeremy e:02/20/2024 Address:[address] [place], [place] [id number] Pcp:Guzman Gonzalez Subjective: * Chief Complaints: * ???1. Vertigo, Nasal Congest ion. * HPI: ???Nose:? 03/15/22 > no longer evidence of infection by nasal endoscopy; R ear pain likely referred from TMJ. Recommend oral surgery evaluation for that condition. For symptoms of allergic rhinitis, recommend a trial of azelastine nasal spray, use as directed. CURRENT STATUS = . * Medical History:? Objective: * Vitals:? * Examination: ???NASAL: ?PROCEDURE NOTE - Nasal Endoscopy?INDICATIONS: inadequate assessment of patient symptoms and?posterior sinonasal anatomy?by anterior rhinoscopy > for evaluation of intranasal [...] unremarkable, sphenoethmoid recess clear, septum tortuous, Nasopharynx: unremarkable.? * Physical Examination:?ENT - HEAD & NECK:?RIGHT EAR?EAC clear, dry, intact skin, TM - intact, neutral position, Middle ear - well aerated.?LEFT EAR?EAC clear, dry, intact skin, TM - intact, neutral position, Middle ear - well aerated.?NOSE?Septum / Turbinates / Secretions > .? Assessment: * Assessment: 1.?Nasal congestion - R09.81 (Primary)???2.?Deviated nasal septum - J34.2???3.?Hypertrophy of both inferior nasal turbinates - J34.3???4.?Dizziness - R42??? Plan: * Treatment: * Images: * Electronic signature of Kalpesh Barron M.D. on 12/28/2024 at 08:24 AM EDT Sign off status: Pending * Provider:?Allen Montalvo MD Date:?11/2023 Generated for Clau villatoro/Amando/Lindsey on:?12/28/2024 08:24 AM EDT History and Physical Notes * [...]
--- OUTSIDE RECORDS SUMMARY | 2024-12-28 08:25 | XMS_ITS | Patient Health Record ---
Author Organization [facility] Address [address] [facility] [address] [place] [address] Care Team Providers Care Roll Finisher Name Role Phone Guzman Gonzalez Primary Care Provider Unavailab Allen Oh Unavailable [phone] Allergies No Known Allergies Reason For Referral No Information Medications Medication SIG (Take, Route, Frequency, Duration) Notes Start Date End Date Status Atorvastatin Calcium 10 MG 1 tab(s) oral ly once a day for 30 day(s) Active Aspirin 81 MG 1 tab(s) orally once a day for 30 day(s) Active NovoLOG FlexPen 100 UNIT/ML as directed subcutaneously 3 times a day (before meals) for 30 Active KLS Aller-Yazmin 10 MG for 90 Active Lisinopril 5 MG 1 tab(s) orally once a day for 30 day(s) Active Toujeo SoloStar 300 UNIT/ML as directed subcutaneously once a day Active levoFLOXacin 750 MG 1 tab(s) orally ever y 24 hours for 10 day(s) Active Bisoprolol Fumarate 5 MG 1 tab(s) orally once a day for 30 day(s) Active Ventolin HFA 108 (90 Base) MCG/ACT INHALE 2 PUFFS BY MOUTH EVERY 4 TO 6 HOURS NEEDED FOR COUGH, WHEEZING, OR SHORTNESS OF BREATH for 17 Active Pseudoephedrine HCl ER 120 MG 1 tab(s) orally every 12 hours 03/15/2022 Active Fenofibrate 67 MG 1 cap(s) orally once a day for 30 day(s) Active Social History Tobacco Use: Social History Observation Description Date Details (start date - stop date) Former Smoker NA - NA Smoking: Question Answer Notes Are you a : Former Smoker Alcohol Screen Question Answer Notes Did you have a drink containing alcohol in the p ast year? No Problems Problem Type SNOMED Code ICD Code Onset Dates Problem Status W/U Status Risk Notes Problem [id number] Seasonal allergi c rhinitis due to pollen (J30.1) Active confirmed Problem 4688502 Acute non-recurrent pansinusitis (J01.40) Active confirmed Plan Of Treatment No Information Insurance Providers Payer Name Payer Address Payer Phone Subscriber Number Group Number Insured Name Patient Relationship to Insured Coverage Start Date Coverage End Date [employer] [address] [place], [place] [id number] Luke Castañeda Self - patient is the insured [facility] [address] [place] [phone] [id number] Luke Castañeda Self - patient is the insured Medical (General) History Medical History History ICD Code High blood pressure diabetes Allergy to Steroids Surgical History Surgery Date(Month/Year)
[2024-12-28 11:39] LABS: Estimated Average Glucose 252 mg/dL; Hemoglobin A1c % 10.4 % (<6.0)
[2024-12-28 12:02] LABS: Appearance Urine Clear; Color Urine Yellow; Glucose Urine UA Negative (Negative); Leukocyte Esterase Urine Negative (Negative); Nitrite Urine Negative (Negative); PH 6.5 (5.0-9.0); Specific Gravity - Urine 1.015 (1.005-1.025); Urine Blood Negative (Negative); Urine Ketones Negative (Negative); Urine Protein Negative (Neg-Trace)
[2024-12-28 12:35] LABS: Uric Acid 4.9 mg/dL (3.4-7.0)
[2024-12-28 12:53] LABS: Creatinine Urine 122.07 mg/dL; Microalbum/Creatinine Ratio Ur 9.8 ug/mg cr (<30)
[2024-12-28 13:01] LABS: Alanine Aminotransferase 23 U/L (0-40); Albumin Level 4.1 g/dL (3.5-5.0); Alkaline Phosphatase 58 U/L (39-117); Anion Gap 10 (12-20); Aspartate Amino Transferase 22 U/L (5-37); Bilirubin Total 0.3 mg/dL (0.0-1.0); Blood Urea Nitrogen 13 mg/dL (9-16); Calcium 9.5 mg/dL (8.4-10.2); Carbon Dioxide 27 mmol/L (22-29); Chloride 107 mmol/L (96-108); Cholesterol 132 mg/dL (<200); Estimated Glomerular Filt Rate > 60; Glucose Random 114 mg/dL (60-115); HDL Cholesterol 25 mg/dL (>40); LDL Cholesterol Calculated 49 mg/dL (<100); Magnesium 1.7 mg/dL (1.6-2.6); Potassium 4.2 mmol/L (3.3-5.1); Sodium 140 mmol/L (135-145); Total Protein 7.9 g/dL (6.5-8.0); Triglycerides 291 mg/dL (<150)
[2025-01-02 00:13] LABS: Islet Cell Antibody Screen NEGATIVE (NEGATIVE)
== END 2024-12-28 08:19 | disposition home or self-care (01) ==
LOC: HO.WFDLDS 08:18
PROVIDERS: Internal Medicine; Referring Provider Internal Medicine Gastroenterology; Visit Provider Family Medicine
DX: I48.0 Paroxysmal atrial fibrillation (principal); Z00.00 Encounter for general adult medical examination without abnormal findings; I10 Essential (primary) hypertension; K75.81 Nonalcoholic steatohepatitis (NASH); E11.65 Type 2 diabetes mellitus with hyperglycemia; Z79.4 Long term (current) use of insulin; R20.0 Anesthesia of skin; R20.2 Paresthesia of skin
CPT/HCPCS: 36415; 80053; 80061; 81003; 82043; 82570; 83036; 83735; 84550; 86341

== ENCOUNTER 2024-12-28 12:14 | Outpatient (AMB) | payer OTHER, SELFPAY ==
[2024-12-28 12:37] VITALS: BP 129/56; PULSE 67; O2SAT 96; BMI 37.1
--- NOTE | 2024-12-28 12:37 | A.OFFVIS_ITS ---
Vital Signs 12/28/24 12:37 Height 5 ft 11 in Weight 266 lb BMI 37.1 BP 129/56 L Blood Pressure Location Lt brachial Position Sitting Pulse 67 Pulse Oximetry (%) 96 Oxygen Delivery Method Room Air Intake Visit Reasons: 6 month f/u Intake Note: Patient follow up for abdominal discomfort. Patient cc: abdominal disconfort come and go and swallowing problems with liquid on and off. Sugar Coating Hand Required: No Accompanied by: Self / Same As Patient Allergies arsenic Allergy (Severe, Verified 10/07/24 15:52) Itching ibuprofen Adverse Reaction (Intermediate, Verified 10/07/24 15:52) GI upset HPI HPI 6 month f/u: Details: 49 yr old being seen for f/u RECAP: He does have hx of fatty liver he has been having episodes of RUQ pain, on and off, and has had tests incl MRI at [facility] which apparently was negative for gallstones He has had x2-3 attacks and each lasting about 3 weeks or so it is colicky in nature when he has the pain, food can make it worse not had the pain for 2 months can have abdominal distention he takes PPi for GERD denies diarrhea or constipation BNP was neg 05/2022 CXR: 02/2022---nml US 10/2021- fatty liver, no gallstones (LFt were normal) CT 11/2021- ?few calcifications seen but beyond ampulla of vater --personally reviewed MRCP 2020--[facility] --negative MRCP - enlarged fatty liver , nml GB and pancreas INTERIM: he has noted choking sensation, but v occasional, no issues with food cheri is good with the cpap now he does not want to do colonoscopy, he is waiting to do stool card no abdominal pain gerd is controlled with ppi denies rectal bleeding no nausea or vomiting no further major issues with ruq pain EXAM: GENERAL: The patient is well developed and nontoxic, obese VITAL SIGNS:see workflow HEENT: Nonicteric sclerae, PERRLA, EOMI. Oropharynx clear. Moist mucous membranes. Conjunctivae appear well perfused. No thyroid mass. CHEST: Chest wall is nontender. HEART: Regular rate and rhythm without murmurs. LUNGS: Clear to auscultation bilaterally. ABDOMEN: Soft, positive bowel sounds, vague tenderness ruq and right lower chest wall, no organomegaly.no flank tenderness SKIN: No rash, no excessive bruising, petechiae, or purpura. NEUROLOGIC: Cranial nerves II-XII intact without motor/sensory deficit. no raised JVD or leg edema MS: nml a/P: 1/Altered bowel habit, declines colo, await stool card 2/ RUQ pain, uncertain etiology but better PLAN: 1/ cont with PPI, hold on egd and colo for the moment 2/ advised to increase physical activity, fluids, and can try miralax PFSH Medical History Axillary lymphadenopathy Obstructive sleep apnea hypopnea, severe Obstructive sleep apnea Vitamin D deficiency Vitamin D deficiency PAF (paroxysmal atrial fibrillation) HLD (hyperlipidemia) HTN (hypertension) T2DM (type 2 diabetes mellitus) NAFLD (nonalcoholic fatty liver disease) Essential hypertension Type 2 diabetes mellitus without complications Surgical History History of esophagogastroduodenoscopy (EGD) Family History Father Diabetes Hypertension CVD (cardiovascular disease) Mother Alzheimer's dementia Other Mental health disorder Vitamin D deficiency Social History Household Members: Spouse Both parents involved: No Caregiver staying overnight: No Housing: House Are you a primary customer care representative to a significant other at home: No Do you presently have visiting nurse or other home services: No 75 years or older and lives alone: No Alcohol intake: never Patient Tobacco Use Status: Former Tobacco user e-Cigarette/Vaping Use: Never Used Second Hand Smoke Exposure: No service: No Current occupational status: employed 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 Current occupational exposures/hazards: No Cognitive needs: No Hearing needs: No Vision needs: Yes (Glasses) Physical Exam Vital Signs: Last Vital Signs Pulse 67 12/28/24 12:37 BP 129/56 L 12/28/24 12:37 Pulse Ox 96 12/28/24 12:37 Oxygen Delivery Method Room Air 12/28/24 12:37 BMI result Body Mass Index 37.1 Assessment & Plan Assessment & Plan (1) Abnormal bowel habits: Code(s): R19.8 - Other specified symptoms and signs involving the digestive system and abdomen Category: Medical Plan: see above Medications: New polyethylene glycol 3350 (Miralax) 17 grams PO DAILY 850 grams 2RF Coding Level of Care Code Est Pt Level 3 (09941) Diagnoses Abnormal bowel habits R19.8
== END 2024-12-28 13:14 | disposition home or self-care (01) ==
PROVIDERS: PCP Family Medicine; Visit Provider Internal Medicine Gastroenterology
DX: R19.8 Other specified symptoms and signs involving the digestive system and abdomen (principal)
CPT/HCPCS: 99213

== ENCOUNTER 2024-12-28 13:16 | Outpatient (AMB) | payer OTHER, SELFPAY ==
[2024-12-28 13:41] VITALS: BP 122/62; PULSE 78; BMI 33.8
--- NOTE | 2024-12-28 13:41 | MHC.OFFVIS ---
Vital Signs 12/28/24 13:41 Height 5 ft 11 in Weight 242 lb 8.136 oz BMI 33.8 BP 122/62 Blood Pressure Location Lt brachial Position Sitting Pulse 78 Pulse Source Pulse Oximeter Intake Visit Reasons: r/s 11/10/24 6 mos followup Allergies arsenic Allergy (Severe, Verified 10/07/24 15:52) Itching ibuprofen Adverse Reaction (Intermediate, Verified 10/07/24 15:52) GI upset Medication List - Last Reconciled 12/28/24 by Marty Dominguez MD albuterol sulfate 90 mcg/actuation (Proair Digihaler) 1 inh inhalation Q4-6H PRN 30 days albuterol sulfate 90 mcg/actuation (Ventolin HFA) 2 puffs inhalation Q4-6H PRN 30 days aspirin (Adult Aspirin Regimen) 81 mg PO DAILY 90 days atorvastatin 20 mg (2 x 10 mg) PO ONCE 90 days benzonatate 100 mg PO BID PRN 14 days bisoprolol fumarate 7.5 mg (1.5 x 5 mg) PO DAILY 90 days blood sugar diagnostic (FreeStyle Lite Strips) to check the accuracy of CGM devise during high and low alarming prn as directed, up to 4 times a day blood-glucose meter (FreeStyle Lite Meter kit) to check blood sugar up to four times per day prn as directed during high and low alarms on CGM device. clotrimazole 1% 1 appl topical BID 2 weeks diclofenac sodium 1% 4 grams topical TID 15 days doxycycline hyclate 100 mg PO BID 10 days fenofibrate micronized 200 mg PO DAILY 90 days Fiasp FlexTouch U-100 Insulin 100 unit/mL (3 mL) (insulin aspart (niacinamide)) 60-80 units for breakfast and lunch, 80 units for supper subcutaneously use as directed NS fluticasone propion-salmeterol 100-50 mcg/dose (Wixela Inhub) INHALE 1 INHALED 2 TIMES A DAY FOR 30 DAYS FreeStyle Mckay 3 Sensor (blood-glucose sensor) DIRECTED CHANGED EVERY 14 DAYS NS glucose (Dex4 Glucose) 16 grams (4 x 4 gram) PO Q15M PRN 30 days MDD 16 tablets hyoscyamine sulfate (Levsin/SL) 0.125 mg sublingual QID PRN ipratropium bromide intranasal lancets (FreeStyle Lancets) to check blood sugar up to 4x daily to check accuracy of CGM during high and low alarm. lisinopril 20 mg PO DAILY 90 days meclizine mg PO miscellaneous medical supply (Blood Pressure Cuff) adult size blood pressure cuff as directed montelukast (Singulair) 10 mg PO BEDTIME pen needle, diabetic (BD Ultra-Fine Micro Pen Needle) As directed injects 4 X/day pen needle, diabetic (BD Ultra-Fine Maddie Pen Needle) USE TO INJECT 4 TIMES A DAY polyethylene glycol 3350 (Miralax) 17 grams PO DAILY rabeprazole 20 mg PO DAILY 90 days sodium,potassium,mag sulfates 17.5-3.13-1.6 gram (Suprep Bowel Prep Kit) DILUTE; drink 1/2 at 6-8 pm and half at 11 PM- 1AM tadalafil 5 mg PO DAILY PRN 30 days Toujeo SoloStar U-300 Insulin (insulin glargine U-300 conc) 72 units (0.24 mL) subcut BID NS HPI Comments Details: Luke returns for follow up regarding his various concerns. To recall, he used to live in [facility]. Per patient, at that time he was diagnosed with the atrial fibrillation-around 2016 or so. Then put on bisoprolol. However, not put on anticoagulation. It seems that there was just an isolated episode. We do not have any records from that time. In Holter monitoring here, he did not have any recurrences. Various risk factors including obesity, uncontrolled diabetes, hypertension, obstructive sleep apnea. From cardiac, he states he feels okay. Main issue is still uncontrolled diabetes. Hemoglobin A1c today is still more than 10%. [facility] Medical History Axillary lymphadenopathy Obstructive sleep apnea hypopnea, severe Obstructive sleep apnea Vitamin D deficiency Vitamin D deficiency PAF (paroxysmal atrial fibrillation) HLD (hyperlipidemia) HTN (hypertension) T2DM (type 2 diabetes mellitus) NAFLD (nonalcoholic fatty liver disease) Essential hypertension Type 2 diabetes mellitus without complications Surgical History History of esophagogastroduodenoscopy (EGD) Family History Father Diabetes Hypertension CVD (cardiovascular disease) Mother Alzheimer's dementia Other Mental health disorder Vitamin D deficiency Social History Household Members: Spouse Both parents involved: No Caregiver staying overnight: No Housing: House Are you a primary clinical care manager to a significant other at home: No Do you presently have visiting nurse or other home services: No 75 years or older and lives alone: No Alcohol intake: never Patient Tobacco Use Status: Former Tobacco user e-Cigarette/Vaping Use: Never Used Second Hand Smoke Exposure: No service: No Current occupational status: employed 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 Current occupational exposures/hazards: No Cognitive needs: No Hearing needs: No Vision needs: Yes (Glasses) Review of Systems Const Denies weakness ENT Denies dizziness Card Denies chest pain, Denies chest pain with activity, Denies syncope, Denies rapid heart rate, Denies pedal edema, Denies edema, Denies leg edema, Denies lightheadedness, Denies palpitations, Denies dyspnea, Denies dyspnea on exertion and Denies orthopnea Resp Denies cough, Denies dyspnea and Denies dyspnea on exertion GI Denies hematochezia and Denies change in stool character Musc Denies abnormal gait, Denies muscle cramps, Denies muscle weakness, Denies numbness, Denies radiating pain into limb and Denies tingling Neuro Denies abnormal gait, Denies dizziness, Denies syncope, Denies numbness, Denies tingling and Denies weakness Endo Denies palpitations Physical Exam Vital Signs: Last Vital Signs Pulse 78 12/28/24 13:41 BP 122/62 12/28/24 13:41 BMI result Body Mass Index 33.8 Const General: comfortable and no acute distress Orientation/consciousness: patient oriented x3 HEENT Other: Unremarkable Head: Yes normal to inspection Neck Neck: Yes normal visual inspection Chest Chest palpation & inspection: normal inspection of the chest Resp Auscultation: clear to auscultation bilaterally Cardio Palpation: normal PMI Heart sounds: S1 normal heart sound present, S2 normal heart sound present, no gallops, no murmurs and no rubs GI Palpation (GI): Soft to palpation Back/Spine/Pelvis Other: unremarkable Skin General skin exam: no rashes or lesions noted Neuro General: patient oriented x3 Extrem General: Yes normal to inspection Psych Mental Status: mental status grossly normal Assessment & Plan Assessment & Plan (1) PAF (paroxysmal atrial fibrillation): Code(s): I48.0 - Paroxysmal atrial fibrillation Category: Medical Plan: Only per patient history and [place] Remains on long-term bisoprolol. Has not been on any anticoagulation as there is only 1 episode and we do not have records of that either. No recent issues. (2) Type 2 diabetes mellitus without complications: Code(s): E11.9 - Type 2 diabetes mellitus without complications Category: Medical Qualifiers: 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 fci insulin use: unspecified fci insulin use status Qualified Code(s): E11.9 - Type 2 diabetes mellitus without complications Plan: Poor control with chronically high hemoglobin A1c levels. Most of it is more than 10%. We have discussed this many times including today about the consequence of longstanding uncontrolled diabetes. It seems there is a plan for possibly insulin pump and I encouraged him to follow-up with endocrinology. He states he will. With regard to coronary screening, underwent coronary CTA in 2022 and that did not show any significant CAD. Echocardiogram with LVEF of 60%. Slightly reduced peak global longitudinal strain. Mild increase in RV size related to weight. Otherwise unremarkable. He is well aware of the fact that poorly controlled diabetes in the long run will probably cause cardiovascular and other complications including related to eye, kidneys extra. (3) Essential hypertension: Code(s): I10 - Essential (primary) hypertension Category: Medical Plan: Seems controlled. (4) Morbid obesity: Code(s): E66.01 - Morbid (severe) obesity due to excess calories Category: Medical Plan: He needs significant weight loss. Again have discussed this many times. (5) Obstructive sleep apnea: Code(s): G47.33 - Obstructive sleep apnea (adult) (pediatric) Category: Medical Plan: Severe sleep apnea. CPAP. Coding Level of Care Code Est Pt Level 4 (50323) Diagnoses PAF (paroxysmal atrial fibrillation) I48.0 Type 2 diabetes mellitus without complication, unspecified whether terminal operations 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 use E11.9 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 terminal operations 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 use: unspecified fci insulin use status Essential hypertension I10 Morbid obesity E66.01 Obstructive sleep apnea G47.33
== END 2024-12-28 14:01 | disposition home or self-care (01) ==
PROVIDERS: PCP Family Medicine; Visit Provider Internal Medicine
DX: I48.0 Paroxysmal atrial fibrillation (principal); E11.9 Type 2 diabetes mellitus without complications; I10 Essential (primary) hypertension; E66.01 Morbid (severe) obesity due to excess calories; G47.33 Obstructive sleep apnea (adult) (pediatric)
CPT/HCPCS: 99214

== ENCOUNTER 2025-01-04 11:56 | Outpatient (AMB) | payer OTHER, SELFPAY ==
--- NOTE | 2025-01-04 12:32 | A.OFFPC_ITS ---
Vital Signs 01/04/25 12:47 Height 5 ft 11 in Weight 271 lb 4 oz BMI 37.8 BP 130/68 Blood Pressure Location Lt brachial Position Sitting Respiration 14 Pulse 69 Pulse Source Pulse Oximeter Temp 97.8 F Temp Source Oral Pulse Oximetry (%) 98 Oxygen Delivery Method Room Air Intake Visit Reasons: fmla paperwork Intake Note: pt is schedule to complete fmla paperwork and accommodation Community Fundraiser Required: No Allergies ibuprofen Adverse Reaction (Intermediate, Verified 01/04/25 12:47) GI upset Tobacco use date assessed: 08/14/24 Dental Screening Dental Screen Date: 08/14/24 HPI fmla paperwork HPI Details 49 y/o male presents today for FMLA eleazar rwork. Requesting intermittent leave for asthma, arthritis. Hx of osteoarthritis - CESARIO positive and had seen rheumatology. Last A1c 12/28/24 10.4%. [facility] Medical History Axillary lymphadenopathy Obstructive sleep apnea hypopnea, severe Obstructive sleep apnea Vitamin D deficiency Vitamin D deficiency PAF (paroxysmal atrial fibrillation) HLD (hyperlipidemia) HTN (hypertension) T2DM (type 2 diabetes mellitus) NAFLD (nonalcoholic fatty liver disease) Essential hypertension Type 2 diabetes mellitus without complications Surgical History History of esophagogastroduodenoscopy (EGD) Family History Father Diabetes Hypertension CVD (cardiovascular disease) Mother Alzheimer's dementia Other Mental health disorder Vitamin D deficiency Social History Household Members: Spouse Both parents involved: No Caregiver staying overnight: No Housing: House Are you a primary critical care rn to a significant other at home: No Do you presently have visiting nurse or other home services: No 75 years or older and lives alone: No Alcohol intake: never Patient Tobacco Use Status: Former Tobacco user e-Cigarette/Vaping Use: Never Used Second Hand Smoke Exposure: No service: No Current occupational status: employed 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 2. Feeling down, depressed, or hopeless: not at all 3. Trouble falling or staying asleep, or sleeping too much: not at all 4. Feeling tired or having little energy: not at all 5. Poor appetite or overeating: not at all 6. Feeling bad about yourself - or that you are a failure or have let yourself or your family down: not at all 7. Trouble concentrating on things, such as reading the newspaper or watching television: not at all 8. Moving or speaking so slowly that other people could have noticed. Or the opposite - being so fidgety or restless that you have been moving around a lot more than usual: not at all 9. Thoughts that you would be better off or of hurting yourself in some way: not at all Source: Developed by Drs. Robert Atkinson, Fransisca Michelle, Des Wright and colleagues, with an educational jessica from [employer]. Thrive Questionnaire Date Thrive assessed: 08/14/24 I am a: Patient What is your living situation today?: I have a steady place to live Within the past 12 months, did the food you bought not last and you didn't have the money to get more?: I choose not to answer this question Within the past 12 months, did you worry whether your food would run out before you got money to buy more?: I choose not to answer this question Do you have trouble paying for medicines?: I choose not to answer this question Do you have trouble getting transportation to medical appointments?: No Do you have trouble paying your heating and electricity bill?: No Do you have trouble taking care of your child, family member or friend?: No Do you have trouble with day-to-day activities such as bathing, preparing meals, shopping, managing finances, etc.?: No Are you currently unemployed and looking for a job?: No Are you interested in more education?: Yes Please select the resources that you would like help with: None Currently or been in a relationship where the following occur: No concerns reported THRIVE Score: 0 AUDIT C Alcohol Use Questionnaire (AUDIT-C) 1. How often do you have a drink containing alcohol?: Never Total Score: 0 LISA-7 AMB Questionnaire LISA-7 Date LISA - 7 assessed: 08/14/24 Feeling nervous, anxious, or on edge: 0 = Not at all Not being able to stop or control worryin = Not at all Worrying too much about different things: 0 = Not at all Trouble relaxin = Not at all Being so restless that it is hard to sit still: 0 = Not at all Becoming easily annoyed or irritable: 0 = Not at all Feeling afraid as if something awful might happen: 0 = Not at all Total LISA-7 score (0-4 normal; 5-9 mild; 10-14 moderate; 15-21 severe): 0 Source: Developed by Drs. Robert Atkinson, Fransisca Michelle, Des Wright and colleagues, with an educational jessica from [employer]. Physical exam (Primary Care) Vital Signs: Last Vital Signs Temp 97.8 F 01/04/25 12:47 Pulse 69 01/04/25 12:47 Resp 14 01/04/25 12:47 BP 130/68 01/04/25 12:47 Pulse Ox 98 01/04/25 12:47 Oxygen Delivery Method Room Air 01/04/25 12:47 BMI result Body Mass Index 37.8 Tobacco/Smoking Status: Tobacco use Status Tobacco use date assessed 08/14/24 01/04/25 12:33 Patient Tobacco Use Status Former Tobacco user 01/04/25 12:33 e-Cigarette/Vaping Use Never Used 01/04/25 12:33 Thrive Assessment: Date of Thrive Assessment Date Thrive assessed 08/14/24 01/04/25 12:33 Currently or been in a relationship where the following occur: No concerns reported Coding Level of Care Code Est Pt Level 5 (73488) Diagnoses Asthma J45.909 Type 2 diabetes mellitus without complication, unspecified whether detention insulin use E11.9 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 terminal operations 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 use: unspecified terminal operations 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 use status Essential hypertension I10 Polyarthralgia M25.50 Arthritis M19.90 Assessment & Plan Assessment & Plan (1) Asthma: Code(s): J45.909 - Unspecified asthma, uncomplicated Category: Medical (2) Type 2 diabetes mellitus without complications: Code(s): E11.9 - Type 2 diabetes mellitus without complications Category: Medical Qualifiers: 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 detention insulin use: unspecified terminal operations 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 use status Qualified Code(s): E11.9 - Type 2 diabetes mellitus without complications (3) Essential hypertension: Code(s): I10 - Essential (primary) hypertension Category: Medical (4) Polyarthralgia: Code(s): M25.50 - Pain in unspecified joint Category: Medical (5) Arthritis: Code(s): M19.90 - Unspecified osteoarthritis, unspecified site Category: Medical Plan Patient?with?history?of?osteoarthritis.??CESARIO?positive?but?has?seen?Rheumatology? and?they?did?not?feel?that?this?was?a?rheumatoid?arthritis. Patient?has?consistent?and?pain?swelling?and?stiffness?each?morning?requiring?me dication?and?movement?to?help?loosen?things?up?before?he?goes?work. Had?cliff led?out?paperwork?for?his?job?to?accommodate?a?later?work?time?and?they?had?requ ested?additional?information. Recommending?that?he?not?have?to?go?to?work?prior?to?830?or?08:45?each?day. Patient?also? has?longstanding?asthma?and?previously?we?had?requested?that?he?avoid?wearing?a? neck?tie?which?increases?his?difficulty?with?breathing. Continued?to?request?this?accommodation?for?him?as?well. Recent?pneumonia?has?resolved. Patient's?A1c?is?still?above?10 today. He?will?increase?Toujeo?from?72?units?b.i.d. To?75?units?b.i.d.? He?has?not?made?a?follow-up?appointment?with?endocrinology?and?I?dmitri mmended?do?so. Blood?pressure?is?controlled Work Accomodations PW filled out again today FMLA for Pneumonia filled out for continuous leave from 09/09 to 10/12/25, today also.
[2025-01-04 12:47] VITALS: BP 130/68; PULSE 69; RESP 14; TEMP 36.6; O2SAT 98; BMI 37.8
--- OUTSIDE RECORDS SUMMARY | 2025-01-04 14:10 | XMS_ITS ---
Author Organization [facility] Address [address] [place] [address] Care Team Providers Care Cell Support Operator Name Role Phone Carlos Guzman Primary Care Provider Unavailab Allen Oh Unavailable [phone] REASON FOR VISIT Vertigo, Nasal Congestion Encounters Encounter Location Date Provider Diagnosis [facility] [address] [address] 02/20/2024 Allen Barron Nasal congestion R09.81 ; [...] * Luke PICHARDODOB:[birth year] (49 yo M)Acc No.[id number]:02/20/2024 Progress Notes Patient:?Luke PICHARDO Provider:?Allen Montalvo MD :1975???Age:48 Y???Sex:Male Jeremy e:02/20/2024 Address:[address] [place], [place] [id number] Pcp:Guzman Gonzalez Subjective: * Chief Complaints: * [...] Electronic signature of Kalpesh Barron M.D. on 01/04/2025 at 02:09 PM EDT Sign off status: Pending * Provider:?Allen Montalvo MD Date:?11/2023 Generated for Clau villatoro/Amando/Lindsey on:?01/04/2025 02:09 PM EDT History and Physical Notes * [...]
--- OUTSIDE RECORDS SUMMARY | 2025-01-04 14:10 | XMS_ITS | Patient Health Record ---
Author Organization [facility] Address [address] [facility] [address]TH [place] [address] Care Team Providers Care Sas Programmer Name Role Phone Guzman Gonzalez Primary Care Provider Unavailab Allen Oh Unavailable [phone] Allergies No Known Allergies Reason For Referral [...] Problem Status W/U Status Risk Notes Problem [id number] Seasonal allergi c rhinitis due to pollen (J30.1) Active confirmed Problem [id number] Acute non-recurrent pansinusitis (J01.40) Active confirmed Plan Of Treatment No Information Insurance Providers Payer Name Payer Address Payer Phone Subscriber Number Group Number Insured Name Patient Relationship to Insured Coverage Start Date Coverage End Date [employer] [address] [place], [place] [id number] Luke Castañeda Self - patient is the insured [facility] [address] [place] [address] [id number] Lkue Castañeda Self - patient is the insured Medical (General) History Medical History History ICD Code High blood pressure diabetes Allergy to Steroids Surgical History Surgery Date(Month/Year)
== END 2025-01-04 13:39 | disposition home or self-care (01) ==
LOC: HO.HMCFM 11:57
PROVIDERS: PCP Family Medicine; Visit Provider Family Medicine
DX: J45.909 Unspecified asthma, uncomplicated (principal); E11.9 Type 2 diabetes mellitus without complications; I10 Essential (primary) hypertension; M25.50 Pain in unspecified joint; M19.90 Unspecified osteoarthritis, unspecified site

== ENCOUNTER → 2025-01-04 11:56 | Outpatient (BNVA) | payer OTHER, SELFPAY | PROVIDERS: PCP Family Medicine; Visit Provider Family Medicine ==

== ENCOUNTER → 2025-02-16 07:58 | Outpatient (BNVA) | payer OTHER, SELFPAY | PROVIDERS: PCP Family Medicine; Visit Provider Family Medicine | DX: Z13.89 Encounter for screening for other disorder (principal) ==

== ENCOUNTER 2025-03-08 08:26 | Outpatient (AMB) | payer OTHER, SELFPAY ==
--- OUTSIDE RECORDS SUMMARY | 2025-03-08 08:33 | XMS_ITS ---
Author Organization [facility] Address [address] [place] [address] Care Team Providers Care Supervisor Cutting Department Name Role Phone Carlos Guzman Primary Care Provider Unavailab Allen Oh Unavailable [phone] REASON FOR VISIT Vertigo, Nasal Congestion Encounters Encounter Location Date Provider Diagnosis [facility] [address] [address] 02/20/2024 Allen Barron Nasal congestion R09.81 ; [...] * Luke PICHARDODOB:[birth year] (49 yo M)Acc No.[id number]:02/20/2024 Progress Notes Patient:?Luke PICHARDO Provider:?Allen Montalvo MD :1975???Age:48 Y???Sex:Male Jeremy e:02/20/2024 Address:[address] [place], [place] [id number] Pcp:Guzman Gonzalez Subjective: * Chief Complaints: * [...] Electronic signature of Kalpesh Barron M.D. on 03/08/2025 at 08:33 AM EDT Sign off status: Pending * Provider:?Allen Montalvo MD Date:?11/2023 Generated for Clau villatoro/Amando/Lindsey on:?03/08/2025 08:33 AM EDT History and Physical Notes * [...]
--- OUTSIDE RECORDS SUMMARY | 2025-03-08 08:33 | XMS_ITS | Continuity of Care Document ---
Author Organization [facility] Address [address] [place] [address] [address] [place] [address] Phone Care Team Providers Care Heading Matcher And Assembler Name Role Phone Michi GORDON FACS Apollo GOMEZ Unavailable Unavailable Procedures Procedure Date Office/Oupt E&M New Pt 45 Mins 23 Duplex Scan-extrem Veins; Comp Advance Directives Directive Yes / No Effective Date File Name No Information Encounters Encounter Description Practice Location Reason(s) For Visit Diagnoses Date Provider Providers Copied on Encounter [facility], [address] [place] [address] [address], [place], [id number], tel:[phone] [facility] No Information 3 Michi GORDON FACS DAVIDT CATRACHO [place]. [address] [facility] [address], [place], [address], [place]. tel:[phone] Referring Provider: Erin Duran DPM, [address] [facility] [address] [facility], [place], [address]. tel:[phone] Office/Oupt E&M New Pt 45 Mins [facility], [address] [place] [address] [address], [place], [id number], tel:[phone] [facility] Pain in right lower legPain in left lower legLocalized edemaChronic venous hypertension (idiopathic) with other complications of bilateral lower extremityType 2 diabetes mellitus without complications Essential (primary) hypertensionF jazmyn joint, unspecified joint 3 Michi GORDON FACS Saeid [place]. [address] [place] [address], [place], [address], . tel:[phone] Referring Provider: Erin Duran DPM, [address] [place], [address]. tel:[phone] [facility], [address] [facility] [address], [place], [id number], tel:[phone] [facility] Chronic venous hypertension (idiopathic) with other complications of bilateral lower extremity 3 Michi GORDON FACS [facility] CATRACHO [place]. [address] [place] [address], [place], [address], . tel:[phone] Referring Provider: Erin Duran DPM, [address] [place], [address]. tel:[phone] Family History Family Member Type Diagnosis Age At Onset No Information Payers Payer name Insurance type Covered libertarian ID Trinidad sanches(s) [facility] CI [id number] [facility]ly [facility] CI [id number] Social History Type Description Quantity Date Captured [...]
--- NOTE | 2025-03-08 08:34 | A.OFFVIS_ITS ---
Vital Signs 03/08/25 08:35 Height 5 ft 11 in Weight 268 lb 8 oz BMI 37.4 BP 128/76 Blood Pressure Location Lt brachial Position Sitting Pulse 72 Pulse Source Pulse Oximeter Pulse Oximetry (%) 100 Oxygen Delivery Method Room Air Intake Visit Reasons: follow up KIMO Intake Note: Patient presents follow up KIMO. Compliance in chart(90/90days, >=4hrs- 81 days, Median leaks-4.2, AHI-0.8). Has not received new mask(nasal). He is also planning trip to [facility] and looking to see if he can get a travel CPAP. He also stated that he has been having discomfort waking him up. Allergies ibuprofen Adverse Reaction (Intermediate, Verified 03/08/25 08:36) GI upset HPI Comments Details: 49 y/o male with T2DM and HTN comes in for severe KIMO f/u visit. HST c/w AHI 64 and oxygen eveline was 62%. He started on CPAP at 14 cm of water. He is using it regularly, now has some issues with keeping the mask on as it is very loud. He has a nasal mask and wants to try nasal pillows, however will not have a good seal. We discussed using cpap liners and eye steam masks since his eyes have be en drying out due to the air blowing on his face at night. He says he has refreshed sleep and is not falling asleep during the day. He now has only one to two cups of caffeine per day, does not feel as if he is aggressively eating anymore as his appetite has also changed. He is motivated to lose weight and started walking daily for 15 minutes. He was referred to weight loss program by Dr. Dominguez( patient liaison). He also sees a electrical automation engineer. His PFT was c/w emphysema -used to be smoker.( not heavy social smoking ) He used to live in [facility] for 23 years - was exposed to dust. 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 [facility] Medical History Axillary lymphadenopathy Obstructive sleep apnea hypopnea, severe Obstructive sleep apnea Vitamin D deficiency Vitamin D deficiency PAF (paroxysmal atrial fibrillation) HLD (hyperlipidemia) HTN (hypertension) T2DM (type 2 diabetes mellitus) NAFLD (nonalcoholic fatty liver disease) Essential hypertension Type 2 diabetes mellitus without complications Surgical History History of esophagogastroduodenoscopy (EGD) Family History Father Diabetes Hypertension CVD (cardiovascular disease) Mother Alzheimer's dementia Other Mental health disorder Vitamin D deficiency Social History Household Members: Spouse Both parents involved: No Caregiver staying overnight: No Housing: House Are you a primary child care associate to a significant other at home: No Do you presently have visiting nurse or other home services: No 75 years or older and lives alone: No Alcohol intake: never Patient Tobacco Use Status: Former Tobacco user e-Cigarette/Vaping Use: Never Used Second Hand Smoke Exposure: No service: No Current occupational status: employed 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 Current occupational exposures/hazards: No Cognitive needs: No Hearing needs: No Vision needs: Yes (Glasses) Physical Exam Vital Signs: Last Vital Signs Pulse 72 03/08/25 08:35 BP 128/76 03/08/25 08:35 Pulse Ox 100 03/08/25 08:35 Oxygen Delivery Method Room Air 03/08/25 08:35 BMI result Body Mass Index 37.4 Const General: cooperative, comfortable and no acute distress Nutritional Appearance: obese Orientation/consciousness: patient oriented x3 HEENT Face and sinus: Yes face symmetric Eyes Pupils: Equal, round and reactive pupils present Neck Neck: Yes full ROM Resp Effort & Inspection: normal respiratory effort and able to speak in complete sentences Neuro General: patient oriented x3 and moves all extremities Cranial nerves: Yes Equal, round and reactive pupils present, Yes Normal accommodation reflex present, Yes Normal facial strength present, Yes Midline tongue present, Yes Ability to bilaterally rotate head present and Yes Ability to bilaterally elevate shoulders present Gait exam (Neuro): Normal gait present Motor exam (neuro): 5/5 motor strength present throughout and Normal motor muscle tone present throughout Psych Appearance: grossly normal Insight: Good insight present (Psych) Judgement: Good judgement present (Psych) Results Reviewed Results Reviewed: KIMO Compliance Report 11/30/2024- 02/27/2025 Usage is 90/90 days >4 hours 81 days Total hours used 5 hours and 22 min Press [id number] Leaks 4.2 median AHI is 0.1/hr Reviewed labs with patient and emphasized diet and exercise with strict glycemic control. HgA1c is elevated 20.4, Triglyderides are 291 and HDL is 25L. Assessment & Plan Assessment & Plan (1) Obstructive sleep apnea hypopnea, severe: Code(s): G47.33 - Obstructive sleep apnea (adult) (pediatric) Category: Medical (2) Polyarthralgia: Code(s): M25.50 - Pain in unspecified joint Category: Medical Plan Severe KIMO continue CPAP 14 cm of water and f[facility]. compliance stressed. Rheumatology referral for pain in hands small joints, h/o CESARIO+ Discussed weight management, with diet and exercise, encouraged to walk daily for 30 min. Labs reviewed with patient A1c is 10.4, Triglycerides are 291, HDL is 25L. F/U in 6 months or sooner as needed. Orders: Referrals Rheumatology Referral M25.50 - Pain in unspecified joint Patient Instructions: Sleep Hygiene provided: set a scheduled bedtime and wake time to help regulate the circadian rhythm and balance the release of pituitary hormones. Sleep in a dark room, temperatures below 68 degrees, and no devices n bed. Limit caffeinated products 6 hours prior to bed, and limit fluids 2-4 hours prior to bed. Gentle night yoga, diffusing essential oils, and playing soft music can be relaxing. Daily use of CPAP is emphasized,for at least 6 hours a night, daily washing of mask and tubing, replacing filters and fill the reservoir with distilled water. Coding Level of Care Code Est Pt Level 4 (60318) Diagnoses Obstructive sleep apnea hypopnea, severe G47.33 Polyarthralgia M25.50 Time Spent (min) 30
--- OUTSIDE RECORDS SUMMARY | 2025-03-08 08:34 | XMS_ITS | Patient Health Record ---
Author Organization [facility] Address [address] [facility] [address] [place] [address] Care Team Providers Care Cable Former Name Role Phone Guzman Gonzalez Primary Care Provider Unavailab Allen Oh Unavailable [phone] Allergies No Known Allergies Reason For Referral [...] Problem Status W/U Status Risk Notes Problem [id number] Seasonal allergi c rhinitis due to pollen (J30.1) Active confirmed Problem 1109027 Acute non-recurrent pansinusitis (J01.40) Active confirmed Plan Of Treatment No Information Insurance Providers Payer Name Payer Address Payer Phone Subscriber Number Group Number Insured Name Patient Relationship to Insured Coverage Start Date Coverage End Date [employer] [address] [place], [place] [id number] Luke Castañeda Self - patient is the insured [facility] [address] [place] [address] [id number] Luke Castañeda Self - patient is the insured Medical (General) History Medical History History ICD Code High blood pressure diabetes Allergy to Steroids Surgical History Surgery Date(Month/Year)
[2025-03-08 08:35] VITALS: BP 128/76; PULSE 72; O2SAT 100; BMI 37.4
== END 2025-03-08 09:25 | disposition home or self-care (01) ==
LOC: HO.HSMS 08:27
PROVIDERS: Absent Provider Physician Assistant Medical; PCP Family Medicine; Visit Provider Physician Assistant Medical
DX: G47.33 Obstructive sleep apnea (adult) (pediatric) (principal); M25.50 Pain in unspecified joint
CPT/HCPCS: 99214

== ENCOUNTER → 2025-03-08 08:26 | Outpatient (BNVA) | payer OTHER, SELFPAY | PROVIDERS: Absent Provider Physician Assistant Medical; PCP Family Medicine; Visit Provider Physician Assistant Medical | DX: R53.83 Other fatigue (principal); R40.0 Somnolence; R06.83 Snoring; R06.89 Other abnormalities of breathing; E66.9 Obesity, unspecified ==

== ENCOUNTER 2025-03-22 13:02 | Outpatient (REF) | payer OTHER, SELFPAY ==
[2025-03-22 18:23] LABS: Influenza A PCR NEGATIVE (Negative); Influenza B PCR NEGATIVE (Negative); Resp Syncy Virus RNA Qual PCR NEGATIVE (Negative); SARS COV2 PCR INHOUSE POSITIVE (Negative)
== END 2025-03-22 13:03 | disposition home or self-care (01) ==
LOC: HO.LAB 13:02
PROVIDERS: PCP Family Medicine; Visit Provider Nurse Practitioner Family
DX: U07.1 COVID-19 (principal); B34.9 Viral infection, unspecified
CPT/HCPCS: 0241U

== ENCOUNTER 2025-03-22 13:02 | Outpatient (AMB) | payer OTHER, SELFPAY ==
--- NOTE | 2025-03-22 13:04 | MHC.PC.OV ---
Vital Signs 03/22/25 13:13 Height 5 ft 11 in Weight 263 lb 2 oz BMI 36.7 BP 135/61 Blood Pressure Location Lt brachial Position Sitting Respiration 16 Pulse 75 Pulse Source Pulse Oximeter Temp 97.9 F Temp Source Oral Pulse Oximetry (%) 97 Oxygen Delivery Method Room Air Intake Visit Reasons: sinus and fever Intake Note: patient here c/o sinus and fever four days ago it all started sat Alcohol And Drug Counselor Required: No Allergies ibuprofen Adverse Reaction (Intermediate, Verified 03/22/25 13:18) GI upset Medication List - Last Reconciled 03/22/25 by Mingo Romero CNP albuterol sulfate 90 mcg/actuation (Proair Digihaler) 1 inh inhalation Q4-6H PRN 30 days albuterol sulfate 90 mcg/actuation (Ventolin HFA) 2 puffs inhalation Q4-6H PRN 30 days aspirin (Adult Aspirin Regimen) 81 mg PO DAILY 90 days atorvastatin 20 mg (2 x 10 mg) PO ONCE 90 days bisoprolol fumarate 7.5 mg (1.5 x 5 mg) PO DAILY 90 days blood sugar diagnostic (FreeStyle Lite Strips) to check the accuracy of CGM devise during high and low alarming prn as directed, up to 4 times a day blood-glucose meter (FreeStyle Lite Meter kit) to check blood sugar up to four times per day prn as directed during high and low alarms on CGM device. clotrimazole 1% 1 appl topical BID 2 weeks diclofenac sodium 1% 4 grams topical TID 15 days fenofibrate micronized 200 mg PO DAILY 90 days Fiasp FlexTouch U-100 Insulin 100 unit/mL (3 mL) (insulin aspart (niacinamide)) 60-80 units for breakfast and lunch, 80 units for supper subcutaneously use as directed NS FreeStyle Mckay 3 Sensor (blood-glucose sensor) DIRECTED CHANGED EVERY 14 DAYS NS glucose (Dex4 Glucose) 16 grams (4 x 4 gram) PO Q15M PRN 30 days MDD 16 tablets lancets (FreeStyle Lancets) to check blood sugar up to 4x daily to check accuracy of CGM during high and low alarm. lisinopril 20 mg PO DAILY 90 days miscellaneous medical supply (Blood Pressure Cuff) adult size blood pressure cuff as directed montelukast (Singulair) 10 mg PO BEDTIME pen needle, diabetic (BD Ultra-Fine Micro Pen Needle) As directed injects 4 X/day pen needle, diabetic (BD Ultra-Fine Maddie Pen Needle) USE TO INJECT 4 TIMES A DAY polyethylene glycol 3350 (Miralax) 17 grams PO DAILY rabeprazole 20 mg PO DAILY 90 days Toujeo SoloStar U-300 Insulin (insulin glargine U-300 conc) 72 units (0.24 mL) subcut BID NS Tobacco use date assessed: 03/22/25 Dental Screening Dental Screen Date: 03/22/25 Did you have a dental visit in the last 12 months?: Yes Did you have a dental problem in the last 6 months where you did not have access to dental care?: No Was dental information given to patient?: Patient has dentist HPI HPI Comments History of Present Illness Details 49-year-old male presents with complaints of irritation in his posterior nasal cavity, chills, fatigue, weakness, and generalized aches. His symptoms started started 5 days ago ago and have progressively improved. His current symptoms are fatigue, nasal congestion, cough, frontal sinus pain. He notes that his son was first to developed similar symptoms. 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 [facility], [facility] Medical History Axillary lymphadenopathy Obstructive sleep apnea hypopnea, severe Obstructive sleep apnea Vitamin D deficiency Vitamin D deficiency PAF (paroxysmal atrial fibrillation) HLD (hyperlipidemia) HTN (hypertension) T2DM (type 2 diabetes mellitus) NAFLD (nonalcoholic fatty liver disease) Essential hypertension Type 2 diabetes mellitus without complications Surgical History History of esophagogastroduodenoscopy (EGD) Family History Father Diabetes Hypertension CVD (cardiovascular disease) Mother Alzheimer's dementia Other Mental health disorder Vitamin D deficiency Social History Household Members: Spouse Both parents involved: No Caregiver staying overnight: No Housing: House Are you a primary direct care worker to a significant other at home: No Do you presently have visiting nurse or other home services: No 75 years or older and lives alone: No Alcohol intake: never Patient Tobacco Use Status: Former Tobacco user e-Cigarette/Vaping Use: Never Used Second Hand Smoke Exposure: No service: No Current occupational status: employed 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 1. Little interest or pleasure in doing things: nearly every day Source: Developed by Drs. Robert Atkinson, Des Carty and colleagues, with an educational jessica from [employer]. Thrive Questionnaire Date Thrive assessed: 01/04/25 I am a: Patient What is your living situation today?: I have a steady place to live Within the past 12 months, did the food you bought not last and you didn't have the money to get more?: I choose not to answer this question Within the past 12 months, did you worry whether your food would run out before you got money to buy more?: I choose not to answer this question Do you have trouble paying for medicines?: I choose not to answer this question Do you have trouble getting transportation to medical appointments?: No Do you have trouble paying your heating and electricity bill?: No Do you have trouble taking care of your child, family member or friend?: No Do you have trouble with day-to-day activities such as bathing, preparing meals, shopping, managing finances, etc.?: No Are you currently unemployed and looking for a job?: No Are you interested in more education?: Yes Please select the resources that you would like help with: None Currently or been in a relationship where the following occur: No concerns reported THRIVE Score: 0 LISA-7 AMB Questionnaire LISA-7 Date LISA - 7 assessed: 08/14/24 Source: Developed by Drs. Robert Atkinson, Des Carty and colleagues, with an educational jessica from [employer]. Review of Systems Const Details: Const Denies chills, Denies fatigue, Denies fever(s), Denies headache(s) and Denies weakness ENT Reports as per HPI Card Denies chest pain, Denies lightheadedness, Denies dyspnea and Denies other (Palpitations) Resp Denies cough, Denies dyspnea, Denies wheezing and Denies other ( shortness of breath) GI Denies abdominal pain, Denies melena, Denies hematochezia, Denies change in bowel habits, Denies dyspepsia and Denies nausea Denies hematuria and Denies dysuria Musc Denies abnormal gait, Denies myalgias, Denies arthralgias, Denies numbness and Denies tingling Skin/Breast Denies rash, Denies unusual bruising and Denies wounds Neuro Denies abnormal gait, Denies dizziness, Denies headache(s), Denies memory loss, Denies numbness, Denies Sensory deficit (Neuro), Denies tingling and Denies weakness Psych Denies anxiety, Denies depression, Denies memory loss Endo Denies cold intolerance, Denies fatigue, Denies heat intolerance, Denies polydipsia and Denies polyuria Aller/Immun Denies wheezing Physical exam (Primary Care) Vital Signs: Last Vital Signs Temp 97.9 F 03/22/25 13:13 Pulse 75 03/22/25 13:13 Resp 16 03/22/25 13:13 BP 135/61 03/22/25 13:13 Pulse Ox 97 03/22/25 13:13 Oxygen Delivery Method Room Air 03/22/25 13:13 BMI result Body Mass Index 36.7 Tobacco/Smoking Status: Tobacco use Status Tobacco use date assessed 03/22/25 03/22/25 13:15 Patient Tobacco Use Status Former Tobacco user 03/22/25 13:06 e-Cigarette/Vaping Use Never Used 03/22/25 13:06 Thrive Assessment: Date of Thrive Assessment Date Thrive assessed 01/04/25 03/22/25 13:06 Currently or been in a relationship where the following occur: No concerns reported Const Other: General: no acute distress and well developed Nutritional Appearance: well nourished Orientation/consciousness: patient oriented x3 HENMT Head is normocephalic Bilateral ear canal and TM are normal Nasal turbinates with moderate erythema and edema Oropharynx are pink and moist Sinuses are nontender with palpation No auricular or cervical lymphadenopathy Eyes General: appearance normal, both eyes and all related structures Pupils: Equal, round and reactive pupils present EOM: EOMs intact bilaterally Resp Effort & Inspection: normal respiratory effort Auscultation: clear to auscultation bilaterally Cardio Rate: regular rate Rhythm: regular rhythm Heart sounds: S1 normal heart sound present, S2 normal heart sound present, no gallops, no murmurs and no rubs GI Palpation (GI): No Abdominal aortic bruit present, Soft to palpation, nontender, No hepatosplenomegaly present and No Rebound tenderness present Auscultation: normal bowel sounds General: Yes no CVA tenderness Back/Spine/Pelvis Back: no CVA tenderness Cervical Spine: cervical ROM normal and No Cervical spine tenderness Thoracic/Lumbar Spine: thoraco-lumbar ROM normal, No pain with thoraco-lumbar ROM, No thoracic spinal tenderness and No lumbar spinal tenderness Extrem General: Yes normal to inspection, No edema and No calf tenderness Skin General: warm and dry. Normal skin color. Normal skin turgor Neuro General: patient oriented x3, gait normal and no focal neuro deficit Cranial nerves: Yes Equal, round and reactive pupils present Cognition (Neuro): normal cognition Gait exam (Neuro): Normal gait present Sensory Exam: No Sensory deficit (Neuro) Psych Appearance: grossly normal Affect: normal affect Attitude: cooperative Thought process: Normal thought process present Coding Level of Care Code Est Pt Level 3 (03859) Diagnoses Viral illness B34.9 Assessment & Plan Assessment & Plan (1) Viral illness: Code(s): B34.9 - Viral infection, unspecified Category: Medical Plan: Likely viral illness though possibly allergies. Superimposed sinusitis is possible Viral illness There is no antibiotic medication for viruses.? They must run their course.? Most average 5-7 days but 7-10 days is not uncommon and up to 14 days is still possible.? A cough is often the last symptom to resolve and this can last for weeks in some cases. Rest Hydrate well -? Drink plenty of fluids.? Especially water. Tylenol for muscle aches, headache, fever/discomfort Cannot rule out COVID-19/RSV/Flu infection Nasal swab acquired and will be sent to the lab Return for new or worsening symptoms Verbalized understanding and agreed with treatment plan. Orders: Orders SARS-CoV2/FLU/RSV Today B34.9 - Viral infection, unspecified Medications: New azithromycin (Zithromax Z-Cuong) For 250 mg dose pack: take 500 mg today (day 1), then 250 mg for 4 days (days 2-5) PO 6 tabs 0RF
[2025-03-22 13:13] VITALS: BP 135/61; PULSE 75; RESP 16; TEMP 36.6; O2SAT 97; BMI 36.7
--- OUTSIDE RECORDS SUMMARY | 2025-03-22 14:01 | XMS_ITS ---
Author Organization [facility] Address [address] [place] [address] Care Team Providers Care Heel Gummer Name Role Phone Carlos Guzman Primary Care Provider Unavailab Allen Oh Unavailable [phone] REASON FOR VISIT Vertigo, Nasal Congestion Encounters Encounter Location Date Provider Diagnosis [facility] [address] [address] 02/20/2024 Allen Barron Nasal congestion R09.81 ; [...] * Luke PICHARDODOB:[birth year] (49 yo M)Acc No.[id number]:02/20/2024 Progress Notes Patient:?Luke PICHARDO Provider:?Allen Montalvo MD :1975???Age:48 Y???Sex:Male Jeremy e:02/20/2024 Address:[address] [place], [place] [phone] Pcp:Guzman Gonzalez Subjective: * Chief Complaints: * [...] Electronic signature of Kalpesh Barron M.D. on 03/22/2025 at 02:00 PM EDT Sign off status: Pending * Provider:?Allen Montalvo MD Date:?11/2023 Generated for Clau villatoro/Amando/Lindsey on:?03/22/2025 02:00 PM EDT History and Physical Notes * [...]
== END 2025-03-22 13:40 | disposition home or self-care (01) ==
LOC: HO.HMCFM 13:02
PROVIDERS: PCP Family Medicine; Visit Provider Nurse Practitioner Family
DX: B34.9 Viral infection, unspecified (principal)

== ENCOUNTER 2025-04-05 09:45 | Outpatient (AMB) | payer OTHER, SELFPAY ==
--- NOTE | 2025-04-05 09:48 | MHC.PC.OV ---
Vital Signs 04/05/25 09:52 Height 5 ft 11 in Weight 267 lb 6 oz BMI 37.3 BP 146/72 H Blood Pressure Location Rt brachial Position Sitting Respiration 16 Pulse 80 Pulse Source Pulse Oximeter Temp 98.3 F Temp Source Oral Pulse Oximetry (%) 100 Oxygen Delivery Method Room Air Intake Visit Reasons: chest is burning Intake Note: patient here c/o chest feeling burning when coughing X Ray Control Equipment Repairer Required: No Allergies ibuprofen Adverse Reaction (Intermediate, Verified 04/05/25 10:08) GI upset Medication List - Last Reconciled 04/05/25 by Mingo Romero CNP albuterol sulfate 90 mcg/actuation (Proair Digihaler) 1 inh inhalation Q4-6H PRN 30 days albuterol sulfate 90 mcg/actuation (Ventolin HFA) 2 puffs inhalation Q4-6H PRN 30 days aspirin (Adult Aspirin Regimen) 81 mg PO DAILY 90 days atorvastatin 20 mg (2 x 10 mg) PO ONCE 90 days azithromycin (Zithromax Z-Cuong) For 250 mg dose pack: take 500 mg today (day 1), then 250 mg for 4 days (days 2-5) PO bisoprolol fumarate 7.5 mg (1.5 x 5 mg) PO DAILY 90 days blood sugar diagnostic (FreeStyle Lite Strips) to check the accuracy of CGM devise during high and low alarming prn as directed, up to 4 times a day blood-glucose meter (FreeStyle Lite Meter kit) to check blood sugar up to four times per day prn as directed during high and low alarms on CGM device. clotrimazole 1% 1 appl topical BID 2 weeks diclofenac sodium 1% 4 grams topical TID 15 days fenofibrate micronized 200 mg PO DAILY 90 days Fiasp FlexTouch U-100 Insulin 100 unit/mL (3 mL) (insulin aspart (niacinamide)) 60-80 units for breakfast and lunch, 80 units for supper subcutaneously use as directed NS FreeStyle Mckay 3 Sensor (blood-glucose sensor) DIRECTED CHANGED EVERY 14 DAYS NS glucose (Dex4 Glucose) 16 grams (4 x 4 gram) PO Q15M PRN 30 days MDD 16 tablets lancets (FreeStyle Lancets) to check blood sugar up to 4x daily to check accuracy of CGM during high and low alarm. lisinopril 20 mg PO DAILY 90 days miscellaneous medical supply (Blood Pressure Cuff) adult size blood pressure cuff as directed montelukast (Singulair) 10 mg PO BEDTIME nirmatrelvir-ritonavir 300 mg (150 mg x 2)-100 mg (Paxlovid) take TWO 150 mg tablets of nirmatrelvir with ONE 100 mg tablet of ritonavir twice daily for 5 days PO pen needle, diabetic (BD Ultra-Fine Micro Pen Needle) As directed injects 4 X/day pen needle, diabetic (BD Ultra-Fine Maddie Pen Needle) USE TO INJECT 4 TIMES A DAY polyethylene glycol 3350 (Miralax) 17 grams PO DAILY rabeprazole 20 mg PO DAILY 90 days Toujeo SoloStar U-300 Insulin (insulin glargine U-300 conc) 72 units (0.24 mL) subcut BID NS Tobacco use date assessed: 04/05/25 Dental Screening Dental Screen Date: 04/05/25 Did you have a dental visit in the last 12 months?: Yes Did you have a dental problem in the last 6 months where you did not have access to dental care?: No Was dental information given to patient?: Patient has dentist HPI HPI Comments History of Present Illness Details 49-year-old male presents with complaints of burning sensation to his epigastic region after coughing. He has been experiencing coughing for the past 6 months; followed by [facility] pulmonology with negative workup. He has been coughing more since his recent covid-19 diagnoses. He admits to taking rabeprazole as prescribed. He has been maintaining adequate hydration. He admits to consuming significant amount of fatty and greasy foods. He returned to work last Saturday, after being ill form COVID; however, he was sent home that they due to coughing. He thinks he will be ready to resume work next Saturday. [facility] Medical History Axillary lymphadenopathy Obstructive sleep apnea hypopnea, severe Obstructive sleep apnea Vitamin D deficiency Vitamin D deficiency PAF (paroxysmal atrial fibrillation) HLD (hyperlipidemia) HTN (hypertension) T2DM (type 2 diabetes mellitus) NAFLD (nonalcoholic fatty liver disease) Essential hypertension Type 2 diabetes mellitus without complications Surgical History History of esophagogastroduodenoscopy (EGD) Family History Father Diabetes Hypertension CVD (cardiovascular disease) Mother Alzheimer's dementia Other Mental health disorder Vitamin D deficiency Social History Household Members: Spouse Both parents involved: No Caregiver staying overnight: No Housing: House Are you a primary healthcare representative to a significant other at home: No Do you presently have visiting nurse or other home services: No 75 years or older and lives alone: No Alcohol intake: never Patient Tobacco Use Status: Former Tobacco user e-Cigarette/Vaping Use: Never Used Second Hand Smoke Exposure: No service: No Current occupational status: employed 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 Current occupational exposures/hazards: No Cognitive needs: No Hearing needs: No Vision needs: Yes (Glasses) Questionnaire Thrive Questionnaire Date Thrive assessed: 01/04/25 I am a: Patient What is your living situation today?: I have a steady place to live Within the past 12 months, did the food you bought not last and you didn't have the money to get more?: I choose not to answer this question Within the past 12 months, did you worry whether your food would run out before you got money to buy more?: I choose not to answer this question Do you have trouble paying for medicines?: I choose not to answer this question Do you have trouble getting transportation to medical appointments?: No Do you have trouble paying your heating and electricity bill?: No Do you have trouble taking care of your child, family member or friend?: No Do you have trouble with day-to-day activities such as bathing, preparing meals, shopping, managing finances, etc.?: No Are you currently unemployed and looking for a job?: No Are you interested in more education?: Yes Please select the resources that you would like help with: None Currently or been in a relationship where the following occur: No concerns reported THRIVE Score: 0 LISA-7 AMB Questionnaire LISA-7 Date LISA - 7 assessed: 08/14/24 Source: Developed by Drs. Robert Atkinson, Fransisca Michelle, Des Wright and colleagues, with an educational jessica from [employer]. Review of Systems Const Details: Const Denies chills, Denies fatigue, Denies fever(s), Denies headache(s) and Denies weakness ENT Denies dizziness and Denies headache(s) Card Denies chest pain, Denies lightheadedness, Denies dyspnea and Denies other (Palpitations) Resp Reports cough, Denies dyspnea, Denies wheezing and Denies other ( shortness of breath) GI Reports epigastric pain, Denies melena, Denies hematochezia, Denies change in bowel habits, Denies dyspepsia and Denies nausea Denies hematuria and Denies dysuria Musc Denies abnormal gait, Denies myalgias, Denies arthralgias, Denies numbness and Denies tingling Skin/Breast Denies rash, Denies unusual bruising and Denies wounds Neuro Denies abnormal gait, Denies dizziness, Denies headache(s), Denies memory loss, Denies numbness, Denies Sensory deficit (Neuro), Denies tingling and Denies weakness Psych Denies anxiety, Denies depression, Denies memory loss Endo Denies cold intolerance, Denies fatigue, Denies heat intolerance, Denies polydipsia and Denies polyuria Aller/Immun Denies wheezing Physical exam (Primary Care) Vital Signs: Last Vital Signs Temp 98.3 F 04/05/25 09:52 Pulse 80 04/05/25 09:52 Resp 16 04/05/25 09:52 BP 146/72 H 04/05/25 09:52 Pulse Ox 100 04/05/25 09:52 Oxygen Delivery Method Room Air 04/05/25 09:52 BMI result Body Mass Index 37.3 Tobacco/Smoking Status: Tobacco use Status Tobacco use date assessed 04/05/25 04/05/25 09:55 Patient Tobacco Use Status Former Tobacco user 04/05/25 09:50 e-Cigarette/Vaping Use Never Used 04/05/25 09:50 Thrive Assessment: Date of Thrive Assessment Date Thrive assessed 01/04/25 04/05/25 09:50 Currently or been in a relationship where the following occur: No concerns reported Const Other: General: no acute distress and well developed Nutritional Appearance: well nourished Orientation/consciousness: patient oriented x3 HENMT Head: Yes normocephalic and Yes atraumatic Eyes General: appearance normal, both eyes and all related structures Pupils: Equal, round and reactive pupils present EOM: EOMs intact bilaterally Resp Effort & Inspection: normal respiratory effort Auscultation: clear to auscultation bilaterally Cardio Rate: regular rate Rhythm: regular rhythm Heart sounds: S1 normal heart sound present, S2 normal heart sound present, no gallops, no murmurs and no rubs GI Palpation (GI): No Abdominal aortic bruit present, Soft to palpation, nontender, No hepatosplenomegaly present and No Rebound tenderness present Auscultation: normal bowel sounds General: Yes no CVA tenderness Back/Spine/Pelvis Back: no CVA tenderness Cervical Spine: cervical ROM normal and No Cervical spine tenderness Thoracic/Lumbar Spine: thoraco-lumbar ROM normal, No pain with thoraco-lumbar ROM, No thoracic spinal tenderness and No lumbar spinal tenderness Extrem General: Yes normal to inspection, No edema and No calf tenderness Skin General: warm and dry. Normal skin color. Normal skin turgor Neuro General: patient oriented x3, gait normal and no focal neuro deficit Cranial nerves: Yes Equal, round and reactive pupils present Cognition (Neuro): normal cognition Gait exam (Neuro): Normal gait present Sensory Exam: No Sensory deficit (Neuro) Psych Appearance: grossly normal Affect: normal affect Attitude: cooperative Thought process: Normal thought process present Coding Level of Care Code Tele Est Pt Level 5 (89648) Diagnoses Cough R05.9 GERD (gastroesophageal reflux disease) K21.9 Assessment & Plan Assessment & Plan (1) Cough: Code(s): R05.9 - Cough, unspecified Category: Medical Plan: Acute on chronic cough. Likely exacerbated due to recent COVID-19 infection. Normal physical exam. No evidence of bacterial infection. Adequate hydration encouraged. Work note given. Follow-up with worsening or new symptoms. Verbalized understanding and agreed with the plan. (2) GERD (gastroesophageal reflux disease): Code(s): K21.9 - Gastro-esophageal reflux disease without esophagitis Category: Medical Plan: Reports ongoing epigastric pain with coughing. Heart regular rate and rhythm. Lung sounds clear and equal bilaterally. Advised to avoid eating fatty or greasy food. Continue to take rabeprazole as prescribed. May take Pepto-Bismol as needed. Follow-up with worsening or new symptoms. Verbalized understanding and agreed with the plan.
[2025-04-05 09:52] VITALS: BP 146/72; PULSE 80; RESP 16; TEMP 36.8; O2SAT 100; BMI 37.3
--- OUTSIDE RECORDS SUMMARY | 2025-04-05 10:41 | XMS_ITS ---
Author Organization [facility] Address [address] [place] [id number] Care Team Providers Care Commanding Officer Traffic Division Name Role Phone Carlos Guzman Primary Care Provider Unavailab Allen Oh Unavailable [phone] REASON FOR VISIT Vertigo, Nasal Congestion Encounters Encounter Location Date Provider Diagnosis [facility] [address] [id number] 02/20/2024 Allen Barron Nasal congestion R09.81 ; [...] * Luke PICHARDODOB:[birth year] (49 yo M)Acc No.[id number]:02/20/2024 Progress Notes Patient:?Luke PICHARDO Provider:?Allen Montalvo MD :1975???Age:48 Y???Sex:Male Jeremy e:02/20/2024 Address:[address] [place], [place] [id number] Pcp:Guzman Gonzalez Subjective: * Chief Complaints: * [...] Electronic signature of Kalpesh Barron M.D. on 04/05/2025 at 10:41 AM EDT Sign off status: Pending * Provider:?Allen Montalvo MD Date:?11/2023 Generated for Clau villatoro/Amando/Lindsey on:?04/05/2025 10:41 AM EDT History and Physical Notes * [...]
== END 2025-04-05 10:26 | disposition home or self-care (01) ==
LOC: HO.HMCFM 09:46
PROVIDERS: PCP Family Medicine; Visit Provider Nurse Practitioner Family
DX: R05.9 Cough, unspecified (principal); K21.9 Gastro-esophageal reflux disease without esophagitis

== ENCOUNTER → 2025-04-05 09:45 | Outpatient (BNVA) | payer OTHER, SELFPAY | PROVIDERS: PCP Family Medicine; Visit Provider Nurse Practitioner Family ==

== ENCOUNTER 2025-04-21 08:51 | Outpatient (AMB) | payer OTHER, SELFPAY ==
--- OUTSIDE RECORDS SUMMARY | 2023-10-01 12:50 | XMS_ITS | Continuity of Care Document ---
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 [address] [facility] [address], [place], [address], [place]. tel:[phone] Referring Provider: Erin Duran DPM, [address] [facility] [address] [facility], [place], [address]. tel:[phone] Office/Oupt E&M New Pt 45 Mins [facility], [address] [place] [address] [address], [place], [id number], tel:[phone] [facility] Pain in right lower legPain in left lower legLocalized edemaChronic venous hypertension (idiopathic) with other complications of bilateral lower extremityType 2 diabetes mellitus without complications Essential (primary) hypertensionF jazmyn joint, unspecified joint 3 Michi GORDON FACS Saeid [place]h. [address] [place] [address], [place], [address], . tel:[phone] Referring Provider: Erin Duran DPM, [address] [place], [address]. tel:[phone] [facility], [address] [facility] [address], [place], [id number], tel:[phone] [facility] Chronic venous hypertension (idiopathic) with other complications of bilateral lower extremity 3 Michi GORDON FACS [facility] CATRACHO [place]. [address] [place] [address], [place], [address], . tel:[phone] Referring Provider: Erin Duran DPM, [address] [place], [address]. tel:[phone] Family History Family Member Type Diagnosis Age At Onset No Information Payers Payer name Insurance type Covered green party ID Trinidad sanches(s) [facility] CI [id number] [facility] CI [id number] Social History Type Description Quantity Date Captured [...] Information Instructions Date Instruction Additional Infor mation Patient education booklet given Related to Pain in right lower leg Pre and post instruc tions reviewed and provided Related to Pain in right lower leg Diet education Related to Body mass index (BMI) 35.0-35.9, adult Giving Encouragement to exercise Related to Body mass index (BMI) 35.0-35.9, adult Lifestyle education Related to B pérez mass index (BMI) 35.0-35.9, adult Assessments Type Assessment Date No Information Patient Care Teams Name Effective Dates (start - stop) Status Members No Information
--- OUTSIDE RECORDS SUMMARY | 2024-02-20 11:15 | XMS_ITS ---
Author Organization [facility] Address [address] [place] [phone] Care Team Providers Care Respite Worker Name Role Phone Carlos Guzman Primary Care Provider Unavailab Allen Oh Unavailable [phone] REASON FOR VISIT Vertigo, Nasal Congestion Encounters Encounter Location Date Provider Diagnosis [facility] [address] [address] 02/20/2024 Allen Waggoner'Brien Nasal congestion R09.81 ; [...] * Luke PICHARDODOB:[birth year] (49 yo M)Acc No.[id number]:02/20/2024 Progress Notes Patient: Luke MCDONALD Provider: Everett Montalvo MD :1975 A ge:48 Y S ex:Male Date:02/20/2024 Address:[address] [place], [place] [id number] Pcp:Guzman Gonzalez Subjective: * Chief Complaints: * [...] Electronic signature of Kalpesh Barron M.D. on 04/21/2025 at 08:59 AM EDT Sign off status: Pending * Provider: Everett Montalvo MD Date: 0 02/20/2024 Generated for Clau villatoro/Amando/Luluitting on: 0 04/21/2025 08:59 AM EDT History and Physical Notes * [...]
[2025-04-21 09:02] VITALS: BP 132/72; PULSE 74; O2SAT 97; BMI 37.2
--- NOTE | 2025-04-21 09:02 | A.OFFVIS_ITS ---
Vital Signs 04/21/25 09:02 Height 5 ft 11 in Weight 266 lb 12.149 oz BMI 37.2 BP 132/72 Blood Pressure Location Rt brachial Position Sitting Pulse 74 Pulse Source Pulse Oximeter Pulse Oximetry (%) 97 Oxygen Delivery Method Room Air Intake Visit Reasons: T2DM Intake Note: Patient presents today for a follow-up on Type 2 Diabetes Mellitus: Last Diabetic eye exam was on: DUE Last Podiatry exam was on: Patient does not see a Woodworker Helper Most recent HbA1c: 9.7%, 04/21/2025 Random Glucose: 205 mg/dL Business Development Assistant Required: No Allergies ibuprofen Adverse Reaction (Intermediate, Verified 04/05/25 10:08) GI upset HPI Comments Details: Patient is a 49-year-old male with DM type 2 who presents for management of diabetes. Past medical history: Diabetes type 2, hyperlipidemia, hypertension, CAD vitamin-D deficency Micro and macrovascular complications: Nephropathy,a-fib , retinopathy Diabetes medications: Toujeo taking 80 units BID . Tells me he skips one of the doses if his glucose is lower Novolog 80u breakfast and lunch 90 units with dinner. He was missing a lot of doses but for the past few weeks has not He was unable to tolerate metformin due to GI distress. He was unable to tolerate Jardiance due to polyuria and due to yeast infection .History of pancreatitis. Previously discussed U-500 insulin, insulin pump. He has been hesitant. He is interested in iLet A1C is 9.7% CGM: In the past 2 weeks GMI 9.2%, TGT 22% high 32%, very high 46%. 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 HEENT: Denies changes in vision and hearing. RESPIRATORY: Denies SOB and cough. CV: Denies palpitations and CP GI: Denies abdominal pain, nausea, vomiting and diarrhea. : Denies dysuria and urinary frequency. MSK: Denies new myalgia and joint pain. SKIN: Denies rash and pruritus. NEUROLOGICAL: Denies headache PSYCHIATRIC: Denies recent changes in mood. PHYSICAL EXAM: GENERAL: Alert and oriented x 3. NAD EYES: EOMI. Anicteric. HENT: Moist mucous membranes. No scleral icterus. No cervical lymphadenopathy. LUNGS: Clear to auscultation bilaterally. CARDIOVASCULAR: Regular rate and rhythm. No murmur. No JVD. ABDOMEN: Soft, non-tender +bs EXTREMITIES: No edema. Non-tender. SKIN: No rashes or lesions. Warm. NEUROLOGIC: No focal neurological deficits. CN II-XII grossly intact PSYCHIATRIC: Cooperative. Appropriate mood and affect [facility] Medical History Axillary lymphadenopathy Obstructive sleep apnea hypopnea, severe Obstructive sleep apnea Vitamin D deficiency Vitamin D deficiency PAF (paroxysmal atrial fibrillation) HLD (hyperlipidemia) HTN (hypertension) T2DM (type 2 diabetes mellitus) NAFLD (nonalcoholic fatty liver disease) Essential hypertension Type 2 diabetes mellitus without complications Surgical History History of esophagogastroduodenoscopy (EGD) Family History Father Diabetes Hypertension CVD (cardiovascular disease) Mother Alzheimer's dementia Other Mental health disorder Vitamin D deficiency Social History Household Members: Spouse Both parents involved: No Caregiver staying overnight: No Housing: House Are you a primary palliative care physician to a significant other at home: No Do you presently have visiting nurse or other home services: No 75 years or older and lives alone: No Alcohol intake: never Patient Tobacco Use Status: Former Tobacco user e-Cigarette/Vaping Use: Never Used Second Hand Smoke Exposure: No service: No Current occupational status: employed 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 Current occupational exposures/hazards: No Cognitive needs: No Hearing needs: No Vision needs: Yes (Glasses) Physical Exam Vital Signs: Last Vital Signs Pulse 74 04/21/25 09:02 BP 132/72 04/21/25 09:02 Pulse Ox 97 04/21/25 09:02 Oxygen Delivery Method Room Air 04/21/25 09:02 BMI result Body Mass Index 37.2 Results AMB Hemoglobin A1c AMB Hemoglobin A1c 9.7 % Last Edit by REY Anton on 04/21/25 09:15 Assessment & Plan Assessment & Plan (1) Type 2 diabetes mellitus without complications: Code(s): E11.9 - Type 2 diabetes mellitus without complications Category: Medical Qualifiers: 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 detention insulin use: unspecified detention insulin use status Qualified Code(s): E11.9 - Type 2 diabetes mellitus without complications (2) Insulin use (long-term) in type 2 diabetes: Code(s): E11.9 - Type 2 diabetes mellitus without complications; Z79.4 - MCFP (current) use of insulin Category: Medical Qualifiers: 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 complication status: with hyperglycemia Qualified Code(s): E11.65 - Type 2 diabetes mellitus with hyperglycemia; Z79.4 - 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 Plan Type 2 diabetes is poorly controlled Discussed the need to take 100% of medications for proper dose adjustments He is interested in iLET-I will have him see Rita to discuss Orders: Orders Magnesium Today Z86.19 - Personal history of other infectious and parasitic diseases Vitamin B12 and Folate Today Z86.19 - Personal history of other infectious and parasitic diseases AMB Hemoglobin A1c Today E11.9 - Type 2 diabetes mellitus without complications Vitamin B1 Today Z86.19 - Personal history of other infectious and parasitic diseases Vitamin B6 Today Z86.19 - Personal history of other infectious and parasitic diseases Vitamin D 25-OH (D2 and D3) Today Z86.19 - Personal history of other infectious and parasitic diseases Medications: New insulin aspart U-100 (Novolog FlexPen U-100 Insulin aspart) 90 units (0.9 mL) subcut TIDWMEAL 243 mL 3RF 90 days Discontinued Fiasp FlexTouch U-100 Insulin 100 unit/mL (3 mL) (insulin aspart (niacinamide)) Discontinued Reason: Doctor's Order 60-80 units for breakfast and lunch, 80 units for supper subcutaneously use as directed 100 mL 3RF NS E11.65 - Type 2 diabetes mellitus with hyperglycemia Coding Level of Care Code Est Pt Level 4 (47310) Diagnoses Type 2 diabetes mellitus without complication, unspecified whether director long term care insulin use E11.9 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 director long term care insulin use: unspecified detention insulin use status Type 2 diabetes mellitus with hyperglycemia, with long-term current use of insulin E11.65; Z79.4 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 complication status: with hyperglycemia
[2025-04-21 09:12] LABS: Glucose, Whole Blood 205 mg/dL (60-115)
== END 2025-04-21 09:34 | disposition home or self-care (01) ==
LOC: HO.ENCR 08:52
PROVIDERS: PCP Family Medicine; Visit Provider Internal Medicine
DX: E11.9 Type 2 diabetes mellitus without complications (principal); E11.65 Type 2 diabetes mellitus with hyperglycemia; Z79.4 Long term (current) use of insulin

== ENCOUNTER → 2025-04-21 08:51 | Outpatient (BNVA) | payer OTHER, SELFPAY | PROVIDERS: PCP Family Medicine; Visit Provider Internal Medicine | DX: E11.65 Type 2 diabetes mellitus with hyperglycemia (principal) | CPT/HCPCS: 82947; 83036 ==

== ENCOUNTER 2025-06-28 13:17 | Outpatient (AMB) | payer OTHER, SELFPAY ==
--- OUTSIDE RECORDS SUMMARY | 2024-02-20 11:15 | XMS_ITS ---
Author Organization [facility] Address [address] [place] [phone] Care Team Providers Care Plush Finisher Name Role Phone Carlos Guzman Primary Care Provider Unavailab Allen Oh Unavailable [phone] REASON FOR VISIT Vertigo, Nasal Congestion Encounters Encounter Location Date Provider Diagnosis [facility] [address] [address] 02/20/2024 Allen Waggoner'Brien Nasal congestion R09.81 ; [...] * Luke PICHARDODOB:[birth year] (49 yo M)Acc No.[id number]:02/20/2024 Progress Notes Patient: Luke MCDONALD Provider: Everett Montalvo MD :1975 A ge:48 Y S ex:Male Date:02/20/2024 Address:[address] [place], [place] [id number] Pcp:Guzman Gonzalez Subjective: * Chief Complaints: * [...] Electronic signature of Kalpesh Barron M.D. on 06/28/2025 at 03:36 PM EDT Sign off status: Pending * Provider: Everett Montalvo MD Date: 0 02/20/2024 Generated for Clau villatoro/Amando/eTantoinesmitting on: 0 06/28/2025 03:36 PM EDT History and Physical Notes * Physical [...]
--- NOTE | 2025-06-28 13:26 | A.OFFVIS_ITS ---
Vital Signs 06/28/25 13:34 Height 5 ft 11 in Weight 268 lb 15.423 oz BMI 37.5 BP 144/61 H Blood Pressure Location Lt brachial Position Sitting Pulse 73 Intake Visit Reasons: 6 mo Intake Note: Luke presents in the office as a 6 month follow up. CC: Sometimes he has discomfort and has a tight bloating in his stomach. Manager Online Required: No Allergies ibuprofen Adverse Reaction (Intermediate, Verified 06/28/25 13:35) GI upset HPI HPI 6 mo: Details: 49 yr old being seen for f/u RECAP: He does have hx of fatty liver he has been having episodes of RUQ pain, on and off, and has had tests incl MRI at [facility] which apparently was negative for gallstones He has had x2-3 attacks and each lasting about 3 weeks or so it is colicky in nature when he has the pain, food can make it worse not had the pain for 2 months can have abdominal distention he takes PPi for GERD denies diarrhea or constipation BNP was neg 05/2022 CXR: 02/2022---nml US 10/2021- fatty liver, no gallstones (LFt were normal) CT 11/2021- ?few calcifications seen but beyond ampulla of vater --personally reviewed MRCP 2020--[facility] --negative MRCP - enlarged fatty liver , nml GB and pancreas INTERIM: He is doing well with KIMO treatment he has some bloating gerd is controlled with ppi denies rectal bleeding no nausea or vomiting EXAM: GENERAL: The patient is well developed and nontoxic, obese VITAL SIGNS:see workflow HEENT: Nonicteric sclerae, PERRLA, EOMI. Oropharynx clear. Moist mucous membranes. Conjunctivae appear well perfused. No thyroid mass. CHEST: Chest wall is nontender. HEART: Regular rate and rhythm without murmurs. LUNGS: Clear to auscultation bilaterally. ABDOMEN: Soft, positive bowel sounds, vague tenderness ruq and right lower chest wall, no organomegaly.no flank tenderness SKIN: No rash, no excessive bruising, petechiae, or purpura. NEUROLOGIC: Cranial nerves II-XII intact without motor/sensory deficit. no raised JVD or leg edema MS: nml a/P: 1/ fatty liver 2/ gas sx PLAN: 1/ cont with PPI, he is doing cologuard 2/ advised to increase physical activity, cut down carbs rhonda chappatis, more fruit in diet PFSH Medical History Axillary lymphadenopathy Obstructive sleep apnea hypopnea, severe Obstructive sleep apnea Vitamin D deficiency Vitamin D deficiency PAF (paroxysmal atrial fibrillation) HLD (hyperlipidemia) HTN (hypertension) T2DM (type 2 diabetes mellitus) NAFLD (nonalcoholic fatty liver disease) Essential hypertension Type 2 diabetes mellitus without complications Surgical History History of esophagogastroduodenoscopy (EGD) Family History Father Diabetes Hypertension CVD (cardiovascular disease) Mother Alzheimer's dementia Other Mental health disorder Vitamin D deficiency Social History Household Members: Spouse Both parents involved: No Caregiver staying overnight: No Housing: House Are you a primary animal care worker to a significant other at home: No Do you presently have visiting nurse or other home services: No 75 years or older and lives alone: No Alcohol intake: never Patient Tobacco Use Status: Former Tobacco user e-Cigarette/Vaping Use: Never Used Second Hand Smoke Exposure: No service: No Current occupational status: employed 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
[2025-06-28 13:34] VITALS: BP 144/61; PULSE 73; BMI 37.5
--- OUTSIDE RECORDS SUMMARY | 2025-06-28 15:36 | XMS_ITS | Encounter Summary ---
Author Organization [facility] Address [address] [place] [id number] Phone Care Team Providers Care Granite Polisher Name Role Phone Guzman Gonzalez MD Primary Care Provider Encounter Details Date Type Department Care Team (Late Contact Info) Description 05/21/2024 Transcribe Orders Virtual Department [address] [place] [address] Terri Salgado NP [address] [place] [address] [place] [address] Social History Tobacco Use Types Packs/Day Years Used Date Smoking Tobacco: Former Smokeless Tobacco: Never Alcohol Use Standard Drinks/Week Comments Not Currently 0 (1 standard drink = 0.6 oz pur e alcohol) Education Answer Date Recorded Are you interested in more education? Not on cliff e 02/16/2023 Are you concerned about learning? Not on file 02/16/2023 No 02/16/2023 No 02/16/2023 Digital Access Answer Date Recorded No 03/19/2023 No 03/19/2023 Reliable internet access at home? Not on file 03/19/2023 Device with a working camera? Not on file Sex and Gender Information Value Date Recorded Sex Assigned at Male 12/30/2021 3:55 PM EST Legal Sex Male 1:20 PM EDT Gender Identity Not on file Sexual Orientation Not on file documented as of this encounter Plan of Treatment Upcoming Encounters Date Type Department Care Team (Late Contact Info) Description 08/25/2025 11:00 AM EST Office Visit [facility] [place] [address] [place] [address] Lonnie Barriga MD, PhD [address] [facility] [place] [address] [email or web address] as of this encounter Visit Diagnoses Not on filedocumented in this encounter Care Teams Granite Polisher Relationship Specialty Start Date End Date Guzman Gonzalez MD [address] [place] [id number] PCP - General Family Medicine 03/30/22 documented as of this encounter Additional Source Comments The information contained in this document represents components of the legal health record. It is not the complete legal health record.[facility]
--- OUTSIDE RECORDS SUMMARY | 2025-06-28 15:36 | XMS_ITS | Patient Health Record ---
Author Organization [facility] Address [address] [facility] [address] [place] [address] Care Team Providers Care Steam Station Supervisor Name Role Phone Guzman Gonzalez Primary Care Provider Unavailab Allen Oh Unavailable [phone] Allergies No Known Allergies Reason For Referral No Information Medications Medication SIG (Take, Route, Frequency, Duration) Notes Start Date End Date Status Atorvastatin Calcium 10 MG 1 tab(s) oral ly once a day; Duration: 30 day(s) Active Aspirin 81 MG 1 tab(s) orally once a day; Duration: 30 day(s) Active NovoLOG FlexPen 100 UNIT/ML as directed subcutaneously 3 times a day (before meals); Duration: 30 Active KLS Aller-Yazmin 10 MG ; Duration: 90 Active Lisinopril 5 MG 1 tab(s) orally once a day; Duration: 30 day(s) Active Toujeo SoloStar 300 UNIT/ML as directed subcutaneously once a day Active levoFLOXacin 750 MG 1 tab(s) orally ever y 24 hours; Duration: 10 day(s) Active Bisoprolol Fumarate 5 MG 1 tab(s) orally once a day; Duration: 30 day(s) Active Ventolin HFA 108 (90 Base) MCG/ACT INHALE 2 PUFFS BY MOUTH EVERY 4 TO 6 HOURS NEEDED FOR COUGH, WHEEZING, OR SHORTNESS OF BREATH; Duration: 17 Active Pseudoephedrine HCl ER 120 MG 1 tab(s) orally every 12 hours 03/15/2022 Active Fenofibrate 67 MG 1 cap(s) orally once a day; Duration: 30 day(s) Active Social History Tobacco Use: [...] Problem Status W/U Status Risk Notes Problem Allergic rhinitis caused by pollen (21695566) Seasonal allergic rhinitis due to pollen (J30.1) Active confirmed Problem Acute pansinusitis (8229481) Acute non-recurrent pansinusitis (J01.40) Active confirmed Plan Of Treatment No Information Insurance Providers Payer Name Payer Address Payer Phone Subscriber Number Group Number Insured Name Patient Relationship to Insured Coverage Start Date Coverage End Date [employer]-PPO [address] [place], [place] [id number] Luke Castañeda Self - patient is the insured [facility] [address] [place] [phone] [id number] Luke Castañeda Self - patient is the insured Medical (General) History Medical History History ICD Code High blood pressure diabetes Allergy to Steroids Surgical History Surgery Date(Month/Year)
--- OUTSIDE RECORDS SUMMARY | 2025-06-28 15:36 | XMS_ITS | Clinical Summary ---
Author Organization [facility] Address [address] [place] [id number] Phone Care Team Providers Care Hand Stonecutter Name Role Phone Guzman Gonzalez MD Primary Care Provider Allergies Active Allergy Reactions Criticality Noted Date Comments Ibuprofen 06/22/2022 Medications atorvastatin (LIPITOR) 10 MG tablet 2 Active fenofibrate micronized (LOFIBRA) 200 mg capsule 2 Active FREESTYLE JENNIFER 2 SENSOR Kit 2 Active NOVOLOG FLEXPEN U-100 INSULIN 100 unit/mL (3 mL) flexpen 2 Active TOUJEO SOLOSTAR U-300 INSULIN 300 unit/mL (1.5 mL) injection pen 2 Active lisinopril (PRINIVIL,ZESTRIL) 5 MG tablet 2 Active RABEprazole (ACIPHEX) 20 mg tablet Take 20 mg by mouth every morning. 2 Active bisoprolol (ZEBETA) 5 MG tablet Take 7.5 mg by mouth daily. 2 Active carboxymethylcellul ose (THERATEARS) 1 % DpGeIndications:Chr onic dryness of both eyes Place 1 drop into each eye 3 (three) times a day as needed. 28 each 2 2 Active hypromellose (ARTIFICIAL TEARS,[id number], ) Drop Place 1 drop into each eye as needed. 30 mL 12 2 Active hypromellose (ARTIFICIAL TEARS,VBOF61-ZRQCR, ) Drop Place 1 drop into each eye as needed. 15 mL 10 2 Active hydroxypropyl methylcellulose (GENTEAL SEVERE) 0.3 % Gel Place 1 drop into each eye every 12 (twelve) hours as needed. 10 mL 2 Active FREESTYLE JENNIFER 3 SENSOR Lynn DIRECTED CHANGED EVERY 14 DAYS Active meclizine (ANTIVERT) 25 mg tablet Take 25 mg by mouth 3 (three) times a day. 4 Active Active Problems No known active problems Encounters Date Type Department Care Team Description 05/19/2025 10:40 AM EDT Office Visit [facility] [address] [place] [address] Lonnie Barriga MD, PhD TALENT COORDINATOR (central serous retinopathy), bilateral (Primary Dx); Both eyes affected by mild nonproliferative diabetic retinopathy with macular edema, associated with type 2 diabetes mellitus; Nuclear sclerotic cataract, bilateral; NAION (non-arteritic anterior ischemic optic neuropathy), right eye from Last 3 Months Social History Tobacco Use Types Packs/Day Years [...] on file Sexual Orientation Not on file Last Filed Vital Signs Vital Sign Reading Time Taken Comments Blood Pressure 138/68 01/02/2022 2:42 PM EDT Pulse 77 01/02/2022 2:42 PM EDT Temperature - - Respiratory Rate 16 01/02/2022 2:42 PM EDT Oxygen Saturation - - Inhaled Oxygen Concentration - - Weight - - Height - - Body Mass Index - - Plan of Treatment Upcoming Encounters Date Type Department Care Team (Late st Contact Info) Description 08/25/2025 11:00 AM EST Office Visit [facility] [place] [address] [place] [address] Lonnie Barriga MD, PhD [address] [facility] [place] [address] [email or web address] Health Maintenance Due Date Last Done Comments Adult Td,Tdap Booster 1974 BLOOD PRESSURE 1974 CREATININE LEVEL 1974 HEMOGLOBIN A1C 1974 POTASSIUM LEVEL 1974 DEPRESSION SCREENING 1986 SMOKING Hx and SMOKELESS TOBACCO SCREENING 12/22/1987 HEPATITIS C SCREENING 1992 HIV ONE-TIME SCREENING (18-65 YEARS) 1992 COLOGUARD 12/22/2019 COLONOSCOPY 12/22/2019 COLORECTAL CANCER SCREENING 12/22/2019 FIT TEST 12/22/2019 FOBT 12/22/2019 SIGMOIDOSCOPY 12/22/2019 VIRTUAL COLONOSCOPY 12/22/2019 PNEUMOCOCCAL VACCINES (50+ years) (2 of 2 - PCV) 09/30/2021 09/30/2020 ZOSTER VACCINES (1 of 2) 2024 INFLUENZA VACCINE (#1) 2025 09/30/2020 COVID-19 VACCINE (3 - season) 2025 02/23/2021, 02/02/2021 DIABETIC EYE EXAM 05/19/2026 05/19/2025, , 05/19/2025, Additional history exists HEPATITIS A VACCINES Aged Out No long er eligible based on patient's age to complete this topic HIB VACCINES Aged Out No longer eligi ble based on patient's age to complete this topic MENINGOCOCCAL VACCINES (ACWY) Aged Out No longer eligible based on patient's age to complete this topic MENINGOCOCCAL VACCINES (B) Aged Out N o longer eligible based on patient's age to complete this topic Medical Devices Not on file Procedures Procedure Name Priority Date/Time Associated Diagnosis Comments OCT, RETINA - OU - BOTH EYES Routine 05/19/2025 11:34 AM EDT TALENT COORDINATOR (central serous retinopathy), bilateral AUTOFLUORESCENCE - OU - BOTH EYES Routine 05/19/2025 11:34 AM EDT TALENT COORDINATOR (central serous retinopathy), bilateral COLOR FUNDUS PHOTOGRAPHY - OU - BOTH EYES Routine 05/19/2025 11:34 AM EDT TALENT COORDINATOR (central serous retinopathy), bilateral from Last 3 Months Results * OCT, RETINA - OU - BOTH EYES - [place] (05/19/2025 11:34 AM EDT) Narrative HORACIO - 05/19/2025 11:50 AM EDT OD: Patch of outer-retinal atrophy temporal to fovea, small PED nasal macula near disc. Outer-retinal layers changes. Hyaloid down. Stable. OS: +VMA, ME mildly worse. exudates and Mas. Hyaloid down. Lonnie Barriga MD, PhD OPHTHALMOLOGY IMAGING F inal Result SCOTTY * Autofluorescence - OU - Both Eyes (05/19/2025 11:34 AM EDT) Anatomical Region Laterality Modality Head Optical Coherenc e Tomography Narrative 05/19/2025 11:50 AM EDT OU: scattered hypoAF corresponding to previous laser scars and hemorrhages OD: hyperAF extending from nerve inferotemporally us Lonnie Barriga MD, PhD OPHTHALMOLOGY IMAGING F inal Result * Color Fundus Photography - OU - Both Eyes (05/19/2025 11:34 AM EDT) Anatomical Region Laterality Modality Head Photography Narrative 05/19/2025 11:50 AM EDT OD: Several focal hyperpigmented scars in the macula and along inferior arcade. Intraretinal hemorrhages in macula and periphery. CWS OS: Multiple DBH/MAs throughout the inferotemporal macula. Macular exudates. CWS. Stable vessel change on Optic nerve OS. (?o sl more?) Result [facility] Lonnie Barriga MD, PhD OPHTHALMOLOGY IMAGING F inal Result from Last 3 Months Insurance AETNA O POS EPO AETNA O POS EPO AETNA O POS EPO AETNA O POS EPO AETNA O POS EPO AETNA O POS EPO AETNA HMO POS EPO AETNA O POS EPO AETNA HMO POS EPO Care Teams Hand Stonecutter Relationship Specialty Start Date End Date Guzman Gonzalez MD [address] [place] [address] PCP - General Family Medicine 03/30/22 Additional Source Comments The information contained in this document represents components of the legal health record. It is not the complete legal health record.[facility]
== END 2025-06-28 13:59 | disposition home or self-care (01) ==
LOC: HO.HGI 13:18
PROVIDERS: PCP Family Medicine; Visit Provider Internal Medicine Gastroenterology
DX: K76.0 Fatty (change of) liver, not elsewhere classified (principal)
CPT/HCPCS: 99213

== ENCOUNTER → 2025-06-28 13:17 | Outpatient (BNVA) | payer OTHER, SELFPAY | PROVIDERS: PCP Family Medicine; Visit Provider Internal Medicine Gastroenterology | DX: I48.0 Paroxysmal atrial fibrillation (principal) | CPT/HCPCS: 93005 ==

== ENCOUNTER 2025-06-28 14:01 | Outpatient (AMB) | payer OTHER, SELFPAY ==
[2025-06-28 14:35] VITALS: BP 138/78; PULSE 71; BMI 37.5
--- NOTE | 2025-06-28 14:35 | A.OFFVIS_ITS ---
Vital Signs 06/28/25 14:35 Height 5 ft 11 in Weight 268 lb 15.423 oz BMI 37.5 BP 138/78 Blood Pressure Location Rt brachial Position Sitting Pulse 71 Pulse Source Monitor Intake Visit Reasons: 6 mth f/up Allergies ibuprofen Adverse Reaction (Intermediate, Verified 06/28/25 13:35) GI upset Medication List - Last Reconciled 06/28/25 by Marty Dominguez MD albuterol sulfate 90 mcg/actuation (Proair Digihaler) 1 inh inhalation Q4-6H PRN 30 days albuterol sulfate 90 mcg/actuation (Ventolin HFA) 2 puffs inhalation Q4-6H PRN 30 days aspirin (Adult Aspirin Regimen) 81 mg PO DAILY 90 days atorvastatin 20 mg (2 x 10 mg) PO ONCE 90 days bisoprolol fumarate 7.5 mg PO DAILY blood sugar diagnostic (FreeStyle Lite Strips) to check the accuracy of CGM devise during high and low alarming prn as directed, up to 4 times a day blood-glucose meter (FreeStyle Lite Meter kit) to check blood sugar up to four times per day prn as directed during high and low alarms on CGM device. clotrimazole 1% 1 appl topical BID 2 weeks diclofenac sodium 1% 4 grams topical TID 15 days fenofibrate micronized 200 mg PO DAILY 90 days FreeStyle Mckay 3 Sensor (blood-glucose sensor) DIRECTED CHANGED EVERY 14 DAYS NS glucose (Dex4 Glucose) 16 grams (4 x 4 gram) PO Q15M PRN 30 days MDD 16 tablets insulin aspart U-100 (Novolog FlexPen U-100 Insulin aspart) 90 units (0.9 mL) subcut TIDWMEAL 90 days lancets (FreeStyle Lancets) to check blood sugar up to 4x daily to check accuracy of CGM during high and low alarm. lisinopril 20 mg PO DAILY 90 days miscellaneous medical supply (Blood Pressure Cuff) adult size blood pressure cuff as directed montelukast (Singulair) 10 mg PO BEDTIME pen needle, diabetic (BD Ultra-Fine Micro Pen Needle) As directed injects 4 X/d ay pen needle, diabetic (BD Ultra-Fine Maddie Pen Needle) USE TO INJECT 4 TIMES A DAY rabeprazole 20 mg PO DAILY 90 days Toujeo SoloStar U-300 Insulin (insulin glargine U-300 conc) 72 units (0.24 mL) subcut BID NS HPI Comments Details: Luke returns for follow up regarding his various concerns. To recall, he used to live in [facility] [place]. Per patient, at that time he was diagnosed with the atrial fibrillation-around 2015 or so. Then put on bisoprolol. However, not put on anticoagulation. It seems that there was just an isolated episode. We do not have any records from that time. In Holter monitoring here, he did not have any recurrences. Various risk factors including obesity, uncontrolled diabetes, hypertension, obstructive sleep apnea. He is generally feeling okay from cardiac and does not have any new concerns. No angina. [facility] Medical History Axillary lymphadenopathy Obstructive sleep apnea hypopnea, severe Obstructive sleep apnea Vitamin D deficiency Vitamin D deficiency PAF (paroxysmal atrial fibrillation) HLD (hyperlipidemia) HTN (hypertension) T2DM (type 2 diabetes mellitus) NAFLD (nonalcoholic fatty liver disease) Essential hypertension Type 2 diabetes mellitus without complications Surgical History History of esophagogastroduodenoscopy (EGD) Family History Father Diabetes Hypertension CVD (cardiovascular disease) Mother Alzheimer's dementia Other Mental health disorder Vitamin D deficiency Social History Household Members: Spouse Both parents involved: No Caregiver staying overnight: No Housing: House Are you a primary critical care educator to a significant other at home: No Do you presently have visiting nurse or other home services: No 75 years or older and lives alone: No Alcohol intake: never Patient Tobacco Use Status: Former Tobacco user e-Cigarette/Vaping Use: Never Used Second Hand Smoke Exposure: No service: No Current occupational status: employed 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 Current occupational exposures/hazards: No Cognitive needs: No Hearing needs: No Vision needs: Yes (Glasses) Review of Systems Const Denies weakness ENT Denies dizziness Card Denies chest pain, Denies chest pain with activity, Denies syncope, Denies rapid heart rate, Denies pedal edema, Denies edema, Denies leg edema, Denies lightheadedness, Reports palpitations, Reports dyspnea, Reports dyspnea on exertion and Denies orthopnea Resp Denies cough, Reports dyspnea and Reports dyspnea on exertion GI Denies hematochezia and Denies change in stool character Musc Denies abnormal gait, Denies muscle cramps, Denies muscle weakness, Denies numbness, Denies radiating pain into limb and Denies tingling Neuro Denies abnormal gait, Denies dizziness, Denies syncope, Denies numbness, Denies tingling and Denies weakness Endo Reports palpitations Physical Exam Vital Signs: Last Vital Signs Pulse 71 06/28/25 14:35 BP 138/78 06/28/25 14:35 BMI result Body Mass Index 37.5 Const General: comfortable and no acute distress Orientation/consciousness: patient oriented x3 HEENT Other: Unremarkable Head: Yes normal to inspection Neck Neck: Yes normal visual inspection Chest Chest palpation & inspection: normal inspection of the chest Resp Auscultation: clear to auscultation bilaterally Cardio Palpation: normal PMI Heart sounds: S1 normal heart sound present, S2 normal heart sound present, no gallops, no murmurs and no rubs GI Palpation (GI): Soft to palpation Back/Spine/Pelvis Other: unremarkable Skin General skin exam: no rashes or lesions noted Neuro General: patient oriented x3 Extrem General: Yes normal to inspection Psych Mental Status: mental status grossly normal Office Procedures EKG Details: EKG with underlying sinus rhythm at 71/Min; rightward axis; poor R-wave progression across the precordial leads likely from body habitus; [place] [address]-[id number], Complete Assessment & Plan Assessment & Plan (1) PAF (paroxysmal atrial fibrillation): Code(s): I48.0 - Paroxysmal atrial fibrillation Category: Medical Plan: Only per patient history and isolated episode in 2016 while living in the [facility]. Remains on long-term bisoprolol. Has not been on any anticoagulation as there is only 1 episode and we do not have records of that either. No recent issues. (2) Type 2 diabetes mellitus without complications: Code(s): E11.9 - Type 2 diabetes mellitus without complications Category: Medical Qualifiers: 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 vermin exterminator insulin use: unspecified vermin exterminator insulin use status Qualified Code(s): E11.9 - Type 2 diabetes mellitus without complications Plan: Poor control with chronically high hemoglobin A1c levels. Most of it is more than 10%. We have discussed this many times including today. With regard to coronary screening, underwent coronary CTA in 2022 and that did not show any significant CAD. Echocardiogram with LVEF of 60%. Slightly reduced peak global longitudinal strain. Mild increase in RV size related to weight. Otherwise unremarkable. He is well aware of the fact that poorly controlled diabetes in the long run will probably cause cardiovascular and other complications including related to eye, kidneys extra. We will screen for any carotid disease. (3) Essential hypertension: Code(s): I10 - Essential (primary) hypertension Category: Medical Plan: Reasonable but could be better. (4) Morbid obesity: Code(s): E66.01 - Morbid (severe) obesity due to excess calories Category: Medical Plan: He needs significant weight loss. We have discussed this many times including today. (5) Obstructive sleep apnea: Code(s): G47.33 - Obstructive sleep apnea (adult) (pediatric) Category: Medical Plan: Severe sleep apnea. CPAP. Plan Discussion Notes During the visit, we discussed the importance of managing diabetes mellitus with an insulin pump to prevent complications such as cardiovascular events. I emphasized the need for adherence to the current hypertension medication regimen to maintain stable blood pressure levels. We also talked about the potential benefits of dietary changes to address hypertriglyceridemia. Patient was informed and verbally consented to the use of an ambient scribe for clinic note documentation during this visit. Orders: Orders US carotid duplex BI Today I65.23 - Occlusion and stenosis of bilateral carotid arteries Patient Instructions: - Continue using the CPAP machine nightly. - Take hypertension medication as prescribed and do not skip doses. - Follow up with your heel trimmer about starting the insulin pump. - Monitor for any new symptoms related to your heart and report them if they occur. - Consider dietary changes to help manage triglyceride levels. Coding Level of Care Code Est Pt Level 4 (16441) Complex EM visit Add On G2211 Diagnoses PAF (paroxysmal atrial fibrillation) I48.0 Type 2 diabetes mellitus without complication, unspecified whether vermin exterminator insulin use E11.9 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 vermin exterminator insulin use: unspecified vermin exterminator insulin use status Essential hypertension I10 Morbid obesity E66.01 Obstructive sleep apnea G47.33 CPT Codes EKG - CPT: 98084-Nyccfngtezellgthh, Complete ([id number])
== END 2025-06-28 14:59 | disposition home or self-care (01) ==
LOC: HO.HCS 14:02
PROVIDERS: PCP Family Medicine; Visit Provider Internal Medicine
DX: I48.0 Paroxysmal atrial fibrillation (principal); E11.9 Type 2 diabetes mellitus without complications; I10 Essential (primary) hypertension; E66.01 Morbid (severe) obesity due to excess calories; G47.33 Obstructive sleep apnea (adult) (pediatric)
CPT/HCPCS: 93010; 99214; G2211

== ENCOUNTER 2025-07-21 08:14 | Outpatient (AMB) | payer OTHER, SELFPAY ==
--- OUTSIDE RECORDS SUMMARY | 2024-02-20 11:15 | XMS_ITS ---
Author Organization [facility] Address [address] [place] [id number] Care Team Providers Care Engineering Team Supervisor Name Role Phone Carlos Guzman Primary Care Provider Unavailab Allen Oh Unavailable [phone] REASON FOR VISIT Vertigo, Nasal Congestion Encounters Encounter Location Date Provider Diagnosis [facility] [address] [address] 02/20/2024 Allen Waggoner'Brien Nasal congestion R09.81 ; Deviated nasal septum J34.2 ; Hypertrophy of both inferior nasal turbinates J34.3 and Dizziness R42 Assessments Encounter Date Diagnosis (ICD Code) Assessment Notes Treatment Notes Treatment Clinical Notes Section Notes 02/20/2024 Nasal congestion (ICD-10 - R09.81) 02/20/2024 Deviated nasal septum (ICD-10 - J34.2) 02/20/2024 Hypertrophy of both inferior nasal turbinates (ICD-10 - J34.3) 02/20/2024 Dizziness (ICD-10 - R42) Plan Of Treatment No Information Progress Notes * Luke PICHARDODOB:[birth year] (49 yo M)Acc No.[id number]:02/20/2024 Progress Notes Patient: Luke MCDONALD Provider: Everett Montalvo MD :1975 A ge:48 Y S ex:Male Date:02/20/2024 Address:[address] [place], [place] [id number] Pcp:Guzman Gonzalez Subjective: * Chief Complaints: * 1 . Vertigo, Nasal Congestion. * HPI: N ose: 03/15/22 > no longer evidence of infection by nasal endoscopy; R ear pain likely referred from TMJ. Recommend oral surgery evaluation for that condition. For symptoms of allergic rhinitis, recommend a trial of azelastine nasal spray, use as directed. CURRENT STATUS = . * Medical History: Objective: * Vitals: * Examination: N CHRISTA: PROCEDURE NOTE - Nasal Endoscopy I NDICATIONS: inadequate assessment of patient symptoms and p osterior sinonasal anatomy b y anterior rhinoscopy > for evaluation of intranasal anatomy, assessment for polyposis, inflammation, mass/lesion, evidence of sinus outflow obstruction, CONSENT: risks reviewed - nasal irritation, bleeding, reaction to topical anesthetic/decongestant, throat numbness. All questions answered, consent provided to proceed, ANESTHESIA: topical lidocaine/oxymetazolone solution, FINDINGS: , Interior nasal cavity: crowding due to septal deformity and inferior turbinate hypertrophy. Middle meatus: , Superior meatus: clear, Inferior turbinates with hypertrophy, middle and superior turbinates unremarkable, sphenoethmoid recess clear, septum tortuous, Nasopharynx: unremarkable. * Physical Examination: E NT - HEAD & NECK: RIGHT EAR E AC clear, dry, intact skin, TM - intact, neutral position, Middle ear - well aerated. L EFT EAR E AC clear, dry, intact skin, TM - intact, neutral position, Middle ear - well aerated. N OSE S eptum / Turbinates / Secretions > . Assessment: * Assessment: 1. N christa congestion - R09.81 (Primary) 2 . D eviated nasal septum - J34.2? 3. H ypertrophy of both inferior nasal turbinates - J34.3 4 .?Dizziness - R42 Plan: * Treatment: * Images: * Electronic signature of Kalpesh Barron M.D. on 07/21/2025 at 08:40 AM EDT Sign off status: Pending * Provider: Everett Montalvo MD Date: 0 02/20/2024 Generated for Clau villatoro/Amando/Luluitting on: 1 08:40 AM EDT History and Physical Notes * Physical Examination Category Sub-Category Detail Notes Section Note s ENT - HEAD & NECK RIGHT EAR EAC clear, dry , intact skin, TM - intact, neutral position, Middle ear - well aerated LEFT EAR EAC clear, dry, inta ct skin, TM - intact, neutral position, Middle ear - well aerated NOSE Septum / Turbinates / Secretions > Examination Category Sub-Category Detail Notes Category Not es NASAL PROCEDURE NOTE - Jj al Endoscopy INDICATIONS: inadequate assessment of patient symptoms and posterior sinonasal anatomy by anterior rhinoscopy > for evaluation of intranasal anatomy, assessment for polyposis, inflammation, mass/lesion, evidence of sinus outflow obstruction, CONSENT: risks reviewed - nasal irritation, bleeding, reaction to topical anesthetic/decongestant, throat numbness. All questions answered, consent provided to proceed, ANESTHESIA: topical lidocaine/oxymetazolone solution, FINDINGS: , Interior nasal cavity: crowding due to septal deformity and inferior turbinate hypertrophy. Middle meatus: , Superior meatus: clear, Inferior turbinates with hypertrophy, middle and superior turbinates unremarkable, sphenoethmoid recess clear, septum tortuous, Nasopharynx: unremarkable
--- NOTE | 2025-07-21 08:21 | A.OFFVIS_ITS ---
Vital Signs 3 07/21/25 08:25 Height 5 ft 11 in Weight 264 lb 8.875 oz BMI 36.9 BP 134/72 Blood Pressure Location Lt brachial Position Sitting Pulse 80 Pulse Source Pulse Oximeter Pulse Oximetry (%) 97 Oxygen Delivery Method Room Air Intake Visit Reasons: T2DM Intake Note: Patient presents today for a follow-up on Type 2 Diabetes Mellitus: Last seen by DR Martina Matias MD Last Diabetic eye exam was on: 08/13/2024, [facility]? Last Podiatry exam was on: Patient does not see a Regulatory Affairs Consultant Most recent HbA1c: DUE Timber Framer Required: No Accompanied by: Self / Same As Patient Allergies ibuprofen Adverse Reaction (Intermediate, Verified 07/21/25 08:23) GI upset HPI Comments Details: Patient is a 49-year-old male with DM type 2 who presents for management of diabetes. Past medical history: Diabetes type 2, hyperlipidemia, hypertension, CAD vitamin-D deficency Micro and macrovascular complications: Nephropathy,a-fib , retinopathy. Patient previously seen by SHALONDA. this is my 1st encounter with the patient Interval history: The patient is currently managing diabetes with insulin therapy, including Toujeo and NovoLog, with a history of inconsistent dosing related to meal intake and blood sugar levels. The patient reports low blood sugar levels in the morning and high levels throughout the day. The patient has gained significant weight since moving from [facility], currently weighing 123-124 kg, and has been stable for the past year.He has a history of attempting weight loss interventions, including a missed follow-up with a bariatric surgery consultation. current meds: - Toujeo: 80 units, used inconsistently based on blood sugar levels and meal intake. - NovoLo-70 units, used with meals, with a sliding scale based on blood sugar levels. Previous: Unable to tolerate metformin due to GI distress Unable to tolerate Jardiance due to polyuria and due to yeast infectionn Fiasp: Previously tried, discontinued due to suspected allergic reaction. Mounjaro: Discontinued due to gastrointestinal side effects. Ozempic: Not used due to potential ocular side effects as advised by the mechanical and auto body car checker. Hypoglycemia: intermittently in the AM Exercise: none Eye Dr: The patient has been diagnosed with diabetic retinopathy and is under regular ophthalmologic care, with the last visit being one and a half months ago. Podiatry: No Diet: The patient reports an inconsistent eating pattern, often skipping breakfast and having a light lunch consisting of chicken or celery. He has experienced weight gain since moving from [facility], with a current weight of 123- 124 kg. The patient has a history of suspected shrimp allergy, leading to avoidance of shrimp in his diet. ROS: - Endocrine: Reports fluctuating blood sugar levels, with low levels in the morning and high levels throughout the day. - Ophthalmologic: Reports diabetic retinopathy, under regular ophthalmologic care. - Neurological: Reports numbness in the right leg, denies numbness in the left leg. - Gastrointestinal: Reports previous gastrointestinal side effects with Mounjaro, denies current gastrointestinal symptoms. Physical exam: General: Well appearing. NAD. Not Cushingoid or Acromegalic Neck/Thyroid: Thyroid not palpable, no nodules. Eyes: No conjunctival injection, not lid lag or proptosis CV: RRR, no murmur. No edema. Resp:Lungs clear to auscultation bilaterally Abdomen: Soft, nontender. nondistended Extremities/Neuro: No weakness or tremor of outstretched hands Diabetic Foot Exam: Normal sensation to monofilament exam bilaterally Laboratory Tests 12/28/24 12/28/24 04/21/25 08:23 08:30 09:14 Creatinine 1.07 Estimated GFR > 60 Hgb A1c (Clinic) 9.7 H Hemoglobin A1c % 10.4 H Triglycerides 291 H Cholesterol 132 LDL Cholesterol, Calc 49 HDL Cholesterol 25 L Microalb/Creat Ratio 9.8 07/21/25 08:43 Creatinine Estimated GFR Hgb A1c (Clinic) 10.5 H Hemoglobin A1c % Triglycerides Cholesterol LDL Cholesterol, Calc HDL Cholesterol Microalb/Creat Ratio CGM data: Interpretation: Persistent hyperglycemia except for e commerce strategist from 03:00 to 09:00. Hyperglycemia likely related to dietary habits, sedentary lifestyle and inconsistent/insufficient use of insulin. We will adjust insulin dosing. [facility] Medical History Axillary lymphadenopathy Obstructive sleep apnea hypopnea, severe Obstructive sleep apnea Vitamin D deficiency Vitamin D deficiency PAF (paroxysmal atrial fibrillation) HLD (hyperlipidemia) HTN (hypertension) T2DM (type 2 diabetes mellitus) NAFLD (nonalcoholic fatty liver disease) Essential hypertension Type 2 diabetes mellitus without complications Surgical History History of esophagogastroduodenoscopy (EGD) Family History Father Diabetes Hypertension CVD (cardiovascular disease) Mother Alzheimer's dementia Other Mental health disorder Vitamin D deficiency Social History Household Members: Spouse Housing: House Are you a primary cardiac care nurse to a significant other at home: No Do you presently have visiting nurse or other home services: No Alcohol intake: never Patient Tobacco Use Status: Former Tobacco user e-Cigarette/Vaping Use: Never Used Second Hand Smoke Exposure: No service: No Current occupational status: employed 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 Current occupational exposures/hazards: No Cognitive needs: No Hearing needs: No Vision needs: Yes (Glasses) Physical Exam Vital Signs: Last Vital Signs Pulse 80 07/21/25 08:25 BP 134/72 07/21/25 08:25 Pulse Ox 97 07/21/25 08:25 Oxygen Delivery Method Room Air 07/21/25 08:25 BMI result Body Mass Index 36.9 Office Procedures Glucose Monitoring Details Details: See HPI 53394 - Glucose Monitoring, continuous Procedure code (CPT) selection complete Results AMB Hemoglobin A1c 2 AMB Hemoglobin A1c 10.5 % Last Edit by Keli Herrera CMA on 07/21/25 08:50 Results Reviewed Results Reviewed: Laboratory Last Values Glucose (Clinic) 168 mg/dL (60-115) H 07/21/25 08:36 Hgb A1c (Clinic) 10.5 % (4.0-6.0) H 07/21/25 08:43 Assessment & Plan Assessment & Plan (1) Morbid obesity: Code(s): E66.01 - Morbid (severe) obesity due to excess calories Category: Medical Plan: He needs significant weight loss. We have discussed this many times including today. (2) T2DM (type 2 diabetes mellitus): Code(s): E11.9 - Type 2 diabetes mellitus without complications Category: Medical Qualifiers: 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 complication status: with hyperglycemia 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 fpc insulin use: with fpc use Qualified Code(s): E11.65 - Type 2 diabetes mellitus with hyperglycemia; Z79.4 - assisted (current) use of insulin Plan: Poor control with chronically high hemoglobin A1c levels, most of the time above 10%, likely in the setting of poor dietary habits, poor exercise and mismanagement of insulin dosing. We discussed the importance of maintaining good glycemic control to avoid complications Discussed with patient that Toujeo dosing should not be based on what the patient eat by Neo on a fixed dose to establish lysed blood sugars, and that NovoLog sliding scale should be used for meal. Advised the patient on increasing physical activity as possible (more than 70 minutes per week or as tolerated) We will advise to administered Toujeo 70 units daily and use NovoLog/lispro based on sliding scale (see patient instructions) Treat hypoglycemia (BG <70 mg/dL) with 15 g of carbohydrates and recheck in 15 minutes; repeat if still <70. Monitor for signs of hyperglycemia (BG >250 mg/dL); hydrate and increase BG monitoring frequency. Given patient's interest in pump treatment, I refer him to Diabetes education for him to get started on education about pump We will refer the patient to weight management re-evaluation and restablishing care with them (3) Obstructive sleep apnea: Code(s): G47.33 - Obstructive sleep apnea (adult) (pediatric) Category: Medical Plan: Severe sleep apnea. CPAP. Plan During the visit, I discussed with the patient the importance of consistent insulin dosing and the role of Toujeo as a long-acting insulin to maintain stable blood sugar levels. We reviewed the sliding scale for NovoLog to better manage postprandial glucose spikes. I emphasized the need for regular ophthalmologic follow-ups due to diabetic retinopathy and discussed potential insulin pump options, including the Omnipod and GEETA pump, considering the patient's lifestyle and insulin requirements. We also addressed the patient's weight management, with a referral to weight loss services for further support. Orders: Orders 2 AMB Glucose Monitoring Today E11.65 - Type 2 diabetes mellitus with hyperglycemia, E66.01 - Morbid (severe) obesity due to excess calories, Z79.4 - assisted (current) use of insulin AMB Hemoglobin A1c Today E11.9 - Type 2 diabetes mellitus without complications Referrals 2 Medical Weight Management Referral E11.9 - Type 2 diabetes mellitus without complications, E66.01 - Morbid (severe) obesity due to excess calories Diabetes Education Referral E11.9 - Type 2 diabetes mellitus without complications Patient Instructions: Take Toujeo 70 units in the evening Use Novolog baseed on sliding scale below: Insulin Dose (units) ? Take 10?15 minutes prior to the meal Blood Sugar Level (mg/dl) Small Meal?(low carb <30g like salad, eggs with meat) Normal Meal?(30?60g like sandwich, chips, meat, small starch portion) Large Meal?(>60g like pizza, lasagna, Dutch food, meal + dessert) <100 4 8 12 101?150 8 12 16 151?200 12 16 20 201?250 16 20 24 251?300 20 24 28 301?350 24 28 32 351?400 28 32 36 >400 32 36 40 Coding Level of Care Code Est Pt Level 5 (45572) Diagnoses Morbid obesity E66.01 Type 2 diabetes mellitus with hyperglycemia, with long-term current use of insulin E11.65; Z79.4 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 complication status: with hyperglycemia 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 vermin exterminator insulin use: with vermin exterminator use Obstructive sleep apnea G47.33 CPT Codes Details - CPT: 87743 - Glucose Monitoring, continuous ([id number]) Time Spent (min) 60 Comment Time spent on review of previous records, history, exam/plan and patient education.
[2025-07-21 08:25] VITALS: BP 134/72; PULSE 80; O2SAT 97; BMI 36.9
[2025-07-21 08:41] LABS: Glucose, Whole Blood 168 mg/dL (60-115)
--- OUTSIDE RECORDS SUMMARY | 2025-07-21 08:41 | XMS_ITS | Patient Health Record ---
Author Organization [facility] Address [address] [facility] [address]TH [place] [address] Care Team Providers Care Brand Leader Name Role Phone Guzman Gonzalez Primary Care Provider Unavailab Allen Oh Unavailable [phone] Allergies No Known Allergies Reason For Referral [...] Notes Problem Allergic rhinitis caused by pollen (10154834) Seasonal allergic rhinitis due to pollen (J30.1) Active confirmed Problem Acute pansinusitis (4157184) Acute non-recurrent pansinusitis (J01.40) Active confirmed Plan Of Treatment No Information Insurance Providers Payer Name Payer Address Payer Phone Subscriber Number Group Number Insured Name Patient Relationship to Insured Coverage Start Date Coverage End Date [employer] [address] [place], [place] [id number] Luke Castañeda Self - patient is the insured [facility] [address] [place] [phone] [id number] Luke Castañeda Self - patient is the insured Medical (General) History Medical History History ICD Code High blood pressure diabetes Allergy to Steroids Surgical History Surgery Date(Month/Year)
--- OUTSIDE RECORDS SUMMARY | 2025-07-21 08:41 | XMS_ITS | Encounter Summary ---
Author Organization Located [facility] Address [address] [place] [phone] Phone Care Team Providers Care Collet Maker Name Role Phone Guzman Gonzalez MD Primary Care Provider Encounter Details Date Type Department Care Team (Late Contact Info) Description 05/21/2024 Transcribe Orders Virtual Department [address] [place] [address] Terri Salgado NP [address] [place] [address] [place] [address] Social History Tobacco Use Types Packs/Day Years [...] Description 08/25/2025 11:00 AM EST Office Visit [facility] [address] [place] [address] Lonnie Barriga MD, PhD [address] [place] [address] [email or web address] documented as of this encounter Visit Diagnoses Not on filedocumented in this encounter Care Teams Collet Maker Relationship Specialty Start Date End Date Guzman Gonzalez MD [address] [place] [id number] PCP - General Family Medicine 03/30/22 documented as of this encounter Additional Source Comments The information contained in this document represents components of the legal health record. It is not the complete legal health record.[facility]
--- OUTSIDE RECORDS SUMMARY | 2025-07-21 08:42 | XMS_ITS | Clinical Summary ---
Author Organization [facility] Address [address] [place] [phone] Phone Care Team Providers Care Cut Press Operator Name Role Phone Guzman Gonzalez MD Primary [...] 28 each 2 2 Active hypromellose (ARTIFICIAL TEARS,[id number], ) Drop Place 1 drop into each eye as needed. 30 mL 12 2 Active hypromellose (ARTIFICIAL TEARS,[id number], ) Drop Place 1 drop into each [...] Description 05/19/2025 10:40 AM EDT Office Visit [facility] [address] [place] [address] Lonnie Barriga MD, PhD BUSINESS PLANNING MANAGER (central serous retinopathy), bilateral (Primary Dx); Both [...] Description 08/25/2025 11:00 AM EST Office Visit [facility] [address] [facility] 12th [place] [address] Lonnie Barriga MD, PhD [address] [place] [address] [email or web address] Health Maintenance Due Date Last Done Comments [...] BOTH EYES Routine 05/19/2025 11:34 AM EDT BUSINESS PLANNING MANAGER (central serous retinopathy), bilateral AUTOFLUORESCENCE - OU - BOTH EYES Routine 05/19/2025 11:34 AM EDT BUSINESS PLANNING MANAGER (central serous retinopathy), bilateral COLOR FUNDUS PHOTOGRAPHY - OU - BOTH EYES Routine 05/19/2025 11:34 AM EDT BUSINESS PLANNING MANAGER (central serous retinopathy), bilateral from Last 3 Months Results * OCT, RETINA - OU - BOTH EYES - [place] (05/19/2025 11:34 AM EDT) Narrative [place] - 05/19/2025 11:50 AM EDT OD: Patch of outer-retinal atrophy temporal to fovea, small PED nasal macula near disc. Outer-retinal layers changes. Hyaloid down. Stable. OS: +VMA, ME mildly worse. exudates and Mas. Hyaloid down. Lonnie Barriga MD, PhD OPHTHALMOLOGY IMAGING F inal Result HARMONY * Autofluorescence - OU - Both Eyes [...] on Optic nerve OS. (?o sl more?) Lonnie Barriga MD, PhD OPHTHALMOLOGY IMAGING F inal Result from Last 3 Months Insurance A[employer] HMO POS EPO AETNA O POS EPO AETNA HMO POS EPO AET[employer] HMO POS EPO AETNA O POS EPO AETNA HMO POS EPO A[employer] [facility]MO POS [facility] [place] [id number] Care Teams Cut Press Operator Relationship Specialty Start Date End Date Guzman Gonzalez MD [address] [place] [address] PCP - General Family Medicine 03/30/22 Additional Source Comments The information contained in this document represents components of the legal health record. It is not the complete legal health record.[facility]
== END 2025-07-21 09:14 | disposition home or self-care (01) ==
PROVIDERS: PCP Family Medicine; Visit Provider Student in an Organized Health Care Education/Training Program
DX: E11.65 Type 2 diabetes mellitus with hyperglycemia (principal); Z79.4 Long term (current) use of insulin; E66.9 Obesity, unspecified; G47.33 Obstructive sleep apnea (adult) (pediatric); Z68.36 Body mass index [BMI] 36.0-36.9, adult
CPT/HCPCS: 99215; 99417

== ENCOUNTER → 2025-07-21 08:14 | Outpatient (BNVA) | payer OTHER, SELFPAY | PROVIDERS: PCP Family Medicine; Visit Provider Student in an Organized Health Care Education/Training Program | DX: E11.65 Type 2 diabetes mellitus with hyperglycemia (principal); G47.33 Obstructive sleep apnea (adult) (pediatric); E66.01 Morbid (severe) obesity due to excess calories; Z79.4 Long term (current) use of insulin; Z68.36 Body mass index [BMI] 36.0-36.9, adult | CPT/HCPCS: 82947; 83036; 95250 ==

== ENCOUNTER 2025-08-04 08:31 | Outpatient (AMB) | payer OTHER, SELFPAY ==
--- OUTSIDE RECORDS SUMMARY | 2024-02-20 11:15 | XMS_ITS ---
Author Organization [facility] Address [address] [place] [address] Care Team Providers Care Truck Repair Supervisor Name Role Phone Carlos Guzman Primary Care Provider Unavailab Allen Oh Unavailable [phone] REASON FOR VISIT Vertigo, Nasal Congestion Encounters Encounter Location Date Provider Diagnosis [facility] [address] [address] 02/20/2024 Allen Waggoner'Brien Nasal congestion R09.81 ; [...] * Luke PICHARDODOB:[birth year] (49 yo M)Acc No.[id number]:02/20/2024 Progress Notes Patient: Luke MCDONALD Provider: Everett Montalvo MD :1975 A ge:48 Y S ex:Male Date:02/20/2024 Address:[address] [place], [place] [phone] Pcp:Guzman Gonzalez Subjective: * Chief Complaints: * [...] Electronic signature of Kalpesh Barron M.D. on 08/04/2025 at 08:58 AM EDT Sign off status: Pending * Provider: Everett Montalvo MD Date: 0 02/20/2024 Generated for Clau villatoro/Amando/eTlashaunitting on: 1 08:58 AM EDT History and Physical Notes * [...]
--- NOTE | 2025-08-04 08:40 | A.OFFPC_ITS ---
Vital Signs 08/04/25 08:44 Height 5 ft 11 in Weight 275 lb 4 oz BMI 38.4 BP 142/64 H Blood Pressure Location Rt brachial Position Sitting Respiration 16 Pulse 64 Pulse Source Pulse Oximeter Temp 97.9 F Temp Source Oral Pulse Oximetry (%) 100 Oxygen Delivery Method Room Air Intake Visit Reasons: f/u diabetes, chronic conditions Intake Note: patient here for follow up on diabetes and chronic conditions and would like to speak to you about his atorvastatin Oncology Registrar Required: No Allergies ibuprofen Adverse Reaction (Intermediate, Verified 08/04/25 08:42) GI upset Medication List - Last Reconciled 08/04/25 by Guzman Gonzalez MD albuterol sulfate 90 mcg/actuation (Proair Digihaler) 1 inh inhalation Q4-6H PRN 30 days albuterol sulfate 90 mcg/actuation (Ventolin HFA) 2 puffs inhalation Q4-6H PRN 30 days aspirin (Adult Aspirin Regimen) 81 mg PO DAILY 90 days atorvastatin 20 mg PO ONCE 90 days bisoprolol fumarate 7.5 mg PO DAILY blood sugar diagnostic (FreeStyle Lite Strips) to check the accuracy of CGM devise during high and low alarming prn as directed, up to 4 times a day blood-glucose meter (FreeStyle Lite Meter kit) to check blood sugar up to four times per day prn as directed during high and low alarms on CGM device. clotrimazole 1% 1 appl topical BID 2 weeks diclofenac sodium 1% 4 grams topical TID 15 days fenofibrate micronized 200 mg PO DAILY 90 days FreeStyle Mckay 3 Plus Sensor (blood-glucose sensor) every 15 days NS FreeStyle Mckay 3 [place] (blood-glucose,community case manager,cont) As directed NS FreeStyle Mckay 3 Sensor (blood-glucose sensor) DIRECTED CHANGED EVERY 14 DAYS NS glucose (Dex4 Glucose) 16 grams (4 x 4 gram) PO Q15M PRN 30 days MDD 16 tablets insulin aspart U-100 (Novolog FlexPen U-100 Insulin aspart) 90 units (0.9 mL) subcut TIDWMEAL 90 days lancets (FreeStyle Lancets) to check blood sugar up to 4x daily to check accuracy of CGM during high and low alarm. lisinopril 20 mg PO DAILY 90 days miscellaneous medical supply (Blood Pressure Cuff) adult size blood pressure cuff as directed kizzylukast (Singulair) 10 mg PO BEDTIME pen needle, diabetic (BD Ultra-Fine Micro Pen Needle) As directed injects 4 X/day pen needle, diabetic (BD Ultra-Fine Maddie Pen Needle) USE TO INJECT 4 TIMES A DAY rabeprazole 20 mg PO DAILY 90 days Toujeo SoloStar U-300 Insulin (insulin glargine U-300 conc) 84 units (0.28 mL) subcut BID NS Tobacco use date assessed: 08/04/25 Dental Screening Dental Screen Date: 08/04/25 Did you have a dental visit in the last 12 months?: Yes Did you have a dental problem in the last 6 months where you did not have access to dental care?: No Was dental information given to patient?: Patient has dentist HPI f/u diabetes, chronic conditions HPI Details 49 y/o male presents to f/u diabetes. A1c 07/21/25 10.5%. Had been following up with Endocrinology. Denies any low blood sugars. Has been getting blood sugars in the 150s-200s. He is on Toujeuo 72 units b.i.d., Novolog 90 units t.i.d. Pt notes he has not been following his sliding scale. Has complaints of dark colored skin tags. HPI Comments History of Present Illness Details Documentation assistance for Guzman Gonzalez MD, was provided by Dilan Perez, Vault Worker on 08/04/2025 at 9:25 AM EST. I, Dr. Gonzalez, have read, observed, and verified documentation. [facility] Medical History Axillary lymphadenopathy Obstructive sleep apnea hypopnea, severe Obstructive sleep apnea Vitamin D deficiency Vitamin D deficiency PAF (paroxysmal atrial fibrillation) HLD (hyperlipidemia) HTN (hypertension) T2DM (type 2 diabetes mellitus) NAFLD (nonalcoholic fatty liver disease) Essential hypertension Type 2 diabetes mellitus without complications Surgical History History of esophagogastroduodenoscopy (EGD) Family History Father Diabetes Hypertension CVD (cardiovascular disease) Mother Alzheimer's dementia Other Mental health disorder Vitamin D deficiency Social History Household Members: Spouse Both parents involved: No Caregiver staying overnight: No Housing: House Are you a primary customer care specialist to a significant other at home: No Do you presently have visiting nurse or other home services: No 75 years or older and lives alone: No Alcohol intake: never Patient Tobacco Use Status: Former Tobacco user e-Cigarette/Vaping Use: Never Used Second Hand Smoke Exposure: No service: No Current occupational status: employed 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 Current occupational exposures/hazards: No Cognitive needs: No Hearing needs: No Vision needs: Yes (Glasses) Questionnaire Thrive Questionnaire Date Thrive assessed: 01/04/25 I am a: Patient What is your living situation today?: I have a steady place to live Within the past 12 months, did the food you bought not last and you didn't have the money to get more?: I choose not to answer this question Within the past 12 months, did you worry whether your food would run out before you got money to buy more?: I choose not to answer this question Do you have trouble paying for medicines?: I choose not to answer this question Do you have trouble getting transportation to medical appointments?: No Do you have trouble paying your heating and electricity bill?: No Do you have trouble taking care of your child, family member or friend?: No Do you have trouble with day-to-day activities such as bathing, preparing meals, shopping, managing finances, etc.?: No Are you currently unemployed and looking for a job?: No Are you interested in more education?: Yes Please select the resources that you would like help with: None Currently or been in a relationship where the following occur: No concerns reported THRIVE Score: 0 LISA-7 AMB Questionnaire LISA-7 Date LISA - 7 assessed: 08/14/24 Source: Developed by Drs. Robert Atkinson, Fransisca Michelle, Des Wright and colleagues, with an educational jessica from [employer]. Review of Systems Const Denies chills, Denies fatigue, Denies fever(s), Denies headache(s) and Denies weakness ENT Denies dizziness and Denies headache(s) Card Denies dyspnea Resp Denies cough, Denies dyspnea, Denies wheezing and Denies other (shortness of breath) Musc Denies numbness and Denies tingling Neuro Denies dizziness, Denies headache(s), Denies numbness, Denies tingling and Denies weakness Psych Denies anxiety and Denies depression Endo Denies fatigue Aller/Immun Denies wheezing Physical exam (Primary Care) Vital Signs: Last Vital Signs Temp 97.9 F 08/04/25 08:44 Pulse 64 08/04/25 08:44 Resp 16 08/04/25 08:44 BP 142/64 H 08/04/25 08:44 Pulse Ox 100 08/04/25 08:44 Oxygen Delivery Method Room Air 08/04/25 08:44 BMI result Body Mass Index 38.4 Tobacco/Smoking Status: Tobacco use Status Tobacco use date assessed 08/04/25 08/04/25 08:47 Patient Tobacco Use Status Former Tobacco user 08/04/25 08:42 e-Cigarette/Vaping Use Never Used 08/04/25 08:42 Thrive Assessment: Date of Thrive Assessment Date Thrive assessed 01/04/25 08/04/25 08:42 Currently or been in a relationship where the following occur: No concerns reported Const General: well developed; No acute distress Nutritional Appearance: well nourished Orientation/consciousness: patient oriented x3 HENMT Head: Yes normocephalic and Yes atraumatic Eyes General: appearance normal, both eyes and all related structures Pupils: Equal, round and reactive pupils present EOM: EOMs intact bilaterally Resp Effort & Inspection: normal respiratory effort Neuro General: patient oriented x3 and gait normal Cranial nerves: Yes Equal, round and reactive pupils present Psych Affect: normal affect Coding Level of Care Code Est Pt Level 4 (04206) Diagnoses Type 2 diabetes mellitus with hyperglycemia, with long-term current use of insulin E11.65; Z79.4 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 prison insulin use: with prison use Skin tags, multiple acquired L91.8 Essential hypertension I10 Assessment & Plan Assessment & Plan (1) Type 2 diabetes mellitus with hyperglycemia: Code(s): E11.65 - Type 2 diabetes mellitus with hyperglycemia Category: Medical Qualifiers: 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 electronics commodity manager insulin use: with prison use Qualified Code(s): E11.65 - Type 2 diabetes mellitus with hyperglycemia; Z79.4 - MCC (current) use of insulin Plan: Recent A1c 10.5%. He was recently seen by endocrinology. They have him taking Toujeo once per day and he notes that he is taking 80 units daily. They have given him a sliding scale which runs from 8 units to 36 units prior to meals. However, patient says that this has not been adequately controlling his blood sugars and he says he takes about 70 units with each meal. I asked him to contact endocrinology to let them know that he has been unable to follow the sliding scale as written. He says that with his current NovoLog usage, his blood sugars are about 200 before his meals and he says he is not having any low blood sugars. He will increase Toujeo to 84 units daily. For now, continue NovoLog as he is and call endocrinology to let them know the above. Continue to work at weight loss Avoid sugars and starches (2) Skin tags, multiple acquired: Code(s): L91.8 - Other hypertrophic disorders of the skin Category: Medical Plan: Referred to dermatology (3) Essential hypertension: Code(s): I10 - Essential (primary) hypertension Category: Medical Plan: Blood pressure is are too high He is only taking lisinopril 10 mg daily Take full tablet of lisinopril; 20 mg daily Orders: Orders Comprehensive [place]. Panel Fast Today Z00.00 - Encounter for general adult medical examination without abnormal findings Lipid Panel Today Z00.00 - Encounter for general adult medical examination without abnormal findings Microalbumin, Random (w Creat) Today I10 - Essential (primary) hypertension Prostate Specific Antigen Scr Today Z12.5 - Encounter for screening for malignant neoplasm of prostate TSH reflex Free T4 Today Z00.00 - Encounter for general adult medical examination without abnormal findings Complete Blood Count Auto Diff Today Z00.00 - Encounter for general adult medical examination without abnormal findings UA CC w/rflx Micro + Cult Today Z00.00 - Encounter for general adult medical examination without abnormal findings Referrals Dermatology Referral L91.8 - Other hypertrophic disorders of the skin Medications: Changed From Toujeo SoloStar U-300 Insulin (insulin glargine U-300 conc) 72 units (0.24 mL) subcut BID 45 mL 3RF NS E11.65 - Type 2 diabetes mellitus with hyperglycemia, E11.9 - Type 2 diabetes mellitus without complications, Z79.4 - long term care social worker (current) use of insulin To Toujeo SoloStar U-300 Insulin (insulin glargine U-300 conc) 84 units (0.28 mL) subcut BID 45 mL 3RF NS E11.65 - Type 2 diabetes mellitus with hyperglycemia, E11.9 - Type 2 diabetes mellitus without complications, Z79.4 - MCC (current) use of insulin From atorvastatin 20 mg (2 x 10 mg) PO ONCE 90 days 180 tabs 0RF To atorvastatin 20 mg PO ONCE 90 tabs 4RF 90 days Refilled lisinopril 20 mg PO DAILY 90 tabs 3RF 90 days I10 - Essential (primary) hypertension
[2025-08-04 08:44] VITALS: BP 142/64; PULSE 64; RESP 16; TEMP 36.6; O2SAT 100; BMI 38.4
--- OUTSIDE RECORDS SUMMARY | 2025-08-04 08:58 | XMS_ITS | Clinical Summary ---
Author Organization [facility] Address [address] [place] [phone] Phone Care Team Providers Care Manager Machine Name Role Phone Guzman Gonzalez MD Primary [...] 28 each 2 2 Active hypromellose (ARTIFICIAL TEARS,[id number], ) Drop Place 1 drop into each eye as needed. 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 ADVISOR (central serous retinopathy), bilateral (Primary Dx); Both [...] Description 08/25/2025 11:00 AM EST Office Visit [facility] [address] [facility] 12th [place] [address] Lonnie Barriga MD, PhD [address] [place] [address] [email or web address] Health Maintenance Due Date Last Done Comments [...] (2 of 2 - PCV) 09/30/2021 09/30/2020 RSV VACCINE (1 - Risk 50-74 years 1-dose series) 2024 ZOSTER VACCINES (1 of 2) 2024 INFLUENZA [...] BOTH EYES Routine 05/19/2025 11:34 AM EDT 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 ADVISOR (central serous retinopathy), bilateral AUTOFLUORESCENCE - OU - BOTH EYES Routine 05/19/2025 11:34 AM EDT 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 ADVISOR (central serous retinopathy), bilateral COLOR FUNDUS PHOTOGRAPHY - OU - BOTH EYES Routine 05/19/2025 11:34 AM EDT 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 ADVISOR (central serous retinopathy), bilateral from Last 3 Months Results * OCT, RETINA - OU - BOTH EYES - [place] (05/19/2025 11:34 AM EDT) Narrative HORACIO - [...] inal Result from Last 3 Months Insurance [facility] [employer] [facility] EPO [employer] [facility] [employer] EPO [employer] POS EPO [employer] O POS EPO [employer] O POS [employer]PO [facility] [employer] EPO [employer] O POS EPO Care Teams Manager Machine Relationship Specialty Start Date End Date Guzman Gonzalez MD [address] [place] [address] PCP - General Family Medicine 03/30/22 Additional Source Comments The information contained in this document represents components of the legal health record. It is not the complete legal health record.[facility]
--- OUTSIDE RECORDS SUMMARY | 2025-08-04 08:58 | XMS_ITS | Patient Health Record ---
Author Organization [facility] Address [address] [facility] 4TH [place] [address] Care Team Providers Care Fairground Operator Name Role Phone Guzman Gonzalez Primary Care Provider Unavailab Allen Oh Unavailable [phone] Allergies No Known Allergies Reason For Referral [...] Notes Problem Allergic rhinitis caused by pollen (58833001) Seasonal allergic rhinitis due to pollen (J30.1) Active confirmed Problem Acute pansinusitis (7704102) Acute non-recurrent pansinusitis (J01.40) Active confirmed Plan Of Treatment No Information Insurance Providers Payer Name Payer Address Payer Phone Subscriber Number Group Number Insured Name Patient Relationship to Insured Coverage Start Date Coverage End Date [employer] [address] [place], [place] [id number] Luke Castañeda Self - patient is the insured [facility] [address] [place] [phone] [id number] Lkue Castañeda Self - patient is the insured Medical (General) History Medical History History ICD Code High blood pressure diabetes Allergy to Steroids Surgical History Surgery Date(Month/Year)
--- OUTSIDE RECORDS SUMMARY | 2025-08-04 08:58 | XMS_ITS | Encounter Summary ---
Author Organization [facility] Address [address] [place] [phone] Phone Care Team Providers Care Dry Cleaning Counter Clerk Name Role Phone Guzman Gonzalez MD Primary Care Provider Encounter Details Date Type Department Care Team (Late Contact Info) Description 05/21/2024 Transcribe Orders Virtual Department [address] [place] [address] Terri Salgado NP [address] [place] [address] [place] [address] Social History Tobacco Use Types Packs/Day Years [...] Description 08/25/2025 11:00 AM EST Office Visit [facility] [address] [place] [address] Lonnie Barriga MD, PhD [address] [place] [address] [email or web address] documented as of this encounter Visit Diagnoses Not on filedocumented in this encounter Care Teams Dry Cleaning Counter Clerk Relationship Specialty Start Date End Date Guzman Gonzalez MD [address] [place] [phone] PCP - General Family Medicine 03/30/22 documented as of this encounter Additional Source Comments The information contained in this document represents components of the legal health record. It is not the complete legal health record.[facility]
== END 2025-08-04 09:31 | disposition home or self-care (01) ==
PROVIDERS: PCP Family Medicine; Visit Provider Family Medicine
DX: E11.65 Type 2 diabetes mellitus with hyperglycemia (principal); Z79.4 Long term (current) use of insulin; L91.8 Other hypertrophic disorders of the skin; I10 Essential (primary) hypertension

== ENCOUNTER 2025-08-17 08:58 | Outpatient (AMB) | payer OTHER, SELFPAY ==
--- OUTSIDE RECORDS SUMMARY | 2024-02-20 11:15 | XMS_ITS ---
Author Organization [facility] Address [address] [place] [id number] Care Team Providers Care Electronic Publisher Name Role Phone Carlos Guzman Primary Care Provider Unavailab Allen Oh Unavailable [phone] REASON FOR VISIT Vertigo, Nasal Congestion Encounters Encounter Location Date Provider Diagnosis [facility] [address] [address] 02/20/2024 Allen Waggoner'Brien Nasal congestion R09.81 ; [...] * Luke PICHARDODOB:[birth year] (49 yo M)Acc No.[id number]:02/20/2024 Progress Notes Patient: Luke MCDONALD Provider: Everett Montalvo MD :1975 A ge:48 Y S ex:Male Date:02/20/2024 Address:[address] [place], [place] [id number] Pcp:Guzman Gonzalez Subjective: * Chief Complaints: * [...] Electronic signature of Kalpesh Barron M.D. on 08/17/2025 at 09:57 AM EDT Sign off status: Pending * Provider: Everett Montalvo MD Date: 0 02/20/2024 Generated for Clau villatoro/Amando/eTantoinesmitting on: 1 09:57 AM EDT History and Physical Notes * [...]
--- NOTE | 2025-08-17 09:04 | MHC.PC.OV ---
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 No recent labs to review. Blood pressure today 134/76, 72p. He is on lisinopril 20mg daily. Complaints of L trapezius muscle strain. Intermittent. Exacerbated by driving. Followed by endocrinology for diabetes. HPI Comments History of Present Illness Details Documentation assistance for Guzman Gonzalez MD, was provided by Dilan Perez,? Pharmaceutical Assistant on 08/17/2025 at 9:17 AM EST. I, Dr. Gonzalez, have read, observed, and verified documentation. ?? [facility] Medical History Axillary lymphadenopathy Obstructive sleep apnea hypopnea, severe Obstructive sleep apnea Vitamin D deficiency Vitamin D deficiency PAF (paroxysmal atrial fibrillation) HLD (hyperlipidemia) HTN (hypertension) T2DM (type 2 diabetes mellitus) NAFLD (nonalcoholic fatty liver disease) Essential hypertension Type 2 diabetes mellitus without complications Surgical History History of esophagogastroduodenoscopy (EGD) Family History Father Diabetes Hypertension CVD (cardiovascular disease) Mother Alzheimer's dementia Other Mental health disorder Vitamin D deficiency Social History (Updated 08/17/25 @ 09:09 by Aimee Barker CMA) Household Members: Spouse Both parents involved: No Caregiver staying overnight: No Housing: House Are you a primary resident care associate to a significant other at home: No Do you presently have visiting nurse or other home services: No 75 years or older and lives alone: No Alcohol intake: never Patient Tobacco Use Status: Former Tobacco user e-Cigarette/Vaping Use: Never Used Second Hand Smoke Exposure: No service: No Current occupational status: employed 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 Current occupational exposures/hazards: No Cognitive needs: No Hearing needs: No Vision needs: Yes (Glasses) Questionnaire Thrive Questionnaire Date Thrive assessed: 01/04/25 I am a: Patient What is your living situation today?: I have a steady place to live Within the past 12 months, did the food you bought not last and you didn't have the money to get more?: I choose not to answer this question Within the past 12 months, did you worry whether your food would run out before you got money to buy more?: I choose not to answer this question Do you have trouble paying for medicines?: I choose not to answer this question Do you have trouble getting transportation to medical appointments?: No Do you have trouble paying your heating and electricity bill?: No Do you have trouble taking care of your child, family member or friend?: No Do you have trouble with day-to-day activities such as bathing, preparing meals, shopping, managing finances, etc.?: No Are you currently unemployed and looking for a job?: No Are you interested in more education?: Yes Please select the resources that you would like help with: None Currently or been in a relationship where the following occur: No concerns reported THRIVE Score: 0 LISA-7 AMB Questionnaire LISA-7 Date LISA - 7 assessed: 08/14/24 Source: Developed by Drs. Robert Atkinson, Fransisca Michelle, Des Wright and colleagues, with an educational jessica from [employer]. Review of Systems Const Denies chills, Denies fatigue, Denies fever(s), Denies headache(s) and Denies weakness Eyes Denies change in vision ENT Denies dizziness, Denies headache(s), Denies hearing loss, Denies nasal congestion, Denies sinus pain, Denies sinus pressure and Denies sore throat Card Denies chest pain, Denies lightheadedness, Denies dyspnea and Denies other (palpitations) Resp Denies cough, Denies dyspnea and Denies wheezing GI Denies abdominal pain, Denies melena, Denies hematochezia, Denies change in bowel habits, Denies dyspepsia and Denies nausea Denies hematuria and Denies dysuria Musc Denies abnormal gait, Denies myalgias, Denies arthralgias, Denies numbness and Denies tingling Skin/Breast Denies rash, Denies unusual bruising and Denies wounds Neuro Denies abnormal gait, Denies dizziness, Denies headache(s), Denies memory loss, Denies numbness, Denies Sensory deficit (Neuro), Denies tingling and Denies weakness Psych Denies anxiety, Denies depression and Denies memory loss Endo Denies cold intolerance, Denies fatigue, Denies heat intolerance, Denies polydipsia and Denies polyuria Dilan/Lymph Denies easy bleeding and Denies easy bruising Aller/Immun Denies wheezing Physical exam (Primary Care) Vital Signs: Last Vital Signs Temp 98.5 F 08/17/25 09:06 Pulse 72 08/17/25 09:06 Resp 16 08/17/25 09:06 BP 134/76 08/17/25 09:06 Pulse Ox 96 08/17/25 09:06 Oxygen Delivery Method Room Air 08/17/25 09:06 BMI result Body Mass Index 37.5 Tobacco/Smoking Status: Tobacco use Status Tobacco use date assessed 08/17/25 08/17/25 09:09 Patient Tobacco Use Status Former Tobacco user 08/17/25 09:09 e-Cigarette/Vaping Use Never Used 08/17/25 09:09 Thrive Assessment: Date of Thrive Assessment Date Thrive assessed 01/04/25 08/17/25 09:04 Currently or been in a relationship where the following occur: No concerns reported Const General: no acute distress, well developed, alert and awake Nutritional Appearance: well nourished Orientation/consciousness: patient oriented x3 HENMT Head: Yes normocephalic and Yes atraumatic Ears: hearing grossly normal bilaterally and TM's normal bilaterally General nose exam: Normal external nose present and Normal nares present Mouth: Normal oral and palatal mucosa present and moist mucous membranes Teeth and gingiva: dentition normal Throat: Yes posterior oropharynx normal Eyes General: appearance normal, both eyes and all related structures Pupils: Equal, round and reactive pupils present and Pupil accommodation reflex normal EOM: EOMs intact bilaterally Neck Neck: Yes normal visual inspection, Yes no lymphadenopathy and Yes trachea midline Thyroid: Thyroid normal Carotids: no bruits Lymphatic: no lymphadenopathy noted Chest Chest palpation & inspection: normal inspection of the chest Resp Effort & Inspection: normal respiratory effort Auscultation: clear to auscultation bilaterally Cardio Rate: regular rate Rhythm: regular rhythm Heart sounds: S1 normal heart sound present, S2 normal heart sound present, no gallops, no murmurs and no rubs Bruits: no abdominal aortic bruits and no carotid bruits GI Palpation (GI): No Abdominal aortic bruit present, Soft to palpation, nontender, No hepatosplenomegaly present and No Rebound tenderness present Auscultation: normal bowel sounds General: Yes no CVA tenderness Back/Spine/Pelvis Back: no CVA tenderness Cervical Spine: cervical ROM normal and No Cervical spine tenderness Thoracic/Lumbar Spine: thoraco-lumbar ROM normal, No pain with thoraco-lumbar ROM, No thoracic spinal tenderness and No lumbar spinal tenderness Skin Lesions: no lesions Rashes: no rashes Trauma: no lacerations or abrasions Wounds: no wounds Nails: normal Neuro General: patient oriented x3 Cranial nerves: Yes Equal, round and reactive pupils present Cognition (Neuro): normal cognition Gait exam (Neuro): Normal gait present Motor exam (neuro): 5/5 motor strength present throughout Sensory Exam: No Sensory deficit (Neuro) Deep tendon reflexes (DTR's): Right patellar reflex intensity grade: 2+ and Left patellar reflex intensity grade: 2+ Extrem General: Yes normal to inspection and No edema Psych Appearance: grossly normal Affect: normal affect Attitude: cooperative Thought process: Normal thought process present Coding Level of Care Code Est Pt Level 3 (36198) Est Pt Prev Care 40-64y(30793) Diagnoses Adult general medical examination Z00.00 Essential hypertension I10 Cervicalgia M54.2 Type 2 diabetes mellitus with hyperglycemia, with long-term current use of insulin E11.65; Z79.4 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 complication status: with hyperglycemia 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 mcc insulin use: with mcc use Screening for prostate cancer Z12.5 Screening for colon cancer Z12.11 Strain of left trapezius muscle S46.812A Left shoulder pain M25.512 Assessment & Plan Assessment & Plan (1) Adult general medical examination: Code(s): Z00.00 - Encounter for general adult medical examination without abnormal findings Category: Medical Plan: 49-year-old male presents for complete physical exam Exam within normal limits except as described below (2) Essential hypertension: Code(s): I10 - Essential (primary) hypertension Category: Medical Plan: Blood pressure is controlled. Goal is less than 140/90 Continue current medication (3) Cervicalgia: Code(s): M54.2 - Cervicalgia Category: Medical (4) T2DM (type 2 diabetes mellitus): Code(s): E11.9 - Type 2 diabetes mellitus without complications Category: Medical Qualifiers: 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 complication status: with hyperglycemia 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 mcc insulin use: with middle or intermediate school principal use Qualified Code(s): E11.65 - Type 2 diabetes mellitus with hyperglycemia; Z79.4 - ocean transportation intermediary (current) use of insulin Plan: A1c is high and he is followed by endocrinology Continue current medications and follow-up with endocrinology as recommended (5) Screening for prostate cancer: Code(s): Z12.5 - Encounter for screening for malignant neoplasm of prostate Category: Medical Plan: PSA ordered (6) Screening for colon cancer: Code(s): Z12.11 - Encounter for screening for malignant neoplasm of colon Category: Medical Plan: Patient wants Cologuard test Order (7) Strain of left trapezius muscle: Code(s): S46.812A - Strain of other muscles, fascia and tendons at shoulder and upper arm level, left arm, initial encounter Category: Medical (8) Left shoulder pain: Code(s): M25.512 - Pain in left shoulder Category: Medical Plan Cervicalgia and left trapezius muscle and left shoulder pain intermittently and exacerbated by driving Use Tylenol, ice/heat and start physical therapy
[2025-08-17 09:06] VITALS: BP 134/76; PULSE 72; RESP 16; TEMP 36.9; O2SAT 96; BMI 37.5
--- OUTSIDE RECORDS SUMMARY | 2025-08-17 09:58 | XMS_ITS | Patient Health Record ---
Author Organization [facility] Address [address] [facility] [address] [place] [address] Care Team Providers Care Guest History Clerk Name Role Phone Guzman Gonzalez Primary Care Provider Unavailab Allen Oh Unavailable [phone] Allergies No Known Allergies Reason For Referral [...] Notes Problem Allergic rhinitis caused by pollen (41276198) Seasonal allergic rhinitis due to pollen (J30.1) Active confirmed Problem Acute pansinusitis (6329260) Acute non-recurrent pansinusitis (J01.40) Active confirmed Plan Of Treatment No Information Insurance Providers Payer Name Payer Address Payer Phone Subscriber Number Group Number Insured Name Patient Relationship to Insured Coverage Start Date Coverage End Date [employer]O [address] [place], [place] [id number] Luke Castañeda Self - patient is the insured [employer] [address] [place] [phone] [id number] Luke Castañeda Self - patient is the insured Medical (General) History Medical History History ICD Code High blood pressure diabetes Allergy to Steroids Surgical History Surgery Date(Month/Year)
--- OUTSIDE RECORDS SUMMARY | 2025-08-17 09:58 | XMS_ITS | Clinical Summary ---
Author Organization [facility] Address [address] [place] [phone] Phone Care Team Providers Care Supervisor Pig Machine Name Role Phone Guzman Gonzalez MD [...] 28 each 2 2 Active hypromellose (ARTIFICIAL TEARS,[id number], ) Drop Place 1 drop into each eye as needed. 30 mL 12 2 Active hypromellose (ARTIFICIAL TEARS,[id number], ) Drop Place 1 drop into each [...] Description 05/19/2025 10:40 AM EDT Office Visit [facility] [address] [place] [address] Lonnie Barriga MD, PhD LOOKBACK COORDINATOR (central serous retinopathy), bilateral (Primary Dx); [...] Description 08/25/2025 11:00 AM EST Office Visit [facility] [address] [facility] [address]th [place] [address] Lonnie Barriga MD, PhD [address] [place] [address] [email or web address] [email or web address] Maintenance Due Date Last Done Comments [...] BOTH EYES Routine 05/19/2025 11:34 AM EDT LOOKBACK COORDINATOR (central serous retinopathy), bilateral AUTOFLUORESCENCE - OU - BOTH EYES Routine 05/19/2025 11:34 AM EDT LOOKBACK COORDINATOR (central serous retinopathy), bilateral COLOR FUNDUS PHOTOGRAPHY - OU - BOTH EYES Routine 05/19/2025 11:34 AM EDT LOOKBACK COORDINATOR (central serous retinopathy), bilateral from Last 3 Months Results * OCT, RETINA - OU - BOTH EYES - [place] (05/19/2025 11:34 AM EDT) Narrative HORACIO - [...] inal Result from Last 3 Months [facility]PO [facility] E[facility] POS EPO AETNA O POS EPO A[employer] O POS EPO [facility] EPO [employer] O POS EPO Care Teams Supervisor Pig Machine Relationship Specialty Start Date End Date Guzman Gonzalez MD PCP - General Family Medicine 03/30/22 Additional Source Comments The information contained in this document represents components of the legal health record. It is not the complete legal health record.[facility]
--- OUTSIDE RECORDS SUMMARY | 2025-08-17 09:58 | XMS_ITS | Encounter Summary ---
Author Organization [facility] Address [address] [place] [phone] Phone Care Team Providers Care Keeler Polygraph Operator Name Role Phone Guzman Gonzalez MD Primary Care Provider Encounter Details Date Type Department Care Team (Late Contact Info) Description 05/21/2024 Transcribe Orders Virtual Department [address] [place] [address] Terri Salgado NP [address] [place] [address] [place] [address] Social History Tobacco Use Types Packs/Day Years [...] Description 08/25/2025 11:00 AM EST Office Visit [facility] [address] [place] [address] Lonnie Barriga MD, PhD [address] [place] [address] [email or web address] documented as of this encounter Visit Diagnoses Not on filedocumented in this encounter Care Teams Keeler Polygraph Operator Relationship Specialty Start Date End Date Guzman Gonzalez MD PCP - General Family Medicine 03/30/22 documented as of this encounter Additional Source Comments The information contained in this document represents components of the legal health record. It is not the complete legal health record.[facility]
== END 2025-08-17 09:38 | disposition home or self-care (01) ==
LOC: HO.HMCFM 08:59
PROVIDERS: PCP Family Medicine; Visit Provider Family Medicine
DX: Z00.00 Encounter for general adult medical examination without abnormal findings (principal); E11.65 Type 2 diabetes mellitus with hyperglycemia; Z79.4 Long term (current) use of insulin; I10 Essential (primary) hypertension; M54.2 Cervicalgia; Z12.5 Encounter for screening for malignant neoplasm of prostate; Z12.11 Encounter for screening for malignant neoplasm of colon; S46.812A Strain of other muscles, fascia and tendons at shoulder and upper arm level, left arm, initial encounter; M25.512 Pain in left shoulder

== ENCOUNTER 2025-09-08 07:57 | Outpatient (REF) | payer OTHER, SELFPAY ==
[2025-09-08 13:11] LABS: Appearance Urine Clear; Glucose Urine UA >=1000 mg/dL (Negative); PH 5.5 (5.0-9.0); Specific Gravity - Urine 1.020 (1.005-1.025); UMIC TRIGGER UACC YES
[2025-09-08 13:44] LABS: MANUAL DIFF FLAG NO
[2025-09-08 13:55] LABS: Hematocrit 38.7 % (42.0-52.0); Hemoglobin 12.4 g/dl (14.0-18.0); Imm Gran Abs Auto 0.04 X10*3/uL (0.00-0.03); Imm Gran Pct Auto 0.6 % (0.0-0.4); Lymphocytes Absolute Auto 2.3 X10*3/uL (1.2-4.9); Mean Corpuscular HGB Conc 32.0 g/dl (31.0-36.0); Mean Corpuscular Hemoglobin 26.8 pg (27.0-33.0); Mean Corpuscular Volume 83.8 fL (80.0-98.0); NRBC Abs Auto 0.000 X10*3/uL (0.0-0.012); NRBC Pct Auto 0.0 /100WBC (0.0-0.2); Platelet Count 299 X10*3/uL (160-400); Red Blood Count 4.62 X10*6/uL (4.60-5.80); White Blood Count 7.0 X10*3/uL (4.8-10.8)
[2025-09-08 14:40] LABS: Microalbum/Creatinine Ratio Ur 13.6 ug/mg cr (<30)
[2025-09-08 15:16] LABS: Alanine Aminotransferase 22 U/L (0-40); Albumin Level 4.7 g/dL (3.5-5.0); Alkaline Phosphatase 64 U/L (39-117); Anion Gap 11 (12-20); Aspartate Amino Transferase 28 U/L (5-37); Blood Urea Nitrogen 18 mg/dL (9-16); Calcium 9.8 mg/dL (8.4-10.2); Carbon Dioxide 27 mmol/L (22-29); Chloride 100 mmol/L (96-108); Cholesterol 136 mg/dL (<200); Estimated Glomerular Filt Rate > 60; HDL Cholesterol 26 mg/dL (>40); Potassium 4.2 mmol/L (3.3-5.1); Sodium 134 mmol/L (135-145); Total Protein 7.9 g/dL (6.5-8.0); Triglycerides 180 mg/dL (<150)
--- OUTSIDE RECORDS SUMMARY | 2025-09-08 17:11 | XMS_ITS | Patient Health Record ---
Author Organization [facility] Address [address] [facility] [address] [place] [address] Care Team Providers Care Wire Charger Name Role Phone Guzman Gonzalez Primary Care Provider Unavailab Allen Oh Unavailable [phone] Allergies No Known Allergies Reason For Referral [...] Notes Problem Allergic rhinitis caused by pollen (13198420) Seasonal allergic rhinitis due to pollen (J30.1) Active confirmed Problem Acute pansinusitis (9702313) Acute non-recurrent pansinusitis (J01.40) Active confirmed Plan Of Treatment No Information Insurance Providers Payer Name Payer Address Payer Phone Subscriber Number Group Number Insured Name Patient Relationship to Insured Coverage Start Date Coverage End Date [employer] [address] [place], [place] [id number] Luke Castañeda Self - patient is the insured [facility] [address] [place] [phone] [id number] Luke Castañeda Self - patient is the insured Medical (General) History Medical History History ICD Code High blood pressure diabetes Allergy to Steroids Surgical History Surgery Date(Month/Year)
== END 2025-09-08 07:58 | disposition home or self-care (01) ==
LOC: HO.HKASLDS 07:57
PROVIDERS: PCP Family Medicine; Visit Provider Student in an Organized Health Care Education/Training Program
DX: Z00.00 Encounter for general adult medical examination without abnormal findings (principal); E11.618 Type 2 diabetes mellitus with other diabetic arthropathy; I10 Essential (primary) hypertension; R76.0 Raised antibody titer; M54.40 Lumbago with sciatica, unspecified side; M54.2 Cervicalgia; M79.641 Pain in right hand; M79.642 Pain in left hand; R76.89 Other specified abnormal immunological findings in serum; Z12.5 Encounter for screening for malignant neoplasm of prostate; Z79.60 Long term (current) use of unspecified immunomodulators and immunosuppressants; Z87.891 Personal history of nicotine dependence
CPT/HCPCS: 36415; 80053; 80061; 81001; 82043; 82570; 84153; 84443; 85025; 85652; 86140; 86200; 86431

== ENCOUNTER 2025-09-08 07:57 | Outpatient (AMB) | payer OTHER, SELFPAY ==
[2025-09-08 08:02] VITALS: BP 138/76; PULSE 67; O2SAT 98; BMI 41.4
--- NOTE | 2025-09-08 08:02 | A.OFFVIS_ITS ---
Vital Signs 09/08/25 08:02 Height 5 ft 11 in Weight 296 lb 8.348 oz BMI 41.4 BP 138/76 Blood Pressure Location Lt brachial Position Sitting Pulse 67 Pulse Source Pulse Oximeter Pulse Oximetry (%) 98 Oxygen Delivery Method Room Air Intake Visit Reasons: Bl Hand Pain Intake Note: Patient presents for BL hand pain. He states it's been3-4 years. 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 Recent hemoglobin A1c 10.4, history of longstanding lower back pain with sciatica presenting to the clinic as a new patient to me for evaluation of bilateral hand pain. Patient reports that his hand pain is worse in the morning, his hands feel stiff and the stiffness lasts for 45 minutes until he starts to do activity. With activity his hands feel better. He reports that he feels his skin is thick on the hands, particularly surrounding the digits and feels thickening of the flexor tendons. He also has a history of trigger finger. He was evaluated by our office in 2023, at that time RF CCP were negative, ESR CRP inflammatory note markers were also negative. He had an CESARIO 1 in 160 speckled pattern, he states this was taken after he recovered from a COVID illness. 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 He denies any active synovitis of any of his joints. Vital signs reviewed Physical Examination CONSTITUITIONAL Patient alert and cooperative. Well appearing and in no apparent painful distress HEENT Conjunctiva and sclera clear. No lymphadenopathy. CHEST/RESPIRATORY SYSTEM Normal respiratory effort and able to speak in complete sentences. Clear to auscultation bilaterally. No crackles, rales, rhonchi, wheezes heard. CARDIAC SYSTEM Regular rate and rhythm. S1 and S2 heard no murmurs. Radial pulses intact bilaterally MSK Hands * Right Hand: Able to make a fist. SKIN THICKENING NOTED ON THE DIGITS, THICKENING OF THE FLEXOR TENDONS FELT. Patient has trigger finger of the right 4th digit. * Left Hand: Able to make a fist. SKIN THICKENING NOTED ON THE DIGITS, THICKENING OF THE FLEXOR TENDONS FELT, no active synovitis noted Wrists * Right Wrist: Full ROM to flexion and extension. No swelling or TTP * Left Wrist: Full ROM to flexion and extension. No swelling or TTP Elbows * Right Elbow: Full ROM. No swelling or TTP. No TTP of the medial epicondyle. No TTP of the lateral epicondyle * Left Elbow: Full ROM. No swelling or TTP. No TTP of the medial epicondyle. No TTP of the lateral epicondyle Shoulders * Right shoulder: Full ROM. No swelling noted. No TTP of the AC joint. No TTP of the subacromial bursa. No TTP of the posterior shoulder * Left shoulder: Full ROM. No swelling noted. No TTP of the AC joint. No TTP of the subacromial bursa. No TTP of the posterior shoulder Hips * Right hip: Good ROM. No pain elicited with hip flexion/internal rotation/external rotation * Left hip: Good ROM. No pain elicited with hip flexion/internal rotation/external rotation Hip bursa: No tenderness to palpation bilaterally Knees * Right knee: Full ROM. No swelling noted. No TTP of the knee joint line. No TTP of pes anserine bursa * Left knee: Full ROM. No swelling noted. No TTP of the knee joint line. No TTP of pes anserine bursa. Ankles * Right ankle: Good ankle dorsiflexion and plantar flexion. No swelling. No TTP of the ankle joint * Left ankle: Good ankle dorsiflexion and plantar flexion. No swelling. No TTP of the ankle joint Feet * Right foot: Negative squeeze test * Left foot: Negative squeeze test SKIN No rashes, acanthosis nigricans of the neck noted, thickening of the digits of the skin noted [facility] Medical History Axillary lymphadenopathy Obstructive sleep apnea hypopnea, severe Obstructive sleep apnea Vitamin D deficiency Vitamin D deficiency PAF (paroxysmal atrial fibrillation) HLD (hyperlipidemia) HTN (hypertension) T2DM (type 2 diabetes mellitus) NAFLD (nonalcoholic fatty liver disease) Essential hypertension Type 2 diabetes mellitus without complications Surgical History History of esophagogastroduodenoscopy (EGD) Family History Father Diabetes Hypertension CVD (cardiovascular disease) Mother Alzheimer's dementia Other Mental health disorder Vitamin D deficiency Social History Household Members: Spouse Both parents involved: No Caregiver staying overnight: No Housing: House Are you a primary chronic care nurse to a significant other at home: No Do you presently have visiting nurse or other home services: No 75 years or older and lives alone: No Alcohol intake: never Patient Tobacco Use Status: Former Tobacco user e-Cigarette/Vaping Use: Never Used Second Hand Smoke Exposure: No service: No Current occupational status: employed 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 Based on history and physical exam along with blood work most likely patient has diabetic chieroarthropathy with thickening of his skin digits and thickening of the flexor tendons. No active synovitis noted. RF CCP negative, last ESR within normal limits. For now I will request a set of hand x-rays to evaluate his joints Repeating RF CCP inflammatory and inflammatory markers ESR CRP after discussion with the patient even though clinical exam not consistent with rheumatoid arthritis I will request OT for evaluation and treatment of bilateral hand pain. Requesting PT for evaluation and treatment of chronic lower back pain with sciatica. Prescribing Voltaren gel to use up to 4 times a day as needed for his joint pain in the hands Patient also reports neck pain which is worse in the morning stiffness limited range of motion, will get a set of x-rays to evaluate cervical spine Patient will follow-up with us in 6 months to assess improvement of his joint pain in the hands after OT and PT therapy. Patient was strongly advised that his diabetes should be under control as this is contributing to his symptoms. (2) Bilateral hand pain: Code(s): M79.641 - Pain in right hand; M79.642 - Pain in left hand Category: Medical (3) Cervicalgia: Code(s): M54.2 - Cervicalgia Category: Medical (4) Low back pain with sciatica: Code(s): M54.40 - Lumbago with sciatica, unspecified side Category: Medical (5) CESARIO positive: Code(s): R76.8 - Other specified abnormal immunological findings in serum Category: Medical Plan: Review of systems and clinical exam is inconsistent with any autoimmune inflammatory condition associated with CESARIO Plan 49-year-old male with a history of insulin-dependent diabetes mellitus presenting with hand pain bilaterally. Based on history and physical exam along with blood work most likely patient has diabetic arthropathy with thickening of his skin digits and thickening of the flexor tendons. No active synovitis noted. RF CCP negative, last ESR within normal limits. For now I will request a set of hand x-rays to evaluate his joints Repeating RF CCP inflammatory and inflammatory markers ESR CRP after discussion with the patient even though clinical exam not consistent with rheumatoid arthritis I will request OT for evaluation and treatment of bilateral hand pain. Requesting PT for evaluation and treatment of chronic lower back pain with sciatica. Prescribing Voltaren gel to use up to 4 times a day as needed for his joint pain in the hands Patient also reports neck pain which is worse in the morning stiffness limited range of motion, will get a set of x-rays to evaluate cervical spine Patient will follow-up with us in 6 months to assess improvement of his joint pain in the hands after OT and PT therapy. Patient was strongly advised that his diabetes should be under control as this is contributing to his symptoms. Orders: Orders OT Evaluation and Treatment Today E11.618 - Type 2 diabetes mellitus with other diabetic arthropathy, M54.9 - Dorsalgia, unspecified, M79.641 - Pain in right hand, M79.642 - Pain in left hand C Reactive Protein Today Z79.60 - FPC (current) use of unspecified immunomodulators and immunosuppressants Cyclic Citrullinated Peptide Today R76.0 - Raised antibody titer Aspartate Amino Transferase Today R76.0 - Raised antibody titer Erythrocyte Sedimentation Rate Today Z79.60 - bed bug exterminator (current) use of unspecified immunomodulators and immunosuppressants Rheumatoid Factor Today R76.0 - Raised antibody titer Creatinine Today R76.0 - Raised antibody titer Alanine Aminotransferase Today R76.0 - Raised antibody titer XR Hand Bilat min 3v Today M79.641 - Pain in right hand, M79.642 - Pain in left hand XR cervical spine 3V Today M54.2 - Cervicalgia PT Evaluation and Treatment Today M54.40 - Lumbago with sciatica, unspecified side Medications: New diclofenac sodium 1% (Voltaren Arthritis Pain) apply to single elbow, wrist or hand; for hand includes palm/fingers/back of hand 2 grams topical QID 100 grams 2RF Coding Level of Care Code New Pt Level 4 (43917) Diagnoses Diabetic cheirarthropathy E11.618 Bilateral hand pain M79.641; M79.642 Cervicalgia M54.2 Low back pain with sciatica M54.40 CESARIO positive R76.8
== END 2025-09-08 09:16 | disposition home or self-care (01) ==
LOC: HO.RHES 07:58
PROVIDERS: PCP Family Medicine; Visit Provider Student in an Organized Health Care Education/Training Program
DX: M79.641 Pain in right hand (principal); M79.642 Pain in left hand; M54.2 Cervicalgia; M54.40 Lumbago with sciatica, unspecified side
CPT/HCPCS: 99204

== ENCOUNTER 2025-09-15 10:03 | Outpatient (REF) | payer OTHER, SELFPAY ==
--- OUTSIDE RECORDS SUMMARY | 2023-10-01 11:50 | XMS_ITS | Continuity of Care Document ---
Author Organization [facility] Address [address] [place] [address] [address] [place] [address] Phone Care Team Providers Care Date Night Caregiver Name Role Phone Michi GORDON FACS Apollo GOMEZ Unavailable Unavailable Procedures Procedure Date Office/Oupt E&M New Pt 45 Mins 23 Duplex Scan-extrem Veins; Comp Advance Directives Directive Yes / No Effective Date File Name No Information Encounters Encounter Description Practice Location Reason(s) For Visit Diagnoses Date Provider Providers Copied on Encounter [facility], [address] [place] [address] [address], [place], [id number], tel:[phone] [facility] No Information 3 Michi GORDON FACS DAVIDT CATRACHO [place]. [address] [facility] [address], [place], [address], [place]. tel:[phone] Referring Provider: Erin Duran DPM, [address] [facility] [address] [facility], [place], [address]. tel:[phone] Office/Oupt E&M New Pt 45 Mins [facility], [address] [place] [address] [address], [place], [id number], tel:[phone] [facility] Pain in right lower legPain in left lower legLocalized edemaChronic venous hypertension (idiopathic) with other complications of bilateral lower extremityType 2 diabetes mellitus without complications Essential (primary) hypertensionF jazmyn joint, unspecified joint 3 Michi GORDON FACS Saeid [place]. [address] [place] [address], [place], [address], . tel:[phone] Referring Provider: Erin Duran DPM, [address] [place], [address]. tel:[phone] [facility], [address] [facility] [address], [place], [id number], tel:[phone] [facility] Chronic venous hypertension (idiopathic) with other complications of bilateral lower extremity 3 Michi GORDON FACS Saeid Trinh. [address] [place] [address], [place], [address], [place]. tel:[phone] Referring Provider: Erin Duran DPM, [address] [place], [address]. tel:[phone] Family History Family Member Type Diagnosis Age At Onset No Information Payers Payer name Insurance type Covered green party ID Trinidad sanches(s) [facility] CI [id number] [facility] CI [id number] Social History Type Description Quantity Date Captured Comments Sex Male Smoking Status No Information Chief Complaint And Reason For Visit No Information Reason For Referral Reason For Referral No Information Plan Of Treatment Date Type Action Status Goal Diet education completed Goal Tobacco cessation counseling completed Referral Ordered: Weight management: Referral to physician timeframe: 3 Months (related to Body mass index (BMI) 35.0-35.9, adult) ordered History Of Present Illness Encounter Date Complaint History Of Prese nt Illness No Information Functional Status Date Functional Assessmen t No Information Instructions Date Instruction Additional Infor mation Diet education Related to Body mass index (BMI) 35.0-35.9, adult Giving Encouragement to exercise Related to Body mass index (BMI) 35.0-35.9, adult Lifestyle education Related to B pérez mass index (BMI) 35.0-35.9, adult Pre and post instruc tions reviewed and provided Related to Pain in right lower leg Patient education booklet given Related to Pain in right lower leg Assessments Type Assessment Date No Information Patient Care Teams Name Effective Dates (start - stop) Status Members No Information
--- NOTE | ~2025-09-15 | US_ITS ---
CLINICAL HISTORY: I65.23 - Occlusion and stenosis of bilateral carotid arteries US Bilateral Carotid Duplex Comparison: None provided Findings: No significant plaque within the common carotid arteries. No significant plaque within the carotid bulbs. Normal color doppler and waveforms morphology. Peak systolic velocities: Right CCA: 80 cm/s. Right ICA: 77 cm/s. ICA/CCA ratio: 0.9 Right ECA: 133 cm/s. Right vertebral artery flow antegrade. Left CCA: 89 cm/s. Left ICA: 82 cm/s. ICA/CCA ratio: 0.8 Left ECA: 116 cm/s. Left vertebral artery flow antegrade. IMPRESSION: Normal carotid velocities, no significant stenosis (0-49% stenosis). This document has been electronically signed by: Helio Ya MD on 09/15/2025 17:26:26
--- OUTSIDE RECORDS SUMMARY | 2025-09-15 11:44 | XMS_ITS | Patient Health Record ---
Author Organization [facility] Address [address] [facility] [address]TH [place] [address] Care Team Providers Care Adjunct Nursing Faculty Name Role Phone Guzman Gonzalez Primary Care Provider Unavailab Allen Oh Unavailable [phone] Allergies No Known Allergies Reason For Referral [...] Notes Problem Allergic rhinitis caused by pollen (81153120) Seasonal allergic rhinitis due to pollen (J30.1) Active confirmed Problem Acute pansinusitis (5689128) Acute non-recurrent pansinusitis (J01.40) Active confirmed Plan Of Treatment No Information Insurance Providers Payer Name Payer Address Payer Phone Subscriber Number Group Number Insured Name Patient Relationship to Insured Coverage Start Date Coverage End Date A[employer]O [address] [place], [place] [id number] Luke Castañeda Self - patient is the insured [facility] [address] [place] [phone] [id number] Luke Castañeda Self - patient is the insured Medical (General) History Medical History History ICD Code High blood pressure diabetes Allergy to Steroids Surgical History Surgery Date(Month/Year)
== END 2025-09-15 10:04 | disposition home or self-care (01) ==
LOC: HO.US 10:03
PROVIDERS: PCP Family Medicine; Visit Provider Internal Medicine
DX: I65.23 Occlusion and stenosis of bilateral carotid arteries (principal)
CPT/HCPCS: 93880

== ENCOUNTER → 2025-09-15 10:05 | Outpatient (BNV) | payer OTHER, SELFPAY | PROVIDERS: PCP Family Medicine; Visit Provider Radiology Diagnostic Radiology | DX: I65.23 Occlusion and stenosis of bilateral carotid arteries (principal) | CPT/HCPCS: 93880 ==

== ENCOUNTER 2025-09-21 14:21 | Outpatient (AMB) | payer OTHER, SELFPAY ==
--- NOTE | 2025-09-21 14:17 | MHC.PC.OV ---
Intake Visit Reasons: f/u CPE-labs via telemed Intake Note: Luke presents for a telehealth appointment to go over his lab results. 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 Allergies ibuprofen Adverse Reaction (Intermediate, Verified 09/21/25 14:19) GI upset Medication List - Last Reconciled 09/21/25 by Guzman Gonzalez MD albuterol sulfate 90 mcg/actuation (Proair Digihaler) 1 inh inhalation Q4-6H PRN 30 days albuterol sulfate 90 mcg/actuation (Ventolin HFA) 2 puffs inhalation Q4-6H PRN 30 days aspirin (Adult Aspirin Regimen) 81 mg PO DAILY 90 days atorvastatin 20 mg PO ONCE 90 days bisoprolol fumarate 7.5 mg (1.5 x 5 mg) PO DAILY 90 days blood sugar diagnostic (FreeStyle Lite Strips) to check the accuracy of CGM devise during high and low alarming prn as directed, up to 4 times a day blood-glucose meter (FreeStyle Lite Meter kit) to check blood sugar up to four times per day prn as directed during high and low alarms on CGM device. blood-glucose sensor (Keybroker G7 Sensor device) As directed to be changed every 10 days clotrimazole 1% 1 appl topical BID 2 weeks diclofenac sodium 1% 4 grams topical TID 15 days diclofenac sodium 1% (Voltaren Arthritis Pain) 2 grams topical QID fenofibrate micronized 200 mg PO DAILY 90 days FreeStyle Mckay 3 Plus Sensor (blood-glucose sensor) every 15 days NS FreeStyle Mckay 3 [place] (blood-glucose,pediatric registered nurse,cont) As directed NS FreeStyle Mckay 3 Sensor (blood-glucose sensor) DIRECTED CHANGED EVERY 14 DAYS NS glucose (Dex4 Glucose) 16 grams (4 x 4 gram) PO Q15M PRN 30 days MDD 16 tablets insulin aspart U-100 (Novolog FlexPen U-100 Insulin aspart) 90 units (0.9 mL) subcut TIDWMEAL 90 days lancets (FreeStyle Lancets) to check blood sugar up to 4x daily to check accuracy of CGM during high and low alarm. lisinopril 20 mg PO DAILY 90 days miscellaneous medical supply (Blood Pressure Cuff) adult size blood pressure cuff as directed montelukast (Singulair) 10 mg PO BEDTIME omega-3 acid ethyl esters 1 cap PO DAILY 90 days pen needle, diabetic (BD Ultra-Fine Micro Pen Needle) As directed injects 4 X/day pen needle, diabetic (Maddie 2nd Gen Pen Needle) USE TO INJECT 4 TIMES A DAY rabeprazole 20 mg PO DAILY 90 days Toujeo SoloStar U-300 Insulin (insulin glargine U-300 conc) 84 units (0.28 mL) subcut BID NS Tobacco use date assessed: 09/21/25 Dental Screening Dental Screen Date: 09/21/25 Did you have a dental visit in the last 12 months?: Yes Did you have a dental problem in the last 6 months where you did not have access to dental care?: No Was dental information given to patient?: Patient has dentist HPI f/u CPE-labs via telemed HPI Details 49 y/o male presents to f/u CPE-labs via telemed. Labs drawn 09/08/25. Reviewed labs with pt. Mild anemia. Fasting glucose 222. Triglycerides 180. TC 136. LDL 74. HDL low at 26. PSA 0.70. PFSH Medical History Axillary lymphadenopathy Obstructive sleep apnea hypopnea, severe Obstructive sleep apnea Vitamin D deficiency Vitamin D deficiency PAF (paroxysmal atrial fibrillation) HLD (hyperlipidemia) HTN (hypertension) T2DM (type 2 diabetes mellitus) NAFLD (nonalcoholic fatty liver disease) Essential hypertension Type 2 diabetes mellitus without complications Surgical History History of esophagogastroduodenoscopy (EGD) Family History Father Diabetes Hypertension CVD (cardiovascular disease) Mother Alzheimer's dementia Other Mental health disorder Vitamin D deficiency Social History (Updated 09/21/25 @ 14:20 by Cheyenne Hernandez CMA) Household Members: Spouse Both parents involved: No Caregiver staying overnight: No Housing: House Are you a primary medicare coordinator to a significant other at home: No Do you presently have visiting nurse or other home services: No 75 years or older and lives alone: No Alcohol intake: never Patient Tobacco Use Status: Former Tobacco user e-Cigarette/Vaping Use: Never Used Second Hand Smoke Exposure: No service: No Current occupational status: employed Current occupation: [employer] Current occupational exposures/hazards: No Cognitive needs: No Hearing needs: No Vision needs: Yes (Glasses) Questionnaire Thrive Questionnaire Date Thrive assessed: 01/04/25 LISA-7 AMB Questionnaire LISA-7 Date LISA - 7 assessed: 08/14/24 Source: Developed by Drs. Robert Atkinson, Fransisca Michelle, Des Wright and colleagues, with an educational jessica from [employer]. Physical exam (Primary Care) Tobacco/Smoking Status: Tobacco use Status Tobacco use date assessed 09/21/25 09/21/25 14:22 Patient Tobacco Use Status Former Tobacco user 09/21/25 14:20 e-Cigarette/Vaping Use Never Used 09/21/25 14:20 Thrive Assessment: Date of Thrive Assessment Date Thrive assessed 01/04/25 09/21/25 14:17 Telehealth Telehealth Telehealth Platform: Telephone Location of provider rendering services: practice address Location of patient: address on file Patient Identification confirmed using: Name, : Yes Telehealth method: voice only Patient verbally consented to treatment: Yes Patient verbally consented to billing insurance company: Yes Patient informed of any privacy concerns related to visit: Yes Minutes spent on Phone/Video with Pt.: 8 Coding Level of Care Code Tele Est Pt Level 2 (69306) Diagnoses Mild anemia D64.9 Hyperlipidemia, unspecified hyperlipidemia type E78.5 Hyperlipidemia type: unspecified Low HDL (under 40) E78.6 Type 2 diabetes mellitus with hyperglycemia, with long-term current use of insulin E11.65; Z79.4 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 complication status: with hyperglycemia 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 terminal 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 use: with retirement use Assessment & Plan Assessment & Plan (1) Mild anemia: Code(s): D64.9 - Anemia, unspecified Category: Medical Plan: Ongoing mild persistent anemia which has very slightly but gradually worsened Will recheck this with his next blood draw investigate further (2) HLD (hyperlipidemia): Code(s): E78.5 - Hyperlipidemia, unspecified Category: Medical Qualifiers: Hyperlipidemia type: unspecified Qualified Code(s): E78.5 - Hyperlipidemia, unspecified Plan: LDL cholesterol and TC are controlled on atorvastatin HDL is low-see below Triglycerides are high, likely secondary to elevated blood sugar (3) Low HDL (under 40): Code(s): E78.6 - Lipoprotein deficiency Category: Medical Plan: Low HDL though his LDL is well controlled on atorvastatin Can try [place] 3 capsule (4) T2DM (type 2 diabetes mellitus): Code(s): E11.9 - Type 2 diabetes mellitus without complications Category: Medical Qualifiers: 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 complication status: with hyperglycemia 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 terminal 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 use: with retirement use Qualified Code(s): E11.65 - Type 2 diabetes mellitus with hyperglycemia; Z79.4 - assisted (current) use of insulin Plan: Patient is blood sugars are still poorly controlled Follow-up with endocrinology as recommended Orders: Orders Reticulocyte Count Today D64.9 - Anemia, unspecified Vitamin B12 and Folate Today D64.9 - Anemia, unspecified, E53.8 - Deficiency of other specified B group vitamins Complete Blood Count Auto Diff Today D64.9 - Anemia, unspecified, Z00.00 - Encounter for general adult medical examination without abnormal findings IRON PROFILE Today D64.9 - Anemia, unspecified Ferritin Today D64.9 - Anemia, unspecified Referrals Cologuard Test Z12.11 - Encounter for screening for malignant neoplasm of colon, Z12.12 - Encounter for screening for malignant neoplasm of rectum Medications: New omega-3 acid ethyl esters 1 cap PO DAILY 90 caps 3RF 90 days
--- OUTSIDE RECORDS SUMMARY | 2025-09-21 16:20 | XMS_ITS | Encounter Summary ---
Author Organization [facility] Address [address] [place] [phone] Phone Care Team Providers Care Medical Records Technician Name Role Phone Guzman Gonzalez MD Primary Care Provider Encounter Details Date Type Department Care Team (Late st Contact Info) Description 09/18/2025 Orders Only [facility] [address] [facility] [address]th [place] [address] Thais Maria MD [address] [place] [id number] [email or web address] Social History Tobacco Use Types Packs/Day Years [...] Care Team (Late st Contact Info) Description 12/29/2025 10:10 AM EDT Office Visit [facility] [address] [place] [address] Lonnie Barriga MD, PhD [address] [place] [address] [email or web address] documented as of this encounter Visit Diagnoses Not on filedocumented in this encounter Care Teams Medical Records Technician Relationship Specialty Start Date End Date Guzman Gonzalez MD PCP - General Family Medicine 03/30/22 documented as of this encounter Additional Source Comments The information contained in this document represents components of the legal health record. It is not the complete legal health record.[facility]
--- OUTSIDE RECORDS SUMMARY | 2025-09-21 16:20 | XMS_ITS | Clinical Summary ---
Author Organization [facility] Address [address] [place] [phone] Phone Care Team Providers Care Postal Transportation Clerk Name Role Phone Guzman Gonzalez MD [...] 28 each 2 2 Active hypromellose (ARTIFICIAL TEARS,[id number], ) Drop Place 1 drop into each eye as needed. 30 mL 12 2 Active hypromellose (ARTIFICIAL TEARS,[id number], ) Drop Place 1 drop into each [...] Encounters Date Type Department Care Team Description 09/18/[address] [address] Thais Maria MD 09/18/2025 Orders Only [address] [address] Thais Maria MD 09/18/[address] [address] Thais Maria MD 09/10/[address] [address] Lonnie Barriga MD, PhD 09/10/[address] [address] Lonnie Barriga MD, PhD 08/25/2025 11:00 AM EST Office Visit [address] [address] Lonnie Barriga MD, PhD MANAGER PARK (central serous retinopathy), bilateral (Primary Dx); Both [...] Description 12/29/2025 10:10 AM EDT Office Visit [facility] [address] [place] [address] Lonnie Barriga MD, PhD [address] [place] [address] Carlos [email or web address] Health Maintenance Due Date Last Done Comments [...] INFLUENZA VACCINE (#1) 2025 09/30/2020 COVID-19 VACCINE ( season) 2025 02/23/2021, 02/02/2021 DIABETIC EYE EXAM 08/25/2026 08/25/2025, , 08/25/2025, Additional history exists HEPATITIS A VACCINES Aged [...] RETINA - OU - BOTH EYES Routine 08/25/2025 12:06 PM EST MANAGER PARK (central serous retinopathy), 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, associated with type 2 diabetes mellitus Nuclear sclerotic cataract, bilateral NAION (non-arteritic anterior ischemic optic neuropathy), right eye COLOR FUNDUS PHOTOGRAPHY - OU - BOTH EYES Routine 08/25/2025 12:06 PM EST MANAGER PARK (central serous retinopathy), 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, associated with type 2 diabetes mellitus Nuclear sclerotic cataract, bilateral NAION (non-arteritic anterior ischemic optic neuropathy), right eye AUTOFLUORESCENCE - OU - BOTH EYES Routine 08/25/2025 12:06 PM EST MANAGER PARK (central serous retinopathy), 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 Outer-retinal layers changes. Hyaloid down. Stable. OS: diabetoic architectural changes . and Mas. Hyaloid down. Lonnie Barriga MD, PhD OPHTHALMOLOGY IMAGING F inal Result HARMONY * Color Fundus Photography - OU - Both Eyes (08/25/2025 12:06 PM EST) Anatomical Region Laterality Modality Head Photography Narrative 08/25/2025 12:53 PM EST OD: LAYOUT WORKER temporal to the fovea, scattered dbh 360 OS: scattered dbh 60 some disc vessle changes Lonnie Barriga MD, PhD OPHTHALMOLOGY IMAGING F inal Result * Autofluorescence - OU - Both Eyes (08/25/2025 12:06 PM EST) Anatomical Region Laterality Modality Head Optical Coherenc e Tomography Narrative 08/25/2025 12:54 PM EST OD: hyperAF in inferonasal macula, hypoAF temporal to the macula, DBH hypoAF OS: scattered hypoAF corresponding with DBH Lonnie Barriga MD, PhD OPHTHALMOLOGY IMAGING F inal Result from Last 3 Months Insurance [employer] O POS EPO [facility] POS O POS EPO [facility] EPO AETNA O [facility] E[facility] [place]PLOR[place] [address] [place] [address] POS EPO O POS E[place] [address] [place] [address] EXPLORER POS AET[employer] HMO POS EPO [facility] EXPLORER POS POS EPO [facility] EXPLORER POS Care Teams Postal Transportation Clerk Relationship Specialty Start Date End Date Guzman Gonzalez MD PCP - General Family Medicine 03/30/22 Additional Source Comments The information contained in this document represents components of the legal health record. It is not the complete legal health record.[facility]
--- OUTSIDE RECORDS SUMMARY | 2025-09-21 16:20 | XMS_ITS | Encounter Summary ---
Author Organization [facility] Address [address] [place] [address] Phone Care Team Providers Care Galley Stripper Name Role Phone Guzman Gonzalez MD Primary Care Provider Encounter Details Date Type Department Care Team (Late st Contact Info) Description 09/18/2025 Telephone [facility] 243 [facility] 12th [place] [address] Thais Maria MD 243 [place] [address] [email or web address] Social History Tobacco Use Types Packs/Day [...] on file documented as of this encounter Progress Notes * Thais Maria MD - 09/18/2025 9:21 PM EST Called patient x3, no reply, left VM to call us back. Thais Maria MD documented in this encounter Plan of Treatment Upcoming Encounters Date Type Department Care Team (Late st Contact Info) Description 12/29/2025 10:10 AM EDT Office Visit [facility] 243 [facility] 12th [place] [address] Lonnie Barriga MD, PhD [address] [place] [address] Lonnie_[email or web address] documented as of this encounter Visit Diagnoses Not on filedocumented in this encounter Care Teams Galley Stripper Relationship Specialty Start Date End Date Guzman Gonzalez MD PCP - General Family Medicine 03/30/22 documented as of this encounter Additional Source Comments The information contained in this document represents components of the legal health record. It is not the complete legal health record.[facility]
--- OUTSIDE RECORDS SUMMARY | 2025-09-21 16:20 | XMS_ITS | Encounter Summary ---
Author Organization [facility] Address [address] [place] [address] Phone Care Team Providers Care Insurance Business Analyst Name Role Phone Guzman Gonzalez MD Primary Care Provider Encounter Details Date Type Department Care Team (Late Contact Info) Description 05/21/2024 Transcribe Orders Virtual Department 30 [place] [address] Terri Salgado NP [address] [place] [address] [place] [address] Social History Tobacco Use Types Packs/Day Years [...] Department Care Team (Late Contact Info) Description 12/29/2025 10:10 AM EDT Office Visit [facility] [address] [place] [address] Lonnie Barriga MD, PhD 243 [place] [address] Lonnie_[email or web address] documented as of this encounter Visit Diagnoses Not on filedocumented in this encounter Care Teams Insurance Business Analyst Relationship Specialty Start Date End Date Guzman Gonzalez MD PCP - General Family Medicine 03/30/22 documented as of this encounter Additional Source Comments The information contained in this document represents components of the legal health record. It is not the complete legal health record.[facility]
--- OUTSIDE RECORDS SUMMARY | 2025-09-21 16:20 | XMS_ITS | Encounter Summary ---
Author Organization [facility] Address [address] [place] [address] Phone Care Team Providers Care Lavender Farm Worker Name Role Phone Guzman Gonzalez MD Primary Care Provider Encounter Details Date Type Department Care Team (Late st Contact Info) Description 09/18/2025 Telephone [facility] 243 [facility] 12th [place] [address] Thais Maria MD 243 [place] [address] [email or web address] Social History Tobacco Use Types Packs/Day [...] Notes * Thais Maria MD - 09/18/2025 10:55 PM EST Patient called. Has 2 weeks of FBS and watery eyes. Eyes are sometimes red. Uses artificial tears TID, which help him. Denies any changes in vision. 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 I recommended that he reach out to his office to schedule an appointment. Offered to place referral to COS here for management of his symptoms. If he is concerned about his symptoms, the [facility] is open 13/05 for evaluation. Thais Maria MD documented in this encounter Plan of Treatment Upcoming Encounters Date Type Department Care Team (Late st Contact Info) Description 12/29/2025 10:10 AM EDT Office Visit [address] [address] Lonnie Barriga MD, PhD [address] [place] [address] Lonnie_[email or web address] documented as of this encounter Visit Diagnoses Not on filedocumented in this encounter Care Teams Lavender Farm Worker Relationship Specialty Start Date End Date Guzman Gonzalez MD PCP - General Family Medicine 03/30/22 documented as of this encounter Additional Source Comments The information contained in this document represents components of the legal health record. It is not the complete legal health record.[facility]
--- OUTSIDE RECORDS SUMMARY | 2025-09-21 16:20 | XMS_ITS | Encounter Summary ---
Author Organization [facility] Address [address] [place] [address] Phone Care Team Providers Care Coding Validator Name Role Phone Guzman Gonzalez MD Primary Care Provider Encounter Details Date Type Department Care Team (Late st Contact Info) Description 09/10/2025 Telephone [facility] [address] [place] [address] Lonnie Barriga MD, PhD [address] [place] [address] Carlos [email or web address] Social History Tobacco Use Types Packs/Day Years [...] Description 12/29/2025 10:10 AM EDT Office Visit [facility] [address] 12th [place] [address] Lonnie Barriga MD, PhD 243 [place] [address] Lonnie_[email or web address] documented as of this encounter Visit Diagnoses Not on filedocumented in this encounter Care Teams Coding Validator Relationship Specialty Start Date End Date Guzman Gonzalez MD PCP - General Family Medicine 03/30/22 documented as of this encounter Additional Source Comments The information contained in this document represents components of the legal health record. It is not the complete legal health record.[facility]
== END 2025-09-21 15:33 | disposition home or self-care (01) ==
LOC: HO.HMCFM 14:21
PROVIDERS: PCP Family Medicine; Visit Provider Family Medicine
DX: E11.65 Type 2 diabetes mellitus with hyperglycemia (principal); D64.9 Anemia, unspecified; E78.5 Hyperlipidemia, unspecified; Z79.4 Long term (current) use of insulin; E78.6 Lipoprotein deficiency

== ENCOUNTER 2025-10-02 07:48 | Outpatient (REF) | payer OTHER, SELFPAY ==
--- NOTE | ~2025-10-02 | CT_ITS ---
CLINICAL HISTORY: R59.0 - Localized enlarged lymph nodes --- Additional Notes or Special Instructions: Patient declines contrast CT chest without contrast Comparison: 05/09/2024 chest x-ray Findings: The heart size is normal. The visualized thyroid and mediastinum are unremarkable. The lungs are clear. There are prominent bilateral axillary lymph nodes better evaluated sonographically. The visualized upper abdomen is unremarkable. The bones are intact. IMPRESSION: 1. Nonspecific bilateral axillary lymph nodes. Consider sonography to further characterize.. This document has been electronically signed by: Dudley Maldonado MD on 10/04/2025 09:01:17
--- OUTSIDE RECORDS SUMMARY | 2025-10-02 07:52 | XMS_ITS | Encounter Summary ---
Author Organization [facility] Address [address] [place] [address] Phone Care Team Providers Care Porcelain Technician Name Role Phone Guzman Gonzalez MD Primary Care Provider Encounter Details Date Type Department Care Team (Late st Contact Info) Description 09/28/2025 Telephone [facility] 243 [facility] 12th [place] [address] Lonnie Barriga MD, PhD [address] [place] [address] Carlos [email or web address] Social History Tobacco Use Types Packs/Day Years [...] as of this encounter Progress Notes * Maribell Riggins - 09/28/2025 8:46 AM EST Patient had called yesterday after hours and earlier this morning about vision changes. I called and the patient did not answer. I left a voicemail. documented in this encounter Plan of Treatment Upcoming Encounters Date Type Department Care Team (Late st Contact Info) Description 12/29/2025 10:10 AM EDT Office Visit [facility] [address] [address] Lonnie Barriga MD, PhD [address] [place] [address] Lonnie_[email or web address] documented as of this encounter Visit Diagnoses Not on filedocumented in this encounter Care Teams Porcelain Technician Relationship Specialty Start Date End Date Guzman Gonzalez MD PCP - General Family Medicine 03/30/22 documented as of this encounter Additional Source Comments The information contained in this document represents components of the legal health record. It is not the complete legal health record.[facility]
--- OUTSIDE RECORDS SUMMARY | 2025-10-02 07:52 | XMS_ITS | Encounter Summary ---
Author Organization [facility] Address [address] [place] [address] Phone Care Team Providers Care Custom Bike Builder Name Role Phone Guzman Gonzalez MD Primary Care Provider Encounter Details Date Type Department Care Team ([facility] st Contact Info) Description 09/18/2025 Orders Only [facility] 243 [facility] 12th [place] [address] Thais Maria MD [address] [place] [phone] [email or web address] Social History Tobacco Use Types Packs/Day Years [...] Description 12/29/2025 10:10 AM EDT Office Visit [facility] [address]th [place] [address] Lonnie Barriga MD, PhD 243 [place] [address] Lonnie_[email or web address] documented as of this encounter Visit Diagnoses Not on filedocumented in this encounter Care Teams Custom Bike Builder Relationship Specialty Start Date End Date Guzman Gonzalez MD PCP - General Family Medicine 03/30/22 documented as of this encounter Additional Source Comments The information contained in this document represents components of the legal health record. It is not the complete legal health record.[facility]
--- OUTSIDE RECORDS SUMMARY | 2025-10-02 07:52 | XMS_ITS | Encounter Summary ---
Author Organization [facility] Address [address] [place] [address] Phone Care Team Providers Care Printing Machine Mechanic Name Role Phone Guzman Gonzalez MD Primary Care Provider Encounter Details Date Type Department Care Team (Late st Contact Info) Description 05/21/2024 Transcribe Orders Virtual Department 30 [place] [address] Terri Salgado NP [address] [place] [address] [place] [address] Social History Tobacco Use Types Packs/Day Years [...] Description 12/29/2025 10:10 AM EDT Office Visit [facility] [address] 12th [place] [address] Lonnie Barriga MD, PhD 243 [place] [address] Lonnie_[email or web address] documented as of this encounter Visit Diagnoses Not on filedocumented in this encounter Care Teams Printing Machine Mechanic Relationship Specialty Start Date End Date Guzman Gonzalez MD PCP - General Family Medicine 03/30/22 documented as of this encounter Additional Source Comments The information contained in this document represents components of the legal health record. It is not the complete legal health record.[facility]
--- OUTSIDE RECORDS SUMMARY | 2025-10-02 07:52 | XMS_ITS | Clinical Summary ---
Author Organization [facility] Address [address] [place] [address] Phone Care Team Providers Care Principal Embedded Software Engineer Name Role Phone Guzman Gonzalez MD Primary [...] 28 each 2 2 Active hypromellose (ARTIFICIAL TEARS,[id number], ) Drop Place 1 drop into each eye as needed. 30 mL 12 2 Active hypromellose (ARTIFICIAL TEARS,[id number], ) Drop Place 1 drop into each [...] Encounters Date Type Department Care Team Description 09/28/[address] [address] Lonnie Barriga MD, PhD 09/28/[address] [address] Lonnie Barriga MD, PhD 09/18/[address] [address] Thais Maria MD 09/18/2025 Orders Only [address] [address] Thais Maria MD 09/18/[address] [address] Thais Maria MD 09/10/[address] [address] Lonnie Barriga MD, PhD 09/10/[address] [address] Lonnie Barriga MD, PhD 08/25/2025 11:00 AM EST Office Visit [address] [address] Lonnie Barriga MD, PhD LAND DEPARTMENT HEAD (central serous retinopathy), bilateral (Primary Dx); Both [...] Description 12/29/2025 10:10 AM EDT Office Visit [facility] 243 [place] [address] Lonnie Barriga MD, PhD [address] [place] [address] Carlos [email or web address] Health Maintenance Due Date Last Done Comments [...] BOTH EYES Routine 08/25/2025 12:06 PM EST LAND DEPARTMENT HEAD (central serous retinopathy), 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, associated with type 2 diabetes mellitus Nuclear sclerotic cataract, bilateral NAION (non-arteritic anterior ischemic optic neuropathy), right eye COLOR FUNDUS PHOTOGRAPHY - OU - BOTH EYES Routine 08/25/2025 12:06 PM EST LAND DEPARTMENT HEAD (central serous retinopathy), 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, associated with type 2 diabetes mellitus Nuclear sclerotic cataract, bilateral NAION (non-arteritic anterior ischemic optic neuropathy), right eye AUTOFLUORESCENCE - OU - BOTH EYES Routine 08/25/2025 12:06 PM EST LAND DEPARTMENT HEAD (central serous retinopathy), 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 Outer-retinal layers changes. Hyaloid down. Stable. OS: diabetoic architectural changes . and Mas. Hyaloid down. us Lonnie Barriga MD, PhD OPHTHALMOLOGY IMAGING F inal Result HORACIO * Color Fundus Photography - OU - Both Eyes (08/25/2025 12:06 PM EST) Anatomical Region Laterality Modality Head Photography Narrative 08/25/2025 12:53 PM EST OD: RANCH HAND LIVESTOCK temporal to the fovea, scattered dbh 360 OS: scattered dbh 60 some disc vessle changes us Lonnie Barriga MD, PhD OPHTHALMOLOGY IMAGING F inal Result * Autofluorescence - OU - Both Eyes (08/25/2025 12:06 PM EST) Anatomical Region Laterality Modality Head Optical Coherenc e Tomography Narrative 08/25/2025 12:54 PM EST OD: hyperAF in inferonasal macula, hypoAF temporal to the macula, DBH hypoAF OS: scattered hypoAF corresponding with DBH us Lonnie Barriga MD, PhD OPHTHALMOLOGY IMAGING F inal Result from Last 3 Months Insurance AET[employer] HMO POS EPO [facility] [place] [address] [place] [address] POS EPO [facility] EX[facility] [place] [address] [place], [place] [address]O POS EPO O POS [place] [address] [place] [address] POS [place] [address] EXPLORER POS POS EPO O POS EPO [facility] EX[facility] POS [address] [place], [place] [address]O POS EPO [facility]PO [facility] EXPLORER POS Care Teams Principal Embedded Software Engineer Relationship Specialty Start Date End Date Guzman Gonzalez MD PCP - General Family Medicine 03/30/22 Additional Source Comments The information contained in this document represents components of the legal health record. It is not the complete legal health record.[facility]
--- OUTSIDE RECORDS SUMMARY | 2025-10-02 07:52 | XMS_ITS | Encounter Summary ---
Author Organization [facility] Address [address] [place] [address] Phone Care Team Providers Care Hse Manager Name Role Phone Guzman Gonzalez MD Primary Care Provider Encounter Details Date Type Department Care Team (Late st Contact Info) Description 09/28/2025 Telephone [facility] 243 [facility] 12th [place] [address] Lonnie Barriga MD, PhD [address] [place] [phone] Carlos Manuel@[email or web address] Social History Tobacco Use Types Packs/Day Years [...] as of this encounter Progress Notes * Esther Daugherty RN - 09/28/2025 9:51 AM EST Patient has reported he was recently seen by local rn chronic last week. But is calling today because has eyes are experiencing a increase in eye watering, redness and increase in blurred vision. Currently using artificial tears as needed. Advised he should increase use of artificial tears hourly and ointment at night. Plans on following up with ophthalmology. * Maribell Riggins - 09/28/2025 9:04 AM EST The Patient has a Dry eyes. Right eye is in pain. Feels like something is rubbing against the eye when he closes it. The eye is always watering. Wants to be seen sooner documented in this encounter Plan of Treatment Upcoming Encounters Date Type Department Care Team (Late st Contact Info) Description 12/29/2025 10:10 [place] [address] Lonnie Barriga MD, PhD [address] [place] [address] Lonnie_[email or web address] documented as of this encounter Visit Diagnoses Not on filedocumented in this encounter Care Teams Hse Manager Relationship Specialty Start Date End Date Guzman Gonzalez MD PCP - General Family Medicine 03/30/22 documented as of this encounter Additional Source Comments The information contained in this document represents components of the legal health record. It is not the complete legal health record.[facility]
--- OUTSIDE RECORDS SUMMARY | 2025-10-02 07:52 | XMS_ITS | Encounter Summary ---
Author Organization [facility] Address [address] [place] [address] Phone Care Team Providers Care Powder Mill Operator Name Role Phone Guzman Gonzalez MD Primary Care Provider Encounter Details Date Type Department Care Team (Late st Contact Info) Description 09/10/2025 Telephone [facility] 243 [facility] 12th [place] [address] Lonnie Barriga MD, PhD [address] [place] [phone] Carlos [email or web address] Social History Tobacco Use Types [...] Description 12/29/2025 10:10 AM EDT Office Visit [facility] [address]th [place] [address] Lonnie Barriga MD, PhD 243 [place] [address] Lonnie_[email or web address] documented as of this encounter Visit Diagnoses Not on filedocumented in this encounter Care Teams Powder Mill Operator Relationship Specialty Start Date End Date Guzman Gonzalez MD PCP - General Family Medicine 03/30/22 documented as of this encounter Additional Source Comments The information contained in this document represents components of the legal health record. It is not the complete legal health record.[facility]
--- OUTSIDE RECORDS SUMMARY | 2025-10-02 07:52 | XMS_ITS | Patient Health Record ---
Author Organization [facility] Address [address] [facility] 4TH [place] [address] Care Team Providers Care Solar Lab Technician Name Role Phone Guzman Gonzalez Primary Care Provider Unavailab Allen Oh Unavailable [phone] Allergies No Known Allergies Reason For Referral [...] Notes Problem Allergic rhinitis caused by pollen (64534922) Seasonal allergic rhinitis due to pollen (J30.1) Active confirmed Problem Acute pansinusitis (2775219) Acute non-recurrent pansinusitis (J01.40) Active confirmed Plan Of Treatment No Information Insurance Providers Payer Name Payer Address Payer Phone Subscriber Number Group Number Insured Name Patient Relationship to Insured Coverage Start Date Coverage End Date [employer]-PPO [address] [place], [place] [id number] Luke Castañeda Self - patient is the insured [facility] [address] [place] [phone] [id number] Luke Castañeda Self - patient is the insured Medical (General) History Medical History History ICD Code High blood pressure diabetes Allergy to Steroids Surgical History Surgery Date(Month/Year)
== END 2025-10-02 07:49 | disposition home or self-care (01) ==
LOC: HO.CT 07:48
PROVIDERS: PCP Family Medicine; Visit Provider Nurse Practitioner Family
DX: R59.0 Localized enlarged lymph nodes (principal)
CPT/HCPCS: 71250

== ENCOUNTER → 2025-10-02 07:50 | Outpatient (BNV) | payer OTHER, SELFPAY | PROVIDERS: PCP Family Medicine; Visit Provider Specialist | DX: R59.0 Localized enlarged lymph nodes (principal) | CPT/HCPCS: 71250 ==

== ENCOUNTER 2025-10-05 08:57 | Outpatient (AMB) | payer OTHER, SELFPAY ==
--- NOTE | 2025-10-05 09:04 | A.OFFVIS_ITS ---
Vital Signs 10/05/25 09:05 Height 5 ft 11 in Weight 262 lb 8 oz BMI 36.6 BP 132/90 H Blood Pressure Location Rt brachial Position Sitting Pulse 72 Pulse Source Pulse Oximeter Pulse Oximetry (%) 97 Oxygen Delivery Method Room Air Intake Visit Reasons: 6 month f/u Intake Note: Patient presents follow up KIMO. Compliance in chart(90/90days, >=4hrs-96%, Average Usage-6hr 22min, Pressure-14cm, Med Leaks-1.9, AHI-0.6) Accompanied by: Self / Same As Patient Allergies ibuprofen Adverse Reaction (Intermediate, Verified 10/05/25 09:07) GI upset HPI Comments Details: 49 y/o male with T2DM and HTN presents for a f/u of KIMO. HST c/w AHI 64 and oxygen nadirs to 62%, his pressures were titrated and he continues to be compliant. KIMO compliance reviewed with pt today 06/2025-09/2025 total use is 90/90 days and >4hours is 96%, avg use is 6 hours and 22min Press [id number] and Leaks 1.9/min AHI is 0.6/hr. He washes his mask, rinses hoses, changes filters and fills reservoir with water. He notices a difference in his cognition now and energy levels have improved. He is no longer falling asleep in the middle of the day. He goes to sleep at midnight and we discussed improving the duration of sleep by going to bed earlier since he wakes up at 6am for work. He would like to try the n30 airfit full face mask, freedom category with swivel hoses.We discussed leaks may be causing the eyes to dry out, though pt states leaks have now improved and will occasionally have nasal congestion and he would like to improve his quality of breathing. He has RLS symptoms of bilateral paresthesias with cramps at night. He has tea in the morning, does not feel as if he is aggressively eating anymore as his appetite has changed. He has 3 meals and is more mindful of breakfast pastries, lunch fast food items, and dinner is now at 7pm with more vegetables and fruits in his diet.He is motivated to lose weight and started walking daily for 15 minutes. He was referred to weight loss program. His A1c is still elevated though improved. His PFT was c/w emphysema as he is a former smoker. He used to live in [facility] for [place] years - was exposed to dust. 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 [facility] Medical History Axillary lymphadenopathy Obstructive sleep apnea hypopnea, severe Obstructive sleep apnea Vitamin D deficiency Vitamin D deficiency PAF (paroxysmal atrial fibrillation) HLD (hyperlipidemia) HTN (hypertension) T2DM (type 2 diabetes mellitus) NAFLD (nonalcoholic fatty liver disease) Essential hypertension Type 2 diabetes mellitus without complications Surgical History History of esophagogastroduodenoscopy (EGD) Family History Father Diabetes Hypertension CVD (cardiovascular disease) Mother Alzheimer's dementia Other Mental health disorder Vitamin D deficiency Social History Household Members: Spouse Both parents involved: No Caregiver staying overnight: No Housing: House Are you a primary director of primary care to a significant other at home: No Do you presently have visiting nurse or other home services: No 75 years or older and lives alone: No Alcohol intake: never Patient Tobacco Use Status: Former Tobacco user e-Cigarette/Vaping Use: Never Used Second Hand Smoke Exposure: No service: No Current occupational status: employed 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 Current occupational exposures/hazards: No Cognitive needs: No Hearing needs: No Vision needs: Yes (Glasses) Physical Exam Vital Signs: Last Vital Signs Pulse 72 10/05/25 09:05 BP 132/90 H 10/05/25 09:05 Pulse Ox 97 10/05/25 09:05 Oxygen Delivery Method Room Air 10/05/25 09:05 BMI result Body Mass Index 36.6 Const General: cooperative, comfortable and no acute distress Nutritional Appearance: obese Orientation/consciousness: patient oriented x3 HEENT Face and sinus: Yes face symmetric Eyes Pupils: Equal, round and reactive pupils present Neck Neck: Yes full ROM Resp Effort & Inspection: normal respiratory effort and able to speak in complete sentences Neuro General: patient oriented x3 and moves all extremities Cranial nerves: Yes Equal, round and reactive pupils present, Yes Normal accommodation reflex present, Yes Normal facial strength present, Yes Midline tongue present, Yes Ability to bilaterally rotate head present and Yes Ability to bilaterally elevate shoulders present Gait exam (Neuro): Normal gait present Motor exam (neuro): 5/5 motor strength present throughout and Normal motor muscle tone present throughout Psych Appearance: grossly normal Attitude: cooperative Thought process: Normal thought process present Insight: Good insight present (Psych) Judgement: Good judgement present (Psych) Results Reviewed Results Reviewed: KIMO compliance reviewed with pt today 06/2025-09/2025 total use is 90/90 days and >4hours is 96%, avg use is 6 hours and 22min Press [id number] and Leaks 1.9/min AHI is 0.6/hr. He washes his mask, rinses hoses, changes filters and fills reservoir with water. Labs reviewed with pt. Assessment & Plan Assessment & Plan (1) Obstructive sleep apnea hypopnea, severe: Comment: on cpap and compliant Code(s): G47.33 - Obstructive sleep apnea (adult) (pediatric) Category: Medical (2) Polyarthralgia: Code(s): M25.50 - Pain in unspecified joint Category: Medical (3) Hand paresthesia: Code(s): R20.2 - Paresthesia of skin Category: Medical Plan Severe KIMO continue CPAP 14 cm of water, will send rx for full face mask medium sized airfit n30. Rheumatology referral for pain in hands small joints, h/o CESARIO+ BMI is elevated discussed weight management, diet and exercise, encouraged to walk daily for 30 min. Labs reviewed with patient A1c is improving, Triglycerides are 291, HDL is 25L, will defer to PCP. Environmental Services Specialist consult pending Insulin use, dietary consultation. RLS paresthesias upper ext > lower extremities. F/U in 6 months or sooner as needed. Patient Instructions: Please complete the following fasting labs to rule out deficiencies. CBC/CMP/ B12/ Vit D/ TSH/ Homocysteine and MMA/ Ferritin. Sleep Hygiene provided: set a scheduled bedtime and wake time to help regulate the circadian rhythm and balance the release of pituitary hormones. Sleep in a dark room, temperatures below 68 degrees, and no devices n bed. Limit caffeinated products 6 hours prior to bed, and limit fluids 2-4 hours prior to bed. Gentle night yoga, diffusing essential oils, and playing soft music can be relaxing. Coding Level of Care Code Est Pt Level 4 (25924) Diagnoses Obstructive sleep apnea hypopnea, severe G47.33 Polyarthralgia M25.50 Hand paresthesia R20.2
[2025-10-05 09:05] VITALS: BP 132/90; PULSE 72; O2SAT 97; BMI 36.6
--- OUTSIDE RECORDS SUMMARY | 2025-10-05 10:01 | XMS_ITS | Patient Health Record ---
Author Organization [facility] Address [address] [facility] 4TH [place] [address] Care Team Providers Care Trap Operator Name Role Phone Guzman Gonzalez Primary Care Provider Unavailab Allen Oh Unavailable [phone] Allergies No Known Allergies Reason For Referral [...] Notes Problem Allergic rhinitis caused by pollen (26987353) Seasonal allergic rhinitis due to pollen (J30.1) Active confirmed Problem Acute pansinusitis (4722205) Acute non-recurrent pansinusitis (J01.40) Active confirmed Plan Of Treatment No Information Insurance Providers Payer Name Payer Address Payer Phone Subscriber Number Group Number Insured Name Patient Relationship to Insured Coverage Start Date Coverage End Date Aetna-PPO [address] [place], [place] [id number] Luke Castañeda Self - patient is the insured [facility] [address] [place] [phone] [id number] Luke Castañeda Self - patient is the insured Medical (General) History Medical History History ICD Code High blood pressure diabetes Allergy to Steroids Surgical History Surgery Date(Month/Year)
--- OUTSIDE RECORDS SUMMARY | 2025-10-05 10:01 | XMS_ITS | Encounter Summary ---
Author Organization [facility] Address [address] [place] [address] Phone Care Team Providers Care Quill Fixer Name Role Phone Guzman Gonzalez MD Primary Care Provider Encounter Details Date Type Department Care Team (Late st Contact Info) Description 09/18/[address] [facility] [address] [facility] 12th [place] [address] Thais Maria MD [address] [place] [phone] [email or web address] Social History Tobacco Use Types Packs/Day [...] [facility] [address] [place] [address] Lonnie Barriga MD, PhD [address] [place] [address] [email or web address] documented as of this encounter Visit Diagnoses Not on filedocumented in this encounter Care Teams Quill Fixer Relationship Specialty Start Date End Date Guzman Gonzalez MD PCP - General Family Medicine 03/30/22 documented as of this encounter Additional Source Comments The information contained in this document represents components of the legal health record. It is not the complete legal health record.[facility]
--- OUTSIDE RECORDS SUMMARY | 2025-10-05 10:01 | XMS_ITS | Encounter Summary ---
Author Organization [facility] Address [address] [place] [address] Phone Care Team Providers Care Donor Relations Coordinator Name Role Phone Guzman Gonzalez MD Primary Care Provider Encounter Details Date Type Department Care Team (Late st Contact Info) Description 09/28/2025 Telephone [facility] [address] [facility] 12th [place] [address] Lonnie Barriga MD, PhD [address] [place] [phone] 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 But is calling today because [...] Description 12/29/2025 10:10 AM [place] [address] Lonnie Barriga MD, PhD [address] [place] [address] [email or web address] documented as of this encounter Visit Diagnoses Not on filedocumented in this encounter Care Teams Donor Relations Coordinator Relationship Specialty Start Date End Date Guzman Gonzalez MD PCP - General Family Medicine 03/30/22 documented as of this encounter Additional Source Comments The information contained in this document represents components of the legal health record. It is not the complete legal health record.[facility]
--- OUTSIDE RECORDS SUMMARY | 2025-10-05 10:01 | XMS_ITS | Encounter Summary ---
Author Organization [facility] Address [address] [place] [address] Phone Care Team Providers Care Patient Office Rep Name Role Phone Guzman Gonzalez MD Primary Care Provider Encounter Details Date Type Department Care Team (Late st Contact Info) Description 05/21/2024 Transcribe Orders Virtual Department [address] [place] [address] Terri Salgado NP [address] [place] [address] [place] [address] Social History Tobacco Use Types Packs/Day Years [...] Description 12/29/2025 10:10 AM EDT Office Visit [facility] [address] [place] [address] Lonnie Barriga MD, PhD [address] [place] [address] [email or web address] documented as of this encounter Visit Diagnoses Not on filedocumented in this encounter Care Teams Patient Office Rep Relationship Specialty Start Date End Date Guzman Gonzalez MD PCP - General Family Medicine 03/30/22 documented as of this encounter Additional Source Comments The information contained in this document represents components of the legal health record. It is not the complete legal health record.[facility]
--- OUTSIDE RECORDS SUMMARY | 2025-10-05 10:02 | XMS_ITS | Encounter Summary ---
Author Organization [facility] Address [address] [place] [address] Phone Care Team Providers Care Clinical Analyst Name Role Phone Guzman Gonzalez MD Primary Care Provider Encounter Details Date Type Department Care Team (Late st Contact Info) Description 09/10/2025 Telephone [facility] [address] [facility] 12th [place] [address] Lonnie Barriga MD, PhD [address] [place] [phone] Carlos [email or web address] Social History Tobacco Use Types Packs/Day Years [...] 10:10 AM EDT Office Visit [facility] [address] [place] [address] Lonnie Barriga MD, PhD [address] [place] [address] [email or web address] documented as of this encounter Visit Diagnoses Not on filedocumented in this encounter Care Teams Clinical Analyst Relationship Specialty Start Date End Date Guzman Gonzalez MD PCP - General Family Medicine 03/30/22 documented as of this encounter Additional Source Comments The information contained in this document represents components of the legal health record. It is not the complete legal health record.[facility]
== END 2025-10-05 09:48 | disposition home or self-care (01) ==
LOC: HO.HSMS 08:58
PROVIDERS: PCP Family Medicine; Visit Provider Physician Assistant Medical
DX: G47.33 Obstructive sleep apnea (adult) (pediatric) (principal); M25.50 Pain in unspecified joint; R20.2 Paresthesia of skin
CPT/HCPCS: 99214

== ENCOUNTER 2025-10-19 08:41 | Outpatient (AMB) | payer OTHER, SELFPAY ==
[2025-10-19 08:43] VITALS: BP 132/84; PULSE 83; O2SAT 96; BMI 38.4
--- NOTE | 2025-10-19 08:43 | A.OFFVIS_ITS ---
Vital Signs 3 10/19/25 08:43 Height 5 ft 11 in Weight 275 lb 9.245 oz BMI 38.4 BP 132/84 Blood Pressure Location Rt brachial Position Sitting Pulse 83 Pulse Source Pulse Oximeter Pulse Oximetry (%) 96 Oxygen Delivery Method Room Air Intake Visit Reasons: T2DM Intake Note: Patient presents today for a follow-up on Type 2 Diabetes Mellitus: Glucose data available (sensor/reader/meter/pump): Yes / No (Patient needs to sign back into the Hail Varsity gilles in order for BG data to be uploaded.) Last Diabetic eye exam was on: 08/2025, [facility] Last Podiatry exam was on: Patient does not see a Shipmaster Most recent HbA1c: 10.5%, 10/19/2025 Random Glucose: 301 mg/dL L Electronic Engraver Required: No Accompanied by: Self / Same As Patient Allergies ibuprofen Adverse Reaction (Intermediate, Verified 10/19/25 08:45) GI upset HPI Comments Details: Patient is a 49-year-old male with DM type 2 who presents for management of diabetes. Past medical history: Diabetes type 2, hyperlipidemia, hypertension, CAD vitamin-D deficency Micro and macrovascular complications: Nephropathy,a-fib , retinopathy. Patient previously seen by [facility]. this is my 1st encounter with the patient Interval history: Currently using Toujeo 80 units at night and lispro 80 units lunch and dinner; 60 units for breakfast. Did not follow sliding scale provided in the next visit. He is having issues with connecting his sensor to share it with use, hence we do not have data to analyse He has low BG 3-4 times per month Previous: Unable to tolerate metformin due to GI distress Unable to tolerate Jardiance due to polyuria and due to yeast infectionn Fiasp: Previously tried, discontinued due to suspected allergic reaction. Mounjaro: Discontinued due to gastrointestinal side effects. Ozempic: Not used due to potential ocular side effects as advised by the brazer induction. Hypoglycemia: intermittently in the AM Exercise: none Eye Dr: 1.5 months ago Podiatry: No Diet: He reports thatbhe is eating less rice and also the quantity has been reduced. He still puts sugar in the tea. Physical exam: General: Well appearing. NAD. Neck/Thyroid: Thyroid not palpable, no nodules. Eyes: No conjunctival injection, not lid lag or proptosis CV: RRR, no murmur. No edema. Resp:Lungs clear to auscultation bilaterally Abdomen: Soft, nontender. nondistended Extremities/Neuro: No weakness or tremor of outstretched hands Diabetic Foot Exam: Normal sensation to monofilament exam bilaterally Laboratory Tests 09/08/25 10/19/25 10/19/25 09:23 08:49 08:56 Creatinine 1.16 Glucose (Clinic) 301 H Hgb A1c (Clinic) 10.5 H TSH 2.09 Laboratory Tests 12/28/24 12/28/24 04/21/25 08:23 08:30 09:14 Creatinine 1.07 Estimated GFR > 60 Hgb A1c (Clinic) 9.7 H Hemoglobin A1c % 10.4 H Triglycerides 291 H Cholesterol 132 LDL Cholesterol, Calc 49 HDL Cholesterol 25 L Microalb/Creat Ratio 9.8 07/21/25 08:43 Creatinine Estimated GFR Hgb A1c (Clinic) 10.5 H Hemoglobin A1c % Triglycerides Cholesterol LDL Cholesterol, Calc HDL Cholesterol Microalb/Creat Ratio CGM data: not available [facility] Medical History Axillary lymphadenopathy Obstructive sleep apnea hypopnea, severe Obstructive sleep apnea Vitamin D deficiency Vitamin D deficiency PAF (paroxysmal atrial fibrillation) HLD (hyperlipidemia) HTN (hypertension) T2DM (type 2 diabetes mellitus) NAFLD (nonalcoholic fatty liver disease) Essential hypertension Type 2 diabetes mellitus without complications Surgical History History of esophagogastroduodenoscopy (EGD) Family History Father Diabetes Hypertension CVD (cardiovascular disease) Mother Alzheimer's dementia Other Mental health disorder Vitamin D deficiency Social History Household Members: Spouse Both parents involved: No Caregiver staying overnight: No Housing: House Are you a primary director of managed care to a significant other at home: No Do you presently have visiting nurse or other home services: No 75 years or older and lives alone: No Alcohol intake: never Patient Tobacco Use Status: Former Tobacco user e-Cigarette/Vaping Use: Never Used Second Hand Smoke Exposure: No service: No Current occupational status: employed 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 Current occupational exposures/hazards: No Cognitive needs: No Hearing needs: No Vision needs: Yes (Glasses) Physical Exam Vital Signs: Last Vital Signs Pulse 83 10/19/25 08:43 BP 132/84 10/19/25 08:43 Pulse Ox 96 10/19/25 08:43 Oxygen Delivery Method Room Air 10/19/25 08:43 BMI result Body Mass Index 38.4 Results AMB Hemoglobin A1c 2 AMB Hemoglobin A1c 10.5 % Last Edit by REY Anton on 10/19/25 09:0 1 Results Reviewed Results Reviewed: Laboratory Last Values Glucose (Clinic) 301 mg/dL (60-115) H 10/19/25 08:49 Assessment & Plan Assessment & Plan (1) Morbid obesity: Code(s): E66.01 - Morbid (severe) obesity due to excess calories Category: Medical Plan: He needs significant weight loss. We have discussed this many times including today. (2) T2DM (type 2 diabetes mellitus): Code(s): E11.9 - Type 2 diabetes mellitus without complications Category: Medical Qualifiers: 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 termite exterminator insulin use: with termite exterminator use 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 complication status: with hyperglycemia Qualified Code(s): E11.65 - Type 2 diabetes mellitus with hyperglycemia; Z79.4 - rat exterminator (current) use of insulin Plan: Poor control with chronically high hemoglobin A1c levels. His current A1c is similar to last visit, which indicates that he has not made any significant progress in terms of diet, exercise or medication compliance. We discussed the importance of maintaining good glycemic control to avoid complications Discussed with patient that Toujeo dosing should not be based on what the patient eat by Neo on a fixed dose to establish lysed blood sugars, and that NovoLog sliding scale should be used for meal. Advised the patient on increasing physical activity as possible (more than 70 minutes per week or as tolerated) We will advise to administered Toujeo 45 units twice daily Insist on the importance to use Novolog based on sliding scale for better control Treat hypoglycemia (BG <70 mg/dL) with 15 g of carbohydrates and recheck in 15 minutes; repeat if still <70. Monitor for signs of hyperglycemia (BG >250 mg/dL); hydrate and increase BG monitoring frequency. Given patient's interest in pump treatment, I refer him to Diabetes education for him to get started on education about pump Waiting for weight management re-evaluation, advice the patient to call them Follow up in [facility] (3) Obstructive sleep apnea: Code(s): G47.33 - Obstructive sleep apnea (adult) (pediatric) Category: Medical Plan: Severe sleep apnea. CPAP. Plan 30 minutes spent reviewing previous records, labs, imaging, education and documenting in the chart Orders: Orders 2 AMB Hemoglobin A1c Today E11.65 - Type 2 diabetes mellitus with hyperglycemia, Z79.4 - rat exterminator (current) use of insulin Patient Instructions: Change Toujeo to 45 units twice daily Use Novolog sliding scale as below: Coding Level of Care Code Est Pt Level 4 (34919) Add On Problem Visit Only Diagnoses Morbid obesity E66.01 Type 2 diabetes mellitus with hyperglycemia, with long-term current use of insulin E11.65; Z79.4 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 penitentiary insulin use: with penitentiary use 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 complication status: with hyperglycemia Obstructive sleep apnea G47.33
[2025-10-19 08:53] LABS: Glucose, Whole Blood 301 mg/dL (60-115)
--- OUTSIDE RECORDS SUMMARY | 2025-10-19 10:29 | XMS_ITS | Encounter Summary ---
Author Organization [facility] Address [address] [place] [address] [place] [address] Phone Care Team Providers Care Supervisor Lens Generating Name Role Phone Guzman Gonzalez MD Primary Care Provider Encounter Details Date Type Department Care Team ([facility] st Contact Info) Description 09/18/2025 Orders Only [facility] [address] [address] Thais Maria MD [address] [place] [address] [email or web address] Social History Tobacco Use Types Packs/Day [...] Description 12/29/2025 10:10 AM EDT Office Visit [facility] [address] [address] Lonnie Barriga MD, PhD [address] [place] [address] [email or web address] documented as of this encounter Visit Diagnoses Not on filedocumented in this encounter Care Teams Supervisor Lens Generating Relationship Specialty Start Date End Date Guzman Gonzalez MD PCP - General Family Medicine 03/30/22 documented as of this encounter Additional Source Comments The information contained in this document represents components of the legal health record. It is not the complete legal health record.[facility]
--- OUTSIDE RECORDS SUMMARY | 2025-10-19 10:29 | XMS_ITS | Patient Health Record ---
Author Organization [facility] Address [address] [facility] 4TH [place] [address] Care Team Providers Care Career And Transition Teacher Name Role Phone Guzman Gonzalez Primary Care Provider Unavailab Allen Oh Unavailable [phone] Allergies No Known Allergies Reason For Referral [...] Notes Problem Allergic rhinitis caused by pollen (30544395) Seasonal allergic rhinitis due to pollen (J30.1) Active confirmed Problem Acute pansinusitis (4237275) Acute non-recurrent pansinusitis (J01.40) Active confirmed Plan Of Treatment No Information Insurance Providers Payer Name Payer Address Payer Phone Subscriber Number Group Number Insured Name Patient Relationship to Insured Coverage Start Date Coverage End Date Aetna-PPO [address] [place], [place] [id number] Luke Castañeda Self - patient is the insured [facility] [address] [place] [phone] [id number] Luke Castañeda Self - patient is the insured Medical (General) History Medical History History ICD Code High blood pressure diabetes Allergy to Steroids Surgical History Surgery Date(Month/Year)
--- OUTSIDE RECORDS SUMMARY | 2025-10-19 10:29 | XMS_ITS | Encounter Summary ---
Author Organization [facility] Address [address] [place] [address] Phone Care Team Providers Care Harness Racing Handicapper Name Role Phone Guzman Gonzalez MD Primary Care Provider Encounter Details Date Type Department Care Team (Late st Contact Info) Description 05/21/2024 Transcribe Orders Virtual Department [address] [place] [address] Treri Salgado NP [address] [place] [address] [place] [id number] Social History Tobacco Use Types Packs/Day Years [...] Description 12/29/2025 10:10 AM EDT Office Visit [facility] [address] [address] Lonnie Barriga MD, PhD [address] [place] [address] [email or web address] documented as of this encounter Visit Diagnoses Not on filedocumented in this encounter Care Teams Harness Racing Handicapper Relationship Specialty Start Date End Date Guzman Gonzalez MD PCP - General Family Medicine 03/30/22 documented as of this encounter Additional Source Comments The information contained in this document represents components of the legal health record. It is not the complete legal health record.[facility]
--- OUTSIDE RECORDS SUMMARY | 2025-10-19 10:29 | XMS_ITS | Clinical Summary ---
Author Organization [facility] Address [address] [place] [address] Phone Care Team Providers Care Farm Technician Name Role Phone Guzman Gonzalez MD [...] 28 each 2 2 Active hypromellose (ARTIFICIAL TEARS,[id number], ) Drop Place 1 drop into each eye as needed. 30 mL 12 2 Active hypromellose (ARTIFICIAL TEARS,[id number], ) Drop Place 1 drop into each [...] Type Department Care Team Description 09/28/2025 Telephone [facility] [address] [place] [address] Lonnie Barriga MD, PhD 09/28/2025 Telephone [facility] [address] [place] [address] Lonnie Barriga MD, PhD 09/18/2025 Telephone [facility] [address] [place] [address] Thais Maria MD 09/18/2025 Orders Only [facility] [address] [place] [address] Thais Maria MD 09/18/2025 Telephone [facility] [address] [place] [address] Thais Maria MD 09/10/2025 Telephone [facility] [address] [place] [address] Lonnie Barriga MD, PhD 09/10/2025 Telephone [facility] [address] [place] [address] Lonnie Barriga MD, PhD 08/25/2025 11:00 AM EST Office Visit [facility] [address] [place] [address] Lonnie Barriga MD, PhD PROTECTION SPECIALIST (central serous retinopathy), bilateral (Primary Dx); Both [...] Description 12/29/2025 10:10 AM EDT Office Visit [facility] [address] [place] [address] Lonnie Barriga MD, PhD [address] [place] [id number] [email or web address] Health Maintenance Due Date Last Done Comments [...] BOTH EYES Routine 08/25/2025 12:06 PM EST PROTECTION SPECIALIST (central serous retinopathy), 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, associated with type 2 diabetes mellitus Nuclear sclerotic cataract, bilateral NAION (non-arteritic anterior ischemic optic neuropathy), right eye COLOR FUNDUS PHOTOGRAPHY - OU - BOTH EYES Routine 08/25/2025 12:06 PM EST PROTECTION SPECIALIST (central serous retinopathy), 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, associated with type 2 diabetes mellitus Nuclear sclerotic cataract, bilateral NAION (non-arteritic anterior ischemic optic neuropathy), right eye AUTOFLUORESCENCE - OU - BOTH EYES Routine 08/25/2025 12:06 PM EST PROTECTION SPECIALIST (central serous retinopathy), 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, associated with type 2 diabetes mellitus Nuclear sclerotic cataract, bilateral NAION (non-arteritic anterior ischemic optic neuropathy), right eye from Last 3 Months Results * OCT, RETINA - OU - BOTH EYES - [place] (08/25/2025 12:06 PM EST) Narrative HARMONY - [...] Photography Narrative 08/25/2025 12:53 PM EST 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 EXPL[facility]ER POS Care Teams Farm Technician Relationship Specialty Start Date End Date Guzman Gonzalez MD PCP - General Family Medicine 03/30/22 Additional Source Comments The information contained in this document represents components of the legal health record. It is not the complete legal health record.[facility]
--- OUTSIDE RECORDS SUMMARY | 2025-10-19 10:29 | XMS_ITS | Encounter Summary ---
Author Organization [facility] Address [address] [place] [address] [place] [address] Phone Care Team Providers Care Device Repair Technician Name Role Phone Guzman Gonzalez MD Primary Care Provider Encounter Details Date Type Department Care Team (Late st Contact Info) Description 09/10/2025 Telephone [facility] [address] [address] Lonnie Barriga MD, PhD [address] [place] [address] Carlos [email or web address] Social History Tobacco Use Types Packs/Day Years [...] Description 12/29/2025 10:10 AM EDT Office Visit [facility] [address] [address] Lonnie Barriga MD, PhD [address] [place] [address] [email or web address] documented as of this encounter Visit Diagnoses Not on filedocumented in this encounter Care Teams Device Repair Technician Relationship Specialty Start Date End Date Guzman Gonzalez MD PCP - General Family Medicine 03/30/22 documented as of this encounter Additional Source Comments The information contained in this document represents components of the legal health record. It is not the complete legal health record.[facility]
--- OUTSIDE RECORDS SUMMARY | 2025-10-19 10:29 | XMS_ITS | Encounter Summary ---
Author Organization [facility] Address [address] [place] [address] [place] [address] Phone Care Team Providers Care Inside Tester Name Role Phone Guzman Gonzalez MD Primary Care Provider Encounter Details Date Type Department Care Team (Late st Contact Info) Description 09/28/2025 Telephone [facility] [address] [address] Lonnie Barriga MD, PhD [address] [place] [address] Carlos [email or web address] Social History Tobacco Use Types Packs/Day [...] reported he was recently seen by local field staff manager last week. But is calling today because [...] Description 12/29/2025 10:10 AM EDT Office Visit [facility] [address] [place] [address] Lonnie Barriga MD, PhD [address] [place] [address] [email or web address] documented as of this encounter Visit Diagnoses Not on filedocumented in this encounter Care Teams Inside Tester Relationship Specialty Start Date End Date Guzman Gonzalez MD PCP - General Family Medicine 03/30/22 documented as of this encounter Additional Source Comments The information contained in this document represents components of the legal health record. It is not the complete legal health record.[facility]
== END 2025-10-19 09:15 | disposition home or self-care (01) ==
LOC: HO.ENCR 08:41
PROVIDERS: PCP Family Medicine; Visit Provider Student in an Organized Health Care Education/Training Program
DX: E66.01 Morbid (severe) obesity due to excess calories (principal); E11.65 Type 2 diabetes mellitus with hyperglycemia; Z79.4 Long term (current) use of insulin; G47.33 Obstructive sleep apnea (adult) (pediatric)
CPT/HCPCS: 99214; G2211

== ENCOUNTER → 2025-10-19 08:41 | Outpatient (BNVA) | payer OTHER, SELFPAY | PROVIDERS: PCP Family Medicine; Visit Provider Student in an Organized Health Care Education/Training Program | DX: E11.65 Type 2 diabetes mellitus with hyperglycemia (principal); G47.33 Obstructive sleep apnea (adult) (pediatric); E66.01 Morbid (severe) obesity due to excess calories; Z68.38 Body mass index [BMI] 38.0-38.9, adult; Z79.4 Long term (current) use of insulin | CPT/HCPCS: 82947; 83036 ==